=== PATIENT | female | born 1940 | race Two or more races ===

== ENCOUNTER 2018-11-18 21:26 | Inpatient (IN) | payer OTHER ==
[2018-11-18] MEDS ORDERED: MAGNESIUM SULF 50% (8.12 MEQ/2 ML-1 GM VIAL) IVPB ONE (22:28)
[2018-11-18] MEDS ORDERED: ALBUTEROL SO4 2.5/IPRATROPIUM 0.5 INH SOL 3 ML VIAL.NEB. NEB ONE ×2 (22:28→23:13)
[2018-11-18] MEDS ORDERED: methylPREDNISolone NA SUCC 125 MG/2 ML VIAL IVPUSH ONE (22:28)
[2018-11-18] MEDS ORDERED: ACETAMINOPHEN 1000 MG/100 ML VIAL (NON FORMULARY) IVPB ONE (22:38)
--- NOTE | 2018-11-18 22:42 | PDOC ---
History of Present Illness - General Chief Complaint: Injury Stated Complaint: CHEST PAIN Time Seen by Provider: 11/18/18 22:17 History Source: Patient, Significant Other (Celia ) Exam Limitations: No Limitations - History of Present Illness Initial Comments: 11/18/18 22:34 78y F with PMH of COPD (not on home O2), HTN, HLD, Osteoporosis, DM (not on medication anymore) presenting to ED with complaints of head, chest and abdominal pain after tripping over her bed last night at 0200. Pt states she tripped because she was feeling lightheaded and hit her head, chest and abdomen on her bed. She did not lose consciousness after the event or throughout the day but is worried about the pain. The headache is R sided, the chest pain is right sided and substernal and the abdominal pain is diffuse. She also endorses increasing SOB and using her inhaler more frequently. Endorses cough productive of yellow sputum. Denies n/v/d, numbness/tingling, weakness, back pain, leg pain , hematuria, urinary frequency/urgency/dysuria, diarrhea, constipation. Last BM was yesterday and was normal. PMD: Ulysses PMH: see hpi Meds: see med rec Allergies: nkda Social: 1/2ppd Past History - Past Medical History Allergies/Adverse Reactions: Allergies Allergy/AdvReac Type Severity Reaction Status Date / Time metformin AdvReac Verified 11/10/17 06:59 Home Medications: Ambulatory Orders Gabapentin 300 mg PO TID 11/06/17 Lisinopril [Prinivil -] 40 mg PO DAILY 11/06/17 Nifedipine ER [Procardia XL -] 30 mg PO DAILY 11/06/17 Propranolol HCl [Propranolol HCl ER] 80 mg PO DAILY 11/06/17 Albuterol Sulfate Inhaler - [Ventolin HFA Inhaler -] 1 - 2 inh PO Q4H #2 inhaler 11/12/17 Arformoterol Tartrate [Brovana -] 1 amp NEB RBID #1 amp 11/12/17 Methadone [Dolophine -] 20 mg PO DAILY@0600 tablet MDD 20 11/12/17 Polyethylene Glycol 3350 [Miralax (For Bowel Prep) -] 17 gm PO DAILY #1 bottle 11/12/17 Prednisone 10 mg PO DAILY #40 tablet 11/12/17 Sennosides/Docusate Sodium [Pericolace -] 2 each PO HS #60 tablet 11/12/17 Albuterol Sulfate Inhaler - [Ventolin HFA Inhaler -] 1 - 2 inh PO Q4H PRN #2 inhaler 11/13/17 Arformoterol Tartrate [Brovana] 15 mcg IH BID #1 ml 11/13/17 Polyethylene Glycol 3350 [Miralax (For Daily Use) -] 17 gm PO DAILY #1 bottle Prednisone See Taper PO DAILY #40 tablet 11/13/17 Sennosides/Docusate Sodium [Pericolace -] 2 each PO HS #60 tablet 11/13/17 Anemia: No Asthma: No Cancer: No Cardiac Disorders: No CVA: No COPD: Yes CHF: No DVT: No Dementia: No Diabetes: Yes GI Disorders: Yes Disorders: No HTN: Yes Hypercholesterolemia: Yes Liver Disease: No Seizures: No Thyroid Disease: No - Surgical History Abdominal Surgery: No Appendectomy: No Cardiac Surgery: No Cholecystectomy: No Lung Surgery: No Neurologic Surgery: No Orthopedic Surgery: No - Immunization History Immunization Up to Date: Yes - Psycho Social/Smoking Cessation Hx Smoking History: Never smoked Have you smoked in the past 12 months: No Number of Cigarettes Smoked Daily: 10 Information on smoking cessation initiated: No 'Breaking Loose' booklet given: 11/06/17 Hx Alcohol Use: No Drug/Substance Use Hx: No Substance Use Type: None Hx Substance Use Treatment: Yes (ON METHADONE,[facility]) Review of Systems - Review of Systems Constitutional: No: Chills, Fever, Weakness HEENTM: No: Symptoms Reported Respiratory: Yes: Shortness of Breath, Productive cough Cardiac (ROS): Yes: See HPI, Chest Pain, Lightheadedness ABD/GI: Yes: See HPI : No: Burning, Hematuria Musculoskeletal: No: Symptoms Reported Integumentary: No: Symptoms Reported Neurological: No: Symptoms reported *Physical Exam - Vital Signs Last Vital Signs Temp Pulse Resp BP Pulse Ox 100.8 F H 92 H 18 171/66 H 99 11/18/18 21:27 11/18/18 21:27 11/18/18 21:27 11/18/18 21:27 11/18/18 21:27 - Physical Exam General Appearance: Yes: Nourished, Appropriately Dressed. No: Apparent Distress HEENT: positive: EOMI, CHIP, Pale Conjunctivae Neck: positive: Trachea midline, Supple Respiratory/Chest: positive: Chest Tender, Wheezing. negative: Respiratory Distress, Labored Respiration, Rhonchi, Stridor, Plerual Rub Cardiovascular: positive: Regular Rhythm, Regular Rate, S1, S2. negative: Edema , JVD, Murmur Vascular Pulses: Dorsalis-Pedis (R): 2+, Doralis-Pedis (L): 2+ Gastrointestinal/Abdominal: positive: Normal Bowel Sounds, Tender, Soft. negative: Guarding, Rebound Musculoskeletal: negative: CVA Tenderness Extremity: positive: Pelvis Stable. negative: Swelling, Calf Tenderness Integumentary: positive: Normal Color, Dry, Warm. negative: Pale Neurologic: positive: recyclable materials sorter II-XII NML intact, Fully Oriented, Alert, Normal Mood/ Affect, Normal Response, Motor Strength 06/11 ED Treatment Course - LABORATORY CBC & Chemistry Diagram: 11/18/18 23:10 11/18/18 23:10 - RADIOLOGY Radiology Studies Ordered: Category Date Time Status ABDOMEN & PELVIS CT WITH CONTR [CT] Stat CT Scan 11/18/18 22:30 Ordered CHEST PA & LAT [RAD] Stat Radiology 11/18/18 22:18 Ordered Medical Decision Making - Medical Decision Making 11/19/18 02:09 78y F with PMH of COPD, HTN, HLD presenting to ED with complaints of chest, abdominal pain and headache after falling due to lightheadedness. Denies LOC. Also complaining of SOB. vitals wnl PE: diffuse wheezing, chest wall, abdominal tenderness. normal neurological exam. NO bruising noted. ddx includes but not lmited to copd exacerbation, pna, ptx, abdominal bleed, head bleed labs including trop, coags, ts, CT head chest AP, cxr, ekg -iv fluids, ofirmev. labs show low wbc, h/h and platelets. elevated MCV. Pt states she saw her pmd 2w ago for a physical. 3d ago she was told her blood levels are low and had repeat testing. States she is feeling slightly better breathing howell. fever could be due to leukemia/lymphoma. UA negative for infection. cmp wnl. CXR: no infiltrates or consolidations. Pending CT results guaiac negative. Pt agreed to oraquick test. Hgb drop 4u since last year. 11/19/18 02:31 CT chest:There is no aortic dissection or aneurysm. Mediastinal hematoma. There is no significant mediastinal or hilar adenopathy. The heart size is normal. The trachea and bronchi are patent. There is no pleural or pericardial effusion. The lungs are clear. No pneumothorax. No fractures. CT abdomen and pelvis:Normal liver, gallbladder, pancreas, spleen, adrenal glands and kidneys. The stomach and abdominal small and large bowel are normal. There is no aortic aneurysm. There is no significant retroperitoneal lymphadenopathy. No retroperitoneal hematoma. he pelvic small and large bowel are normal. The appendix is normal. The uterus and adnexalstructures are notable only for a small calcified fibroid.. Urinary bladder is unremarkable. There is no pelvic free fluid. No discrete pelvic lymphadenopathy is identified. No fractures. CT head: he ventricular system is midline and nondilated. The sulcal pattern is normal for the patient's age. Mild small vessel ischemic changes are noted. There is no bleed, mass, extra-axial fluid collection or mass effect. No skull fracture or skull lesion is identified. The visualized paranasal sinuses and mastoid air cells are clear Will start azithromycin 500mg for copd exacerbation patient will benefit from admission for copd exacerbation, pancytopenia and lightheadedness likely 2/2 anemia. pending ua, will treat if infection is present. Discharge - Discharge Information Problems reviewed: Yes Clinical Impression/Diagnosis: COPD with acute exacerbation, Pancytopenia Condition: Stable - Admission Yes - Follow up/Referral Referrals: Ana Arora [Primary Care Provider] - - Patient Discharge Instructions - Post Discharge Activity
[2018-11-18] MEDS ORDERED: methylPREDNISolone NA SUCC 125 MG/2 ML VIAL ONE (23:13)
[2018-11-18] MEDS ORDERED: ACETAMINOPHEN INJECTION 100 ML IVPB ONE (23:13)
[2018-11-18 23:24] LABS: BASO % 0.6 % (0-2.0); HEMATOCRIT 24.1 % (32.4-45.2); LYMPH % 59.4 % (8-40); MCH 41.4 pg (25.7-33.7); MCHC 33.2 g/dl (32.0-36.0); MEAN CELL VOLUME 124.9 fl (80-96); MONO % 5.7 % (3.8-10.2); NEUT % 33.3 % (42.8-82.8); RBC 1.93 M/mm3 (3.60-5.2); RDW 18.1 % (11.6-15.6); WHITE BLOOD COUNT 2.4 K/mm3 (4.0-10.0)
[2018-11-18 23:35] LABS: INR 1.18 (0.83-1.09); PROTHROMBIN TIME (PATIENT) 13.9 SEC (9.7-13.0)
[2018-11-18 23:44] LABS: BILIRUBIN,TOTAL 0.6 mg/dL (0.2-1); CALCIUM 8.7 mg/dL (8.5-10.1); TOT PROT 7.8 g/dl (6.4-8.2)
[2018-11-18] MEDS ORDERED: SODIUM CHLORIDE 1,000 ML IV STA (23:45)
[2018-11-18 23:50] LABS: ANISOCYTOSIS 1+; MACROCYTOSIS 2+; PLATELET ESTIMATE DECREASED
[2018-11-19 02:12] LABS: MEAN PLT VOLUME 7.6 fl (7.5-11.1)
[2018-11-19 02:15] LABS: PLATELET COUNT 57 K/MM3 (134-434)
[2018-11-19] MEDS ORDERED: AZITHROMYCIN IVPB 500 MG in DEXTROSE 5%-WATER - 250 ML IVPB ONE (02:30)
[2018-11-19] MEDS ORDERED: AZITHROMYCIN IVPB 500 MG/250 ML BAG IVPB ONE (02:33)
--- NOTE | 2018-11-19 02:47 | PDOC ---
Documentation entered by Cassi Zepeda SCRIBE, acting as scribe for Verito Fine MD. Verito Fine MD: This documentation has been prepared by the luzibe, Cassi Zepeda SCRIBE, under my direction and personally reviewed by me in its entirety. I confirm that the documentation accurately reflects all work, treatment, procedures, and medical decision making performed by me. Attending Attestation - Resident Resident Name: Sa Mirnaira - ED Attending Attestation I have performed the following: I have examined & evaluated the patient, The case was reviewed & discussed with the resident, I agree w/resident's findings & plan, Exceptions are as noted - HPI HPI: 11/19/18 00:53 The patient is a 78-year-old female with a past medical history significant for COPD (not on home O2), HTN, HLD, osteoporosis, and DM (no longer on medications ) who presents to the emergency department s/p a fall last night around 2:00 am , now complaining of abdominal, head and chest pain. The patient reports she was walking without her walker (like she usually does at home) when she felt lightheaded. She reached for support, but nothing was nearby, leading to the fall. The patient reports injuring her head, chest, and abdomen, now complaining of a right-sided headache, right side chest pain, and diffuse abdominal pain that has been worsening. The patient reports an additional complaints of increased shortness of breath and productive cough with yellow sputum production. She also reports 2 days of subjective fevers. Denies nausea, vomiting, or chills. Denies LOC. The patient reports having bloodwork done with her PCP a couple of weeks ago, which was noted to be abnormal - pt does not know specifically what the abnormality was. The patient had bloodwork rechecked on Tuesday, results pending. Per the family member at the bedside, the patient was noted to have difficulty finding words and difficulty following directions since this morning. Denies dysuria, visual sxs, dizziness, focal weakness/numbness, abd pain, LE edema. Allergies: metformin PCP: DR. Arora - Physicial Exam PE: 11/19/18 02:11 GENERAL: Awake, alert, and fully oriented, in no acute distress. Chronically ill appearing HEAD: No signs of trauma EYES: PERRLA, EOMI, sclera anicteric, conjunctiva clear ENT: Nares patent, oropharynx clear without exudates. Moist mucosa NECK: Normal ROM, supple, no lymphadenopathy, JVD, or masses LUNGS: Breath sounds equal, clear to auscultation bilaterally. No wheezes, and no crackles HEART: Regular rate and rhythm, normal S1 and S2, no murmurs, rubs or gallops ABDOMEN: Soft, nontender, normoactive bowel sounds. No guarding, no rebound. No masses EXTREMITIES: Normal range of motion, no edema. No cords, erythema, or tenderness NEUROLOGICAL: Normal speech, cranial nerves intact, negative pronator drift, 5/ 5 strength in all 4 extremities, normal sensation to light touch in all 4 extremities, normal cerebellar exam, normal gait, normal reflexes and tone SKIN: Warm, Dry, normal turgor, no rashes or lesions noted. - Medical Decision Making 11/19/18 02:45 78-year-old female presents the emergency department with headache, chest, and abdominal pain since a fall last night. CT head, chest, abdomen and pelvis for trauma work-up is negative for any acute findings. Fall was preceded by lightheadedness. In addition patient reports 2 days of fever and some shortness of breath, she is febrile here in the emergency department. Initially with diffuse wheezing consistent with COPD exacerbation. Wheezing and shortness of breath improved with nebulizers, steroids, and magnesium. We will add azithromycin given the fever. Labs remarkable for pancytopenia including leukopenia with moderate neutropenia, thrombocytopenia, and anemia of unknown etiology. Patient orally consents for HIV testing in light of pancytopenia, which is pending. Anticipate admission for pancytopenia (which is new compared to previous blood work), COPD exacerbation, fever, and possible syncope last night. Heart Score/ECG Review #1 11/19/18 02:45 Twelve-lead EKG was performed and reviewed by me. Normal sinus rhythm, rate 84. Normal axis and intervals. No ST elevations or T wave inversions.
--- NOTE | 2018-11-19 03:23 | PN ---
<Piotr Abarca - Last Filed: 11/19/18 05:58> Teaching Attending Note Name of Resident: Vida Torres ATTENDING PHYSICIAN STATEMENT I saw and evaluated the patient. I reviewed the resident's note and discussed the case with the resident. I agree with the resident's findings and plan as documented. SUBJECTIVE: Patient is a 78 year old woman with a PMH of COPD (not on home O2), Tobacco use , HTN, HLD, Osteoporosis and Diet-controlled DM presenting to ER with complaints of head, chest and abdominal pain after tripping over her bed last night at 0200. Patient states she tripped because she was feeling lightheaded and hit her head, chest and abdomen on her bed. She did not loose consciousness after the event or throughout the day but is worried about the pain. The headache is right-sided, the chest pain is right-sided and substernal and the abdominal pain is diffuse. She also has nausea, increasing SOB and using her inhaler more frequently. She has cough productive of yellow sputum. Denies vomiting, diarrhea, numbness/tingling, weakness, back pain, leg pain, hematuria , urinary frequency, urgency, dysuria, diarrhea or constipation. No recent travel or obvious sick contacts. Denies alcohol abuse or illicit drug use. Last BM was yesterday and was normal. Has FH of throat cancer and acute AL. OBJECTIVE: Alert Vital Signs Period Temp Pulse Resp BP Sys/Peter Pulse Ox Last 24 Hr 100.8 F 92 18 171/66 99 HEENT: No Jaundice, eye redness or discharge, PERRLA, EOMI. Normocephalic, atraumatic. External ears are normal and hearing is grossly intact. No nasal discharge. Neck: Supple, nontender. No palpable adenopathy or thyromegaly. No JVD Chest: Good effort. Diffuse expiratory wheezing. Clear to percussion. Heart: Regular. No S3, rub or murmur Abdomen: Not distended, soft, nontender and no HSM. No rebound or guarding. Normal bowel sounds. Ext: Peripheral pulses intact. No leg edema. Skin: Warm and dry. No petechiae, rash or ecchymosis. Neuro: Alert. Oriented x3. CN 2-12 grossly intact. Sensation grossly intact in all four extremities and DTR are symmetric. Psych: Appropriate mood and affect. Good insight. Current Medications Generic Name Dose Route Start Last Admin Trade Name Parrish PRN Reason Stop Dose Admin Azithromycin 500 mg/ Dextrose 250 mls @ 250 mls/hr 11/19/18 02:30 11/19/18 02 :34 IVPB 11/19/18 03:29 250 mls/hr ONCE ONE Administration Home Medications Medication Instructions Recorded Gabapentin 300 mg PO TID 11/06/17 Lisinopril [Prinivil -] 40 mg PO DAILY 11/06/17 Nifedipine ER [Procardia XL -] 30 mg PO DAILY 11/06/17 Propranolol HCl [Propranolol HCl 80 mg PO DAILY 11/06/17 ER] Albuterol Sulfate Inhaler - 1 - 2 inh PO Q4H #2 inhaler 11/12/17 [Ventolin HFA Inhaler -] Arformoterol Tartrate [Brovana -] 1 amp NEB RBID #1 amp 11/12/17 Methadone [Dolophine -] 20 mg PO DAILY@0600 tablet MDD 20 11/12/17 Polyethylene Glycol 3350 [Miralax 17 gm PO DAILY #1 bottle 11/12/17 (For Bowel Prep) -] Prednisone 10 mg PO DAILY #40 tablet 11/12/17 Sennosides/Docusate Sodium 2 each PO HS #60 tablet 11/12/17 [Pericolace -] Albuterol Sulfate Inhaler - 1 - 2 inh PO Q4H PRN #2 inhaler 11/13/17 [Ventolin HFA Inhaler -] Arformoterol Tartrate [Brovana] 15 mcg IH BID #1 ml 11/13/17 Polyethylene Glycol 3350 [Miralax 17 gm PO DAILY #1 bottle 11/13/17 (For Daily Use) -] Prednisone See Taper PO DAILY #40 tablet 11/13/17 Sennosides/Docusate Sodium 2 each PO HS #60 tablet 11/13/17 [Pericolace -] Abnormal Lab Results 11/18/18 11/18/18 11/18/18 23:10 23:10 23:10 WBC 2.4 L RBC 1.93 L Hgb 8.0 L Hct 24.1 L D MCV 124.9 H MCH 41.4 H D RDW 18.1 H Plt Count 57 L D Absolute Neuts (auto) 0.8 L Neutrophils % 33.3 L D Lymphocytes % 59.4 H D PT with INR 13.90 H INR 1.18 H Anion Gap 5 L BUN 20.0 H Random Glucose 136 H AST 8 L ALT 10 L ASSESSMENT AND PLAN: 1. Fall/COPD exacerbation/Pancytopenia - Patient says she was recently told about anemia and "other" abnormal laboratory tests, suggesting that pancytopenia may no be acute. Fall may be due to anemia or acute febrile illness. No acute abnormality on CXR, Head CT, Chest CT, or Abdomen/Pelvis CT. EKG shows NSR with no significant ST-T wave changes and initial troponin is negative. Sepsis workup done. UA pending. Monitor CBC daily. Will treat with IV vancomycin and zosyn for neutropenic fever of unknown source and implement reverse isolation. Get flu swab, serial stool guaiacs, reticulocyte count, iron studies, vitamin B12 and folate levels. Consult hematology and ID. Does not have an official diagnosis of COPD. Will treat with solumedrol, duoneb, symbicort, azithromycin, O2 and consult Pulmonary. Will continue comprehensive care for all of patients comorbid conditions. 2. Diet-controlled DM We will implement sliding scale insulin regimen. Provide comprehensive diabetes care with patient teaching and counseling about the importance of adherence to prescribed diabetes regimen, euglycemia, eye care and foot care. 3. Tobacco Use Counseled on risks associated with tobacco use. We will provide patient all the necessary assistance to facilitate smoking cessation and prescribe Nicotine patch. 4. Uncontrolled Hypertension - Restart suitable outpatient antihypertensive drugs when clinically appropriate. Revise regimen to ensure [id number] excellent BP control and scholarship counselor patient on the injurious effects of uncontrolled hypertension. Nonpharmacologic measures to control hypertension like weight loss, salt restriction and exercise discussed. Importance of adherence to treatment regimen and attainment of normotension emphasized. 5. DVT prophylaxis - Early ambulation. SCDs or heparin not safe with severe thrombocytopenia. 6. Advance directives - Full code <Walter Soares - Last Filed: 11/19/18 12:22> Teaching Attending Note Please refer to above for this 24 hourperiod exam for billing Acute on chronic respiratory failure 2/2 copd on o2, nebs, medrol DM Tobacco abuse HTN HLD Pancytopenia
--- NOTE | 2018-11-19 04:46 | HP ---
CHIEF COMPLAINT: weakness, fall PCP: Bhavin HISTORY OF PRESENT ILLNESS: Ms. Brown is a 78y/o female with pulmonary disease, HTN, HLD, osteoporosis, and DM who presents with weakness and fall. Patient reports 3 days of increased weakness and fatigue, to the point of being bedbound. Early yesterday morning the patient was walking in her bedroom and suddenly became lightheaded. She reached for her dresser to catch herself but fell and hit her head and chest on the bedpost and right knee on the ground where she landed. Her roommate (sister- in-law) heard her scream, and she came to help her up. The patient uses a walker only outside of the house. She reports not going to the ED because the pain was not very bad. She continued to feel weaker over the course of the day and developed a fever of 102. Her efcchk-ez-bod called EMS. The patient is reporting associated shortness of breath (and requiring inhaler more often), non -productive cough, sinus congestion, and nausea. No recent sick contacts. She also has chest pain and knee pain from the fall. The patient also saw her PCP earlier this month for her annual physical. She reports being told she was anemic (endorses previous hx years ago) and other blood levels being low. She is waiting on results of follow up labs. Flu shot received on 11/15/18. She does not have a journalists and other writers and reports having asthma and not diagnosed with COPD. ER course was notable for: (1) CT head, chest, abdomen, pelvis negative for acute pathology (2) pancytopenia WBC 2.4, Hb 8, Plt 57; ANC 0.8; macrocytosis 124 (3) Mg, solu-medrol, albuterol, azithromycin PAST MEDICAL HISTORY: pulmonary disease, HTN, HLD, osteoporosis, and DM PAST SURGICAL HISTORY: hernia repair 03/[address] [facility] Social History: Smokin.5-1.5ppd for 54 years Alcohol: denies Drugs: former user Pt lives at home with sister in law. Allergies metformin Adverse Reaction (Verified 11/10/17 06:59) HOME MEDICATIONS: Home Medications Medication Instructions Recorded Gabapentin 300 mg PO TID 11/06/17 Lisinopril [Prinivil -] 40 mg PO DAILY 11/06/17 Nifedipine ER [Procardia XL -] 30 mg PO DAILY 11/06/17 Propranolol HCl [Propranolol HCl 80 mg PO DAILY 11/06/17 ER] Albuterol Sulfate Inhaler - 1 - 2 inh PO Q4H #2 inhaler 11/12/17 [Ventolin HFA Inhaler -] Arformoterol Tartrate [Brovana -] 1 amp NEB RBID #1 amp 11/12/17 Methadone [Dolophine -] 20 mg PO DAILY@0600 tablet MDD 20 11/12/17 Polyethylene Glycol 3350 [Miralax 17 gm PO DAILY #1 bottle 11/12/17 (For Bowel Prep) -] Prednisone 10 mg PO DAILY #40 tablet 11/12/17 Sennosides/Docusate Sodium 2 each PO HS #60 tablet 11/12/17 [Pericolace -] Albuterol Sulfate Inhaler - 1 - 2 inh PO Q4H PRN #2 inhaler 11/13/17 [Ventolin HFA Inhaler -] Arformoterol Tartrate [Brovana] 15 mcg IH BID #1 ml 11/13/17 Polyethylene Glycol 3350 [Miralax 17 gm PO DAILY #1 bottle 11/13/17 (For Daily Use) -] Prednisone See Taper PO DAILY #40 tablet 11/13/17 Sennosides/Docusate Sodium 2 each PO HS #60 tablet 11/13/17 [Pericolace -] REVIEW OF SYSTEMS See HPI PHYSICAL EXAMINATION Vital Signs - 24 hr 11/18/18 11/19/18 11/19/18 21:27 01:43 03:45 Temperature 100.8 F H 98.6 F Pulse Rate 92 H Pulse Rate [ 90 Apical] Respiratory 18 19 Rate Blood Pressure 171/66 H Blood Pressure 160/72 [Left Arm] O2 Sat by Pulse 99 99 97 Oximetry (%) 11/19/18 04:20 Temperature 98.6 F Pulse Rate Pulse Rate [ 79 Apical] Respiratory 19 Rate Blood Pressure Blood Pressure 158/100 [Left Arm] O2 Sat by Pulse 96 Oximetry (%) GENERAL: Awake, alert, and fully oriented, in no acute distress. HEAD: Normal with no signs of trauma. EYES: Pupils equal, round and reactive to light EARS, NOSE, THROAT: Ears normal, nares patent, moist mucous membranes. NECK: Normal range of motion LUNGS: Right side rhonchi better heard at base, left side expiratory wheezing HEART: Regular rate and rhythm, no murmur ABDOMEN: Soft, nontender, not distended, normoactive bowel sounds MUSCULOSKELETAL: Normal range of motion at all joints. Right LE 4/5 strength. Left LE 5/5 strength. Chest non-tender to palpation. NEUROLOGICAL: Cranial nerves II-XII grossly intact. Normal speech. PSYCHIATRIC: Cooperative. Good eye contact. Appropriate mood and affect. SKIN: Warm, dry, normal turgor, no rashes or lesions noted, normal capillary refill. Laboratory Results - last 24 hr 11/18/18 11/18/18 11/18/18 23:10 23:10 23:10 WBC 2.4 L RBC 1.93 L Hgb 8.0 L Hct 24.1 L D MCV 124.9 H MCH 41.4 H D MCHC 33.2 RDW 18.1 H Plt Count 57 L D MPV 7.6 D Absolute Neuts (auto) 0.8 L Neutrophils % 33.3 L D Lymphocytes % 59.4 H D Monocytes % 5.7 Eosinophils % 1.0 D Basophils % 0.6 Nucleated RBC % 0 Platelet Estimate Decreased Anisocytosis 1+ Macrocytosis 2+ Schistocytes 1+ PT with INR INR PTT (Actin FS) 28.7 Sodium Potassium Chloride Carbon Dioxide Anion Gap BUN Creatinine Est GFR (CKD-EPI)AfAm Est GFR (CKD-EPI)NonAf Random Glucose Lactic Acid Calcium Total Bilirubin AST ALT Alkaline Phosphatase Troponin I < 0.02 Total Protein Albumin Stool Occult Blood HIV 1&2 Antibody Screen HIV P24 Antigen 11/18/18 11/18/18 11/18/18 23:10 23:10 23:10 WBC RBC Hgb Hct MCV MCH MCHC RDW Plt Count MPV Absolute Neuts (auto) Neutrophils % Lymphocytes % Monocytes % Eosinophils % Basophils % Nucleated RBC % Platelet Estimate Anisocytosis Macrocytosis Schistocytes PT with INR 13.90 H INR 1.18 H PTT (Actin FS) Sodium 138 Potassium 4.0 Chloride 104 Carbon Dioxide 29 Anion Gap 5 L BUN 20.0 H Creatinine 1.0 Est GFR (CKD-EPI)AfAm 62.93 Est GFR (CKD-EPI)NonAf 54.30 Random Glucose 136 H Lactic Acid 1.1 Calcium 8.7 Total Bilirubin 0.6 AST 8 L ALT 10 L Alkaline Phosphatase 115 Troponin I Total Protein 7.8 Albumin 4.0 Stool Occult Blood HIV 1&2 Antibody Screen HIV P24 Antigen 11/19/18 11/19/18 01:03 01:45 WBC RBC Hgb Hct MCV MCH MCHC RDW Plt Count MPV Absolute Neuts (auto) Neutrophils % Lymphocytes % Monocytes % Eosinophils % Basophils % Nucleated RBC % Platelet Estimate Anisocytosis Macrocytosis Schistocytes PT with INR INR PTT (Actin FS) Sodium Potassium Chloride Carbon Dioxide Anion Gap BUN Creatinine Est GFR (CKD-EPI)AfAm Est GFR (CKD-EPI)NonAf Random Glucose Lactic Acid Calcium Total Bilirubin AST ALT Alkaline Phosphatase Troponin I Total Protein Albumin Stool Occult Blood Negative HIV 1&2 Antibody Screen Negative HIV P24 Antigen Negative ASSESSMENT/PLAN: Ms. Brown is a 78y/o female with pulmonary disease, HTN, HLD, osteoporosis, and DM who presents with weakness and fall. Recent labs showed new onset pancytopenia. Patient is currently febrile. #shortness of breath Pt not formally diagnosed with COPD. Reports asthma since childhood. CT chest and CXR do not show infiltrates or evidence of pneumonia -solumedrol -duo-nebs standing -albuterol PRN -pulm consult -flu swab #pancytopenia #macrocytosis #neutropenic fevers Newly diagnosed young. Macrocytosis previously but increased. 100.8 temp at admission. Pt was having labwork done with PCP prior to presentation. Counts decreased since last admission in November 2017. -vanc -zosyn -ID consult -iron studies -B12, folate -alcohol -retic count #fall Imaging negative -fall precautions -OOB with assist #HTN Pt reports compliance with medication -restart home medications when reconciled #DM Pt reports previously on medication. -A1C -add SSI and BGMs if needed FEN PO fluids monitor sodium diet DVT Ppx Lovenox Dispo med/surg Visit type - Emergency Visit Emergency Visit: Yes ED Registration Date: 11/19/18 Care time: The patient presented to the Emergency Department on the above date and was hospitalized for further evaluation of their emergent condition. - New Patient This patient is new to me today: Yes Date on this admission: 11/19/18 - Critical Care Critical Care patient: No ATTENDING PHYSICIAN STATEMENT I saw and evaluated the patient. I reviewed the resident's note and discussed the case with the resident. I agree with the resident's findings and plan as documented. SUBJECTIVE: OBJECTIVE: ASSESSMENT AND PLAN:
[2018-11-19] MEDS ORDERED: ALBUTEROL SO4 8 GM HFA INHALER IH PRN (05:02)
[2018-11-19] MEDS ORDERED: VANCOMYCIN 1 GM in D5W (PRE-DOCKED) 1,000 MG/250 ML IVPB ONE (05:03)
[2018-11-19 05:15] VITALS: BMI 27.3
[2018-11-19] MEDS ORDERED: VANCOMYCIN 1 GRAM (PRE-DOCKED) 1,000 MG/250 ML BAG IVPB ONE (05:15)
[2018-11-19] MEDS: ALBUTEROL SO4 2.5/IPRATROPIUM 0.5 INH SOL 3 ML VIAL.NEB. NEB SCH ×5 (07:06→20:32)
--- NOTE | 2018-11-19 08:24 | EKG ---
Test Reason : Blood Pressure : / mmHG Vent. Rate : 084 BPM Atrial Rate : 084 BPM P-R Int : 178 ms QRS Dur : 082 ms QT Int : 360 ms P-R-T Axes : 054 033 061 degrees QTc Int : 425 ms NORMAL SINUS RHYTHM WITH SINUS ARRHYTHMIA NORMAL ECG WHEN COMPARED WITH ECG OF 06-NOV-2017 02:54, DE INTERVAL HAS DECREASED NONSPECIFIC T WAVE ABNORMALITY NO LONGER EVIDENT IN ANTEROLATERAL LEADS Confirmed by Anjali Madera ([id number]) on 11/19/2018 8:24:27 AM Referred By: Confirmed By:Anjali Madera
[2018-11-19 08:49] LABS: BASO % 0.4 % (0-2.0); HEMATOCRIT 23.2 % (32.4-45.2); HEMOGLOBIN 7.8 GM/dL (10.7-15.3); LYMPH % 58.5 % (8-40); MCHC 33.9 g/dl (32.0-36.0); MEAN CELL VOLUME 125.1 fl (80-96); MEAN PLT VOLUME 7.9 fl (7.5-11.1); MONO % 6.5 % (3.8-10.2); NEUT % 34.6 % (42.8-82.8); PLATELET COUNT 54 K/MM3 (134-434); RBC 1.85 M/mm3 (3.60-5.2); RDW 18.8 % (11.6-15.6)
[2018-11-19 08:53] LABS: MCH 42.4 pg (25.7-33.7)
[2018-11-19 08:57] LABS: WHITE BLOOD COUNT 1.9 K/mm3 (4.0-10.0)
[2018-11-19 09:11] LABS: BLOOD UREA NITROGEN 14.8 mg/dL (7-18); CALCIUM 8.6 mg/dL (8.5-10.1); CREATININE 0.8 mg/dL (0.55-1.3); POTASSIUM 4.2 mmol/L (3.5-5.1)
[2018-11-19 09:30] LABS: EPI CELLS 1.3 /HPF (0-5/HPF); HYALINE CASTS 0 /lpf (0-8); URINE APPEARANCE CLEAR; URINE BACTERIA 48.3 /hpf (NEGATIVE); URINE BILIRUBIN NEGATIVE (NEGATIVE); URINE COLOR YELLOW; URINE GLUCOSE (UA) NEGATIVE (NEGATIVE); URINE KETONE NEGATIVE (NEGATIVE); URINE LEUK ESTERASE NEGATIVE (NEGATIVE); URINE NITRITE NEGATIVE (NEGATIVE); URINE PROTEIN 1+ (NEGATIVE); URINE RBC 1 /hpf (0-4); URINE UROBILINOGEN 0.2 mg/dL (0.2-1.0); URINE WBC 0 /hpf (0-5)
[2018-11-19 09:39] LABS: IRON SERUM 81 ug/dL (50-175); TOTAL IRON BINDING CAPACITY 250 ug/dL (250-450)
[2018-11-19] MEDS ORDERED: ENOXAPARIN NA (PORCINE) 40 MG/0.4 ML DISP.SYRIN SQ SCH (10:00)
[2018-11-19] MEDS ORDERED: PIPERACILLIN/TAZOB 4.5 GM 4.5 GM in DEXTROSE 5%-WATER 100 ML IVPB SCH (10:00)
[2018-11-19] MEDS ORDERED: DEXTROSE 5%-WATER 100 ML IVPB ONE (10:03)
[2018-11-19] MEDS ORDERED: PIPERACILLIN/TAZOBACTAM 4.5 GM VIAL IVPB ONE (10:03)
[2018-11-19] MEDS: methylPREDNISolone NA SUCC 40 MG/1 ML VIAL IVPUSH SCH ×2 (10:11→18:42)
[2018-11-19] MEDS: PIPERACILLIN/TAZOB 4.5 GM 4.5 GM in DEXTROSE 5%-WATER 100 ML IVPB SCH ×2 (10:12→11:02)
--- NOTE | 2018-11-19 12:13 | CON.PULM ---
Consult Consult Specialty:: PULM/CCM Referred by:: KRISTINE Reason for Consultation:: SOB - History of Present Illness Chief Complaint: SOB History of Present Illness: 78 F, known to me from a hospitalization last year for acute hypoxic and hypercapneic respiratory failure. Known history of asthma, more likely COPD, 1/ 2 PPD active smoker, HTN, HLD, osteoporosis, and DM. Admitted via the ER due to 3 days of increased weakness and fatigue. She does report SOB and FRANK. Some dry intermittent cough. No night sweats or hemoptysis. No travel history or sick contacts. CT Chest: no acute process. - History Source History Provided By: Patient Limitations to Obtaining History: No Limitations - Past Medical History Cardio/Vascular: Yes: HTN Pulmonary: Yes: Asthma, Bronchitis, COPD, Pneumonia, Previously Intubated, Sleep Apnea. 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 - was on metformin previously with bad reaction, no longer on it, sugars apparently normal) - Past Surgical History Past Surgical History: Yes: Cataract Removal (right, and laser surgery on eyes) , Colonoscopy (within the year at [facility], had polyps removed) - Alcohol/Substance Use Hx Alcohol Use: No History of Substance Use: reports: Prescription (methadone daily) - Smoking History Smoking history: Current every day smoker Have you smoked in the past 12 months: No Aproximately how many cigarettes per day: 10 - Social History Usual Living Arrangement: Other (with sister) ADL: Independent Home Medications - Allergies Allergies/Adverse Reactions: Allergies Allergy/AdvReac Type Severity Reaction Status Date / Time metformin AdvReac Verified 11/10/17 06:59 - Home Medications Home Medications: Ambulatory Orders Gabapentin 300 mg PO TID 11/06/17 Lisinopril [Prinivil -] 40 mg PO DAILY 11/06/17 Nifedipine ER [Procardia XL -] 30 mg PO DAILY 11/06/17 Propranolol HCl [Propranolol HCl ER] 80 mg PO DAILY 11/06/17 Albuterol Sulfate Inhaler - [Ventolin HFA Inhaler -] 1 - 2 inh PO Q4H #2 inhaler 11/12/17 Arformoterol Tartrate [Brovana -] 1 amp NEB RBID #1 amp 11/12/17 Methadone [Dolophine -] 20 mg PO DAILY@0600 tablet MDD 20 11/12/17 Polyethylene Glycol 3350 [Miralax (For Bowel Prep) -] 17 gm PO DAILY #1 bottle 11/12/17 Prednisone 10 mg PO DAILY #40 tablet 11/12/17 Sennosides/Docusate Sodium [Pericolace -] 2 each PO HS #60 tablet 11/12/17 Albuterol Sulfate Inhaler - [Ventolin HFA Inhaler -] 1 - 2 inh PO Q4H PRN #2 inhaler 11/13/17 Arformoterol Tartrate [Brovana] 15 mcg IH BID #1 ml 11/13/17 Polyethylene Glycol 3350 [Miralax (For Daily Use) -] 17 gm PO DAILY #1 bottle Prednisone See Taper PO DAILY #40 tablet 11/13/17 Sennosides/Docusate Sodium [Pericolace -] 2 each PO HS #60 tablet 11/13/17 Review of Systems - Review of Systems Constitutional: reports: Lethargy, Malaise, Weakness. denies: Chills, Fever, Night Sweats Eyes: reports: No Symptoms HENT: reports: No Symptoms Neck: reports: No Symptoms Cardiovascular: reports: No Symptoms, Shortness of Breath. denies: Chest Pain, Edema, Palpitations Respiratory: reports: Cough, SOB, SOB on Exertion. denies: Hemoptysis, Orthopnea, PND, Snoring, Wheezing Gastrointestinal: reports: No Symptoms Genitourinary: reports: No Symptoms Breasts: reports: No Symptoms Reported Musculoskeletal: reports: No Symptoms Integumentary: reports: No Symptoms Neurological: reports: No Symptoms Endocrine: reports: No Symptoms Hematology/Lymphatic: reports: No Symptoms Psychiatric: reports: No Symptoms Physical Exam Vital Sings: Vital Signs Temperature 98.2 F 11/19/18 05:09 Pulse Rate 77 11/19/18 05:09 Respiratory Rate 19 11/19/18 06:00 Blood Pressure 161/74 11/19/18 05:09 O2 Sat by Pulse Oximetry (%) 94 L 11/19/18 06:00 Constitutional: Yes: Well Nourished, No Distress, Calm Eyes: Yes: Conjunctiva Clear, EOM Intact HENT: Yes: Atraumatic, Normocephalic Neck: Yes: Supple, Trachea Midline Cardiovascular: Yes: Regular Rate and Rhythm Respiratory: Yes: Cough, Diminished, Rhonchi, SOB on Exertion. No: Accessory Muscle Use, Rales, SOB, Stridor, Tachypnea, Wheezes ...Inspection: Yes: WNL ...Clubbing: No Gastrointestinal: Yes: Normal Bowel Sounds, Soft Renal/: Yes: WNL Musculoskeletal: Yes: WNL Extremities: Yes: WNL Edema: No Peripheral Pulses WNL: Yes Integumentary: Yes: WNL Neurological: Yes: WNL, Alert, Oriented ...Motor Strength: WNL Psychiatric: Yes: WNL, Alert, Oriented Labs: CBC, BMP 11/19/18 08:10 11/19/18 08:10 Imaging - Results Chest X-ray: Report Reviewed, Image Reviewed Cat Scan: Image Reviewed Problem List - Problems (1) COPD with acute exacerbation Code(s): J44.1 - CHRONIC OBSTRUCTIVE PULMONARY DISEASE W (ACUTE) EXACERBATION (2) Pancytopenia Code(s): D61.818 - OTHER PANCYTOPENIA (3) Hypertension Code(s): I10 - ESSENTIAL (PRIMARY) HYPERTENSION Qualifiers: Hypertension type: essential hypertension Qualified Code(s): I10 - Essential (primary) hypertension (4) Tobacco dependence due to cigarettes Code(s): F17.210 - NICOTINE DEPENDENCE, CIGARETTES, UNCOMPLICATED Assessment/Plan Medrol BD TX standing and PRN O2 as needed Smoking cessation was discussed VTE prophylaxis Noted ABX: low threshold to stop, do not suspect respiratory tract infection Cedeño-cytopenia workup per primary team Will need outpatient PFTs Will follow Thank you. Dr Arreola
--- NOTE | 2018-11-19 13:25 | PN ---
Progress Note (short form) - Note Progress Note: ID CONSULT DICTATED PANCYTOPENIA FEBRILE NEUTROPENIA ANC 600 AWAIT C/S EMPIRIC ZOSYN HEMATOLOGY CONSULT
[2018-11-19 13:56] LABS: ANISOCYTOSIS 2+; MACROCYTOSIS 2+; OVALOCYTE 1+; PLATELET ESTIMATE DECREASED; TEAR DROP CELLS 1+
[2018-11-19] MEDS ORDERED: DEXTROSE 5%-WATER - 50 ML IVPB ONE (17:29)
[2018-11-19] MEDS ORDERED: PIPERACILLIN/TAZOBACTAM 3.375 GM VIAL IVPB ONE (17:29)
[2018-11-19] MEDS: PIPERACILLIN/TAZOB 3.375 GM 3.375 GM in DEXTROSE 5%-WATER - 50 ML IVPB SCH (17:32)
[2018-11-19] MEDS ORDERED: METHADONE HCL 10 MG TABLET PO ONE (20:11)
--- NOTE | 2018-11-19 21:17 | CONSULT ---
Consult Consult Specialty:: Hematology Referred by:: Dr. Abacra Reason for Consultation:: Pancytopenia - History of Present Illness Chief Complaint: Fall History of Present Illness: 78F with COPD, HTN, hx of treated Hep C presented after a fall preceded by lightheadedness. Found to have pancytopenia with Hgb 7.8 WBC 1.9 (ANC 600) Plt 54, MCV 124. Reports about 5 lb weight loss in the past month. Denies fever, night sweats, bleeding. No dietary restrictions. No hx of stomach issues. Pt follows with PMD at [facility]. CBC was last normal in 02/2018 except for MCV of 110. Macrocytosis has been worsening since 2011. Labs on 11/01/18 and 11/15/18 with Hgb ~8, Plts 70s, ANC ~1000. At the time SPEP and serum FLC ratio normal. Currently feels well overall. Denies SOB, chest pain, dizziness. - Past Medical History Cardio/Vascular: Yes: HTN Pulmonary: Yes: Asthma, Bronchitis, COPD, Pneumonia, Previously Intubated, Sleep Apnea. 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 - was on metformin previously with bad reaction, no longer on it, sugars apparently normal) - Past Surgical History Past Surgical History: Yes: Cataract Removal (right, and laser surgery on eyes) , Colonoscopy (within the year at [facility], had polyps removed) - Alcohol/Substance Use Hx Alcohol Use: No History of Substance Use: reports: Prescription (methadone daily) - Smoking History Smoking history: Current every day smoker Have you smoked in the past 12 months: No Aproximately how many cigarettes per day: 10 - Social History Usual Living Arrangement: Other (with sister) ADL: Independent Home Medications - Allergies Allergies/Adverse Reactions: Allergies Allergy/AdvReac Type Severity Reaction Status Date / Time metformin AdvReac Verified 11/10/17 06:59 - Home Medications Home Medications: Ambulatory Orders Gabapentin 300 mg PO TID 11/06/17 Lisinopril [Prinivil -] 40 mg PO DAILY 11/06/17 Nifedipine ER [Procardia XL -] 30 mg PO DAILY 11/06/17 Propranolol HCl [Propranolol HCl ER] 80 mg PO DAILY 11/06/17 Albuterol Sulfate Inhaler - [Ventolin HFA Inhaler -] 1 - 2 inh PO Q4H #2 inhaler 11/12/17 Arformoterol Tartrate [Brovana -] 1 amp NEB RBID #1 amp 11/12/17 Polyethylene Glycol 3350 [Miralax (For Bowel Prep) -] 17 gm PO DAILY #1 bottle 11/12/17 Prednisone 10 mg PO DAILY #40 tablet 11/12/17 Sennosides/Docusate Sodium [Pericolace -] 2 each PO HS #60 tablet 11/12/17 Albuterol Sulfate Inhaler - [Ventolin HFA Inhaler -] 1 - 2 inh PO Q4H PRN #2 inhaler 11/13/17 Arformoterol Tartrate [Brovana] 15 mcg IH BID #1 ml 11/13/17 Polyethylene Glycol 3350 [Miralax (For Daily Use) -] 17 gm PO DAILY #1 bottle Prednisone See Taper PO DAILY #40 tablet 11/13/17 Sennosides/Docusate Sodium [Pericolace -] 2 each PO HS #60 tablet 11/13/17 Methadone [Dolophine -] 40 mg PO DAILY@0600 MDD 20 11/19/18 Review of Systems - Review of Systems Constitutional: reports: Unintentional Wgt. Loss Eyes: reports: No Symptoms Cardiovascular: reports: No Symptoms Respiratory: reports: SOB on Exertion Gastrointestinal: reports: No Symptoms Neurological: reports: Tremors (since childhood) Hematology/Lymphatic: denies: Easily Bruised, Excessive Bleeding Physical Exam Vital Signs: Vital Signs Temperature 98.4 F 11/19/18 18:20 Pulse Rate 67 11/19/18 18:20 Respiratory Rate 20 11/19/18 18:20 Blood Pressure 157/69 11/19/18 18:20 O2 Sat by Pulse Oximetry (%) 94 L 11/19/18 09:00 Constitutional: Yes: No Distress, Calm Eyes: Yes: Conjunctiva Clear Neck: Yes: Supple. No: Lymphadenopathy Cardiovascular: Yes: Regular Rate and Rhythm Respiratory: Yes: Regular, Wheezes (scattered) Gastrointestinal: Yes: WNL. No: Distention, Splenomegaly, Tenderness Edema: No Labs: CBC, BMP 10/13/19 08:10 11/19/18 08:10 Assessment/Plan 78F with COPD, HTN, hx HCV admitted with pancytopenia. Last normal CBC (except for high MCV) in 02/2018. Peripheral smear with anisopoikilocytosis (many ovalocytes), no immature cells, no plt clumps, few large plts, no significant hypersegmentation. B12 328. Serum folate wnl. LDH 241. DDx includes MDS, leukemia, B12 deficiency (less likely), cirrhosis. Progression is concerning. Please obtain abdominal sono Ordered MMA, copper level. Please start a trial of vit B12 1000 mcg daily (can be PO) Likely needs bone marrow bx which was discussed with patient and she is agreeable.
[2018-11-20] MEDS ORDERED: DEXTROSE 5%-WATER - 50 ML IVPB ONE ×3 (00:45→19:09)
[2018-11-20] MEDS ORDERED: PIPERACILLIN/TAZOBACTAM 3.375 GM VIAL IVPB ONE ×3 (00:45→19:08)
[2018-11-20] MEDS: methylPREDNISolone NA SUCC 40 MG/1 ML VIAL IVPUSH SCH ×3 (02:44→19:11)
[2018-11-20] MEDS: PIPERACILLIN/TAZOB 3.375 GM 3.375 GM in DEXTROSE 5%-WATER - 50 ML IVPB SCH ×3 (02:44→19:11)
[2018-11-20 03:05] LABS: EPI CELLS 1.6 /HPF (0-5/HPF); HYALINE CASTS 0 /lpf (0-8); URINE APPEARANCE CLEAR; URINE BACTERIA 18.2 /hpf (NEGATIVE); URINE BILIRUBIN NEGATIVE (NEGATIVE); URINE COLOR YELLOW; URINE GLUCOSE (UA) NEGATIVE (NEGATIVE); URINE KETONE NEGATIVE (NEGATIVE); URINE LEUK ESTERASE NEGATIVE (NEGATIVE); URINE NITRITE NEGATIVE (NEGATIVE); URINE PROTEIN 3+ (NEGATIVE); URINE RBC 1 /hpf (0-4); URINE WBC 0 /hpf (0-5)
[2018-11-20] MEDS: ALBUTEROL SO4 2.5/IPRATROPIUM 0.5 INH SOL 3 ML VIAL.NEB. NEB SCH ×4 (07:25→20:50)
[2018-11-20 08:32] LABS: HEMATOCRIT 21.9 % (32.4-45.2); HEMOGLOBIN 7.6 GM/dL (10.7-15.3); LYMPH % 37.1 % (8-40); MCHC 34.8 g/dl (32.0-36.0); MEAN CELL VOLUME 121.9 fl (80-96); MEAN PLT VOLUME 8.7 fl (7.5-11.1); MONO % 4.9 % (3.8-10.2); PLATELET COUNT 50 K/MM3 (134-434); RDW 18.6 % (11.6-15.6)
[2018-11-20 08:44] LABS: MCH 42.5 pg (25.7-33.7)
--- NOTE | 2018-11-20 09:04 | PN ---
<Tan Bourne - Last Filed: 11/20/18 09:04> Physical Exam: SUBJECTIVE: Patient seen and examined OBJECTIVE: Vital Signs Period Temp Pulse Resp BP Sys/Peter Pulse Ox Last 24 Hr 98.4 F-98.8 F 63-80 20-20 147-157/57-69 95 GENERAL: The patient is awake, alert, and fully oriented, in no acute distress. HEAD: Normal with no signs of trauma. EYES: PERRL, extraocular movements intact, sclera anicteric, conjunctiva clear. No ptosis. ENT: Ears normal, nares patent, oropharynx clear without exudates, moist mucous membranes. NECK: Trachea midline, full range of motion, supple. LUNGS: Breath sounds equal, clear to auscultation bilaterally, no wheezes, no crackles, no accessory muscle use. HEART: Regular rate and rhythm, S1, S2 without murmur, rub or gallop. ABDOMEN: Soft, nontender, nondistended, normoactive bowel sounds, no guarding, no rebound, no hepatosplenomegaly, no masses. EXTREMITIES: 2+ pulses, warm, well-perfused, no edema. NEUROLOGICAL: Cranial nerves II through XII grossly intact. Normal speech, gait not observed. PSYCH: Normal mood, normal affect. SKIN: Warm, dry, normal turgor, no rashes or lesions noted Laboratory Results - last 24 hr 11/18/18 11/19/18 11/19/18 08:53 06:00 08:10 WBC RBC Hgb Hct MCV MCH MCHC RDW Plt Count MPV Absolute Neuts (auto) Neutrophils % Neutrophils % (Manual) 31.0 L Band Neutrophils % 3.0 Lymphocytes % Lymphocytes % (Manual) 61.0 H Monocytes % Monocytes % (Manual) 0 L Eosinophils % Eosinophils % (Manual) 0.0 Basophils % Basophils % (Manual) 1.0 Myelocytes % (Man) 1 Promyelocytes % (Man) 0 Blast Cells % (Manual) 0 Nucleated RBC % Metamyelocytes 0 Hypochromia 0 Platelet Estimate Decreased Platelet Comment Present Polychromasia 0 Poikilocytosis 1+ Basophilic Stippling 1+ Anisocytosis 2+ Microcytosis 0 Macrocytosis 2+ Tear Drop Cells 1+ Ovalocytes 1+ Stomatocytes 1+ Acanthocytes (Spur) 1+ ESR PTT (Actin FS) Sodium Potassium Chloride Carbon Dioxide Anion Gap BUN Creatinine Est GFR (CKD-EPI)AfAm Est GFR (CKD-EPI)NonAf POC Glucometer Random Glucose Hemoglobin A1c % Calcium Iron TIBC Iron Saturation Unsaturated IBC LD Total C-Reactive Protein Vitamin B12 Serum Folate Urine Color Yellow Urine Appearance Clear Urine pH 7.0 Ur Specific [place] 1.036 H Urine Protein 1+ H Urine Glucose (UA) Negative Urine Ketones Negative Urine Blood Negative Urine Nitrite Negative Urine Bilirubin Negative Urine Urobilinogen 0.2 Ur Leukocyte Esterase Negative Urine WBC (Auto) 0 Urine RBC (Auto) 1 Urine Casts (Auto) 0 U Epithel Cells (Auto) 1.3 Urine Bacteria (Auto) 48.3 Alcohol, Quantitative Influenza A (Rapid) Negative Influenza B (Rapid) Negative 11/19/18 11/19/18 11/19/18 08:10 08:10 08:10 WBC RBC Hgb Hct MCV MCH MCHC RDW Plt Count MPV Absolute Neuts (auto) Neutrophils % Neutrophils % (Manual) Band Neutrophils % Lymphocytes % Lymphocytes % (Manual) Monocytes % Monocytes % (Manual) Eosinophils % Eosinophils % (Manual) Basophils % Basophils % (Manual) Myelocytes % (Man) Promyelocytes % (Man) Blast Cells % (Manual) Nucleated RBC % Metamyelocytes Hypochromia Platelet Estimate Platelet Comment Polychromasia Poikilocytosis Basophilic Stippling Anisocytosis Microcytosis Macrocytosis Tear Drop Cells Ovalocytes Stomatocytes Acanthocytes (Spur) ESR PTT (Actin FS) Sodium 139 Potassium 4.2 Chloride 104 Carbon Dioxide 28 Anion Gap 7 L BUN 14.8 Creatinine 0.8 Est GFR (CKD-EPI)AfAm 82.42 Est GFR (CKD-EPI)NonAf 71.11 POC Glucometer Random Glucose 155 H Hemoglobin A1c % Calcium 8.6 Iron 81 TIBC 250 Iron Saturation 32 Unsaturated IBC 169 L LD Total C-Reactive Protein Vitamin B12 328 Serum Folate 10 Urine Color Urine Appearance Urine pH Ur Specific [place] Urine Protein Urine Glucose (UA) Urine Ketones Urine Blood Urine Nitrite Urine Bilirubin Urine Urobilinogen Ur Leukocyte Esterase Urine WBC (Auto) Urine RBC (Auto) Urine Casts (Auto) U Epithel Cells (Auto) Urine Bacteria (Auto) Alcohol, Quantitative < 3.0 Influenza A (Rapid) Influenza B (Rapid) 11/19/18 11/19/18 11/19/18 08:10 11:46 13:15 WBC RBC Hgb Hct MCV MCH MCHC RDW Plt Count MPV Absolute Neuts (auto) Neutrophils % Neutrophils % (Manual) Band Neutrophils % Lymphocytes % Lymphocytes % (Manual) Monocytes % Monocytes % (Manual) Eosinophils % Eosinophils % (Manual) Basophils % Basophils % (Manual) Myelocytes % (Man) Promyelocytes % (Man) Blast Cells % (Manual) Nucleated RBC % Metamyelocytes Hypochromia Platelet Estimate Platelet Comment Polychromasia Poikilocytosis Basophilic Stippling Anisocytosis Microcytosis Macrocytosis Tear Drop Cells Ovalocytes Stomatocytes Acanthocytes (Spur) ESR PTT (Actin FS) Sodium Potassium Chloride Carbon Dioxide Anion Gap BUN Creatinine Est GFR (CKD-EPI)AfAm Est GFR (CKD-EPI)NonAf POC Glucometer 90 Random Glucose Hemoglobin A1c % 5.0 Calcium Iron TIBC Iron Saturation Unsaturated IBC LD Total 262 H C-Reactive Protein 1.4 H Vitamin B12 331 Serum Folate 20 H Urine Color Urine Appearance Urine pH Ur Specific [place] Urine Protein Urine Glucose (UA) Urine Ketones Urine Blood Urine Nitrite Urine Bilirubin Urine Urobilinogen Ur Leukocyte Esterase Urine WBC (Auto) Urine RBC (Auto) Urine Casts (Auto) U Epithel Cells (Auto) Urine Bacteria (Auto) Alcohol, Quantitative Influenza A (Rapid) Influenza B (Rapid) 11/19/18 11/19/18 11/19/18 13:15 18:13 18:13 WBC RBC Hgb Hct MCV MCH MCHC RDW Plt Count MPV Absolute Neuts (auto) Neutrophils % Neutrophils % (Manual) Band Neutrophils % Lymphocytes % Lymphocytes % (Manual) Monocytes % Monocytes % (Manual) Eosinophils % Eosinophils % (Manual) Basophils % Basophils % (Manual) Myelocytes % (Man) Promyelocytes % (Man) Blast Cells % (Manual) Nucleated RBC % Metamyelocytes Hypochromia Platelet Estimate Platelet Comment Polychromasia Poikilocytosis Basophilic Stippling Anisocytosis Microcytosis Macrocytosis Tear Drop Cells Ovalocytes Stomatocytes Acanthocytes (Spur) ESR 81 H PTT (Actin FS) 26.6 Sodium Potassium Chloride Carbon Dioxide Anion Gap BUN Creatinine Est GFR (CKD-EPI)AfAm Est GFR (CKD-EPI)NonAf POC Glucometer Random Glucose Hemoglobin A1c % Calcium Iron TIBC Iron Saturation Unsaturated IBC LD Total 241 C-Reactive Protein Vitamin B12 Serum Folate Urine Color Urine Appearance Urine pH Ur Specific [place] Urine Protein Urine Glucose (UA) Urine Ketones Urine Blood Urine Nitrite Urine Bilirubin Urine Urobilinogen Ur Leukocyte Esterase Urine WBC (Auto) Urine RBC (Auto) Urine Casts (Auto) U Epithel Cells (Auto) Urine Bacteria (Auto) Alcohol, Quantitative Influenza A (Rapid) Influenza B (Rapid) 11/20/18 11/20/18 01:35 07:00 WBC 1.0 L* RBC 1.80 L Hgb 7.6 L Hct 21.9 L MCV 121.9 H MCH 42.5 H MCHC 34.8 RDW 18.6 H Plt Count 50 L MPV 8.7 D Absolute Neuts (auto) 0.6 L Neutrophils % 57.0 D Neutrophils % (Manual) Band Neutrophils % Lymphocytes % 37.1 D Lymphocytes % (Manual) Monocytes % 4.9 Monocytes % (Manual) Eosinophils % 0.0 Eosinophils % (Manual) Basophils % 1.0 Basophils % (Manual) Myelocytes % (Man) Promyelocytes % (Man) Blast Cells % (Manual) Nucleated RBC % 1 H Metamyelocytes Hypochromia Platelet Estimate Platelet Comment Polychromasia Poikilocytosis Basophilic Stippling Anisocytosis Microcytosis Macrocytosis Tear Drop Cells Ovalocytes Stomatocytes Acanthocytes (Spur) ESR PTT (Actin FS) Sodium Potassium Chloride Carbon Dioxide Anion Gap BUN Creatinine Est GFR (CKD-EPI)AfAm Est GFR (CKD-EPI)NonAf POC Glucometer Random Glucose Hemoglobin A1c % Calcium Iron TIBC Iron Saturation Unsaturated IBC LD Total C-Reactive Protein Vitamin B12 Serum Folate Urine Color Yellow Urine Appearance Clear Urine pH 7.0 Ur Specific [place] 1.022 Urine Protein 3+ H Urine Glucose (UA) Negative Urine Ketones Negative Urine Blood Negative Urine Nitrite Negative Urine Bilirubin Negative Urine Urobilinogen 1.0 Ur Leukocyte Esterase Negative Urine WBC (Auto) 0 Urine RBC (Auto) 1 Urine Casts (Auto) 0 U Epithel Cells (Auto) 1.6 Urine Bacteria (Auto) 18.2 Alcohol, Quantitative Influenza A (Rapid) Influenza B (Rapid) Active Medications Generic Name Dose Route Start Last Admin Trade Name Freq PRN Reason Stop Dose Admin Albuterol Sulfate 2 puff 11/19/18 05:02 Ventolin Hfa Inhaler - IH Q4H PRN SHORT OF BREATH/WHEEZING Albuterol/Ipratropium 1 amp 11/19/18 05:15 11/20/18 07:25 Duoneb - NEB 1 amp RQID CARLOS Administration Piperacillin Sod/Tazobactam 50 mls @ 100 mls/hr 11/19/18 18:00 11/20/18 02:44 Sod 3.375 gm/ Dextrose IVPB 100 mls/hr Q8H-IV CARLOS Administration Protocol Methylprednisolone Sodium Succinate 40 mg 11/19/18 10:00 11/20/18 02:44 Solu-Medrol - IVPUSH 40 mg Q8H-IV CARLOS Administration ASSESSMENT/PLAN: ATTENDING PHYSICIAN STATEMENT I saw and evaluated the patient. I reviewed the resident's note and discussed the case with the resident. I agree with the resident's findings and plan as documented. SUBJECTIVE: OBJECTIVE: ASSESSMENT AND PLAN: <Walter Soares - Last Filed: 11/20/18 23:09> Physical Exam: SUBJECTIVE: Patient seen and examined OBJECTIVE: Vital Signs Period Temp Pulse Resp BP Sys/Peter Pulse Ox Last 24 Hr 98.0 F-99 F 63-76 20-20 147-159/56-69 95 GENERAL: The patient is awake, alert, and fully oriented, in no acute distress. HEAD: Normal with no signs of trauma. EYES: PERRL, extraocular movements intact, sclera anicteric, conjunctiva clear. No ptosis. ENT: Ears normal, nares patent, oropharynx clear without exudates, moist mucous membranes. NECK: Trachea midline, full range of motion, supple. LUNGS: Breath sounds equal, clear to auscultation bilaterally, no wheezes, no crackles, no accessory muscle use. HEART: Regular rate and rhythm, S1, S2 without murmur, rub or gallop. ABDOMEN: Soft, nontender, nondistended, normoactive bowel sounds, no guarding, no rebound, no hepatosplenomegaly, no masses. EXTREMITIES: 2+ pulses, warm, well-perfused, no edema. NEUROLOGICAL: Cranial nerves II through XII grossly intact. Normal speech, gait not observed. PSYCH: Normal mood, normal affect. SKIN: Warm, dry, normal turgor, no rashes or lesions noted Laboratory Results - last 24 hr 11/20/18 11/20/18 11/20/18 01:35 07:00 07:00 WBC 1.0 L* RBC 1.80 L Hgb 7.6 L Hct 21.9 L MCV 121.9 H MCH 42.5 H MCHC 34.8 RDW 18.6 H Plt Count 50 L MPV 8.7 D Absolute Neuts (auto) 0.6 L Neutrophils % 57.0 D Neutrophils % (Manual) 56.1 Band Neutrophils % 0.0 Lymphocytes % 37.1 D Lymphocytes % (Manual) 41.9 H D Monocytes % 4.9 Monocytes % (Manual) 0 L Eosinophils % 0.0 Eosinophils % (Manual) 0.0 Basophils % 1.0 Basophils % (Manual) 1.0 Myelocytes % (Man) 0 D Promyelocytes % (Man) 0 Blast Cells % (Manual) 0 Nucleated RBC % 1 H Metamyelocytes 0 Hypochromia 0 Platelet Estimate Decreased Platelet Comment Present Polychromasia 1+ Poikilocytosis 0 Basophilic Stippling 1+ Anisocytosis 1+ Microcytosis 0 Macrocytosis 3+ PT with INR INR PTT (Actin FS) Fibrinogen Sodium 138 Potassium 4.3 Chloride 105 Carbon Dioxide 27 Anion Gap 7 L BUN 16.6 Creatinine 0.8 Est GFR (CKD-EPI)AfAm 82.42 Est GFR (CKD-EPI)NonAf 71.11 Random Glucose 162 H Uric Acid 3.0 Calcium 8.8 Magnesium 2.4 LD Total 250 H Urine Color Yellow Urine Appearance Clear Urine pH 7.0 Ur Specific [place] 1.022 Urine Protein 3+ H Urine Glucose (UA) Negative Urine Ketones Negative Urine Blood Negative Urine Nitrite Negative Urine Bilirubin Negative Urine Urobilinogen 1.0 Ur Leukocyte Esterase Negative Urine WBC (Auto) 0 Urine RBC (Auto) 1 Urine Casts (Auto) 0 U Epithel Cells (Auto) 1.6 Urine Bacteria (Auto) 18.2 11/20/18 11/20/18 07:00 07:00 WBC RBC Hgb Hct MCV MCH MCHC RDW Plt Count MPV Absolute Neuts (auto) Neutrophils % Neutrophils % (Manual) Band Neutrophils % Lymphocytes % Lymphocytes % (Manual) Monocytes % Monocytes % (Manual) Eosinophils % Eosinophils % (Manual) Basophils % Basophils % (Manual) Myelocytes % (Man) Promyelocytes % (Man) Blast Cells % (Manual) Nucleated RBC % Metamyelocytes Hypochromia Platelet Estimate Platelet Comment Polychromasia Poikilocytosis Basophilic Stippling Anisocytosis Microcytosis Macrocytosis PT with INR 12.80 INR 1.08 PTT (Actin FS) 24.3 L Fibrinogen 335.0 Sodium Potassium Chloride Carbon Dioxide Anion Gap BUN Creatinine Est GFR (CKD-EPI)AfAm Est GFR (CKD-EPI)NonAf Random Glucose Uric Acid Calcium Magnesium LD Total Urine Color Urine Appearance Urine pH Ur Specific [place] Urine Protein Urine Glucose (UA) Urine Ketones Urine Blood Urine Nitrite Urine Bilirubin Urine Urobilinogen Ur Leukocyte Esterase Urine WBC (Auto) Urine RBC (Auto) Urine Casts (Auto) U Epithel Cells (Auto) Urine Bacteria (Auto) Active Medications Generic Name Dose Route Start Last Admin Trade Name Freq PRN Reason Stop Dose Admin Albuterol Sulfate 2 puff 11/19/18 05:02 Ventolin Hfa Inhaler - IH Q4H PRN SHORT OF BREATH/WHEEZING Albuterol/Ipratropium 1 amp 11/19/18 05:15 11/20/18 20:50 Duoneb - NEB 1 amp RQID CARLOS Administration Piperacillin Sod/Tazobactam 50 mls @ 100 mls/hr 11/19/18 18:00 11/20/18 19:11 Sod 3.375 gm/ Dextrose IVPB 100 mls/hr Q8H-IV CARLOS Administration Protocol Methylprednisolone Sodium Succinate 40 mg 11/19/18 10:00 11/20/18 19:11 Solu-Medrol - IVPUSH 40 mg Q8H-IV CARLOS Administration ASSESSMENT/PLAN: ATTENDING PHYSICIAN STATEMENT I saw and evaluated the patient. I reviewed the resident's note and discussed the case with the resident. I agree with the resident's findings and plan as documented. SUBJECTIVE: OBJECTIVE: ASSESSMENT AND PLAN:
[2018-11-20 09:09] LABS: BLOOD UREA NITROGEN 16.6 mg/dL (7-18); CALCIUM 8.8 mg/dL (8.5-10.1); CREATININE 0.8 mg/dL (0.55-1.3); MAGNESIUM 2.4 mg/dL (1.8-2.4); POTASSIUM 4.3 mmol/L (3.5-5.1)
[2018-11-20 09:12] LABS: INR 1.08 (0.83-1.09); PROTHROMBIN TIME (PATIENT) 12.8 SEC (9.7-13.0)
[2018-11-20 09:15] LABS: ACTIVATED PTT 24.3 SECONDS (25.2-36.5)
--- NOTE | 2018-11-20 11:23 | PN ---
Progress Note (short form) - Note Progress Note: Breathing feels a little better today. Still with congested cough. No acute events overnight. Intake & Output 11/17/18 11/18/18 11/19/18 11/20/18 23:59 23:59 23:59 23:59 Intake Total 1100 50 Balance 1100 50 Weight 165 lb 159 lb 2 oz Last Vital Signs Temp Pulse Resp BP Pulse Ox 98.6 F 63 20 152/65 95 11/20/18 06:00 11/20/18 06:00 11/20/18 06:00 11/20/18 06:00 11/19/18 21:00 Active Medications Albuterol Sulfate (Ventolin Hfa Inhaler -) 2 puff IH Q4H PRN PRN Reason: SHORT OF BREATH/WHEEZING Albuterol/Ipratropium (Duoneb -) 1 amp NEB RQID CARLOS Last Admin: 11/20/18 07:25 Dose: 1 amp Piperacillin Sod/Tazobactam (Sod 3.375 gm/ Dextrose) 50 mls @ 100 mls/hr IVPB Q8H-IV CARLOS; Protocol Last Admin: 11/20/18 02:44 Dose: 100 mls/hr Methylprednisolone Sodium Succinate (Solu-Medrol -) 40 mg IVPUSH Q8H-IV CARLOS Last Admin: 11/20/18 02:44 Dose: 40 mg Constitutional: Yes: Well Nourished, No Distress, Calm Eyes: Yes: Conjunctiva Clear, EOM Intact HENT: Yes: Atraumatic, Normocephalic Neck: Yes: Supple, Trachea Midline Cardiovascular: Yes: Regular Rate and Rhythm Respiratory: Yes: Cough, Diminished, Rhonchi, SOB on Exertion. No: Accessory Muscle Use, Rales, SOB, Stridor, Tachypnea, Wheezes ...Inspection: Yes: WNL ...Clubbing: No Gastrointestinal: Yes: Normal Bowel Sounds, Soft Renal/: Yes: WNL Musculoskeletal: Yes: WNL Extremities: Yes: WNL Edema: No Peripheral Pulses WNL: Yes Integumentary: Yes: WNL Neurological: Yes: WNL, Alert, Oriented ...Motor Strength: WNL Psychiatric: Yes: WNL, Alert, Oriented Labs: Laboratory Results - last 24 hr 11/19/18 11/19/18 11/19/18 08:10 11:46 13:15 WBC RBC Hgb Hct MCV MCH MCHC RDW Plt Count MPV Absolute Neuts (auto) Neutrophils % Neutrophils % (Manual) 31.0 L Band Neutrophils % 3.0 Lymphocytes % Lymphocytes % (Manual) 61.0 H Monocytes % Monocytes % (Manual) 0 L Eosinophils % Eosinophils % (Manual) 0.0 Basophils % Basophils % (Manual) 1.0 Myelocytes % (Man) 1 Promyelocytes % (Man) 0 Blast Cells % (Manual) 0 Nucleated RBC % Metamyelocytes 0 Hypochromia 0 Platelet Estimate Decreased Platelet Comment Present Polychromasia 0 Poikilocytosis 1+ Basophilic Stippling 1+ Anisocytosis 2+ Microcytosis 0 Macrocytosis 2+ Tear Drop Cells 1+ Ovalocytes 1+ Stomatocytes 1+ Acanthocytes (Spur) 1+ ESR PT with INR INR PTT (Actin FS) Fibrinogen Sodium Potassium Chloride Carbon Dioxide Anion Gap BUN Creatinine Est GFR (CKD-EPI)AfAm Est GFR (CKD-EPI)NonAf POC Glucometer 90 Random Glucose Uric Acid Calcium Magnesium LD Total 262 H C-Reactive Protein 1.4 H Vitamin B12 331 Serum Folate 20 H Urine Color Urine Appearance Urine pH Ur Specific [place] Urine Protein Urine Glucose (UA) Urine Ketones Urine Blood Urine Nitrite Urine Bilirubin Urine Urobilinogen Ur Leukocyte Esterase Urine WBC (Auto) Urine RBC (Auto) Urine Casts (Auto) U Epithel Cells (Auto) Urine Bacteria (Auto) 11/19/18 11/19/18 11/19/18 13:15 18:13 18:13 WBC RBC Hgb Hct MCV MCH MCHC RDW Plt Count MPV Absolute Neuts (auto) Neutrophils % Neutrophils % (Manual) Band Neutrophils % Lymphocytes % Lymphocytes % (Manual) Monocytes % Monocytes % (Manual) Eosinophils % Eosinophils % (Manual) Basophils % Basophils % (Manual) Myelocytes % (Man) Promyelocytes % (Man) Blast Cells % (Manual) Nucleated RBC % Metamyelocytes Hypochromia Platelet Estimate Platelet Comment Polychromasia Poikilocytosis Basophilic Stippling Anisocytosis Microcytosis Macrocytosis Tear Drop Cells Ovalocytes Stomatocytes Acanthocytes (Spur) ESR 81 H PT with INR INR PTT (Actin FS) 26.6 Fibrinogen Sodium Potassium Chloride Carbon Dioxide Anion Gap BUN Creatinine Est GFR (CKD-EPI)AfAm Est GFR (CKD-EPI)NonAf POC Glucometer Random Glucose Uric Acid Calcium Magnesium LD Total 241 C-Reactive Protein Vitamin B12 Serum Folate Urine Color Urine Appearance Urine pH Ur Specific [place] Urine Protein Urine Glucose (UA) Urine Ketones Urine Blood Urine Nitrite Urine Bilirubin Urine Urobilinogen Ur Leukocyte Esterase Urine WBC (Auto) Urine RBC (Auto) Urine Casts (Auto) U Epithel Cells (Auto) Urine Bacteria (Auto) 11/20/18 11/20/18 11/20/18 01:35 07:00 07:00 WBC 1.0 L* RBC 1.80 L Hgb 7.6 L Hct 21.9 L MCV 121.9 H MCH 42.5 H MCHC 34.8 RDW 18.6 H Plt Count 50 L MPV 8.7 D Absolute Neuts (auto) 0.6 L Neutrophils % 57.0 D Neutrophils % (Manual) Band Neutrophils % Lymphocytes % 37.1 D Lymphocytes % (Manual) Monocytes % 4.9 Monocytes % (Manual) Eosinophils % 0.0 Eosinophils % (Manual) Basophils % 1.0 Basophils % (Manual) Myelocytes % (Man) Promyelocytes % (Man) Blast Cells % (Manual) Nucleated RBC % 1 H Metamyelocytes Hypochromia Platelet Estimate Platelet Comment Polychromasia Poikilocytosis Basophilic Stippling Anisocytosis Microcytosis Macrocytosis Tear Drop Cells Ovalocytes Stomatocytes Acanthocytes (Spur) ESR PT with INR INR PTT (Actin FS) Fibrinogen Sodium 138 Potassium 4.3 Chloride 105 Carbon Dioxide 27 Anion Gap 7 L BUN 16.6 Creatinine 0.8 Est GFR (CKD-EPI)AfAm 82.42 Est GFR (CKD-EPI)NonAf 71.11 POC Glucometer Random Glucose 162 H Uric Acid 3.0 Calcium 8.8 Magnesium 2.4 LD Total 250 H C-Reactive Protein Vitamin B12 Serum Folate Urine Color Yellow Urine Appearance Clear Urine pH 7.0 Ur Specific [place] 1.022 Urine Protein 3+ H Urine Glucose (UA) Negative Urine Ketones Negative Urine Blood Negative Urine Nitrite Negative Urine Bilirubin Negative Urine Urobilinogen 1.0 Ur Leukocyte Esterase Negative Urine WBC (Auto) 0 Urine RBC (Auto) 1 Urine Casts (Auto) 0 U Epithel Cells (Auto) 1.6 Urine Bacteria (Auto) 18.2 11/20/18 11/20/18 07:00 07:00 WBC RBC Hgb Hct MCV MCH MCHC RDW Plt Count MPV Absolute Neuts (auto) Neutrophils % Neutrophils % (Manual) Band Neutrophils % Lymphocytes % Lymphocytes % (Manual) Monocytes % Monocytes % (Manual) Eosinophils % Eosinophils % (Manual) Basophils % Basophils % (Manual) Myelocytes % (Man) Promyelocytes % (Man) Blast Cells % (Manual) Nucleated RBC % Metamyelocytes Hypochromia Platelet Estimate Platelet Comment Polychromasia Poikilocytosis Basophilic Stippling Anisocytosis Microcytosis Macrocytosis Tear Drop Cells Ovalocytes Stomatocytes Acanthocytes (Spur) ESR PT with INR 12.80 INR 1.08 PTT (Actin FS) 24.3 L Fibrinogen 335.0 Sodium Potassium Chloride Carbon Dioxide Anion Gap BUN Creatinine Est GFR (CKD-EPI)AfAm Est GFR (CKD-EPI)NonAf POC Glucometer Random Glucose Uric Acid Calcium Magnesium LD Total C-Reactive Protein Vitamin B12 Serum Folate Urine Color Urine Appearance Urine pH Ur Specific [place] Urine Protein Urine Glucose (UA) Urine Ketones Urine Blood Urine Nitrite Urine Bilirubin Urine Urobilinogen Ur Leukocyte Esterase Urine WBC (Auto) Urine RBC (Auto) Urine Casts (Auto) U Epithel Cells (Auto) Urine Bacteria (Auto) Problem List - Problems (1) COPD with acute exacerbation Code(s): J44.1 - CHRONIC OBSTRUCTIVE PULMONARY DISEASE W (ACUTE) EXACERBATION (2) Pancytopenia Code(s): D61.818 - OTHER PANCYTOPENIA (3) Hypertension Code(s): I10 - ESSENTIAL (PRIMARY) HYPERTENSION Qualifiers: Hypertension type: essential hypertension Qualified Code(s): I10 - Essential (primary) hypertension (4) Tobacco dependence due to cigarettes Code(s): F17.210 - NICOTINE DEPENDENCE, CIGARETTES, UNCOMPLICATED Assessment/Plan Medrol BD TX standing and PRN O2 as needed Smoking cessation was discussed VTE prophylaxis ABX per ID Cedeño-cytopenia workup per primary team Will need outpatient PFTs Thank you. Dr Arreola Problem List - Problems (1) COPD with acute exacerbation Code(s): J44.1 - CHRONIC OBSTRUCTIVE PULMONARY DISEASE W (ACUTE) EXACERBATION (2) Pancytopenia Code(s): D61.818 - OTHER PANCYTOPENIA (3) Hypertension Code(s): I10 - ESSENTIAL (PRIMARY) HYPERTENSION Qualifiers: Hypertension type: essential hypertension Qualified Code(s): I10 - Essential (primary) hypertension (4) Tobacco dependence due to cigarettes Code(s): F17.210 - NICOTINE DEPENDENCE, CIGARETTES, UNCOMPLICATED
[2018-11-20 12:48] LABS: ANISOCYTOSIS 1+; MACROCYTOSIS 3+; PLATELET ESTIMATE DECREASED
--- NOTE | 2018-11-20 15:09 | PN ---
Progress Note, Physician History of Present Illness: AWAKE, ALERT NO COMPLAINTS REMAINS AFEBRILE/ NEUTROPENIC/ PANCYTOPENIC BC (-) CT ? CBD STONE - Current Medication List Current Medications: Active Medications Albuterol Sulfate (Ventolin Hfa Inhaler -) 2 puff IH Q4H PRN PRN Reason: SHORT OF BREATH/WHEEZING Albuterol/Ipratropium (Duoneb -) 1 amp NEB RQID CARLOS Last Admin: 11/20/18 11:50 Dose: 1 amp Piperacillin Sod/Tazobactam (Sod 3.375 gm/ Dextrose) 50 mls @ 100 mls/hr IVPB Q8H-IV CARLOS; Protocol Last Admin: 11/20/18 02:44 Dose: 100 mls/hr Methylprednisolone Sodium Succinate (Solu-Medrol -) 40 mg IVPUSH Q8H-IV CARLOS Last Admin: 11/20/18 02:44 Dose: 40 mg - Objective Vital Signs: Vital Signs Temperature 98.6 F 11/20/18 06:00 Pulse Rate 63 11/20/18 06:00 Respiratory Rate 20 11/20/18 06:00 Blood Pressure 152/65 11/20/18 06:00 O2 Sat by Pulse Oximetry (%) 95 11/19/18 21:00 Constitutional: Yes: No Distress, Obese Cardiovascular: Yes: Regular Rate and Rhythm, S1, S2 Respiratory: Yes: CTA Bilaterally Gastrointestinal: Yes: Normal Bowel Sounds, Soft. No: Tenderness Edema: No Labs: CBC, BMP 11/20/18 07:00 11/20/18 07:00 INR, PTT INR 1.08 (0.83-1.09) 11/20/18 07:00 Fibrinogen 335.0 mg/dL (238-498) 11/20/18 07:00 Assessment/Plan NEUTROPENIA/ PANCYTOPENIA HX FEVER- RESOLVED ? CBD STONE AWAIT C/S CONTINUE EMPIRIC ZOSYN NEUTROPENIC PRECAUTIONS HEME/ GI F/U
[2018-11-20] MEDS ORDERED: METHADONE HCL 40 MG DISPERSABLE TABLET PO ONE (16:58)
--- NOTE | 2018-11-20 20:44 | PN ---
Progress Note (short form) - Note Progress Note: patient seen and examined denies any specific c/o afvss Cor: RSR, No murmurs, No gallops Lungs: Clear to P&A Abd: Soft, Normal bowel sounds, No organomegaly Ext:No significant edema labs/meds reviewed a/p 78F with COPD, HTN, hx HCV admitted with pancytopenia. Last normal CBC (except for high MCV) in 02/2018. Peripheral smear with anisopoikilocytosis (many ovalocytes), no immature cells, no plt clumps, few large plts, no significant hypersegmentation. B12 328. Serum folate wnl. LDH 241. DDx includes MDS, leukemia, B12 deficiency (less likely), \ peripheral flow/cytogenetics/fish sent for bone marrow bx on 11/23
[2018-11-21] MEDS ORDERED: PIPERACILLIN/TAZOBACTAM 3.375 GM VIAL IVPB ONE ×2 (01:32→10:48)
[2018-11-21] MEDS ORDERED: DEXTROSE 5%-WATER - 50 ML IVPB ONE ×2 (01:33→10:48)
[2018-11-21] MEDS: PIPERACILLIN/TAZOB 3.375 GM 3.375 GM in DEXTROSE 5%-WATER - 50 ML IVPB SCH ×2 (03:05→11:04)
[2018-11-21] MEDS: methylPREDNISolone NA SUCC 40 MG/1 ML VIAL IVPUSH SCH ×3 (03:06→17:06)
[2018-11-21] MEDS ORDERED: LISINOPRIL 20 MG TABLET (FP) PO ONE (05:35)
[2018-11-21] MEDS: ALBUTEROL SO4 2.5/IPRATROPIUM 0.5 INH SOL 3 ML VIAL.NEB. NEB SCH ×4 (08:32→20:28)
--- NOTE | 2018-11-21 11:01 | PN ---
Physical Exam: SUBJECTIVE: Patient seen and examined; discussed with onc resident. Pateint remains afebrile and hemodynamically stable on the floor with oncology following. Workup remains pending MRCP without focal acute abnormality. States that normal varient significantly low cystic duct insertion on the CBD with normal caliber duct with no filling defects. Mild diffuse pacnreatic ductal atropthy with mild diffuse pancreatic ductal dilation possibly due to an element of chronic pancreatitis vs. agre-related atrophy. No focal abnormalities seen within the pancreas. Significant thoracolumbar spine scoliosis with 2/2 DJD incidentally noted but no acute complaints relating to indicated imaging finding. 10 sys ROS done and negative aside from HPI OBJECTIVE: Vital Signs Period Temp Pulse Resp BP Sys/Peter Pulse Ox Last 24 Hr 97.9 F-99.3 F 63-76 20-20 153-180/63-78 100-100 GENERAL: The patient is awake, alert, and fully oriented, in no acute distress. HEAD: Normal with no signs of trauma. EYES: PERRL, extraocular movements intact, sclera anicteric, conjunctiva clear. No ptosis. ENT: Ears normal, nares patent, oropharynx clear without exudates, moist mucous membranes. NECK: Trachea midline, full range of motion, supple. LUNGS: Breath sounds equal, clear to auscultation bilaterally, no wheezes, no crackles, no accessory muscle use. HEART: Regular rate and rhythm, S1, S2 without murmur, rub or gallop. ABDOMEN: Soft, nontender, nondistended, normoactive bowel sounds, no guarding, no rebound, no hepatosplenomegaly, no masses. EXTREMITIES: 2+ pulses, warm, well-perfused, no edema. NEUROLOGICAL: Cranial nerves II through XII grossly intact. Normal speech, gait not observed. PSYCH: Normal mood, normal affect. SKIN: Warm, dry, normal turgor, no rashes or lesions noted Laboratory Results - last 24 hr 11/20/18 07:00 Neutrophils % (Manual) 56.1 Band Neutrophils % 0.0 Lymphocytes % (Manual) 41.9 H D Monocytes % (Manual) 0 L Eosinophils % (Manual) 0.0 Basophils % (Manual) 1.0 Myelocytes % (Man) 0 D Promyelocytes % (Man) 0 Blast Cells % (Manual) 0 Metamyelocytes 0 Hypochromia 0 Platelet Estimate Decreased Platelet Comment Present Polychromasia 1+ Poikilocytosis 0 Basophilic Stippling 1+ Anisocytosis 1+ Microcytosis 0 Macrocytosis 3+ Active Medications Generic Name Dose Route Start Last Admin Trade Name Parrish PRN Reason Stop Dose Admin Albuterol Sulfate 2 puff 11/19/18 05:02 Ventolin Hfa Inhaler - IH Q4H PRN SHORT OF BREATH/WHEEZING Albuterol/Ipratropium 1 amp 11/19/18 05:15 11/21/18 08:32 Duoneb - NEB 1 amp RQID CARLOS Administration Piperacillin Sod/Tazobactam 50 mls @ 100 mls/hr 11/19/18 18:00 11/21/18 03:05 Sod 3.375 gm/ Dextrose IVPB 100 mls/hr Q8H-IV CARLOS Administration Protocol Methylprednisolone Sodium Succinate 40 mg 11/19/18 10:00 11/21/18 03:06 Solu-Medrol - IVPUSH 40 mg Q8H-IV CARLOS Administration ASSESSMENT/PLAN: Patient presents with suspected hematologic malignancy and is pending workup. 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 Pending flow cytometry, cytogenitics, FISH, and BMB on 11/23/2018.) -COPD hx (needs PFTs, consult pulm) -Hx Hepatitis C -Chronic pancreatitis vs. age related changes-no true dilation CBD. Pending GI consult. -Neutropenic Fever (resolved, on IV Zosyn per ID) Full Code Visit type - Emergency Visit Emergency Visit: Yes ED Registration Date: 11/19/18 Care time: The patient presented to the Emergency Department on the above date and was hospitalized for further evaluation of their emergent condition. - New Patient This patient is new to me today: No - Critical Care Critical Care patient: No
[2018-11-21 12:06] LABS: BASO % 0.6 % (0-2.0); HEMATOCRIT 25.5 % (32.4-45.2); HEMOGLOBIN 8.6 GM/dL (10.7-15.3); LYMPH % 41.8 % (8-40); MCHC 33.6 g/dl (32.0-36.0); MEAN CELL VOLUME 125.3 fl (80-96); MONO % 4.3 % (3.8-10.2); NEUT % 53.3 % (42.8-82.8); RBC 2.03 M/mm3 (3.60-5.2); RDW 18.2 % (11.6-15.6)
[2018-11-21 12:21] LABS: MCH 42.1 pg (25.7-33.7)
[2018-11-21 12:22] LABS: WHITE BLOOD COUNT 1.7 K/mm3 (4.0-10.0)
--- NOTE | 2018-11-21 12:26 | PN ---
Progress Note (short form) - Note Progress Note: Breathing feels a little better today. Still with some congested cough. No acute events overnight. Intake & Output 11/18/18 11/19/18 11/20/18 11/21/18 23:59 23:59 23:59 23:59 Intake Total 1100 400 50 Balance 1100 400 50 Weight 165 lb 159 lb 2 oz Last Vital Signs Temp Pulse Resp BP Pulse Ox 97.1 F L 62 18 164/53 L 100 11/21/18 10:00 11/21/18 10:00 11/21/18 10:00 11/21/18 10:00 11/21/18 08:54 Active Medications Albuterol Sulfate (Ventolin Hfa Inhaler -) 2 puff IH Q4H PRN PRN Reason: SHORT OF BREATH/WHEEZING Albuterol/Ipratropium (Duoneb -) 1 amp NEB RQID CARLOS Last Admin: 11/21/18 08:32 Dose: 1 amp Piperacillin Sod/Tazobactam (Sod 3.375 gm/ Dextrose) 50 mls @ 100 mls/hr IVPB Q8H-IV CARLOS; Protocol Last Admin: 11/21/18 11:04 Dose: 100 mls/hr Methylprednisolone Sodium Succinate (Solu-Medrol -) 40 mg IVPUSH Q8H-IV CARLOS Last Admin: 11/21/18 11:05 Dose: 40 mg Constitutional: Yes: Well Nourished, No Distress, Calm Eyes: Yes: Conjunctiva Clear, EOM Intact HENT: Yes: Atraumatic, Normocephalic Neck: Yes: Supple, Trachea Midline Cardiovascular: Yes: Regular Rate and Rhythm Respiratory: Yes: Cough, Diminished, Rhonchi, SOB on Exertion. No: Accessory Muscle Use, Rales, SOB, Stridor, Tachypnea, Wheezes ...Inspection: Yes: WNL ...Clubbing: No Gastrointestinal: Yes: Normal Bowel Sounds, Soft Renal/: Yes: WNL Musculoskeletal: Yes: WNL Extremities: Yes: WNL Edema: No Peripheral Pulses WNL: Yes Integumentary: Yes: WNL Neurological: Yes: WNL, Alert, Oriented ...Motor Strength: WNL Psychiatric: Yes: WNL, Alert, Oriented Labs: Laboratory Results - last 24 hr 11/20/18 11/21/18 07:00 11:35 WBC 1.7 L* RBC 2.03 L Hgb 8.6 L Hct 25.5 L D MCV 125.3 H MCH 42.1 H MCHC 33.6 RDW 18.2 H Absolute Neuts (auto) 0.9 L Neutrophils % 53.3 Neutrophils % (Manual) 56.1 Band Neutrophils % 0.0 Lymphocytes % 41.8 H Lymphocytes % (Manual) 41.9 H D Monocytes % 4.3 Monocytes % (Manual) 0 L Eosinophils % 0.0 Eosinophils % (Manual) 0.0 Basophils % 0.6 Basophils % (Manual) 1.0 Myelocytes % (Man) 0 D Promyelocytes % (Man) 0 Blast Cells % (Manual) 0 Nucleated RBC % 1 H Metamyelocytes 0 Differential Comment Hypochromia 0 Platelet Estimate Decreased Platelet Comment Present Polychromasia 1+ Poikilocytosis 0 Basophilic Stippling 1+ Anisocytosis 1+ Microcytosis 0 Macrocytosis 3+ Problem List - Problems (1) COPD with acute exacerbation Code(s): J44.1 - CHRONIC OBSTRUCTIVE PULMONARY DISEASE W (ACUTE) EXACERBATION (2) Pancytopenia Code(s): D61.818 - OTHER PANCYTOPENIA (3) Hypertension Code(s): I10 - ESSENTIAL (PRIMARY) HYPERTENSION Qualifiers: Hypertension type: essential hypertension Qualified Code(s): I10 - Essential (primary) hypertension (4) Tobacco dependence due to cigarettes Code(s): F17.210 - NICOTINE DEPENDENCE, CIGARETTES, UNCOMPLICATED Assessment/Plan Can likely change to Prednisone tomorrow if breathing is stable/improved BD TX standing and PRN O2 as needed Smoking cessation was discussed VTE prophylaxis ABX per ID Cedeño-cytopenia workup per primary team Will need outpatient PFTs Dr Arreola Problem List - Problems (1) COPD with acute exacerbation Code(s): J44.1 - CHRONIC OBSTRUCTIVE PULMONARY DISEASE W (ACUTE) EXACERBATION (2) Pancytopenia Code(s): D61.818 - OTHER PANCYTOPENIA (3) Hypertension Code(s): I10 - ESSENTIAL (PRIMARY) HYPERTENSION Qualifiers: Hypertension type: essential hypertension Qualified Code(s): I10 - Essential (primary) hypertension (4) Tobacco dependence due to cigarettes Code(s): F17.210 - NICOTINE DEPENDENCE, CIGARETTES, UNCOMPLICATED
[2018-11-21 12:36] LABS: BLOOD UREA NITROGEN 27.7 mg/dL (7-18); CALCIUM 8.6 mg/dL (8.5-10.1); CREATININE 1.2 mg/dL (0.55-1.3); POTASSIUM 4.3 mmol/L (3.5-5.1)
--- NOTE | 2018-11-21 13:22 | PN ---
Progress Note, Physician History of Present Illness: AWAKE, ALERT NO COMPLAINTS REMAINS AFEBRILE/ NEUTROPENIC/ PANCYTOPENIC WBC INCREASED 1.7 ANC 900 BC (-) MRCP NO CBP STONE - Current Medication List Current Medications: Active Medications Albuterol Sulfate (Ventolin Hfa Inhaler -) 2 puff IH Q4H PRN PRN Reason: SHORT OF BREATH/WHEEZING Albuterol/Ipratropium (Duoneb -) 1 amp NEB RQID CARLOS Last Admin: 11/21/18 12:28 Dose: 1 amp Piperacillin Sod/Tazobactam (Sod 3.375 gm/ Dextrose) 50 mls @ 100 mls/hr IVPB Q8H-IV CARLOS; Protocol Last Admin: 11/21/18 11:04 Dose: 100 mls/hr Methadone HCl (Dolophine -) 40 mg PO DAILY ONE Stop: 11/21/18 12:47 Methylprednisolone Sodium Succinate (Solu-Medrol -) 40 mg IVPUSH Q8H-IV CARLOS Last Admin: 11/21/18 11:05 Dose: 40 mg - Objective Vital Signs: Vital Signs Temperature 97.1 F L 11/21/18 10:00 Pulse Rate 62 11/21/18 10:00 Respiratory Rate 18 11/21/18 10:00 Blood Pressure 164/53 L 11/21/18 10:00 O2 Sat by Pulse Oximetry (%) 100 11/21/18 08:54 Constitutional: Yes: No Distress Eyes: Yes: Conjunctiva Clear Cardiovascular: Yes: Regular Rate and Rhythm, S1, S2 Respiratory: Yes: CTA Bilaterally Gastrointestinal: Yes: Normal Bowel Sounds, Soft, Abdomen, Obese. No: Tenderness Edema: No Labs: CBC, BMP 11/21/18 11:35 11/21/18 11:35 INR, PTT INR 1.08 (0.83-1.09) 11/20/18 07:00 Fibrinogen 335.0 mg/dL (238-498) 11/20/18 07:00 Assessment/Plan NEUTROPENIA/ PANCYTOPENIA HX FEVER- RESOLVED C/S NEGATIVE SUBSTITUTE PO LEVAQUIN NEUTROPENIC PROPHYLAXIS NEUTROPENIC PRECAUTIONS
[2018-11-21] MEDS: METHADONE HCL 40 MG DISPERSABLE TABLET PO SCH (13:43)
[2018-11-21 14:27] LABS: ANISOCYTOSIS 1+; MACROCYTOSIS 1+; PLATELET ESTIMATE DECREASED
--- NOTE | 2018-11-21 14:34 | PN ---
Progress Note (short form) - Note Progress Note: Patient was seen prior by Dr Cole in 10/2017. Please re-consult patient to Dr Cole.
[2018-11-21 15:06] LABS: PLATELET COUNT 52 K/MM3 (134-434)
[2018-11-21 15:07] LABS: MEAN PLT VOLUME 9.1 fl (7.5-11.1)
--- NOTE | 2018-11-21 17:28 | PN ---
Progress Note (short form) - Note Progress Note: Hematology and oncology follow up Subject: Patient seen and examined at bedside. No events overnight, no new complaints. Objective: Vital Signs Temperature 98.8 F 11/22/18 06:00 Pulse Rate 65 11/22/18 06:00 Respiratory Rate 20 11/22/18 06:00 Blood Pressure 178/56 H 11/22/18 06:00 O2 Sat by Pulse Oximetry (%) 98 11/21/18 21:00 Physical exam: Gen: well appearing, awake and alert in NAD Lungs: Clear to auscultation b/l down to the bases Heart: regular rate and rhythm. s1, s2 heard. Abdomen: soft, nontender, nondistended. Bowel sounds heard. Home Medications Medication Instructions Recorded Gabapentin 300 mg PO TID 11/06/17 Lisinopril [Prinivil -] 40 mg PO DAILY 11/06/17 Nifedipine ER [Procardia XL -] 30 mg PO DAILY 11/06/17 Propranolol HCl [Propranolol HCl 80 mg PO DAILY 11/06/17 ER] Albuterol Sulfate Inhaler - 1 - 2 inh PO Q4H PRN #2 inhaler 11/13/17 [Ventolin HFA Inhaler -] Arformoterol Tartrate [Brovana] 15 mcg IH BID #1 ml 11/13/17 Polyethylene Glycol 3350 [Miralax 17 gm PO DAILY #1 bottle 11/13/17 (For Daily Use) -] Sennosides/Docusate Sodium 2 each PO HS #60 tablet 11/13/17 [Pericolace -] Methadone [Dolophine -] 40 mg PO DAILY@0600 MDD 20 11/19/18 Active Medications Albuterol Sulfate (Ventolin Hfa Inhaler -) 2 puff IH Q4H PRN PRN Reason: SHORT OF BREATH/WHEEZING Albuterol/Ipratropium (Duoneb -) 1 amp NEB RQID [facility] Last Admin: 11/21/18 20:28 Dose: 1 amp Levofloxacin (Levaquin -) 500 mg PO DAILY@0600 [facility] Last Admin: 11/22/18 06:15 Dose: 500 mg Methadone HCl (Dolophine -) 40 mg PO 0600 [facility] Last Admin: 11/22/18 06:15 Dose: 40 mg Nifedipine (Procardia Xl -) 30 mg PO DAILY [facility] Prednisone (Deltasone -) 40 mg PO DAILY CARLOS Stop: 11/26/18 10:01 Senna/Docusate Sodium (Pericolace -) 2 tablet PO HS CARLOS Last Admin: 11/21/18 22:18 Dose: 2 tablet Allergies Allergy/AdvReac Type Severity Reaction Status Date / Time metformin AdvReac Verified 11/10/17 06:59 Assessment and plan: 78 y/o lady with COPD, HTN, hx HCV admitted for COPD exacerbation and found to have pancytopenia. #pancytopenia likely 2/2 MDS vs leukemia vs B12 deficiency -monitor labs -flow cytometry w/ FISH send; awaiting results. -for BM biopsy on 11/23 -suggest keeping the patient admitted until Bx as she should ideally be monitored until then
--- NOTE | 2018-11-21 17:40 | PN ---
Teaching Attending Note Name of Resident: Maroi Ramon ATTENDING PHYSICIAN STATEMENT I saw and evaluated the patient. I reviewed the resident's note and discussed the case with the resident. I agree with the resident's findings and plan as documented. SUBJECTIVE: Doing well no new complaints OBJECTIVE: Last Vital Signs Temp Pulse Resp BP Pulse Ox 98.8 F 68 18 151/69 100 11/21/18 14:12 11/21/18 14:12 11/21/18 14:12 11/21/18 14:12 11/21/18 08:54 General: NAD HEENT: MMM CVS: S1, S2 Lungs: Ronchi. Abdomen: Soft, NT, ND Extremities: No overt edema Neuro: Moves all extremities Psych: Conversant, appropriate 11/21/18 11:35 11/21/18 11:35 Current Medications Albuterol Sulfate (Ventolin Hfa Inhaler -) 2 puff IH Q4H PRN PRN Reason: SHORT OF BREATH/WHEEZING Albuterol/Ipratropium (Duoneb -) 1 amp NEB RQID [facility] Last Admin: 11/21/18 17:06 Dose: 1 amp Levofloxacin (Levaquin -) 500 mg PO DAILY@0600 [facility] Last Admin: 11/21/18 14:26 Dose: 500 mg Methadone HCl (Dolophine -) 40 mg PO 0600 [facility] Last Admin: 11/21/18 13:43 Dose: 40 mg Methylprednisolone Sodium Succinate (Solu-Medrol -) 40 mg IVPUSH Q8H-IV [facility] Last Admin: 11/21/18 17:06 Dose: 40 mg ASSESSMENT AND PLAN 78 y/o lady with COPD, HTN, hx HCV admitted with pancytopenia. Last normal CBC ( except for high MCV) in 02/2018. Peripheral smear with anisopoikilocytosis (many ovalocytes), no immature cells, no plt clumps, few large plts, no significant hypersegmentation. B12 328. Serum folate wnl. LDH 241. DDx includes MDS, leukemia, B12 deficiency (less likely). peripheral flow/cytogenetics/fish sent--> Awaiting results for bone marrow bx on 11/23
[2018-11-21] MEDS ORDERED: GABAPENTIN 300 MG CAPSULE (FP) PO ONE (21:40)
[2018-11-21] MEDS: SENNOSIDES/DOCUSATE COMBO (SENNA PLUS) TABLET (UD) PO SCH (22:18)
[2018-11-22] MEDS: methylPREDNISolone NA SUCC 40 MG/1 ML VIAL IVPUSH SCH (02:49)
[2018-11-22] MEDS: METHADONE HCL 40 MG DISPERSABLE TABLET PO SCH (06:15)
[2018-11-22] MEDS: ALBUTEROL SO4 2.5/IPRATROPIUM 0.5 INH SOL 3 ML VIAL.NEB. NEB SCH ×4 (08:00→20:35)
[2018-11-22 08:09] LABS: HEMATOCRIT 23.7 % (32.4-45.2); HEMOGLOBIN 8.1 GM/dL (10.7-15.3); MCHC 34.3 g/dl (32.0-36.0); MEAN CELL VOLUME 123.1 fl (80-96); MEAN PLT VOLUME 8.9 fl (7.5-11.1); PLATELET COUNT 46 K/MM3 (134-434); RBC 1.92 M/mm3 (3.60-5.2); RDW 18.3 % (11.6-15.6)
[2018-11-22 08:28] LABS: INR 1.2 (0.83-1.09); PROTHROMBIN TIME (PATIENT) 14.2 SEC (9.7-13.0)
[2018-11-22 08:29] LABS: ALBUMIN 3.8 g/dl (3.4-5.0); BILIRUBIN,TOTAL 0.7 mg/dL (0.2-1); BLOOD UREA NITROGEN 30.4 mg/dL (7-18); CALCIUM 8.7 mg/dL (8.5-10.1); MAGNESIUM 2.5 mg/dL (1.8-2.4); POTASSIUM 4.1 mmol/L (3.5-5.1); TOT PROT 7.5 g/dl (6.4-8.2)
[2018-11-22 08:35] LABS: MCH 42.3 pg (25.7-33.7)
[2018-11-22 08:37] LABS: WHITE BLOOD COUNT 1.4 K/mm3 (4.0-10.0)
[2018-11-22] MEDS: NIFEdipine E.R. 30 MG TABLET (FP) PO SCH (10:11)
[2018-11-22] MEDS: predniSONE 20 MG TABLET (UD) PO SCH (10:11)
[2018-11-22] MEDS: DOCUSATE SODIUM 100 MG CAPSULE (FP) PO SCH (11:37)
[2018-11-22 13:12] LABS: METHYLMALONIC ACID- 226 nmol/L (0-378)
--- NOTE | 2018-11-22 13:40 | PN ---
Progress Note, Physician History of Present Illness: PULMONARY ALERT,COMFORTABLE,-SOB,LESS COUGH - Current Medication List Current Medications: Active Medications Albuterol Sulfate (Ventolin Hfa Inhaler -) 2 puff IH Q4H PRN PRN Reason: SHORT OF BREATH/WHEEZING Albuterol/Ipratropium (Duoneb -) 1 amp NEB RQID [facility] Last Admin: 11/21/18 20:28 Dose: 1 amp Docusate Sodium (Colace -) 100 mg PO DAILY [facility] Last Admin: 11/22/18 11:37 Dose: 100 mg Levofloxacin (Levaquin -) 500 mg PO DAILY@0600 [facility] Last Admin: 11/22/18 06:15 Dose: 500 mg Methadone HCl (Dolophine -) 40 mg PO 0600 [facility] Last Admin: 11/22/18 06:15 Dose: 40 mg Nifedipine (Procardia Xl -) 30 mg PO DAILY [facility] Last Admin: 11/22/18 10:11 Dose: 30 mg Prednisone (Deltasone -) 40 mg PO DAILY [facility] Stop: 11/26/18 10:01 Last Admin: 11/22/18 10:11 Dose: 40 mg Senna/Docusate Sodium (Pericolace -) 2 tablet PO HS [facility] Last Admin: 11/21/18 22:18 Dose: 2 tablet - Objective Vital Signs: Vital Signs Temperature 98.9 F 11/22/18 10:00 Pulse Rate 77 11/22/18 10:00 Respiratory Rate 20 11/22/18 10:00 Blood Pressure 143/61 11/22/18 10:00 O2 Sat by Pulse Oximetry (%) 99 11/22/18 09:00 Constitutional: Yes: Well Nourished, Calm Eyes: Yes: WNL HENT: Yes: WNL Neck: Yes: WNL Cardiovascular: Yes: Regular Rate and Rhythm, S1, S2 Respiratory: Yes: Diminished Gastrointestinal: Yes: Normal Bowel Sounds, Soft Extremities: Yes: WNL Edema: No Labs: CBC, BMP 11/22/18 06:50 11/22/18 06:50 INR, PTT INR 1.20 (0.83-1.09) H 11/22/18 06:50 Fibrinogen 335.0 mg/dL (238-498) 11/20/18 07:00 Assessment/Plan Problem List - Problems (1) COPD with acute exacerbation Code(s): J44.1 - CHRONIC OBSTRUCTIVE PULMONARY DISEASE W (ACUTE) EXACERBATION (2) Pancytopenia Code(s): D61.818 - OTHER PANCYTOPENIA (3) Hypertension Code(s): I10 - ESSENTIAL (PRIMARY) HYPERTENSION Qualifiers: Hypertension type: essential hypertension Qualified Code(s): I10 - Essential (primary) hypertension (4) Tobacco dependence due to cigarettes Code(s): F17.210 - NICOTINE DEPENDENCE, CIGARETTES, UNCOMPLICATED Assessment/Plan Prednisone BD TX standing and PRN O2 as needed VTE prophylaxis ABX Cedeño-cytopenia workup per primary team outpatient PFTs DR SERRANO Problem List - Problems (1) COPD with acute exacerbation Code(s): J44.1 - CHRONIC OBSTRUCTIVE PULMONARY DISEASE W (ACUTE) EXACERBATION (2) Pancytopenia Code(s): D61.818 - OTHER PANCYTOPENIA (3) Hypertension Code(s): I10 - ESSENTIAL (PRIMARY) HYPERTENSION Qualifiers: Hypertension type: essential hypertension Qualified Code(s): I10 - Essential (primary) hypertension (4) Tobacco dependence due to cigarettes Code(s): F17.210 - NICOTINE DEPENDENCE, CIGARETTES, UNCOMPLICATED
[2018-11-22] MEDS ORDERED: LIDOCAINE HCL 1%, 10 MG/ML (20ML VIAL) ONE (15:29)
--- NOTE | 2018-11-22 20:24 | PN ---
Progress Note (short form) - Note Progress Note: patient seen and examined denies any specific c/o afvss Cor: RSR, No murmurs, No gallops Lungs: Clear to P&A Abd: Soft, Normal bowel sounds, No organomegaly Ext:No significant edema labs/meds reviewed a/p 78F with COPD, HTN, hx HCV admitted with pancytopenia. Last normal CBC (except for high MCV) in 02/2018. Peripheral smear with anisopoikilocytosis (many ovalocytes), no immature cells, no plt clumps, few large plts, no significant hypersegmentation. B12 328. Serum folate wnl. LDH 241. DDx includes MDS, leukemia, B12 deficiency (less likely), \ peripheral flow/cytogenetics/fish pending bone marrow biopsy attempted , unable to reach the bone -- will request IR guided biopsy discussed with patient
--- NOTE | 2018-11-22 20:25 | PROC ---
Bone Marrow Aspiration/Biopsy - Consent Risks and Benefits Explained: Yes Consent on Chart: Yes - Procedure Location: Right Iliac Crest Anesthesia: 1% Lidocaine Specimen: Attempted without success Patient tolerated procedure: Well with minimal pain (Rt. iliac crest -- 1% lidocaine. Did not proceed with aspiration/bx as unable to reach the bone)
[2018-11-22] MEDS: GABAPENTIN 300 MG CAPSULE (FP) PO SCH (22:07)
[2018-11-22] MEDS: SENNOSIDES/DOCUSATE COMBO (SENNA PLUS) TABLET (UD) PO SCH (22:07)
[2018-11-23] MEDS: GABAPENTIN 300 MG CAPSULE (FP) PO SCH ×3 (05:46→21:35)
--- NOTE | 2018-11-23 07:37 | PN ---
Physical Exam: PLEASE NOTE THAT THIS NOTE APPLIES TO 11/22 ENCOUNTER. SHE WAS SEEN AND EXAMINED THEN WITH RESIDENT TEAM BUT RESIDENT DID NOT LEAVE PROGRESS NOTE FOR UNKNOWN REASON S: Seen and examined. MRCP negative for any acute pathology with the hepatobiliary system and the dilation/suspected stone isn't appreciated. No need for GI consult. Biopsy to be attempted today No new complaints, remains in good spirits. Tolerating PO prednisone taper. So s/s infection; on LQ px per ID. 10 sys ROS done and negative aside from HPI VS, labs, imaging reviewed NAD, AAO, resting in bed NT ND +BS CN2-12 wnl, no fnd Neck supple with no JVD, trachea midline NC AT EOMI PERRLA RRR s1/2 Lungs CTAB, w/ sym exp Normal muscle tone, 5/5 strength in all ext. Normal mood, appropriate behavior All labs reviewed; folate WNL, LDH 250-range, B12 wnl, persistent leukopenia No new imaging Pending cytogenetics Discussed with indicated consulting services. A/P: Patient remains on the medicine service; pending BMBX and further oncology workup. Once bx done will discuss if this can be pursued as an outpatient. 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 Pending flow cytometry, cytogenitics, FISH, and BMB. Continue LQ per ID) -COPD hx (needs PFTs, on prednisone taper per pulmonary) -Hx Hepatitis C -Chronic pancreatitis vs. age related changes-no true dilation CBD. Pending GI consult. -Neutropenic Fever (resolved) Full Code Continue to monitor as inpatient 30 mins spent. Visit type - Emergency Visit Emergency Visit: Yes ED Registration Date: 11/19/18 Care time: The patient presented to the Emergency Department on the above date and was hospitalized for further evaluation of their emergent condition. - New Patient This patient is new to me today: No - Critical Care Critical Care patient: No
--- NOTE | 2018-11-23 07:42 | PN ---
Physical Exam: SUBJECTIVE: Patient seen and examined, no new complaints. Remains hemodynamicaly stable and afebrile. Failed BM biopsy yesterday. 10 sys ROS done and negative aside from HPI OBJECTIVE: Vital Signs Period Temp Pulse Resp BP Sys/Peter Pulse Ox Last 24 Hr 97.5 F-99.0 F 66-79 19-20 130-156/45-68 99-99 GENERAL: The patient is awake, alert, and fully oriented, in no acute distress. HEAD: Normal with no signs of trauma. EYES: PERRL, extraocular movements intact, sclera anicteric, conjunctiva clear. No ptosis. ENT: Ears normal, nares patent, oropharynx clear without exudates NECK: Trachea midline, full range of motion, supple. LUNGS: Breath sounds equal, clear to auscultation bilaterally, no wheezes, HEART: Regular rate and rhythm, S1, S2 without murmur, rub or gallop. ABDOMEN: Soft, nontender, nondistended, normoactive bowel sounds, EXTREMITIES: 2+ pulses, warm, well-perfused, no edema. NEUROLOGICAL: Cranial nerves II through XII grossly intact. Normal speech, gait not observed. PSYCH: Normal mood, normal affect. SKIN: Warm, dry, normal turgor, no rashes or lesions noted Laboratory Results - last 24 hr 11/19/18 11/20/18 11/22/18 13:15 07:00 06:50 WBC 1.4 L* RBC 1.92 L Hgb 8.1 L Hct 23.7 L MCV 123.1 H MCH 42.3 H MCHC 34.3 RDW 18.3 H Plt Count 46 L MPV 8.9 PT with INR INR Sodium Potassium Chloride Carbon Dioxide Anion Gap BUN Creatinine Est GFR (CKD-EPI)AfAm Est GFR (CKD-EPI)NonAf Random Glucose Calcium Magnesium Total Bilirubin AST ALT Alkaline Phosphatase Total Protein Albumin Methylmalonic Acid 226 Hep C Ab Diagnostic >11.0 H HCV RNA PCR w/Genot Rflx Hcv not detected Liver Fibrosis Interp 11/22/18 11/22/18 06:50 06:50 WBC RBC Hgb Hct MCV MCH MCHC RDW Plt Count MPV PT with INR 14.20 H INR 1.20 H Sodium 137 Potassium 4.1 Chloride 104 Carbon Dioxide 26 Anion Gap 7 L BUN 30.4 H Creatinine 1.0 Est GFR (CKD-EPI)AfAm 62.93 Est GFR (CKD-EPI)NonAf 54.30 Random Glucose 159 H Calcium 8.7 Magnesium 2.5 H Total Bilirubin 0.7 AST 14 L ALT 16 Alkaline Phosphatase 85 Total Protein 7.5 Albumin 3.8 Methylmalonic Acid Hep C Ab Diagnostic HCV RNA PCR w/Genot Rflx Liver Fibrosis Interp Active Medications Generic Name Dose Route Start Last Admin Trade Name Freq PRN Reason Stop Dose Admin Albuterol Sulfate 2 puff 11/19/18 05:02 Ventolin Hfa Inhaler - IH Q4H PRN SHORT OF BREATH/WHEEZING Albuterol/Ipratropium 1 amp 11/19/18 05:15 11/22/18 20:35 Duoneb - NEB 1 amp RQID CARLOS Administration Docusate Sodium 100 mg 11/22/18 10:15 11/22/18 11:37 Colace - PO 100 mg DAILY CARLOS Administration Gabapentin 300 mg 11/22/18 22:00 11/23/18 05:46 Neurontin - PO 300 mg TID CARLOS Administration Levofloxacin 500 mg 11/21/18 13:30 11/23/18 05:46 Levaquin - PO 500 mg DAILY@0600 CARLOS Administration Methadone HCl 40 mg 11/21/18 13:45 11/22/18 06:15 Dolophine - PO 40 mg 0600 CARLOS Administration Nifedipine 30 mg 11/22/18 10:00 11/22/18 10:11 Procardia Xl - PO 30 mg DAILY CARLOS Administration Prednisone 40 mg 11/22/18 10:00 11/22/18 10:11 Deltasone - PO 11/26/18 10:01 40 mg DAILY CARLOS Administration Senna/Docusate Sodium 2 tablet 11/21/18 22:00 11/22/18 22:07 Pericolace - PO 2 tablet HS CARLOS Administration All labs and imaging findings independently reviewed Discussed with indicated consulting services. ASSESSMENT/PLAN: Remains inpatient for pancytopenia workup; bedside bx failed so oncology recommended IR-guided. If cannot be arranged in feasable time will discuss OP followup. 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 Pending flow cytometry, cytogenitics, FISH, and BMB. Continue LQ per ID) -COPD hx (needs PFTs, on prednisone taper per pulmonary) -Hx Hepatitis C -Chronic pancreatitis vs. age related changes-no true dilation CBD. Pending GI consult. -Neutropenic Fever (resolved) Full Code 35 min spent in the discussion and management of this patinet Visit type - Emergency Visit Emergency Visit: Yes ED Registration Date: 11/19/18 Care time: The patient presented to the Emergency Department on the above date and was hospitalized for further evaluation of their emergent condition. - New Patient This patient is new to me today: No - Critical Care Critical Care patient: No
[2018-11-23] MEDS: ALBUTEROL SO4 2.5/IPRATROPIUM 0.5 INH SOL 3 ML VIAL.NEB. NEB SCH ×4 (08:00→20:39)
[2018-11-23] MEDS ORDERED: PT OWN MED DRAWER 7, Y5N ONE (09:13)
--- NOTE | 2018-11-23 09:13 | PN ---
Progress Note (short form) - Note Progress Note: Breathing feels a little better today. Still with some congested cough. No acute events overnight. Intake & Output 11/20/18 11/21/18 11/22/18 11/23/18 23:59 23:59 23:59 23:59 Intake Total 400 1380 1170 0 Balance 400 1380 1170 0 Last Vital Signs Temp Pulse Resp BP Pulse Ox 97.5 F L 79 20 136/68 99 11/23/18 06:02 11/23/18 06:02 11/23/18 06:02 11/23/18 06:02 11/22/18 21:00 Active Medications Albuterol Sulfate (Ventolin Hfa Inhaler -) 2 puff IH Q4H PRN PRN Reason: SHORT OF BREATH/WHEEZING Albuterol/Ipratropium (Duoneb -) 1 amp NEB RQID [facility] Last Admin: 11/22/18 20:35 Dose: 1 amp Docusate Sodium (Colace -) 100 mg PO DAILY [facility] Last Admin: 11/22/18 11:37 Dose: 100 mg Gabapentin (Neurontin -) 300 mg PO TID [facility] Last Admin: 11/23/18 05:46 Dose: 300 mg Levofloxacin (Levaquin -) 500 mg PO DAILY@0600 [facility] Last Admin: 11/23/18 05:46 Dose: 500 mg Methadone HCl (Dolophine -) 40 mg PO 0600 [facility] Last Admin: 11/22/18 06:15 Dose: 40 mg Nifedipine (Procardia Xl -) 30 mg PO DAILY [facility] Last Admin: 11/22/18 10:11 Dose: 30 mg Prednisone (Deltasone -) 40 mg PO DAILY [facility] Stop: 11/26/18 10:01 Last Admin: 11/22/18 10:11 Dose: 40 mg Senna/Docusate Sodium (Pericolace -) 2 tablet PO HS [facility] Last Admin: 11/22/18 22:07 Dose: 2 tablet Constitutional: Yes: Well Nourished, No Distress, Calm Eyes: Yes: Conjunctiva Clear, EOM Intact HENT: Yes: Atraumatic, Normocephalic Neck: Yes: Supple, Trachea Midline Cardiovascular: Yes: Regular Rate and Rhythm Respiratory: Yes: Cough, Diminished, Rhonchi, SOB on Exertion. No: Accessory Muscle Use, Rales, SOB, Stridor, Tachypnea, Wheezes ...Inspection: Yes: WNL ...Clubbing: No Gastrointestinal: Yes: Normal Bowel Sounds, Soft Renal/: Yes: WNL Musculoskeletal: Yes: WNL Extremities: Yes: WNL Edema: No Peripheral Pulses WNL: Yes Integumentary: Yes: WNL Neurological: Yes: WNL, Alert, Oriented ...Motor Strength: WNL Psychiatric: Yes: WNL, Alert, Oriented Labs: Laboratory Results - last 24 hr 11/19/18 11/20/18 13:15 07:00 Methylmalonic Acid 226 Hep C Ab Diagnostic >11.0 H HCV RNA PCR w/Genot Rflx Hcv not detected Liver Fibrosis Interp Problem List - Problems (1) COPD with acute exacerbation Code(s): J44.1 - CHRONIC OBSTRUCTIVE PULMONARY DISEASE W (ACUTE) EXACERBATION (2) Pancytopenia Code(s): D61.818 - OTHER PANCYTOPENIA (3) Hypertension Code(s): I10 - ESSENTIAL (PRIMARY) HYPERTENSION Qualifiers: Hypertension type: essential hypertension Qualified Code(s): I10 - Essential (primary) hypertension (4) Tobacco dependence due to cigarettes Code(s): F17.210 - NICOTINE DEPENDENCE, CIGARETTES, UNCOMPLICATED Assessment/Plan Prednisone BD TX standing and PRN O2 as needed Smoking cessation was discussed VTE prophylaxis ABX per ID Will need outpatient PFTs Dr Arreola Problem List - Problems (1) COPD with acute exacerbation Code(s): J44.1 - CHRONIC OBSTRUCTIVE PULMONARY DISEASE W (ACUTE) EXACERBATION (2) Pancytopenia Code(s): D61.818 - OTHER PANCYTOPENIA (3) Hypertension Code(s): I10 - ESSENTIAL (PRIMARY) HYPERTENSION Qualifiers: Hypertension type: essential hypertension Qualified Code(s): I10 - Essential (primary) hypertension (4) Tobacco dependence due to cigarettes Code(s): F17.210 - NICOTINE DEPENDENCE, CIGARETTES, UNCOMPLICATED
[2018-11-23] MEDS: NIFEdipine E.R. 30 MG TABLET (FP) PO SCH (10:09)
[2018-11-23] MEDS: DOCUSATE SODIUM 100 MG CAPSULE (FP) PO SCH (10:09)
[2018-11-23] MEDS: METHADONE HCL 40 MG DISPERSABLE TABLET PO SCH (10:09)
[2018-11-23] MEDS: predniSONE 20 MG TABLET (UD) PO SCH (10:09)
[2018-11-23 10:27] LABS: BASO % 0.8 % (0-2.0); HEMATOCRIT 24.8 % (32.4-45.2); HEMOGLOBIN 8.4 GM/dL (10.7-15.3); LYMPH % 69.2 % (8-40); MCHC 33.9 g/dl (32.0-36.0); MEAN CELL VOLUME 124.2 fl (80-96); MONO % 5.7 % (3.8-10.2); NEUT % 24.3 % (42.8-82.8); PLATELET COUNT 55 K/MM3 (134-434); RBC 1.99 M/mm3 (3.60-5.2); RDW 18.4 % (11.6-15.6)
[2018-11-23 10:31] LABS: MCH 42.2 pg (25.7-33.7)
[2018-11-23 10:47] LABS: INR 1.23 (0.83-1.09); PROTHROMBIN TIME (PATIENT) 14.5 SEC (9.7-13.0)
[2018-11-23 10:49] LABS: BLOOD UREA NITROGEN 35.1 mg/dL (7-18); CALCIUM 8.7 mg/dL (8.5-10.1); POTASSIUM 3.4 mmol/L (3.5-5.1)
[2018-11-23 10:50] LABS: ACTIVATED PTT 24.2 SECONDS (25.2-36.5)
[2018-11-23 13:42] LABS: ANISOCYTOSIS 2+; MACROCYTOSIS 1+; OVALOCYTE 1+; PLATELET ESTIMATE DECREASED; TEAR DROP CELLS 1+
--- NOTE | 2018-11-23 14:58 | PN ---
Progress Note (short form) - Note Progress Note: Hematology and oncology follow up Subject: Patient seen and examined at bedside. No events overnight, no new complaints. Objective: Vital Signs Temperature 98.7 F 11/23/18 10:00 Pulse Rate 88 11/23/18 10:00 Respiratory Rate 20 11/23/18 10:00 Blood Pressure 128/88 11/23/18 10:00 O2 Sat by Pulse Oximetry (%) 95 11/23/18 09:00 Gen: well appearing, awake and alert in NAD Lungs: Clear to auscultation b/l down to the bases Heart: regular rate and rhythm. s1, s2 heard. Abdomen: soft, nontender, nondistended. Bowel sounds heard. Home Medications Medication Instructions Recorded Gabapentin 300 mg PO TID 11/06/17 Lisinopril [Prinivil -] 40 mg PO DAILY 11/06/17 Nifedipine ER [Procardia XL -] 30 mg PO DAILY 11/06/17 Propranolol HCl [Propranolol HCl 80 mg PO DAILY 11/06/17 ER] Albuterol Sulfate Inhaler - 1 - 2 inh PO Q4H PRN #2 inhaler 11/13/17 [Ventolin HFA Inhaler -] Arformoterol Tartrate [Brovana] 15 mcg IH BID #1 ml 11/13/17 Polyethylene Glycol 3350 [Miralax 17 gm PO DAILY #1 bottle 11/13/17 (For Daily Use) -] Sennosides/Docusate Sodium 2 each PO HS #60 tablet 11/13/17 [Pericolace -] Methadone [Dolophine -] 40 mg PO DAILY@0600 [facility] 20 11/19/18 Active Medications Albuterol Sulfate (Ventolin Hfa Inhaler -) 2 puff IH Q4H PRN PRN Reason: SHORT OF BREATH/WHEEZING Albuterol/Ipratropium (Duoneb -) 1 amp NEB RQID [facility] Last Admin: 11/21/18 20:28 Dose: 1 amp Levofloxacin (Levaquin -) 500 mg PO DAILY@0600 [facility] Last Admin: 11/22/18 06:15 Dose: 500 mg Methadone HCl (Dolophine -) 40 mg PO 0600 [facility] Last Admin: 11/22/18 06:15 Dose: 40 mg Nifedipine (Procardia Xl -) 30 mg PO DAILY [facility] Prednisone (Deltasone -) 40 mg PO DAILY [facility] Stop: 11/26/18 10:01 Senna/Docusate Sodium (Pericolace -) 2 tablet PO HS [facility] Last Admin: 11/21/18 22:18 Dose: 2 tablet Allergies Allergy/AdvReac Type Severity Reaction Status Date / Time metformin AdvReac Verified 11/10/17 06:59 Assessment and plan: 78 y/o lady with COPD, HTN, hx HCV admitted for COPD exacerbation and found to have pancytopenia. #pancytopenia likely 2/2 MDS vs leukemia vs B12 deficiency -monitor labs -flow cytometry w/ FISH sent; awaiting results. -BM bx attempted at bedside yesterday; unsuccessful. Will plan for IR guided BM biopsy today
[2018-11-23] MEDS: SENNOSIDES/DOCUSATE COMBO (SENNA PLUS) TABLET (UD) PO SCH (21:35)
[2018-11-24] MEDS: GABAPENTIN 300 MG CAPSULE (FP) PO SCH ×3 (05:26→21:32)
[2018-11-24] MEDS: METHADONE HCL 40 MG DISPERSABLE TABLET PO SCH (05:27)
[2018-11-24] MEDS: ALBUTEROL SO4 2.5/IPRATROPIUM 0.5 INH SOL 3 ML VIAL.NEB. NEB SCH ×4 (07:45→20:40)
[2018-11-24] MEDS: NIFEdipine E.R. 30 MG TABLET (FP) PO SCH (09:40)
[2018-11-24] MEDS: predniSONE 20 MG TABLET (UD) PO SCH (09:40)
[2018-11-24] MEDS: DOCUSATE SODIUM 100 MG CAPSULE (FP) PO SCH (09:40)
--- NOTE | 2018-11-24 16:01 | PN ---
Progress Note, Physician History of Present Illness: pulmonary alert,comfortable,-sob,min cough - Current Medication List Current Medications: Active Medications Albuterol Sulfate (Ventolin Hfa Inhaler -) 2 puff IH Q4H PRN PRN Reason: SHORT OF BREATH/WHEEZING Albuterol/Ipratropium (Duoneb -) 1 amp NEB RQID [facility] Last Admin: 11/24/18 11:49 Dose: 1 amp Docusate Sodium (Colace -) 100 mg PO DAILY [facility] Last Admin: 11/24/18 09:40 Dose: 100 mg Gabapentin (Neurontin -) 300 mg PO TID [facility] Last Admin: 11/24/18 13:32 Dose: 300 mg Methadone HCl (Dolophine -) 40 mg PO 0600 [facility] Last Admin: 11/24/18 05:27 Dose: 40 mg Nifedipine (Procardia Xl -) 30 mg PO DAILY [facility] Last Admin: 11/24/18 09:40 Dose: 30 mg Prednisone (Deltasone -) 40 mg PO DAILY [facility] Stop: 11/26/18 10:01 Last Admin: 11/24/18 09:40 Dose: 40 mg Senna/Docusate Sodium (Pericolace -) 2 tablet PO HS [facility] Last Admin: 11/23/18 21:35 Dose: 2 tablet - Objective Vital Signs: Vital Signs Temperature 98.8 F 11/24/18 14:37 Pulse Rate 92 H 11/24/18 14:37 Respiratory Rate 20 11/24/18 14:37 Blood Pressure 110/58 L 11/24/18 14:37 O2 Sat by Pulse Oximetry (%) 100 11/24/18 09:00 Constitutional: Yes: Well Nourished, Calm Eyes: Yes: WNL HENT: Yes: WNL Neck: Yes: WNL Cardiovascular: Yes: Regular Rate and Rhythm, S1, S2 Respiratory: Yes: Rhonchi (few rhonchi) Gastrointestinal: Yes: Normal Bowel Sounds, Soft Extremities: Yes: WNL Edema: No Labs: CBC, BMP Assessment/Plan Problem List - Problems (1) COPD with acute exacerbation Code(s): J44.1 - CHRONIC OBSTRUCTIVE PULMONARY DISEASE W (ACUTE) EXACERBATION (2) Pancytopenia Code(s): D61.818 - OTHER PANCYTOPENIA (3) Hypertension Code(s): I10 - ESSENTIAL (PRIMARY) HYPERTENSION Qualifiers: Hypertension type: essential hypertension Qualified Code(s): I10 - Essential (primary) hypertension (4) Tobacco dependence due to cigarettes Code(s): F17.210 - NICOTINE DEPENDENCE, CIGARETTES, UNCOMPLICATED Assessment/Plan Prednisone BD TX standing and PRN O2 as needed VTE prophylaxis ABX Check results of bone bx outpatient PFTs DR SERRANO Problem List - Problems (1) COPD with acute exacerbation Code(s): J44.1 - CHRONIC OBSTRUCTIVE PULMONARY DISEASE W (ACUTE) EXACERBATION (2) Pancytopenia Code(s): D61.818 - OTHER PANCYTOPENIA (3) Hypertension Code(s): I10 - ESSENTIAL (PRIMARY) HYPERTENSION Qualifiers: Hypertension type: essential hypertension Qualified Code(s): I10 - Essential (primary) hypertension (4) Tobacco dependence due to cigarettes Code(s): F17.210 - NICOTINE DEPENDENCE, CIGARETTES, UNCOMPLICATED
[2018-11-24] MEDS: FAMOTIDINE 10 MG TABLET PO SCH ×2 (17:05→21:33)
--- NOTE | 2018-11-24 21:29 | PN ---
Progress Note (short form) - Note Progress Note: patient seen and examined denies any specific c/o afvss Cor: RSR, No murmurs, No gallops Lungs: Clear to P&A Abd: Soft, Normal bowel sounds, No organomegaly Ext:No significant edema labs/meds reviewed a/p 78F with COPD, HTN, hx HCV admitted with pancytopenia. Last normal CBC (except for high MCV) in 02/2018. Peripheral smear with anisopoikilocytosis (many ovalocytes), no immature cells, no plt clumps, few large plts, no significant hypersegmentation. B12 328. Serum folate wnl. LDH 241. DDx includesT-LGL leukemia, peripheral flow/cytogenetics/fish pending bone marrow biopsy pending will need close follow up with hematology as outpatient
[2018-11-24] MEDS: SENNOSIDES/DOCUSATE COMBO (SENNA PLUS) TABLET (UD) PO SCH (21:33)
[2018-11-24] MEDS ORDERED: FAMOTIDINE 10 MG TABLET PO SCH (22:00)
[2018-11-25] MEDS: GABAPENTIN 300 MG CAPSULE (FP) PO SCH ×3 (06:09→21:59)
[2018-11-25] MEDS: METHADONE HCL 40 MG DISPERSABLE TABLET PO SCH (06:09)
[2018-11-25] MEDS: ALBUTEROL SO4 2.5/IPRATROPIUM 0.5 INH SOL 3 ML VIAL.NEB. NEB SCH ×4 (07:20→19:55)
[2018-11-25 07:45] LABS: BASO % 0.6 % (0-2.0); EOS % 0.2 % (0-4.5); HEMATOCRIT 21.7 % (32.4-45.2); HEMOGLOBIN 7.5 GM/dL (10.7-15.3); LYMPH % 74.3 % (8-40); MCHC 34.9 g/dl (32.0-36.0); MEAN CELL VOLUME 122.4 fl (80-96); MEAN PLT VOLUME 8.4 fl (7.5-11.1); MONO % 5.4 % (3.8-10.2); NEUT % 19.5 % (42.8-82.8); PLATELET COUNT 60 K/MM3 (134-434); RBC 1.77 M/mm3 (3.60-5.2); RDW 18.2 % (11.6-15.6); WHITE BLOOD COUNT 2.9 K/mm3 (4.0-10.0)
[2018-11-25 08:07] LABS: ALBUMIN 3.4 g/dl (3.4-5.0); BILIRUBIN,TOTAL 0.8 mg/dL (0.2-1); BLOOD UREA NITROGEN 30.6 mg/dL (7-18); CALCIUM 8.6 mg/dL (8.5-10.1); POTASSIUM 4.1 mmol/L (3.5-5.1); TOT PROT 6.4 g/dl (6.4-8.2)
[2018-11-25 08:45] LABS: MCH 42.6 pg (25.7-33.7)
[2018-11-25] MEDS: predniSONE 20 MG TABLET (UD) PO SCH (09:03)
[2018-11-25] MEDS: FAMOTIDINE 10 MG TABLET PO SCH ×2 (09:03→21:58)
[2018-11-25] MEDS: NIFEdipine E.R. 30 MG TABLET (FP) PO SCH (09:03)
[2018-11-25] MEDS: DOCUSATE SODIUM 100 MG CAPSULE (FP) PO SCH (09:03)
--- NOTE | 2018-11-25 12:42 | PN ---
Progress Note, Physician Chief Complaint: doing well, no sob, slight cough , no fever, no chills, - Current Medication List Current Medications: Active Medications Albuterol Sulfate (Ventolin Hfa Inhaler -) 2 puff IH Q4H PRN PRN Reason: SHORT OF BREATH/WHEEZING Albuterol/Ipratropium (Duoneb -) 1 amp NEB RQID [facility] Last Admin: 11/25/18 11:10 Dose: 1 amp Docusate Sodium (Colace -) 100 mg PO DAILY [facility] Last Admin: 11/25/18 09:03 Dose: 100 mg Famotidine (Acid Budget Controller) 10 mg PO BID [facility] Last Admin: 11/25/18 09:03 Dose: 10 mg Gabapentin (Neurontin -) 300 mg PO TID [facility] Last Admin: 11/25/18 06:09 Dose: 300 mg Methadone HCl (Dolophine -) 40 mg PO 0600 [facility] Last Admin: 11/25/18 06:09 Dose: 40 mg Nifedipine (Procardia Xl -) 30 mg PO DAILY [facility] Last Admin: 11/25/18 09:03 Dose: 30 mg Prednisone (Deltasone -) 40 mg PO DAILY [facility] Stop: 11/26/18 10:01 Last Admin: 11/25/18 09:03 Dose: 40 mg Senna/Docusate Sodium (Pericolace -) 2 tablet PO HS [facility] Last Admin: 11/24/18 21:33 Dose: 2 tablet - Objective Vital Signs: Vital Signs Temperature 98.4 F 11/25/18 08:58 Pulse Rate 88 11/25/18 08:58 Respiratory Rate 20 11/25/18 08:58 Blood Pressure 135/53 L 11/25/18 08:58 O2 Sat by Pulse Oximetry (%) 98 11/25/18 09:00 Constitutional: Yes: Well Nourished, No Distress Eyes: Yes: WNL HENT: Yes: Normocephalic Neck: Yes: WNL, Supple, Trachea Midline Cardiovascular: Yes: Regular Rate and Rhythm Respiratory: Yes: Regular, CTA Bilaterally Edema: No ...Motor Strength: WNL Labs: CBC, BMP 11/25/18 06:44 11/25/18 06:44 INR, PTT INR 1.23 (0.83-1.09) H 11/23/18 09:55 Fibrinogen 335.0 mg/dL (238-498) 11/20/18 07:00 Impression/Plan Impression/Plan: ASSESSMENT/PLAN: Remains inpatient for pancytopenia workup; bedside bx failed , had IR guded 2 days ago, -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 Pending flow cytometry, cytogenitics, FISH, , -COPD hx (needs PFTs, on prednisone taper per pulmonary) -Hx Hepatitis C MRCP , reviewed , no pancreatitis , no cbd dilatation , -Neutropenic Fever (resolved) Full Code Visit type - Emergency Visit Emergency Visit: No - New Patient This patient is new to me today: Yes Date on this admission: 11/25/18 - Critical Care Critical Care patient: No - Discharge Referral Referred to [facility] Med P.C.: No
--- NOTE | 2018-11-25 13:28 | PN ---
Progress Note, Physician History of Present Illness: pulmonary alert,no distress,-sob - Current Medication List Current Medications: Active Medications Albuterol Sulfate (Ventolin Hfa Inhaler -) 2 puff IH Q4H PRN PRN Reason: SHORT OF BREATH/WHEEZING Albuterol/Ipratropium (Duoneb -) 1 amp NEB RQID [facility] Last Admin: 11/25/18 11:10 Dose: 1 amp Docusate Sodium (Colace -) 100 mg PO DAILY [facility] Last Admin: 11/25/18 09:03 Dose: 100 mg Famotidine (Acid Audio Visual Equipment Rental Clerk) 10 mg PO BID [facility] Last Admin: 11/25/18 09:03 Dose: 10 mg Gabapentin (Neurontin -) 300 mg PO TID [facility] Last Admin: 11/25/18 06:09 Dose: 300 mg Methadone HCl (Dolophine -) 40 mg PO 0600 [facility] Last Admin: 11/25/18 06:09 Dose: 40 mg Nifedipine (Procardia Xl -) 30 mg PO DAILY [facility] Last Admin: 11/25/18 09:03 Dose: 30 mg Prednisone (Deltasone -) 40 mg PO DAILY [facility] Stop: 11/26/18 10:01 Last Admin: 11/25/18 09:03 Dose: 40 mg Senna/Docusate Sodium (Pericolace -) 2 tablet PO HS [facility] Last Admin: 11/24/18 21:33 Dose: 2 tablet - Objective Vital Signs: Vital Signs Temperature 98.4 F 11/25/18 08:58 Pulse Rate 88 11/25/18 08:58 Respiratory Rate 20 11/25/18 08:58 Blood Pressure 135/53 L 11/25/18 08:58 O2 Sat by Pulse Oximetry (%) 98 11/25/18 09:00 Constitutional: Yes: Well Nourished, Calm Eyes: Yes: WNL HENT: Yes: WNL Neck: Yes: WNL Cardiovascular: Yes: Regular Rate and Rhythm, S1, S2 Respiratory: Yes: CTA Bilaterally Gastrointestinal: Yes: Normal Bowel Sounds, Soft Extremities: Yes: WNL Edema: No Labs: CBC, BMP 11/25/18 06:44 11/25/18 06:44 INR, PTT INR 1.23 (0.83-1.09) H 11/23/18 09:55 Fibrinogen 335.0 mg/dL (238-498) 11/20/18 07:00 Assessment/Plan Problem List - Problems (1) COPD with acute exacerbation Code(s): J44.1 - CHRONIC OBSTRUCTIVE PULMONARY DISEASE W (ACUTE) EXACERBATION (2) Pancytopenia Code(s): D61.818 - OTHER PANCYTOPENIA (3) Hypertension Code(s): I10 - ESSENTIAL (PRIMARY) HYPERTENSION Qualifiers: Hypertension type: essential hypertension Qualified Code(s): I10 - Essential (primary) hypertension (4) Tobacco dependence due to cigarettes Code(s): F17.210 - NICOTINE DEPENDENCE, CIGARETTES, UNCOMPLICATED Assessment/Plan Prednisone BD TX standing and PRN O2 as needed VTE prophylaxis ABX Check results of bone bx outpatient PFTs monitor cbc DR SERRANO Problem List - Problems (1) COPD with acute exacerbation Code(s): J44.1 - CHRONIC OBSTRUCTIVE PULMONARY DISEASE W (ACUTE) EXACERBATION (2) Pancytopenia Code(s): D61.818 - OTHER PANCYTOPENIA (3) Hypertension Code(s): I10 - ESSENTIAL (PRIMARY) HYPERTENSION Qualifiers: Hypertension type: essential hypertension Qualified Code(s): I10 - Essential (primary) hypertension (4) Tobacco dependence due to cigarettes Code(s): F17.210 - NICOTINE DEPENDENCE, CIGARETTES, UNCOMPLICATED
[2018-11-25 13:33] LABS: ANISOCYTOSIS 2+; MACROCYTOSIS 2+; OVALOCYTE 0; PLATELET ESTIMATE DECREASED
[2018-11-25] MEDS: SENNOSIDES/DOCUSATE COMBO (SENNA PLUS) TABLET (UD) PO SCH (21:59)
[2018-11-26] MEDS: GABAPENTIN 300 MG CAPSULE (FP) PO SCH ×3 (05:54→21:58)
[2018-11-26] MEDS: METHADONE HCL 40 MG DISPERSABLE TABLET PO SCH (05:54)
[2018-11-26] MEDS: ALBUTEROL SO4 2.5/IPRATROPIUM 0.5 INH SOL 3 ML VIAL.NEB. NEB SCH ×4 (07:20→19:55)
[2018-11-26] MEDS ORDERED: PT OWN MED DRAWER 7, Y5N ONE ×2 (09:44→09:53)
--- NOTE | 2018-11-26 09:55 | PN ---
Progress Note, Physician Chief Complaint: doing well, no sob, slight cough , no fever, no chills, - Current Medication List Current Medications: Active Medications Albuterol Sulfate (Ventolin Hfa Inhaler -) 2 puff IH Q4H PRN PRN Reason: SHORT OF BREATH/WHEEZING Albuterol/Ipratropium (Duoneb -) 1 amp NEB RQID [facility] Last Admin: 11/26/18 07:20 Dose: 1 amp Docusate Sodium (Colace -) 100 mg PO DAILY [facility] Last Admin: 11/25/18 09:03 Dose: 100 mg Famotidine (Acid Easement Man) 10 mg PO BID [facility] Last Admin: 11/25/18 21:58 Dose: 10 mg Gabapentin (Neurontin -) 300 mg PO TID [facility] Last Admin: 11/26/18 05:54 Dose: 300 mg Methadone HCl (Dolophine -) 40 mg PO 0600 [facility] Last Admin: 11/26/18 05:54 Dose: 40 mg Nifedipine (Procardia Xl -) 30 mg PO DAILY [facility] Last Admin: 11/25/18 09:03 Dose: 30 mg Prednisone (Deltasone -) 40 mg PO DAILY [facility] Stop: 11/26/18 10:01 Last Admin: 11/25/18 09:03 Dose: 40 mg Senna/Docusate Sodium (Pericolace -) 2 tablet PO HS [facility] Last Admin: 11/25/18 21:59 Dose: 2 tablet - Objective Vital Signs: Vital Signs Temperature 97.3 F L 11/26/18 06:00 Pulse Rate 82 11/26/18 06:00 Respiratory Rate 20 11/26/18 06:00 Blood Pressure 140/66 11/26/18 06:00 O2 Sat by Pulse Oximetry (%) 98 11/25/18 21:00 Eyes: Yes: WNL, Conjunctiva Clear HENT: Yes: WNL, Atraumatic, Normocephalic Neck: Yes: WNL, Supple, Trachea Midline Cardiovascular: Yes: WNL, Regular Rate and Rhythm Respiratory: Yes: WNL, Regular, CTA Bilaterally Gastrointestinal: Yes: WNL, Normal Bowel Sounds Musculoskeletal: Yes: WNL Extremities: Yes: WNL Edema: No Peripheral Pulses WNL: Yes Integumentary: Yes: WNL Neurological: Yes: WNL, Alert, Oriented ...Motor Strength: WNL Psychiatric: Yes: WNL Labs: CBC, BMP 11/25/18 06:44 11/25/18 06:44 INR, PTT INR 1.23 (0.83-1.09) H 11/23/18 09:55 Fibrinogen 335.0 mg/dL (238-498) 11/20/18 07:00 Impression/Plan Impression/Plan: ASSESSMENT/PLAN: Remains inpatient for pancytopenia workup; BIOPSY report pending , -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 Pending flow cytometry, cytogenitics, FISH, , -COPD hx on inhalers, doing well, pulmonolgy on the case, -Hx Hepatitis C awaiting for results, -Neutropenic Fever (resolved) Full Code Visit type - Emergency Visit Emergency Visit: No - New Patient This patient is new to me today: No - Critical Care Critical Care patient: No - Discharge Referral Referred to [facility] Med P.C.: No
[2018-11-26] MEDS: DOCUSATE SODIUM 100 MG CAPSULE (FP) PO SCH (10:39)
[2018-11-26] MEDS: predniSONE 20 MG TABLET (UD) PO SCH (10:39)
[2018-11-26] MEDS: FAMOTIDINE 10 MG TABLET PO SCH ×2 (10:39→21:58)
[2018-11-26] MEDS: NIFEdipine E.R. 30 MG TABLET (FP) PO SCH (10:39)
--- NOTE | 2018-11-26 14:37 | PN ---
Progress Note, Physician History of Present Illness: pulmonary alert,-resp distress. - Current Medication List Current Medications: Active Medications Albuterol Sulfate (Ventolin Hfa Inhaler -) 2 puff IH Q4H PRN PRN Reason: SHORT OF BREATH/WHEEZING Albuterol/Ipratropium (Duoneb -) 1 amp NEB RQID [facility] Last Admin: 11/26/18 11:30 Dose: 1 amp Docusate Sodium (Colace -) 100 mg PO DAILY [facility] Last Admin: 11/26/18 10:39 Dose: 100 mg Famotidine (Acid Piece Goods Clerk) 10 mg PO BID [facility] Last Admin: 11/26/18 10:39 Dose: 10 mg Gabapentin (Neurontin -) 300 mg PO TID [facility] Last Admin: 11/26/18 05:54 Dose: 300 mg Methadone HCl (Dolophine -) 40 mg PO 0600 [facility] Last Admin: 11/26/18 05:54 Dose: 40 mg Nifedipine (Procardia Xl -) 30 mg PO DAILY [facility] Last Admin: 11/26/18 10:39 Dose: 30 mg Senna/Docusate Sodium (Pericolace -) 2 tablet PO HS [facility] Last Admin: 11/25/18 21:59 Dose: 2 tablet - Objective Vital Signs: Vital Signs Temperature 97.3 F L 11/26/18 06:00 Pulse Rate 82 11/26/18 06:00 Respiratory Rate 20 11/26/18 06:00 Blood Pressure 140/66 11/26/18 06:00 O2 Sat by Pulse Oximetry (%) 98 11/25/18 21:00 Constitutional: Yes: Well Nourished, Calm Eyes: Yes: WNL HENT: Yes: WNL Neck: Yes: WNL Cardiovascular: Yes: Regular Rate and Rhythm, S1, S2 Respiratory: Yes: Rales (few crackles on r) Gastrointestinal: Yes: Normal Bowel Sounds, Soft Extremities: Yes: WNL Edema: No Labs: CBC, BMP Assessment/Plan Problem List - Problems (1) COPD with acute exacerbation Code(s): J44.1 - CHRONIC OBSTRUCTIVE PULMONARY DISEASE W (ACUTE) EXACERBATION (2) Pancytopenia Code(s): D61.818 - OTHER PANCYTOPENIA (3) Hypertension Code(s): I10 - ESSENTIAL (PRIMARY) HYPERTENSION Qualifiers: Hypertension type: essential hypertension Qualified Code(s): I10 - Essential (primary) hypertension (4) Tobacco dependence due to cigarettes Code(s): F17.210 - NICOTINE DEPENDENCE, CIGARETTES, UNCOMPLICATED Assessment/Plan Prednisone BD TX standing and PRN O2 as needed VTE prophylaxis Check results of bone bx outpatient PFTs monitor cbc DR SERRANO Problem List - Problems (1) COPD with acute exacerbation Code(s): J44.1 - CHRONIC OBSTRUCTIVE PULMONARY DISEASE W (ACUTE) EXACERBATION (2) Pancytopenia Code(s): D61.818 - OTHER PANCYTOPENIA (3) Hypertension Code(s): I10 - ESSENTIAL (PRIMARY) HYPERTENSION Qualifiers: Hypertension type: essential hypertension Qualified Code(s): I10 - Essential (primary) hypertension (4) Tobacco dependence due to cigarettes Code(s): F17.210 - NICOTINE DEPENDENCE, CIGARETTES, UNCOMPLICATED
[2018-11-26 17:45] LABS: BASO % 0.7 % (0-2.0); HEMATOCRIT 24.6 % (32.4-45.2); LYMPH % 23.7 % (8-40); MCHC 32.7 g/dl (32.0-36.0); MEAN CELL VOLUME 126.9 fl (80-96); MEAN PLT VOLUME 10.9 fl (7.5-11.1); MONO % 3.3 % (3.8-10.2); NEUT % 72.3 % (42.8-82.8); PLATELET COUNT 83 K/MM3 (134-434); RBC 1.94 M/mm3 (3.60-5.2); RDW 17.9 % (11.6-15.6)
[2018-11-26 17:50] LABS: MCH 41.5 pg (25.7-33.7)
[2018-11-26 17:51] LABS: WHITE BLOOD COUNT 1.9 K/mm3 (4.0-10.0)
[2018-11-26 19:33] LABS: ANISOCYTOSIS 2+; PLATELET ESTIMATE NORMAL
[2018-11-26] MEDS: SENNOSIDES/DOCUSATE COMBO (SENNA PLUS) TABLET (UD) PO SCH (21:58)
[2018-11-27] MEDS: METHADONE HCL 40 MG DISPERSABLE TABLET PO SCH (06:47)
[2018-11-27] MEDS: GABAPENTIN 300 MG CAPSULE (FP) PO SCH (06:47)
[2018-11-27] MEDS: ALBUTEROL SO4 2.5/IPRATROPIUM 0.5 INH SOL 3 ML VIAL.NEB. NEB SCH (07:35)
--- NOTE | 2018-11-27 07:39 | DS ---
Physical Exam: SUBJECTIVE: Patient seen and examined OBJECTIVE: Vital Signs Period Temp Pulse Resp BP Sys/Peter Pulse Ox Last 24 Hr 97.8 F-98.8 F 84-91 18-91 106-135/55-64 99-99 PHYSICAL EXAM GENERAL: The patient is awake, alert, and fully oriented, in no acute distress. HEAD: Normal with no signs of trauma. EYES: PERRL, extraocular movements intact, sclera anicteric, conjunctiva clear. ENT: Ears normal, nares patent, oropharynx clear without exudates, moist mucous membranes. NECK: Trachea midline, full range of motion, supple. LUNGS: Breath sounds equal, clear to auscultation bilaterally, no wheezes, no crackles, no accessory muscle use. HEART: Regular rate and rhythm, S1, S2 without murmur, rub or gallop. ABDOMEN: Soft, nontender, nondistended, normoactive bowel sounds, no guarding, no rebound, no hepatosplenomegaly, no masses. EXTREMITIES: 2+ pulses, warm, well-perfused, no edema. NEUROLOGICAL: Cranial nerves II through XII grossly intact. Normal speech, gait not observed. PSYCH: Normal mood, normal affect. SKIN: Warm, dry, normal turgor, no rashes or lesions noted. LABS Laboratory Results - last 24 hr 11/26/18 11/26/18 11:05 16:29 WBC 1.9 L* RBC 1.94 L Hgb 8.0 L Hct 24.6 L MCV 126.9 H MCH 41.5 H MCHC 32.7 RDW 17.9 H Plt Count 83 L D MPV 10.9 D Absolute Neuts (auto) 1.4 L Neutrophils % 72.3 D Neutrophils % (Manual) 80.8 Band Neutrophils % 1.0 Lymphocytes % 23.7 D Lymphocytes % (Manual) 16.2 D Monocytes % 3.3 L Monocytes % (Manual) 1 L Eosinophils % 0.0 D Eosinophils % (Manual) 0.0 Basophils % 0.7 Basophils % (Manual) 0.0 Myelocytes % (Man) 0 Promyelocytes % (Man) 0 Blast Cells % (Manual) 0 Nucleated RBC % 0 Metamyelocytes 1 D Platelet Estimate Normal Anisocytosis 2+ Stool Occult Blood Negative Laboratory Tests 11/19/18 13:15 Hep C Ab Diagnostic >11.0 H HCV RNA PCR w/Genot Rflx Hcv not detected HOSPITAL COURSE: Date of Admission:11/19/18 Date of Discharge: 11/27/18 <Tan Bourne - Last Filed: 11/27/18 07:40> Physical Exam: Seen and examined; please see resident note for further historical information. I personally verified all corley historical information and exam findings. Personally interpreted all imaging and diagnostics and reviewed appropriate consults. I reviewed all labs and vital signs as per resident note and EMR as documented. I agree with the above assessment and plan unless supplemented by myself in the following. Seen and examined 10 sys ROS done and is negative aside from HPI VS, labs, imaging reviewed NAD, AAO, resting in bed NC AT EOMI PERRLA Neck supple, trach ML, no LN HR wnl, s1/2 Lungs CTAB, w/ sym exp NT ND +BS Skin without rashes or breakdown CN2-12 wnl, no fnd Normal mood, appropriate behavior Echo reviewed; lvef wnl A/P: 45 minutes spent in the care of this patient. Minutes to complete discharge: 33 <Walter Soares - Last Filed: 11/27/18 07:41> Discharge Summary Problems reviewed: Yes Reason For Visit: CHRONIC OBSTRUCTIVE PULMONARY DISEASE WITH ACUTE Current Active Problems COPD with acute exacerbation (Acute) Pancytopenia (Acute) - Home Medications Comprehensive Discharge Medication List: Ambulatory Orders Gabapentin 300 mg PO TID 11/06/17 Lisinopril [Prinivil -] 40 mg PO DAILY 11/06/17 Nifedipine ER [Procardia XL -] 30 mg PO DAILY 11/06/17 Propranolol HCl [Propranolol HCl ER] 80 mg PO HS 11/06/17 Albuterol Sulfate Inhaler - [Ventolin HFA Inhaler -] 1 - 2 inh PO Q4H PRN #2 inhaler 11/13/17 Arformoterol Tartrate [Brovana] 15 mcg IH BID #1 ml 11/13/17 Polyethylene Glycol 3350 [Miralax (For Daily Use) -] 17 gm PO DAILY #1 bottle Sennosides/Docusate Sodium [Pericolace -] 2 each PO HS #60 tablet 11/13/17 Methadone [Dolophine -] 40 mg PO DAILY@0600 MDD 20 11/19/18 <Tan Bourne - Last Filed: 11/27/18 07:40> Current Active Problems COPD with acute exacerbation (Acute) Pancytopenia (Acute) - Home Medications Comprehensive Discharge Medication List: Ambulatory Orders Gabapentin 300 mg PO TID 11/06/17 Lisinopril [Prinivil -] 40 mg PO DAILY 11/06/17 Nifedipine ER [Procardia XL -] 30 mg PO DAILY 11/06/17 Propranolol HCl [Propranolol HCl ER] 80 mg PO HS 11/06/17 Albuterol Sulfate Inhaler - [Ventolin HFA Inhaler -] 1 - 2 inh PO Q4H PRN #2 inhaler 11/13/17 Arformoterol Tartrate [Brovana] 15 mcg IH BID #1 ml 11/13/17 Polyethylene Glycol 3350 [Miralax (For Daily Use) -] 17 gm PO DAILY #1 bottle Sennosides/Docusate Sodium [Pericolace -] 2 each PO HS #60 tablet 11/13/17 Methadone [Dolophine -] 40 mg PO DAILY@0600 MDD 20 11/19/18 <Walter Soares - Last Filed: 11/27/18 07:41> Condition: Stable - Instructions Referrals: Elia De León MD [Staff Physician] - 2 Weeks Buddy Feliciano MD [Staff Physician] - 2 Weeks Virginie Gonzalez MD [Staff Physician] - 1 Week Ana Arora [Primary Care Provider] - 1 Week - Discharge Referral Referred to [facility] No <Tan Bourne - Last Filed: 11/27/18 07:40> ATTENDING PHYSICIAN STATEMENT I saw and evaluated the patient. I reviewed the resident's note and discussed the case with the resident. I agree with the resident's findings and plan as documented. SUBJECTIVE: OBJECTIVE: ASSESSMENT AND PLAN: <Tan Bourne - Last Filed: 11/27/18 07:40> ATTENDING PHYSICIAN STATEMENT I saw and evaluated the patient. I reviewed the resident's note and discussed the case with the resident. I agree with the resident's findings and plan as documented. SUBJECTIVE: OBJECTIVE: ASSESSMENT AND PLAN: <Walter Soares - Last Filed: 11/27/18 07:41>
[2018-11-27 07:47] LABS: BASO % 0.8 % (0-2.0); EOS % 0.2 % (0-4.5); HEMATOCRIT 20.7 % (32.4-45.2); HEMOGLOBIN 7.2 GM/dL (10.7-15.3); LYMPH % 68.2 % (8-40); MCHC 34.6 g/dl (32.0-36.0); MEAN PLT VOLUME 8.6 fl (7.5-11.1); MONO % 4.7 % (3.8-10.2); NEUT % 26.1 % (42.8-82.8); PLATELET COUNT 68 K/MM3 (134-434); RDW 18.2 % (11.6-15.6); WHITE BLOOD COUNT 2.8 K/mm3 (4.0-10.0)
[2018-11-27 08:23] LABS: MCH 42.2 pg (25.7-33.7)
[2018-11-27 08:27] LABS: ALBUMIN 3.2 g/dl (3.4-5.0); BILIRUBIN,TOTAL 0.4 mg/dL (0.2-1); BLOOD UREA NITROGEN 23.9 mg/dL (7-18); CALCIUM 8.2 mg/dL (8.5-10.1); CREATININE 0.9 mg/dL (0.55-1.3); POTASSIUM 3.9 mmol/L (3.5-5.1); TOT PROT 6.2 g/dl (6.4-8.2)
[2018-11-27] MEDS: FAMOTIDINE 10 MG TABLET PO SCH (10:49)
[2018-11-27] MEDS: DOCUSATE SODIUM 100 MG CAPSULE (FP) PO SCH (10:49)
[2018-11-27] MEDS: NIFEdipine E.R. 30 MG TABLET (FP) PO SCH (10:49)
[2018-11-27 10:51] VITALS: BP 149/72; PULSE 100; TEMP 98.5
--- NOTE | 2018-11-27 10:54 | PN ---
Progress Note (short form) - Note Progress Note: PULMONARY States breathing is improving. Minimal cough. Vital Signs Period Temp Pulse Resp BP Sys/Peter Pulse Ox Last 24 Hr 98.3 F-98.8 F 91-100 20- 106-149/55-72 99 Gen: NAD at rest Heart: RRR Lung: decreased breath sounds at the bases Abd: soft, nontender Ext: no edema CBC, BMP 11/27/18 06:00 11/27/18 06:00 Active Medications Albuterol Sulfate (Ventolin Hfa Inhaler -) 2 puff IH Q4H PRN PRN Reason: SHORT OF BREATH/WHEEZING Docusate Sodium (Colace -) 100 mg PO DAILY [facility] Last Admin: 11/27/18 10:49 Dose: 100 mg Famotidine (Acid Head Teller) 10 mg PO BID [facility] Last Admin: 11/27/18 10:49 Dose: 10 mg Gabapentin (Neurontin -) 300 mg PO TID [facility] Last Admin: 11/27/18 06:47 Dose: 300 mg Methadone HCl (Dolophine -) 40 mg PO 0600 [facility] Last Admin: 11/27/18 06:47 Dose: 40 mg Nifedipine (Procardia Xl -) 30 mg PO DAILY [facility] Last Admin: 11/27/18 10:49 Dose: 30 mg Senna/Docusate Sodium (Pericolace -) 2 tablet PO HS [facility] Last Admin: 11/26/18 21:58 Dose: 2 tablet A/P Acute COPD Exacerbation Pancytopenia Hep C Methadone Maintenance - completed prednisone - inhaled bronchodilators - O2 as needed - monitor CBC - DVT prophylaxis - d/c planning in progress
[2018-11-27 11:17] LABS: ANISOCYTOSIS 2+; MACROCYTOSIS 2+; PLATELET ESTIMATE DECREASED
--- NOTE | 2018-11-27 16:05 | PATH ---
Surgical Pathology Report Patient Name: ANITHA VILLALAB Med. Rec. #: [id number] /Age/Gender: 1940 (Age: 78) / F Account: [id number] Location: [facility] MED/SURG Taken: 11/20/2018 Received: 11/20/2018 Reported: 11/27/2018 Physicians: Virginie Gonzalez M.D. Specimen(s) Received PERIPHERAL BLOOD Clinical History Anemia Final Diagnosis COMPREHENSIVE FLOW CYTOMETRY performed and interpreted at [facility], [place], [place] ([id number]) INTERPRETATION: NO DEFINITIVE ATYPICAL FLOW CYTOMETRIC FINDINGS SEEN (SEE COMMENT). Comment: The clinical significance of the rare blasts is uncertain. There are otherwise no obvious immunophenotypic abnormalities by flow cytometry. Please correlate clinically and morphologically. Viability: 98% Phenotype: Lymphocytes include polyclonal B cells, NK cells and immunophenotypically normal CD4+ and CD8+ T cells in normal proportions. No evidence of a clonal lymphoid expansion. Granulocytes are immunophenotypically mature. Rare CD34+ blasts are detected, representing 0.2% of WBCS. Cytomorphology: Smear preparation shows peripheral blood with mature granulocytes, lymphocytes and monocytes seen. ACUTE MYELOID LEUKEMIA FISH PANEL performed and interpreted at [facility] in [place], [place] ([id number]) shows the following: Interpretation: No evidence of deletion 5q or monosomy 5 is present. No evidence of deletion 7q or monosomy 7 is present. No evidence of trisomy 8 (+8) is present. No evidence of a rearrangement of 11q23. No BCR/ABL1 t(9;22) translocation is detected. No PML/DEANA t(15;17) translocation is detected. No ETO/AML1 t(8;21) translocation is detected. No CBFB (16q22) rearrangement is detected. CYTOGENETIC KARTYOTYPE ANALYSIS received from [facility], [place], [place] ([id number]) shows the following: TEST RESULTS: Tissue Culture Failure. DIAGNOSTIC INTERPRETATION: This unstimulated peripheral blood specimen did not produce any analyzable metaphase cells and, therefore, chromosome analysis is not possible. A bone marrow aspirate, when clinically appropriate, is recommended. See [facility] reports for additional details. Electronically Signed Aisha Farris M.D.
--- NOTE | 2018-11-27 16:53 | PN ---
Progress Note (short form) - Note Progress Note: Hematology and oncology follow up Subject: Patient seen and examined at bedside. No events overnight, no new complaints. For discharge today Objective: Vital Signs Temperature 98.5 F 11/27/18 10:00 Pulse Rate 100 H 11/27/18 10:00 Respiratory Rate 20 11/27/18 10:00 Blood Pressure 149/72 11/27/18 10:00 O2 Sat by Pulse Oximetry (%) 99 11/27/18 09:00 Gen: well appearing, awake and alert in NAD Lungs: Clear to auscultation b/l down to the bases Heart: regular rate and rhythm. s1, s2 heard. Abdomen: soft, nontender, nondistended. Bowel sounds heard. Home Medications Medication Instructions Recorded Gabapentin 300 mg PO TID 11/06/17 Lisinopril [Prinivil -] 40 mg PO DAILY 11/06/17 Nifedipine ER [Procardia XL -] 30 mg PO DAILY 11/06/17 Propranolol HCl [Propranolol HCl 80 mg PO DAILY 11/06/17 ER] Albuterol Sulfate Inhaler - 1 - 2 inh PO Q4H PRN #2 inhaler 11/13/17 [Ventolin HFA Inhaler -] Arformoterol Tartrate [Brovana] 15 mcg IH BID #1 ml 11/13/17 Polyethylene Glycol 3350 [Miralax 17 gm PO DAILY #1 bottle 11/13/17 (For Daily Use) -] Sennosides/Docusate Sodium 2 each PO HS #60 tablet 11/13/17 [Pericolace -] Methadone [Dolophine -] 40 mg PO DAILY@0600 MDD 20 11/19/18 Active Medications Albuterol Sulfate (Ventolin Hfa Inhaler -) 2 puff IH Q4H PRN PRN Reason: SHORT OF BREATH/WHEEZING Albuterol/Ipratropium (Duoneb -) 1 amp NEB RQID [facility] Last Admin: 11/21/18 20:28 Dose: 1 amp Levofloxacin (Levaquin -) 500 mg PO DAILY@0600 [facility] Last Admin: 11/22/18 06:15 Dose: 500 mg Methadone HCl (Dolophine -) 40 mg PO 0600 [facility] Last Admin: 11/22/18 06:15 Dose: 40 mg Nifedipine (Procardia Xl -) 30 mg PO DAILY [facility] Prednisone (Deltasone -) 40 mg PO DAILY [facility] Stop: 11/26/18 10:01 Senna/Docusate Sodium (Pericolace -) 2 tablet PO HS [facility] Last Admin: 11/21/18 22:18 Dose: 2 tablet Allergies Allergy/AdvReac Type Severity Reaction Status Date / Time metformin AdvReac Verified 11/10/17 06:59 CBC, BMP 11/27/18 06:00 11/27/18 06:00 Assessment and plan: 78 y/o lady with COPD, HTN, hx HCV admitted for COPD exacerbation and found to have pancytopenia. #pancytopenia likely 2/2 MDS vs leukemia vs B12 deficiency -monitor labs -flow cytometry w/ FISH sent; awaiting results. -S/p IR guided bone marrow biopsy -biopsy results pending -For discharge today; Patient will require close follow up for biopsy results. -spoke with the patient regarding follow up; she states that her PCP is in the process of arranging hematology follow up. Stressed the importance of follow up with the patient and instructed her to contact [facility] hematology if she is unable to follow up. -will follow up biopsy results
--- NOTE | 2018-12-11 17:04 | PATH ---
Surgical Pathology Report Patient Name: ANITHA VILLALBA Med. Rec. #: [id number] /Age/Gender: 1940 (Age: 78) / F Account: [id number] Location: [facility] MED/SURG Taken: 11/23/2018 Received: 11/23/2018 Reported: 12/11/2018 Physicians: Virginie Gonzalez M.D. 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 See comment. - Negative FISH study. /20 mitotic cells shows a complex karyotype with multiple cytogenetic abnormalities - Intelligen myeloid study shows variants in the SF3B1 (21%), TP53 (13%), and EZH2 (12%) genes. Summary Comment IHC study shows ~5% blasts and ~5-10% p53(+) cells. Flow cytometry shows evidence of abnormal myeloid maturation and 4% myeloblasts. Correlation with relevant clinical and laboratory findings is recommended. BONE MARROW ASPIRATE, RIGHT ILIAC CREST, BIOPSY AND ASPIRATE: Findings are consistent with an involvement by a myelodysplastic syndrome with excess blasts 1 (MDS-EB-1: ~5% myeloblasts). SEE COMMENT. Comment: IHC study shows ~5% blasts and ~5-10% p53(+) cells. Flow cytometry shows evidence of abnormal myeloid maturation and 4% myeloblasts. Correlation with relevant clinical and laboratory findings is recommended This case was sent for consultation and work-up to Dr. Traci Rodriguez from [facility] [place], [place], the diagnosis reflects her opinion (Specimen #[id number]). See [facility] report for additional details (Specimen #[id number]). Chromosome Analysis performed and interpreted at [facility], [place], [place] (Specimen #:[id number]) shows the following: RESULTS: 45,XX,-5,add(17)(p11.2),add(19)(q13.3),del(20)(q11.2)[1]/44,sl,-18[11]/44,sdl1,a dd(13)(p11.2)[2]/46,XX[6] Abnormal karyotype, female INTERPRETATION: One of the twenty mitotic cells examined was characterized by loss of one copy of chromosome 5, additional material on the short arm of chromosome 17, additional material on the long arm of chromosome 19 and a deletion of the long arm of chromosome 20. A sideline of eleven cells had the same abnormalities as the stemline and also had loss of one copy of chromosome 18. A second sideline of two cells had the same abnormalities as the first sideline and also had additional material on the short arm of chromosome 13. No abnormalities were evident in the remaining 6 cells. Loss of chromosome 5 is observed in both de tamie and secondary or therapy-related MDS and AML. In secondary disease, it is often found in association with other chromosomal changes. The presence of clonal evolution and/or multiple chromosomal abnormalities is generally associated with a poor prognosis. Results of the cytogenetic studies should be interpreted in conjunction with clinical and other laboratory findings. RECOMMENDATION: If the couple has a history of repeated losses of unknown etiology, or there are other indications of a familial chromosome rearrangement, blood chromosome analysis of the parents should be considered (5 cc of blood in green top sodium heparin tubes). Blood chromosome analysis usually provides greater resolution than POC chromosome analysis. COMMENT: The standard cytogenetic methodology utilized in this analysis does not routinely detect subtle rearrangements or low-level mosaicism and cannot detect microdeletions. Also, it cannot detect molecular cytogenetic abnormalities (such as microdeletions and microduplications) that may be detectable by microarray analysis. See [facility] report for additional details (Specimen #: [id number]). FLOW CYTOMETRY ANALYSIS performed and interpreted at [facility], [place], [place] (Specimen #: [id number]) shows the following: INTERPRETATION: - Immunophenotypic evidence of myelodyspoiesis and 4% myeloblasts. - No immunophenotypic evidence of a lymphoproliferative disorder. - See Comment and Phenotype COMMENT: The findings are most consistent with a myeloid neoplasm. The percent blasts determined by flow cytometry may not be accurate due to an unknown degree of hemodilutional effects and incomplete red cell lysis. Confirmation of blast percentage should be performed on a freshly prepared bone marrow aspirate or immunohistochemical staining of a core biopsy or clot section. PHENOTYPE: Based on CD45 vs side scatter gating the percentage of granulocytes, lymphocytes, monocytes, immature hematopoietic cells, and CD45 negative cells are provided in the dot plot shown below. Approximately 4% of the total cells are immature hematopoietic cells which express CD13, CD33, CD34, CD117, and HLA-DR. The granulocytes show abnormal maturational patterns with CD13/CD16 and CD11b/CD13. Approximately 2% of the cells express CD45 (bright), CD14, and CD64, consistent with monocytes. Of the total cells approximately 15% are T-cells, 2% B-cells, and 4% NK cells. The B-cells are polyclonal without atypical antigen expression. There is no significant hematogone population. The T-cells express all young-T-cell antigens tested with CD4 ~ CD8 (0.9:1). Approximately 4% of the cells express CD3 and CD57, consistent with T-large granular lymphocytes. Based on few bright CD38+ cells, plasma cells are rare. See [facility] report (Specimen #: [id number]) for additional details. Fluorescence In-Situ Hybridization performed and interpreted at [facility] [place] (Specimen #: [id number]) shows the following: INTERPRETATION: MDS panel 1. Negative for monosomy 5 and a deletion of CSF1R/RPS14 on the long arm of chromosome 5 at q33. 2. Negative for monosomy 7 and a deletion of MDFIC on the long arm of chromosome 7 at q31. 3. Negative for trisomy 8. 4. Negative for a deletion of PTPRT on the long arm of chromosome 20 at q12. See [facility] (Specimen #: [id number]) for additional details. Electronically Signed Bucky Forman M.D. Gross Description A. Received in formalin labeled "bone marrow biopsy," is a 0.5 x 0.4 x 0.2 cm aggregate of green bone fragments. Also received within the same container is a 2.5 x 2.4 x 0.2 cm aggregate of red-brown blood clot. The formalin is filtered and the specimen is entirely submitted in 2 cassettes as follows: 1-blood clot; 2-bone fragments, following decalcification. B. Received are 8 smear slides. Giemsa (7) and iron stain (1) performed. C. Received are 2 green top tubes and 1 purple top tube of blood which is sent to [facility]. 11/24/2018 saudi11/24/2018
== END 2018-11-27 12:01 | disposition home health service (06) | DRG 809 ==
LOC: JER 21:26 → JERBED 11-19 02:35 → J5S 11-19 04:38 → J7W 11-22 18:20
PROVIDERS: ADMIT Internal Medicine; ATTEND Internal Medicine
PROC: 07DR3ZX Extraction of Iliac Bone Marrow, Percutaneous Approach, Diagnostic (ICD-10-PCS; principal; 2018-11-22)
DX: D61.818 Other pancytopenia (principal); J44.1 Chronic obstructive pulmonary disease with (acute) exacerbation; K86.1 Other chronic pancreatitis; F11.20 Opioid dependence, uncomplicated; D46.9 Myelodysplastic syndrome, unspecified; J98.4 Other disorders of lung; I10 Essential (primary) hypertension; E11.9 Type 2 diabetes mellitus without complications; D75.89 Other specified diseases of blood and blood-forming organs; M81.0 Age-related osteoporosis without current pathological fracture; M54.5 Low back pain; K80.50 Calculus of bile duct without cholangitis or cholecystitis without obstruction; R50.81 Fever presenting with conditions classified elsewhere; B19.20 Unspecified viral hepatitis C without hepatic coma
CPT/HCPCS: 20225; 36415; 70450-TC; 71046-TC-FY; 71260-TC; 74177-TC; 74181-TC; 76098-TC-FY; 76705-TC; 77012-TC; 80048; 80053; 80307; 81003; 82272; 82525; 82607; 82746; 82962; 83036; 83540; 83550; 83605; 83615; 83735; 83921; 84484; 84550; 85025; 85027; 85044; 85384; 85610; 85651; 85730; 86140; 86803; 86850; 86900; 86901; 87040; 87086; 87389; 87804; 87899; 88300-TC; 88305-TC; 88311-TC; 88313-TC; 93005; 93010; 94640; 99285-25; J0131; J7030

== ENCOUNTER 2018-12-05 12:51 | Day surgery (SDC) | payer OTHER ==
[2018-12-05 15:44] LABS: HEMATOCRIT 18.9 % (32.4-45.2); MCHC 32.5 g/dl (32.0-36.0); MEAN PLT VOLUME 8.4 fl (7.5-11.1); PLATELET COUNT 43 K/MM3 (134-434); RDW 17.6 % (11.6-15.6); WHITE BLOOD COUNT 2.1 K/mm3 (4.0-10.0)
[2018-12-05 15:47] LABS: HEMOGLOBIN 6.1 GM/dL (10.7-15.3)
--- NOTE | 2018-12-05 21:09 | HP ---
[facility] PMH - Past Medical History Allergies/Adverse Reactions: Allergies Allergy/AdvReac Type Severity Reaction Status Date / Time metformin AdvReac Verified 11/10/17 06:59 Cardiovascular: Yes: HTN Pulmonary: Yes: Asthma, Bronchitis, COPD, Pneumonia, Previously Intubated, Sleep Apnea. No: Cancer, O2 Dependent, Pulmonary Embolus, Pulmonary Fibrosis Gastrointestinal: Yes: Constipation Hepatobiliary: Yes: Hepatitis C (treated with Harvoni 2-3 years ago) Musculoskeletal: Yes: Chronic low back pain, Other (osteoporosis) Endocrine: Yes: Diabetes Mellitus (?? - was on metformin previously with bad reaction, no longer on it, sugars apparently normal) - Current Medications Current Medications: Home Medications Medication Instructions Recorded Gabapentin 300 mg PO TID 11/06/17 Nifedipine ER [Procardia XL -] 30 mg PO DAILY 11/06/17 Propranolol HCl [Propranolol HCl 80 mg PO HS 11/06/17 ER] Albuterol Sulfate Inhaler - 1 - 2 inh PO Q4H PRN #2 inhaler 11/13/17 [Ventolin HFA Inhaler -] Arformoterol Tartrate [Brovana] 15 mcg IH BID #1 ml 11/13/17 Polyethylene Glycol 3350 [Miralax 17 gm PO DAILY #1 bottle 11/13/17 119 gm Btl -] Sennosides/Docusate Sodium 2 each PO HS #60 tablet 11/13/17 [Pericolace -] Methadone [Dolophine -] 40 mg PO DAILY@0600 MDD 20 11/19/18 [facility] Physical Exam - Physical Examination Vital Signs: Vital Signs Period Temp Pulse Resp BP Sys/Peter Pulse Ox Last 24 Hr 98.5 F-98.8 F 74-78 20-20 138-138/66-84
[2018-12-05 22:01] VITALS: BP 134/60; PULSE 76; TEMP 98.3
== END 2018-12-05 23:00 | disposition home or self-care (01) ==
LOC: JONCBLOOD 12:51 → J5S 12:53 → JONCBLOOD 23:00
PROVIDERS: ATTEND Internal Medicine Hematology & Oncology
PROC: 30233N1 Transfusion of Nonautologous Red Blood Cells into Peripheral Vein, Percutaneous Approach (ICD-10-PCS; principal; 2018-12-05)
DX: D46.9 Myelodysplastic syndrome, unspecified (principal)
CPT/HCPCS: 36415; 36430; 85027; 86850; 86900; 86901; 86922; P9038; P9058

== ENCOUNTER 2019-01-15 09:33 | Inpatient (IN) | payer OTHER ==
--- NOTE | 2019-01-15 10:01 | PDOC ---
History of Present Illness - General Chief Complaint: CVA/TIA Stated Complaint: PAIN Time Seen by Provider: 01/15/19 09:50 - History of Present Illness Initial Comments: Ms. Brown is a 78 y/o female with PMH significant for SDH, HTN, DM, MDS, presenting with worsening generalized weakness worse in the bilateral lower extremities. She was seeno and admitted a month ago at [facility] for fall and subdural hemorrhage and was discharged two weeks ago. Today, she reports two weeks of worsening bilateral lower extremity weakness. Reports generalized body aches and a headache over the past day. Reports constipation. Patient generally ambulates at baseline with a walker but today is not able to walk at all due to weakness. Denies recent fall. Denies numbness or tingling. Denies chest pain/shortness of breath. Denies dizziness. Denies fever/chills. Denies cough. Denies nausea/ vomiting/diarrhea. Denies urinary symptoms. Past History - Past Medical History Allergies/Adverse Reactions: Allergies Allergy/AdvReac Type Severity Reaction Status Date / Time metformin AdvReac Mild Verified 01/15/19 18:24 Home Medications: Ambulatory Orders Gabapentin 300 mg PO TID 11/06/17 Nifedipine ER [Procardia XL -] 30 mg PO DAILY 11/06/17 Propranolol HCl [Propranolol HCl ER] 80 mg PO HS 11/06/17 Polyethylene Glycol 3350 [Miralax 119 gm Btl -] 17 gm PO DAILY #1 bottle Acetaminophen 650 mg PO PRN 01/15/19 Bupropion HCl [Bupropion HCl Sr] 150 mg PO BID 01/15/19 Lisinopril [Prinivil -] 40 mg PO DAILY 01/15/19 Methadone HCl 5 mg PO PRN 01/15/19 Methadone [Dolophine -] 40 mg PO DAILY 01/15/19 Naloxone HCl 0.4 mg IJ PRN 01/15/19 Nicotine Patch [Nicoderm Patch -] 1 patch TD DAILY 01/15/19 Anemia: No Asthma: No Cancer: No Cardiac Disorders: No CVA: No COPD: Yes CHF: No DVT: No Dementia: No Diabetes: Yes GI Disorders: Yes Disorders: No HTN: Yes Hypercholesterolemia: Yes Liver Disease: No Seizures: No Thyroid Disease: No - Surgical History Abdominal Surgery: No Appendectomy: No Cardiac Surgery: No Cholecystectomy: No Lung Surgery: No Neurologic Surgery: No Orthopedic Surgery: No - Immunization History Immunization Up to Date: Yes - Psycho Social/Smoking Cessation Hx Smoking History: Former smoker Have you smoked in the past 12 months: Yes Number of Cigarettes Smoked Daily: 10 If you are a former smoker, when did you quit?: 10/26 Information on smoking cessation initiated: Yes 'Breaking Loose' booklet given: 11/19/18 Hx Alcohol Use: No Drug/Substance Use Hx: No Substance Use Type: None Hx Substance Use Treatment: Yes ([facility]) Review of Systems - Review of Systems Comments:: GENERAL/CONSTITUTIONAL: No fever or chills. Reports generalized weakness. HEAD, EYES, EARS, NOSE AND THROAT: No change in vision. No change in hearing. No sore throat._ CARDIOVASCULAR: No chest pain or shortness of breath_ RESPIRATORY: Denies cough, hemoptysis_ GASTROINTESTINAL: No nausea, vomiting, diarrhea. Reports constipation. GENITOURINARY: No dysuria, frequency, or change in urination._ MUSCULOSKELETAL: Reports generalized body aches. No neck or back pain._ SKIN: No rash_ NEUROLOGIC: No headache, vertigo, loss of consciousness. ENDOCRINE: No increased thirst. No abnormal weight change_ HEMATOLOGIC/LYMPHATIC: No anemia, easy bleeding, or history of blood clots._ ALLERGIC/IMMUNOLOGIC: No hives or skin allergy._ *Physical Exam - Vital Signs Last Vital Signs Temp Pulse Resp BP Pulse Ox 98.3 F 80 20 157/62 95 01/15/19 09:51 01/15/19 09:51 01/15/19 09:51 01/15/19 09:51 01/15/19 09:51 - Physical Exam GENERAL: Awake, alert, and oriented to person/place/time, in no acute distress_ HEAD: No signs of trauma, normocephalic, atraumatic _ EYES: PERRLA, EOMI, sclera anicteric, conjunctiva clear_ ENT: Hearing grossly normal, nares patent, oropharynx clear without exudates. No uvular deviation. Moist mucosa_ NECK: Normal ROM, supple, no lymphadenopathy, JVD, or masses_ LUNGS: No distress, speaks in full sentences, clear to auscultation bilaterally _ HEART: Regular rate and rhythm, normal S1 and S2, no murmurs appreciated, peripheral pulses normal and equal bilaterally._ ABDOMEN: Soft, nontender, normoactive bowel sounds. No guarding, no rebound. No masses_ EXTREMITIES: Normal inspection, Normal range of motion, no edema. No clubbing or cyanosis_ NEUROLOGICAL: CN II-XII tested and intact. Sensation intact to sharp/dull differentiation in all extremities. Motor: Normal tone and bulk. No abnormal movements appreciated. No pronator drift. Strength tested and 5/5 in bilateral wrist flexion/extension, elbow flexion/extension, shoulder abduction, straight leg raise, knee flexion/ extension, ankle dorsiflexion/plantarflexion. Coordination: Finger to nose and heel to perkins testing intact bilaterally. SKIN: Warm, Dry, normal turgor, no rashes or lesions noted_ ED Treatment Course - LABORATORY CBC & Chemistry Diagram: 01/17/19 08:55 01/17/19 08:55 Medical Decision Making - Medical Decision Making 01/15/19 10:03 78F hx of MDS, SDH, HTN, DM, presenting with worsening generalized weakness worse in the lower extremities. -cbc, cmp -ct head -ekg, cxr, trop -ua, ucx 01/15/19 10:32 EKG shows NSR, 75 bpm, no ST elevation/depression, no axis deviation, QTc 413. 01/15/19 11:25 Pt reassessed. Reports feeling a little "woozy". Neuro exam remains unchanged. A &Ox3. Reports Tylenol has improved her headache. -500 cc NS fluids 01/15/19 12:15 Labs reviewed. CBC findings consistent with MDS. Will obtain type and screen. Laboratory Tests 01/15/19 01/15/19 01/15/19 10:15 10:15 10:15 WBC Cancelled Corrected WBC (auto) Cancelled RBC Cancelled Hgb Cancelled Hct Cancelled MCV Cancelled MCH Cancelled MCHC Cancelled RDW Cancelled Plt Count Cancelled MPV Cancelled Absolute Neuts (auto) Cancelled Neutrophils % Cancelled Lymphocytes % Cancelled Monocytes % Cancelled Eosinophils % Cancelled Basophils % Cancelled Nucleated RBC % Cancelled Platelet Estimate Cancelled Platelet Comment Cancelled Sodium 140 Potassium 5.3 H Chloride 106 Carbon Dioxide 28 Anion Gap 6 L BUN 18.4 H Creatinine 0.8 Est GFR (CKD-EPI)AfAm 82.42 Est GFR (CKD-EPI)NonAf 71.11 Random Glucose 143 H Calcium 8.7 Total Bilirubin 0.7 AST 24 ALT 13 Alkaline Phosphatase 115 Creatine Kinase 71 Troponin I < 0.02 Total Protein 7.5 Albumin 3.4 Urine Color Yellow Urine Appearance Clear Urine pH 6.5 Ur Specific [place] 1.015 Urine Protein 2+ H Urine Glucose (UA) Negative Urine Ketones Negative Urine Blood Negative Urine Nitrite Negative Urine Bilirubin Negative Urine Urobilinogen 1.0 Ur Leukocyte Esterase Negative Urine WBC (Auto) 0 Urine RBC (Auto) 1 Urine Casts (Auto) 1 U Epithel Cells (Auto) 3.3 Urine Bacteria (Auto) 9.8 01/15/19 01/15/19 11:21 11:21 WBC 1.6 L* Corrected WBC (auto) RBC 1.76 L Hgb 6.4 L* Hct 19.0 L MCV 107.8 H D MCH 36.2 H D MCHC 33.6 RDW 23.9 H Plt Count 29 L* D MPV 9.0 Absolute Neuts (auto) 0.2 L Neutrophils % 14.1 L D Lymphocytes % 78.9 H Monocytes % 5.9 Eosinophils % 0.7 Basophils % 0.4 Nucleated RBC % 1 H Platelet Estimate Platelet Comment Sodium Cancelled Potassium Cancelled Chloride Cancelled Carbon Dioxide Cancelled Anion Gap Cancelled BUN Cancelled Creatinine Cancelled Est GFR (CKD-EPI)AfAm Cancelled Est GFR (CKD-EPI)NonAf Cancelled Random Glucose Cancelled Calcium Cancelled Total Bilirubin Cancelled AST Cancelled ALT Cancelled Alkaline Phosphatase Cancelled Creatine Kinase Troponin I Total Protein Cancelled Albumin Cancelled Urine Color Urine Appearance Urine pH Ur Specific [place] Urine Protein Urine Glucose (UA) Urine Ketones Urine Blood Urine Nitrite Urine Bilirubin Urine Urobilinogen Ur Leukocyte Esterase Urine WBC (Auto) Urine RBC (Auto) Urine Casts (Auto) U Epithel Cells (Auto) Urine Bacteria (Auto) 01/15/19 14:00 CT head shows no acute intracranial pathology or hemorrhage. CXR shows no acute intra-thoracic pathology. 01/15/19 15:[address] Moreira, the patient's oncologist at [facility]. 01/15/19 16:17 D/w Dr. Brito, from [facility] oncology, who is consultant education for Dr. Moreira. Recommends blood transfusion for anemia. States that there is no need for platelet transfusion at this time. States that while the ANC is low, no need for prophylactic abx at this time. 01/15/19 17:04 D/w Dr. Butterfield from the hospitalist team who accepts the patient for admission. Discharge - Discharge Information Problems reviewed: Yes Clinical Impression/Diagnosis: Anemia Condition: Stable Disposition: HOME - Admission Yes - Follow up/Referral - Patient Discharge Instructions - Post Discharge Activity
[2019-01-15 10:52] LABS: EPI CELLS 3.3 /HPF (0-5/HPF); HYALINE CASTS 1 /lpf (0-8); PH,URINE 6.5 (5.0-8.0); URINE APPEARANCE CLEAR; URINE BACTERIA 9.8 /hpf (NEGATIVE); URINE BILIRUBIN NEGATIVE (NEGATIVE); URINE COLOR YELLOW; URINE GLUCOSE (UA) NEGATIVE (NEGATIVE); URINE KETONE NEGATIVE (NEGATIVE); URINE LEUK ESTERASE NEGATIVE (NEGATIVE); URINE NITRITE NEGATIVE (NEGATIVE); URINE PROTEIN 2+ (NEGATIVE); URINE RBC 1 /hpf (0-4); URINE WBC 0 /hpf (0-5)
[2019-01-15] MEDS ORDERED: ACETAMINOPHEN 1000 MG/100 ML VIAL (NON FORMULARY) IVPB ONE (10:54)
--- NOTE | 2019-01-15 10:58 | PDOC ---
Documentation entered by Americo Davey SCRIBE, acting as scribe for Cristo Dickey MD. Cristo Dickey MD: This documentation has been prepared by the Petar angulo Xhesika, SCRIBE, under my direction and personally reviewed by me in its entirety. I confirm that the documentation accurately reflects all work, treatment, procedures, and medical decision making performed by me. Attending Attestation - Resident Resident Name: Chito Gonzalez - ED Attending Attestation I have performed the following: I have examined & evaluated the patient, The case was reviewed & discussed with the resident, I agree w/resident's findings & plan, Exceptions are as noted - HPI HPI: 01/15/19 10:21 The patient is a 78-year-old female with a past medical history significant for COPD, HTN, HLD, DM, osteoporosis, MDS, and recent SDH s/p trauma (was seen at [facility] for subdural bleed and medical management ) who presents to the emergency department for 3 weeks of generalized weakness worse today in the lower extremities. Pt reports bilateral body aches/ pain and headache for the past day. As per daughter the patient has been constipated for the past week. Pt usually ambulates with assistance but was unable to ambulate today due to her weakness. The patient denies numbness/tingling/weakness, chest pain, shortness of breath, and dizziness. Denies fever, chills, cough, nausea, vomiting, diarrhea. Denies urinary incontinence, fecal incontinence, dysuria, frequency, or hematuria. Allergies: metformin PCP: DR. Arora - Physicial Exam PE: 01/15/19 10:23 GENERAL: The patient is awake, alert, and fully oriented, Nontoxic - in no acute distress. HEAD: Normocephalic, atraumatic. EYES: extraocular movements intact, sclera anicteric, conjunctiva clear. ENT: Normal voice, Moist mucous membranes. NECK: Normal range of motion, supple without lymphadenopathy, JVD, or masses. LUNGS: Breath sounds equal, clear to auscultation bilaterally. No wheezes, no crackles, no rales. HEART: Regular rate and rhythm, normal S1 and S2 without murmur, rub or gallop. ABDOMEN: Soft, nontender, normoactive bowel sounds. No guarding, no rebound. No masses. EXTREMITIES: Normal range of motion, no edema. No clubbing or cyanosis. No cords, erythema, or tenderness. PSYCH: Normal mood, normal affect. SKIN: Warm, Dry, normal turgor, no rashes or lesions noted. NEURO: Mental status: The patient is oriented x3. Cranial nerves: Cranial nerves II through XII are intact Motor: The upper extremities are 5 over 5 in all muscle groups. The lower extremities are 5 over 5 in all muscle groups. Negative pronator drift Sensation: Sensation is intact to light touch throughout. romberg negative Cerebellar: [id number] is normal in both upper extremities. Heel-knee- perkins is normal in both lower extremities. rapid alternating movements are normal. - Medical Decision Making 01/15/19 10:12 78y F of MDS, htn, hl, dm, recent SDH sp trauma (medical mnagement) presents with worsening generalized weakness over the past few weeks, bu worse today. Pt also complainting of b/l body aches, headache over the past day. denies any cp, n/v, fever/chills, numbnes/tingling/weakness, urinary incontinence, fecal incontinence. Differential for the patient's symptoms includes worsening acute on subacute subdural, migraine headache, tension headache, worsening MDS and thrombus cytopenia Nonfocal exam Will obtain blood work, will obtain CT head Will obtain chest x-ray UA, EKG We will give Tylenol for pain will reassess 01/15/19 12:14 Patient's blood work reviewed noted to be thrombocytopenic with platelets of 27 In light of her recent subdural anticipate possible transfusion but will discuss with heme-onc and neurosurgery Awaiting CT, patient's headache did improve with Tylenol Heart Score/ECG Review - ECG Impressions Comment:: 01/15/19 10:58 Twelve-lead EKG was performed and reviewed by me. There is normal sinus rhythm with a normal rate. Rate of 75 The axis is normal. The intervals are normal. There is normal R wave progression There are no ST or T wave abnormalities. Impression: Normal twelve-lead EKG
[2019-01-15] MEDS ORDERED: ACETAMINOPHEN INJECTION 100 ML IVPB ONE (11:09)
[2019-01-15 11:13] LABS: ALBUMIN 3.4 g/dl (3.4-5.0); ALK PHOS 115 U/L (45-117); ANION GAP 6 MMOL/L (8-16); BILIRUBIN,TOTAL 0.7 mg/dL (0.2-1); BLOOD UREA NITROGEN 18.4 mg/dL (7-18); CALCIUM 8.7 mg/dL (8.5-10.1); CHLORIDE 106 mmol/L (98-107); CO2 28 mmol/L (21-32); CREATININE 0.8 mg/dL (0.55-1.3); GLUCOSE,RANDOM 143 mg/dL (74-106); POTASSIUM 5.3 mmol/L (3.5-5.1); SGOT/AST 24 U/L (15-37); SGPT/ALT 13 U/L (13-61); SODIUM 140 mmol/L (136-145); TOT PROT 7.5 g/dl (6.4-8.2)
[2019-01-15] MEDS ORDERED: SODIUM CHLORIDE 0.9% 500 ML INFUS.BAG IV ONE (11:24)
[2019-01-15 11:52] LABS: BASO % 0.4 % (0-2.0); EOS % 0.7 % (0-4.5); LYMPH % 78.9 % (8-40); MCH 36.2 pg (25.7-33.7); MCHC 33.6 g/dl (32.0-36.0); MEAN CELL VOLUME 107.8 fl (80-96); MONO % 5.9 % (3.8-10.2); NEUT % 14.1 % (42.8-82.8); RBC 1.76 M/mm3 (3.60-5.2); RDW 23.9 % (11.6-15.6)
[2019-01-15 11:59] LABS: HEMOGLOBIN 6.4 GM/dL (10.7-15.3); PLATELET COUNT 29 K/MM3 (134-434); WHITE BLOOD COUNT 1.6 K/mm3 (4.0-10.0)
--- NOTE | 2019-01-15 13:33 | EKG ---
Test Reason : Blood Pressure : / mmHG Vent. Rate : 075 BPM Atrial Rate : 075 BPM P-R Int : 170 ms QRS Dur : 080 ms QT Int : 370 ms P-R-T Axes : 053 024 059 degrees QTc Int : 413 ms POOR DATA QUALITY, INTERPRETATION MAY BE ADVERSELY AFFECTED NORMAL SINUS RHYTHM NORMAL ECG WHEN COMPARED WITH ECG OF 18-NOV-2018 22:42, NO SIGNIFICANT CHANGE WAS FOUND Confirmed by YOUNG FARRELL MD ([id number]) on 01/15/2019 1:33:28 PM Referred By: Confirmed By:YOUNG FARRELL MD
[2019-01-15 13:37] LABS: ANISOCYTOSIS 0; PLATELET ESTIMATE DECREASED; ROULEAU 2+
[2019-01-15 16:19] LABS: INR 1.07 (0.83-1.09); PROTHROMBIN TIME (PATIENT) 12.6 SEC (9.7-13.0)
[2019-01-15 16:22] LABS: ACTIVATED PTT 26.1 SECONDS (25.2-36.5)
--- NOTE | 2019-01-15 17:59 | HP ---
<Lindsay Butterfield - Last Filed: 01/15/19 19:17> Hospitalist Medicine Admission PCP: Dr. Truong 78 y/o F with PMH COPD, HTN, DM, MDS, recent hx SDH, who presents for LE weakness. States that it has been occurring over the last 1.5 weeks, ever since she was hospitalized at [facility] s/p fall. During that admission, she was found to have a SDH, which has since improved on today's head CT. Has had weakness ever since, and trouble ambulating. Usually uses a walker. During this time, denies FARR, fever, chills, SOB, chest pain or pressure or changes in urinary or bowel function. No recent bruising. Follows with Dr. Gutierrez and Daryl from [facility]; ER discussed case. Per Dr. Brito, OK with Hb transfusion to maintain counts, however no need to transfuse platelets as counts >10k and no signs of active bleeding. In ED, received IV tylenol and NS 500 cc bolus. Pt lives at home with family. Was dx with MDS recently, had just gone for a consultation appt. 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 PMH: as above PsxH: umbilical hernia repairs meds: as in chart. takes methadone 40mg qd for pain control, did not take today allergies: metformin FH: denies SH: lives at home w family. uses a walker. quit smoking recently. denies alcohol or drug use. HOME MEDICATIONS: Home Medications Medication Instructions Recorded Gabapentin 300 mg PO TID 11/06/17 Nifedipine ER [Procardia XL -] 30 mg PO DAILY 11/06/17 Propranolol HCl [Propranolol HCl 80 mg PO HS 11/06/17 ER] Polyethylene Glycol 3350 [Miralax 17 gm PO DAILY #1 bottle 11/13/17 119 gm Btl -] Acetaminophen 650 mg PO PRN 01/15/19 Bupropion HCl [Bupropion HCl Sr] 150 mg PO BID 01/15/19 Celecoxib [Celebrex -] 100 mg PO BID 01/15/19 Lisinopril [Prinivil -] 40 mg PO DAILY 01/15/19 Methadone HCl 5 mg PO PRN 01/15/19 Naloxone HCl 0.4 mg IJ PRN 01/15/19 Nicotine Patch [Nicoderm Patch -] 1 patch TD DAILY 01/15/19 PHYSICAL EXAMINATION Vital Signs - 24 hr 01/15/19 01/15/19 01/15/19 09:51 10:15 13:30 Temperature 98.3 F Pulse Rate 80 80 Pulse Rate [ Apical] Respiratory 20 Rate Blood Pressure 157/62 Blood Pressure [Left Arm] O2 Sat by Pulse 95 95 97 Oximetry (%) 01/15/19 01/15/19 15:25 16:00 Temperature 98.6 F Pulse Rate Pulse Rate [ 72 Apical] Respiratory 20 Rate Blood Pressure Blood Pressure 170/59 L [Left Arm] O2 Sat by Pulse 97 Oximetry (%) GENERAL: resting in bed, in NAD HEENT: NCAT, PERRLA neck: supple cardio: S1, S2 RRR. no r/m/g Pulm: CTA b/l. good inspiratory effort abdomen: soft, obese, nontender, nondistended LE: 2+ pulses, no edema. 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 no bleeding ASSESSMENT/PLAN: 78 y/o F with PMH COPD, HTN, DM, MDS, recent hx SDH, who presents for LE weakness. States that it has been occurring over the last 1.5 weeks, ever since she was hospitalized at [facility] s/p fall. #Anemia likely 2/2 MDS -requiring transfusion support -Hb<7 threshold -f/u a1c, TSH, b12, folate -to receive 1U PRBCs, and f/u post-transfusion CBC. if no improvement, will need to call onc -hold antiplatelets, NSAIDs -stool occult -Heme/onc: Dr. Rachel consulted. #Thrombocytopenia 2/2 MDS -will not transfuse at this time, as per pt onc cts> 10k and without active signs of bleeding -c/t monitor #HTN- uncontrolled -did not take meds today -c/w lisinopril, procardia, propranolol #LE weakness/tingling -f/u a1c, tsh, b12, folate -c/w gabapentin #Neutropenia, ANC 200 -neutropenic precautions -currently afebrile, will not tx with abx at this time, no signs of infection #MDS -recently dx 1.5 mo ago -c/t follow with heme-onc -on methadone 40mg qd for pain control, verified #recent hx SDH -CTH currently (-) for bleed -monitor for changes in mentation #DM -f/u a1c -ISS, BGM ACHS #F/E/N currently not req IVF continue to follow lytes DM diet/low na. neutropenic #PPX DVT: MAGUE's #Dispo admit to med-surg Visit type - Emergency Visit Emergency Visit: Yes ED Registration Date: 01/15/19 Care time: The patient presented to the Emergency Department on the above date and was hospitalized for further evaluation of their emergent condition. - New Patient This patient is new to me today: Yes Date on this admission: 01/15/19 - Critical Care Critical Care patient: No <Walter Soares - Last Filed: 01/16/19 08:37> CHIEF COMPLAINT: PCP: HISTORY OF PRESENT ILLNESS: ER course was notable for: (1) (2) (3) Recent Travel: PAST MEDICAL HISTORY: PAST SURGICAL HISTORY: Social History: Smoking: Alcohol: Drugs: Allergies metformin Adverse Reaction (Mild, Verified 01/15/19 18:24) HOME MEDICATIONS: Home Medications Medication Instructions Recorded Gabapentin 300 mg PO TID 11/06/17 Nifedipine ER [Procardia XL -] 30 mg PO DAILY 11/06/17 Propranolol HCl [Propranolol HCl 80 mg PO HS 11/06/17 ER] Polyethylene Glycol 3350 [Miralax 17 gm PO DAILY #1 bottle 11/13/17 119 gm Btl -] Acetaminophen 650 mg PO PRN 01/15/19 Bupropion HCl [Bupropion HCl Sr] 150 mg PO BID 01/15/19 Celecoxib [Celebrex -] 100 mg PO BID 01/15/19 Lisinopril [Prinivil -] 40 mg PO DAILY 01/15/19 Methadone HCl 5 mg PO PRN 01/15/19 Methadone [Dolophine -] 40 mg PO DAILY 01/15/19 Naloxone HCl 0.4 mg IJ PRN 01/15/19 Nicotine Patch [Nicoderm Patch -] 1 patch TD DAILY 01/15/19 REVIEW OF SYSTEMS CONSTITUTIONAL: Absent: fever, chills, diaphoresis, generalized weakness, malaise, loss of appetite, weight change HEENT: Absent: rhinorrhea, nasal congestion, throat pain, throat swelling, difficulty swallowing, mouth swelling, ear pain, eye pain, visual changes CARDIOVASCULAR: Absent: chest pain, syncope, palpitations, irregular heart rate, lightheadedness , peripheral edema RESPIRATORY: Absent: cough, shortness of breath, dyspnea with exertion, orthopnea, wheezing, stridor, hemoptysis GASTROINTESTINAL: Absent: abdominal pain, abdominal distension, nausea, vomiting, diarrhea, constipation, melena, hematochezia GENITOURINARY: Absent: dysuria, frequency, urgency, hesitancy, hematuria, flank pain, genital pain MUSCULOSKELETAL: Absent: myalgia, arthralgia, joint swelling, back pain, neck pain SKIN: Absent: rash, itching, pallor HEMATOLOGIC/IMMUNOLOGIC: Absent: easy bleeding, easy bruising, lymphadenopathy, frequent infections ENDOCRINE: Absent: unexplained weight gain, unexplained weight loss, heat intolerance, cold intolerance NEUROLOGIC: Absent: headache, focal weakness or paresthesias, dizziness, unsteady gait, seizure, mental status changes, bladder or bowel incontinence PSYCHIATRIC: Absent: anxiety, depression, suicidal or homicidal ideation, hallucinations. PHYSICAL EXAMINATION Vital Signs - 24 hr 01/15/19 01/15/19 01/15/19 09:51 10:15 13:30 Temperature 98.3 F Pulse Rate 80 80 Pulse Rate [ Apical] Respiratory 20 Rate Blood Pressure 157/62 Blood Pressure [Left Arm] O2 Sat by Pulse 95 95 97 Oximetry (%) 01/15/19 01/15/19 01/15/19 15:25 16:00 18:16 Temperature 98.6 F 98.5 F Pulse Rate Pulse Rate [ 72 76 Apical] Respiratory 20 20 Rate Blood Pressure Blood Pressure 170/59 L 168/50 L [Left Arm] O2 Sat by Pulse 97 97 Oximetry (%) 01/15/19 01/16/19 01/16/19 19:05 00:30 00:32 Temperature 98.3 F 97.7 F Pulse Rate 73 Pulse Rate [ 72 Apical] Respiratory 20 20 20 Rate Blood Pressure 161/70 Blood Pressure 160/55 L [Left Arm] O2 Sat by Pulse 97 99 Oximetry (%) 01/16/19 05:50 Temperature 98.4 F Pulse Rate 79 Pulse Rate [ Apical] Respiratory 20 Rate Blood Pressure 148/59 L Blood Pressure [Left Arm] O2 Sat by Pulse Oximetry (%) GENERAL: Awake, alert, and fully oriented, in no acute distress. HEAD: Normal with no signs of trauma. EYES: Pupils equal, round and reactive to light, extraocular movements intact, sclera anicteric, conjunctiva clear. No lid lag. EARS, NOSE, THROAT: Ears normal, nares patent, oropharynx clear without exudates. Moist mucous membranes. NECK: Normal range of motion, supple without lymphadenopathy, JVD, or masses. LUNGS: Breath sounds equal, clear to auscultation bilaterally. No wheezes, and no crackles. No accessory muscle use. HEART: Regular rate and rhythm, normal S1 and S2 without murmur, rub or gallop. ABDOMEN: Soft, nontender, not distended, normoactive bowel sounds, no guarding, no rebound, no masses. No hepatomegaly or splenomegaly. MUSCULOSKELETAL: Normal range of motion at all joints. No bony deformities or tenderness. No CVA tenderness. UPPER EXTREMITIES: 2+ pulses, warm, well-perfused. No cyanosis. No clubbing. No peripheral edema. LOWER EXTREMITIES: 2+ pulses, warm, well-perfused. No calf tenderness. No peripheral edema. NEUROLOGICAL: Cranial nerves II-XII intact. Normal speech. Normal gait. PSYCHIATRIC: Cooperative. Good eye contact. Appropriate mood and affect. SKIN: Warm, dry, normal turgor, no rashes or lesions noted, normal capillary refill. Laboratory Results - last 24 hr 01/15/19 01/15/19 01/15/19 10:15 10:15 10:15 WBC Cancelled Corrected WBC (auto) Cancelled RBC Cancelled Hgb Cancelled Hct Cancelled MCV Cancelled MCH Cancelled MCHC Cancelled RDW Cancelled Plt Count Cancelled MPV Cancelled Absolute Neuts (auto) Cancelled Neutrophils % Cancelled Neutrophils % (Manual) Band Neutrophils % Lymphocytes % Cancelled Lymphocytes % (Manual) Monocytes % Cancelled Monocytes % (Manual) Eosinophils % Cancelled Eosinophils % (Manual) Basophils % Cancelled Basophils % (Manual) Myelocytes % (Man) Promyelocytes % (Man) Blast Cells % (Manual) Nucleated RBC % Cancelled Metamyelocytes Hypochromia Platelet Estimate Cancelled Platelet Comment Cancelled Polychromasia Anisocytosis Microcytosis Rouleaux PT with INR INR PTT (Actin FS) Sodium 140 Potassium 5.3 H Chloride 106 Carbon Dioxide 28 Anion Gap 6 L BUN 18.4 H Creatinine 0.8 Est GFR (CKD-EPI)AfAm 82.42 Est GFR (CKD-EPI)NonAf 71.11 POC Glucometer Random Glucose 143 H Calcium 8.7 Iron 217 H TIBC 266 Iron Saturation 81 H Unsaturated IBC 49 L Total Bilirubin 0.7 AST 24 ALT 13 Alkaline Phosphatase 115 Creatine Kinase 71 Troponin I < 0.02 Total Protein 7.5 Albumin 3.4 Vitamin B12 291 Serum Folate 11 TSH 0.53 Urine Color Yellow Urine Appearance Clear Urine pH 6.5 Ur Specific Frontier 1.015 Urine Protein 2+ H Urine Glucose (UA) Negative Urine Ketones Negative Urine Blood Negative Urine Nitrite Negative Urine Bilirubin Negative Urine Urobilinogen 1.0 Ur Leukocyte Esterase Negative Urine WBC (Auto) 0 Urine RBC (Auto) 1 Urine Casts (Auto) 1 U Epithel Cells (Auto) 3.3 Urine Bacteria (Auto) 9.8 Blood Type Antibody Screen Crossmatch 01/15/19 01/15/19 01/15/19 11:21 11:21 13:47 WBC 1.6 L* Corrected WBC (auto) RBC 1.76 L Hgb 6.4 L* Hct 19.0 L MCV 107.8 H D MCH 36.2 H D MCHC 33.6 RDW 23.9 H Plt Count 29 L* D MPV 9.0 Absolute Neuts (auto) 0.2 L Neutrophils % 14.1 L D Neutrophils % (Manual) 21.0 L Band Neutrophils % 0.0 Lymphocytes % 78.9 H Lymphocytes % (Manual) 72.6 H D Monocytes % 5.9 Monocytes % (Manual) 1 L Eosinophils % 0.7 Eosinophils % (Manual) 2.1 D Basophils % 0.4 Basophils % (Manual) 0.0 Myelocytes % (Man) 0 D Promyelocytes % (Man) 0 Blast Cells % (Manual) 0 Nucleated RBC % 1 H Metamyelocytes 0 Hypochromia 0 Platelet Estimate Decreased Platelet Comment Present Polychromasia 1+ Anisocytosis 0 Microcytosis 0 Rouleaux 2+ PT with INR INR PTT (Actin FS) Sodium Cancelled Potassium Cancelled Chloride Cancelled Carbon Dioxide Cancelled Anion Gap Cancelled BUN Cancelled Creatinine Cancelled Est GFR (CKD-EPI)AfAm Cancelled Est GFR (CKD-EPI)NonAf Cancelled POC Glucometer Random Glucose Cancelled Calcium Cancelled Iron TIBC Iron Saturation Unsaturated IBC Total Bilirubin Cancelled AST Cancelled ALT Cancelled Alkaline Phosphatase Cancelled Creatine Kinase Troponin I Total Protein Cancelled Albumin Cancelled Vitamin B12 Serum Folate TSH Urine Color Urine Appearance Urine pH Ur Specific Frontier Urine Protein Urine Glucose (UA) Urine Ketones Urine Blood Urine Nitrite Urine Bilirubin Urine Urobilinogen Ur Leukocyte Esterase Urine WBC (Auto) Urine RBC (Auto) Urine Casts (Auto) U Epithel Cells (Auto) Urine Bacteria (Auto) Blood Type B POSITIVE Antibody Screen Negative Crossmatch 01/15/19 01/15/19 01/15/19 13:56 14:50 18:21 WBC Corrected WBC (auto) RBC Hgb Hct MCV MCH MCHC RDW Plt Count MPV Absolute Neuts (auto) Neutrophils % Neutrophils % (Manual) Band Neutrophils % Lymphocytes % Lymphocytes % (Manual) Monocytes % Monocytes % (Manual) Eosinophils % Eosinophils % (Manual) Basophils % Basophils % (Manual) Myelocytes % (Man) Promyelocytes % (Man) Blast Cells % (Manual) Nucleated RBC % Metamyelocytes Hypochromia Platelet Estimate Platelet Comment Polychromasia Anisocytosis Microcytosis Rouleaux PT with INR 12.60 INR 1.07 PTT (Actin FS) 26.1 Sodium Potassium Chloride Carbon Dioxide Anion Gap BUN Creatinine Est GFR (CKD-EPI)AfAm Est GFR (CKD-EPI)NonAf POC Glucometer 134 Random Glucose Calcium Iron TIBC Iron Saturation Unsaturated IBC Total Bilirubin AST ALT Alkaline Phosphatase Creatine Kinase Troponin I Total Protein Albumin Vitamin B12 Serum Folate TSH Urine Color Urine Appearance Urine pH Ur Specific Frontier Urine Protein Urine Glucose (UA) Urine Ketones Urine Blood Urine Nitrite Urine Bilirubin Urine Urobilinogen Ur Leukocyte Esterase Urine WBC (Auto) Urine RBC (Auto) Urine Casts (Auto) U Epithel Cells (Auto) Urine Bacteria (Auto) Blood Type B POSITIVE Antibody Screen Negative Crossmatch See Detail 01/15/19 01/16/19 23:06 05:14 WBC Corrected WBC (auto) RBC Hgb Hct MCV MCH MCHC RDW Plt Count MPV Absolute Neuts (auto) Neutrophils % Neutrophils % (Manual) Band Neutrophils % Lymphocytes % Lymphocytes % (Manual) Monocytes % Monocytes % (Manual) Eosinophils % Eosinophils % (Manual) Basophils % Basophils % (Manual) Myelocytes % (Man) Promyelocytes % (Man) Blast Cells % (Manual) Nucleated RBC % Metamyelocytes Hypochromia Platelet Estimate Platelet Comment Polychromasia Anisocytosis Microcytosis Rouleaux PT with INR INR PTT (Actin FS) Sodium Potassium Chloride Carbon Dioxide Anion Gap BUN Creatinine Est GFR (CKD-EPI)AfAm Est GFR (CKD-EPI)NonAf POC Glucometer 108 133 Random Glucose Calcium Iron TIBC Iron Saturation Unsaturated IBC Total Bilirubin AST ALT Alkaline Phosphatase Creatine Kinase Troponin I Total Protein Albumin Vitamin B12 Serum Folate TSH Urine Color Urine Appearance Urine pH Ur Specific Frontier Urine Protein Urine Glucose (UA) Urine Ketones Urine Blood Urine Nitrite Urine Bilirubin Urine Urobilinogen Ur Leukocyte Esterase Urine WBC (Auto) Urine RBC (Auto) Urine Casts (Auto) U Epithel Cells (Auto) Urine Bacteria (Auto) Blood Type Antibody Screen Crossmatch ASSESSMENT/PLAN: ATTENDING PHYSICIAN STATEMENT I saw and evaluated the patient. I reviewed the resident's note and discussed the case with the resident. I agree with the resident's findings and plan as documented. SUBJECTIVE: OBJECTIVE: ASSESSMENT AND PLAN:
[2019-01-15] MEDS: ACETAMINOPHEN 325 MG TABLET (FP) PO SCH (18:25)
[2019-01-15] MEDS ORDERED: LISINOPRIL 20 MG TABLET (FP) ONE (19:42)
[2019-01-15] MEDS ORDERED: NIFEdipine E.R. 30 MG TABLET (FP) ONE (19:42)
[2019-01-15] MEDS: NIFEdipine E.R. 30 MG TABLET (FP) PO SCH (19:46)
[2019-01-15] MEDS: LISINOPRIL 20 MG TABLET (FP) PO SCH (19:46)
--- NOTE | 2019-01-15 20:19 | CONSULT ---
Consult - text type - Consultation Consultation Note: Ms. Brown is a 78 y/o female with PMH significant for SDH, HTN, DM, MDS, presenting with worsening generalized weakness worse in the bilateral lower extremities. admitted to 01/04 -01/08 after fall--noted to hace? subdural hematoma. Transfused platelets. Discharged on 01/08 Increased weakness over past few days. Now Hgb 6.4/WBC 1.6/platelets 13853 No overt bleeding or symptoms of infection Head CT negative Allergies/Adverse Reactions: Allergies Allergy/AdvReac Type Severity Reaction Status Date / Time metformin AdvReac Verified 11/10/17 06:59 Home Medications: Ambulatory Orders Gabapentin 300 mg PO TID 11/06/17 Nifedipine ER [Procardia XL -] 30 mg PO DAILY 11/06/17 Propranolol HCl [Propranolol HCl ER] 80 mg PO HS 11/06/17 Polyethylene Glycol 3350 [Miralax 119 gm Btl -] 17 gm PO DAILY #1 bottle Acetaminophen 650 mg PO PRN 01/15/19 Bupropion HCl [Bupropion HCl Sr] 150 mg PO BID 01/15/19 Celecoxib [Celebrex -] 100 mg PO BID 01/15/19 Lisinopril [Prinivil -] 40 mg PO DAILY 01/15/19 Methadone HCl 5 mg PO PRN 01/15/19 Naloxone HCl 0.4 mg IJ PRN 01/15/19 Nicotine Patch [Nicoderm Patch -] 1 patch TD DAILY 01/15/19 PMH COPD: Yes Diabetes: Yes GI Disorders: Yes HTN: Yes Hypercholesterolemia: Yes - Vital Signs Last Vital Signs Temp Pulse Resp BP Pulse Ox 98.3 F 80 20 157/62 95 01/15/19 09:51 01/15/19 09:51 01/15/19 09:51 01/15/19 09:51 01/15/19 09:51 Cor: RSR, No murmurs, No gallops Lungs: Clear to P&A Abd: Soft, Normal bowel sounds, No organomegaly Ext:No significant edema Skin: No rashes, Integument intact A/P 78 y/o female with PMH significant for SDH, HTN, DM, MDS, presenting with worsening generalized weakness worse in the bilateral lower extremities. admitted to 01/04 -01/08 after fall--noted to have? subdural hematoma. Transfused platelets. Discharged on 01/08 Increased weakness over past few days. Now Hgb 6.4/WBC 1.6/platelets 76313 No overt bleeding or symptoms of infection Head CT negative Recently diagnosed Int-2 to high risk MDS. Was supposed to start hypomethylating agent 5- azacytidine with Dr. Moreira at [facility] Plan to transfuse PRBCs for Hgb 6.4 CT head -. Transfuse platelets if overtly bleeding Monitor for S/s of infection F/U with Dr. Moreira upon discharge
[2019-01-15] MEDS: POLYETHYLENE GLYCOL 3350 119 GM BTL PO SCH (21:33)
[2019-01-15] MEDS ORDERED: GABAPENTIN 100 MG CAPSULE (FP) ONE (23:01)
[2019-01-15] MEDS: GABAPENTIN 300 MG CAPSULE (FP) PO SCH (23:12)
[2019-01-15] MEDS: INSULIN SLIDING SCALE (NOVOLOG) 1 VIAL SQ SCH (23:14)
[2019-01-16] MEDS: ACETAMINOPHEN 325 MG TABLET (FP) PO SCH ×4 (00:15→18:12)
[2019-01-16 03:16] VITALS: BMI 29.3
[2019-01-16] MEDS: GABAPENTIN 300 MG CAPSULE (FP) PO SCH ×3 (05:33→21:43)
[2019-01-16] MEDS: INSULIN SLIDING SCALE (NOVOLOG) 1 VIAL SQ SCH ×4 (06:23→21:41)
[2019-01-16 07:41] LABS: IRON SERUM 217 ug/dL (50-175); TOTAL IRON BINDING CAPACITY 266 ug/dL (250-450)
[2019-01-16 08:48] LABS: HEMATOCRIT 20.3 % (32.4-45.2); HEMOGLOBIN 7.1 GM/dL (10.7-15.3); MCH 34.6 pg (25.7-33.7); MCHC 35.1 g/dl (32.0-36.0); MEAN CELL VOLUME 98.6 fl (80-96); RBC 2.06 M/mm3 (3.60-5.2); RDW 27.1 % (11.6-15.6)
[2019-01-16 08:53] LABS: PLATELET COUNT 26 K/MM3 (134-434); WHITE BLOOD COUNT 1.1 K/mm3 (4.0-10.0)
[2019-01-16] MEDS: METHADONE HCL 40 MG DISPERSABLE TABLET PO SCH (09:02)
[2019-01-16] MEDS: LISINOPRIL 20 MG TABLET (FP) PO SCH (09:05)
[2019-01-16] MEDS: NIFEdipine E.R. 30 MG TABLET (FP) PO SCH (09:05)
[2019-01-16] MEDS: POLYETHYLENE GLYCOL 3350 119 GM BTL PO SCH (09:06)
[2019-01-16] MEDS: NICOTINE 14 MG/24 HOURS TOPICAL PATCH TD SCH (09:06)
[2019-01-16 09:10] LABS: BLOOD UREA NITROGEN 13.1 mg/dL (7-18); CREATININE 0.7 mg/dL (0.55-1.3); MAGNESIUM 2.1 mg/dL (1.8-2.4); PHOSPHOROUS 3.6 mg/dL (2.5-4.9); POTASSIUM 4.1 mmol/L (3.5-5.1)
--- NOTE | 2019-01-16 11:11 | PN ---
Progress Note (short form) - Note Progress Note: Hospitalist Medicine Upset that she had not received her pain meds. S/p 1U PRBCs, without adequate rise. 2nd unit ordered Vitals 01/16/19 09:00 Temperature 98.0 F Pulse Rate 82 Respiratory 20 Rate Blood Pressure 155/68 Physical Exam GENERAL: sitting up in bed, in NAD HEENT: NCAT, PERRLA neck: supple cardio: S1, S2 RRR. no r/m/g Pulm: CTA b/l. good inspiratory effort abdomen: soft, obese, nontender, nondistended LE: 2+ pulses, no edema. 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 no bleeding Assessment/Plan 78 y/o F with PMH COPD, HTN, DM, MDS, recent hx SDH, who presents for LE weakness. States that it has been occurring over the last 1.5 weeks, ever since she was hospitalized at [facility] s/p fall. #Anemia likely 2/2 MDS -requiring transfusion support -s/p 1 u PRBCs (01/15), without adequate rise. 2nd unit ordered -f/u post transfusion cbc -Hb<7 threshold -b12, folate WNL -hold antiplatelet agents, NSAIDs -stool occult -Heme/onc: Dr. Rachel consulted. #Thrombocytopenia 2/2 MDS -will not transfuse at this time, as per pt onc cts> 10k and without active signs of bleeding. will transfuse if active bleeding -c/t monitor #HTN- uncontrolled -c/w lisinopril, procardia, propranolol #LE weakness/tingling -a1c, tsh, b12, folate WNL -c/w gabapentin #Neutropenia, ANC 200 -neutropenic precautions -currently afebrile, will not tx with abx at this time, no signs of infection #MDS -recently dx 1.5 mo ago; was supposed to start hypomethylating agent 5- azacytidine with Dr. Moreira at [facility] per onc -on methadone 40mg qd for pain control, verified -onc consulted: Dr. Rachel #recent hx SDH -CTH currently (-) for bleed -monitor for changes in mentation #DM -a1c WNL; will not need meds on d/c -ISS, BGM ACHS #F/E/N currently not req IVF continue to follow lytes DM diet/low na. neutropenic #PPX DVT: MAGUE's #Dispo monitoring on med-surg to receive 2nd Unit PRBCs on d/c to follow as outpatient Dr. Moreira at [facility]
--- NOTE | 2019-01-16 12:12 | PN ---
Physical Exam: SUBJECTIVE: Patient seen and examined at bedside. Feels ok at this time. Admits to one episode of vomiting immediately following breakfast. Denies nausea, abdominal pain. Admits to one episode of diarrhea following 1 week of constipation. smoked from age 24 until 3 months ago. 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 Laboratory Results - last 24 hr 01/15/19 01/15/19 01/15/19 10:15 11:21 11:21 WBC RBC Hgb Hct MCV MCH MCHC RDW Plt Count MPV Neutrophils % (Manual) 21.0 L Band Neutrophils % 0.0 Lymphocytes % (Manual) 72.6 H D Monocytes % (Manual) 1 L Eosinophils % (Manual) 2.1 D Basophils % (Manual) 0.0 Myelocytes % (Man) 0 D Promyelocytes % (Man) 0 Blast Cells % (Manual) 0 Metamyelocytes 0 Hypochromia 0 Platelet Estimate Decreased Platelet Comment Present Polychromasia 1+ Anisocytosis 0 Microcytosis 0 Rouleaux 2+ PT with INR INR PTT (Actin FS) Sodium 140 Potassium 5.3 H Chloride 106 Carbon Dioxide 28 Anion Gap 6 L BUN 18.4 H Creatinine 0.8 Est GFR (CKD-EPI)AfAm 82.42 Est GFR (CKD-EPI)NonAf 71.11 POC Glucometer Random Glucose 143 H Hemoglobin A1c % < 3.5 L Calcium 8.7 Phosphorus Magnesium Iron 217 H TIBC 266 Iron Saturation 81 H Unsaturated IBC 49 L Total Bilirubin 0.7 AST 24 ALT 13 Alkaline Phosphatase 115 Creatine Kinase 71 Troponin I < 0.02 Total Protein 7.5 Albumin 3.4 Vitamin B12 291 Serum Folate 11 TSH 0.53 Blood Type Antibody Screen Crossmatch 01/15/19 01/15/19 01/15/19 13:47 13:56 14:50 WBC RBC Hgb Hct MCV MCH MCHC RDW Plt Count MPV Neutrophils % (Manual) Band Neutrophils % Lymphocytes % (Manual) Monocytes % (Manual) Eosinophils % (Manual) Basophils % (Manual) Myelocytes % (Man) Promyelocytes % (Man) Blast Cells % (Manual) Metamyelocytes Hypochromia Platelet Estimate Platelet Comment Polychromasia Anisocytosis Microcytosis Rouleaux PT with INR 12.60 INR 1.07 PTT (Actin FS) 26.1 Sodium Potassium Chloride Carbon Dioxide Anion Gap BUN Creatinine Est GFR (CKD-EPI)AfAm Est GFR (CKD-EPI)NonAf POC Glucometer Random Glucose Hemoglobin A1c % Calcium Phosphorus Magnesium Iron TIBC Iron Saturation Unsaturated IBC Total Bilirubin AST ALT Alkaline Phosphatase Creatine Kinase Troponin I Total Protein Albumin Vitamin B12 Serum Folate TSH Blood Type B POSITIVE B POSITIVE Antibody Screen Negative Negative Crossmatch See Detail 01/15/19 01/15/19 01/16/19 18:21 23:06 05:14 WBC RBC Hgb Hct MCV MCH MCHC RDW Plt Count MPV Neutrophils % (Manual) Band Neutrophils % Lymphocytes % (Manual) Monocytes % (Manual) Eosinophils % (Manual) Basophils % (Manual) Myelocytes % (Man) Promyelocytes % (Man) Blast Cells % (Manual) Metamyelocytes Hypochromia Platelet Estimate Platelet Comment Polychromasia Anisocytosis Microcytosis Rouleaux PT with INR INR PTT (Actin FS) Sodium Potassium Chloride Carbon Dioxide Anion Gap BUN Creatinine Est GFR (CKD-EPI)AfAm Est GFR (CKD-EPI)NonAf POC Glucometer 134 108 133 Random Glucose Hemoglobin A1c % Calcium Phosphorus Magnesium Iron TIBC Iron Saturation Unsaturated IBC Total Bilirubin AST ALT Alkaline Phosphatase Creatine Kinase Troponin I Total Protein Albumin Vitamin B12 Serum Folate TSH Blood Type Antibody Screen Crossmatch 01/16/19 01/16/19 01/16/19 07:55 07:55 11:10 WBC 1.1 L* RBC 2.06 L Hgb 7.1 L Hct 20.3 L MCV 98.6 H D MCH 34.6 H MCHC 35.1 RDW 27.1 H Plt Count 26 L* MPV 9.0 Neutrophils % (Manual) Band Neutrophils % Lymphocytes % (Manual) Monocytes % (Manual) Eosinophils % (Manual) Basophils % (Manual) Myelocytes % (Man) Promyelocytes % (Man) Blast Cells % (Manual) Metamyelocytes Hypochromia Platelet Estimate Platelet Comment Polychromasia Anisocytosis Microcytosis Rouleaux PT with INR INR PTT (Actin FS) Sodium 139 Potassium 4.1 Chloride 104 Carbon Dioxide 28 Anion Gap 7 L BUN 13.1 Creatinine 0.7 Est GFR (CKD-EPI)AfAm 96.86 Est GFR (CKD-EPI)NonAf 83.57 POC Glucometer 181 Random Glucose 125 H Hemoglobin A1c % Calcium 9.0 Phosphorus 3.6 Magnesium 2.1 Iron TIBC Iron Saturation Unsaturated IBC Total Bilirubin AST ALT Alkaline Phosphatase Creatine Kinase Troponin I Total Protein Albumin Vitamin B12 Serum Folate TSH Blood Type Antibody Screen Crossmatch Active Medications Generic Name Dose Route Start Last Admin Trade Name Freq PRN Reason Stop Dose Admin Acetaminophen 650 mg 01/15/19 18:00 01/16/19 12:01 Tylenol - PO 650 mg Q6H CARLOS Administration Bupropion HCl 300 mg 01/16/19 10:00 01/16/19 09:05 Wellbutrin Xl - PO 300 mg DAILY CARLOS Administration Gabapentin 300 mg 01/15/19 22:00 01/16/19 05:33 Neurontin - PO 300 mg TID CARLOS Administration Insulin Aspart 1 vial 01/15/19 22:00 01/16/19 12:00 Novolog Vial Sliding Scale - SQ 2 units ACHS CARLOS Administration Protocol Lisinopril 40 mg 01/15/19 18:00 01/16/19 09:05 Prinivil PO 40 mg DAILY CARLOS Administration Methadone HCl 40 mg 01/16/19 10:00 01/16/19 09:02 Dolophine - PO 40 mg DAILY CARLOS Administration Nicotine 14 mg 01/16/19 10:00 01/16/19 09:06 Nicoderm Patch - TD Not Given DAILY CARLOS Nifedipine 30 mg 01/15/19 18:00 01/16/19 09:05 Procardia Xl - PO 30 mg DAILY CARLOS Administration Polyethylene Glycol 17 gm 01/15/19 18:00 01/16/19 09:06 Miralax (For Daily Use) - PO 17 gm DAILY CARLOS Administration Propranolol HCl 80 mg 01/15/19 22:00 01/15/19 23:12 Inderal La - PO 80 mg HS CARLOS Administration ASSESSMENT/PLAN: 78 y/o F with PMH COPD, HTN, DM, MDS, recent hx SDH, who presents for LE weakness x 1.5 weeks since being d/c'ed from [facility] for a fall. Heme/Onc was consulted because of recent Dx of MDS. MDS -pancytopenic -follows with Dr. Moreira at [facility] -pt was to start 5 - azacytidine -s/p 2 prbc -Hb 7.1 today -may need further transfusion -monitor CBC Visit type - Emergency Visit Emergency Visit: No - New Patient This patient is new to me today: Yes Date on this admission: 01/16/19 - Critical Care Critical Care patient: No ATTENDING PHYSICIAN STATEMENT I saw and evaluated the patient. I reviewed the resident's note and discussed the case with the resident. I agree with the resident's findings and plan as documented. SUBJECTIVE: OBJECTIVE: ASSESSMENT AND PLAN:
[2019-01-16 22:05] LABS: BASO % 0.4 % (0-2.0); EOS % 0.4 % (0-4.5); HEMATOCRIT 23.3 % (32.4-45.2); HEMOGLOBIN 8.2 GM/dL (10.7-15.3); LYMPH % 81.6 % (8-40); MCH 34.5 pg (25.7-33.7); MCHC 35.3 g/dl (32.0-36.0); MEAN CELL VOLUME 97.8 fl (80-96); MEAN PLT VOLUME 9.7 fl (7.5-11.1); MONO % 5.2 % (3.8-10.2); NEUT % 12.4 % (42.8-82.8); RBC 2.38 M/mm3 (3.60-5.2); RDW 23.6 % (11.6-15.6)
[2019-01-16 22:17] LABS: PLATELET COUNT 22 K/MM3 (134-434); WHITE BLOOD COUNT 1.5 K/mm3 (4.0-10.0)
[2019-01-16 23:06] LABS: ANISOCYTOSIS 3+
[2019-01-17] MEDS: ACETAMINOPHEN 325 MG TABLET (FP) PO SCH ×3 (00:17→12:58)
[2019-01-17] MEDS: GABAPENTIN 300 MG CAPSULE (FP) PO SCH ×2 (05:51→13:56)
[2019-01-17] MEDS: INSULIN SLIDING SCALE (NOVOLOG) 1 VIAL SQ SCH ×3 (06:00→16:51)
[2019-01-17 09:28] LABS: BASO % 0.8 % (0-2.0); EOS % 0.5 % (0-4.5); HEMATOCRIT 24.7 % (32.4-45.2); HEMOGLOBIN 8.7 GM/dL (10.7-15.3); LYMPH % 78.8 % (8-40); MCH 34.3 pg (25.7-33.7); MCHC 35.1 g/dl (32.0-36.0); MEAN CELL VOLUME 97.6 fl (80-96); MEAN PLT VOLUME 8.7 fl (7.5-11.1); MONO % 5.5 % (3.8-10.2); NEUT % 14.4 % (42.8-82.8); RBC 2.53 M/mm3 (3.60-5.2); RDW 23.2 % (11.6-15.6)
[2019-01-17 09:47] VITALS: PULSE 78; TEMP 97.9
[2019-01-17] MEDS ORDERED: PT OWN MED DRAWER 7, Y5N ONE (09:53)
[2019-01-17] MEDS: LISINOPRIL 20 MG TABLET (FP) PO SCH (09:56)
[2019-01-17] MEDS: NIFEdipine E.R. 30 MG TABLET (FP) PO SCH (09:56)
[2019-01-17] MEDS: METHADONE HCL 40 MG DISPERSABLE TABLET PO SCH (09:56)
[2019-01-17] MEDS: NICOTINE 14 MG/24 HOURS TOPICAL PATCH TD SCH (09:57)
[2019-01-17 09:59] LABS: PLATELET COUNT 22 K/MM3 (134-434)
[2019-01-17] MEDS: POLYETHYLENE GLYCOL 3350 119 GM BTL PO SCH (10:03)
[2019-01-17 10:21] LABS: BLOOD UREA NITROGEN 20.4 mg/dL (7-18); CALCIUM 8.4 mg/dL (8.5-10.1); CREATININE 0.9 mg/dL (0.55-1.3); MAGNESIUM 2.1 mg/dL (1.8-2.4); PHOSPHOROUS 4.1 mg/dL (2.5-4.9); POTASSIUM 3.8 mmol/L (3.5-5.1)
--- NOTE | 2019-01-17 11:09 | PN ---
Progress Note (short form) - Note Progress Note: Hospitalist Medicine In good spirits, received 2u PRBCs total. With good increase in Hb Vitals 01/17/19 09:00 Temperature 97.9 F Pulse Rate 78 Respiratory 20 Rate Blood Pressure 121/53 L Physical Exam GENERAL: OOB in chair, in NAD HEENT: NCAT, PERRLA neck: supple cardio: S1, S2 RRR. no r/m/g Pulm: CTA b/l. good inspiratory effort abdomen: soft, obese, nontender, nondistended LE: 2+ pulses, no edema. 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 no bleeding Assessment/Plan 78 y/o F with PMH COPD, HTN, DM, MDS, recent hx SDH, who presents for LE weakness. States that it has been occurring over the last 1.5 weeks, ever since she was hospitalized at [facility] s/p fall. #Anemia likely 2/2 MDS -requiring transfusion support -s/p 2U PRBCs, with good response -Hb<7 transfusion threshold -b12, folate WNL -hold antiplatelet agents, NSAIDs -Heme/onc: Dr. Rachel consulted. #Thrombocytopenia 2/2 MDS -will not transfuse at this time, as per pt onc cts> 10k and without active signs of bleeding. will transfuse if active bleeding -c/t monitor #HTN- uncontrolled -c/w lisinopril, procardia, propranolol #LE weakness/tingling -a1c, tsh, b12, folate WNL -c/w gabapentin #Neutropenia, ANC 100 -neutropenic precautions -currently afebrile, will not tx with abx at this time, no signs of infection #MDS -recently dx 1.5 mo ago; was supposed to start hypomethylating agent 5- azacytidine with Dr. Moreira at [facility] per onc -on methadone 40mg qd for pain control, verified -onc consulted: Dr. Rachel #recent hx SDH -CTH currently (-) for bleed -monitor for changes in mentation #DM -a1c WNL; will not need meds on d/c -ISS, BGM ACHS #F/E/N currently not req IVF continue to follow lytes DM diet/low na. neutropenic #PPX DVT: MAGUE's #Dispo monitoring on med-surg counts stable for likely d/c within 24hrs, will d/w onc on d/c to follow as outpatient Dr. Moreira at [facility]
[2019-01-17 11:39] LABS: ANISOCYTOSIS 3+; MACROCYTOSIS 0; OVALOCYTE 1+; PLATELET ESTIMATE DECREASED
[2019-01-17 14:03] VITALS: BP 142/70
--- NOTE | 2019-01-17 17:31 | DS ---
Physical Exam: SUBJECTIVE: Patient seen and examined at bedside. Able to ambulate independently. Discussed case w/ sister. She will pick her up. In good spirits OBJECTIVE: Vital Signs Period Temp Pulse Resp BP Sys/Peter Pulse Ox Last 24 Hr 97.9 F-98.5 F 77-84 20-20 121-142/46-70 94-98 Physical Exam GENERAL: OOB in chair, in NAD HEENT: NCAT, PERRLA neck: supple cardio: S1, S2 RRR. no r/m/g Pulm: CTA b/l. good inspiratory effort abdomen: soft, obese, nontender, nondistended LE: 2+ pulses, no edema. 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 LABS Laboratory Results 01/15/19 01/16/19 01/16/19 11:21 07:55 21:00 WBC 1.6 L* 1.1 L* 1.5 L* RBC 1.76 L 2.06 L Hgb 6.4 L* 7.1 L 8.2 L Hct 19.0 L 20.3 L 23.3 L MCV 107.8 H D 98.6 H D 97.8 H MCH 36.2 H D 34.6 H 34.5 H MCHC 35.1 35.3 RDW 23.9 H 27.1 H 23.6 H Plt Count 29 L* D 26 L* 22 L* Absolute Neuts (auto) 0.2 L Neutrophils % 14.1 L D Lymphocytes % (Manual) 72.6 H D Nucleated RBC % 1 H 01/17/19 08:55 WBC 1.0 L* RBC Hgb 8.7 L Hct 24.7 L MCV 97.6 H MCH 34.3 H MCHC 35.1 RDW 23.2 H Plt Count 22 L* Absolute Neuts (auto) Neutrophils % Lymphocytes % (Manual) Nucleated RBC % 01/15/19 01/15/19 01/16/19 10:15 11:21 07:55 Sodium 139 Potassium 4.1 Chloride 104 Carbon Dioxide 28 Anion Gap 7 L BUN 13.1 Creatinine 0.7 Random Glucose 143 H 125 H Hemoglobin A1c % < 3.5 L 01/15/19 14:50 PT with INR 12.60 INR 1.07 PTT (Actin FS) 26.1 01/15/19 10:15 Troponin I < 0.02 Albumin 3.4 Vitamin B12 291 Serum Folate 11 TSH 0.53 Received 2U PRBCs total during admission Microbiology 01/15/19 10:15 Urine - Urine Clean Catch Urine Culture - Final Normal Urogenital [facility] EKG: NSR, 70 bpm, no acute st-t wave changes CXR: without acute abnormality CTH: negative for acute changes. no bleeding HOSPITAL COURSE: Date of Admission:01/15/19 Date of Discharge: 01/17/19 78 y/o F with PMH COPD, HTN, DM, MDS, recent hx SDH, who presents for LE weakness. States that it has been occurring over the last 1.5 weeks, ever since she was hospitalized at [facility] s/p fall. #Anemia likely 2/2 MDS -requiring transfusion support -s/p 2U PRBCs, with good response -Hb<7 transfusion threshold -b12, folate WNL -hold antiplatelet agents, NSAIDs -Heme/onc: Dr. Rachel consulted. #Thrombocytopenia 2/2 MDS -will not transfuse at this time, as per pt onc cts> 10k and without active signs of bleeding. will transfuse if active bleeding -c/t monitor #HTN- uncontrolled -c/w lisinopril, procardia, propranolol #LE weakness/tingling -a1c, tsh, b12, folate WNL -c/w gabapentin #Neutropenia, ANC 100 -neutropenic precautions -currently afebrile, will not tx with abx at this time, no signs of infection #MDS -recently dx 1.5 mo ago; was supposed to start hypomethylating agent 5- azacytidine with Dr. Moreira at [facility] per onc -on methadone 40mg qd for pain control, verified -onc consulted: Dr. Rachel #recent hx SDH -CT currently (-) for bleed -monitor for changes in mentation #DM -a1c WNL; will not need meds on d/c -ISS, BGM ACHS #F/E/N currently not req IVF continue to follow lytes DM diet/low na. neutropenic #PPX DVT: MAGUE's #Dispo monitoring on med-surg counts stable for likely d/c within 24hrs, will d/w onc on d/c to follow as outpatient Dr. Moreira at [facility] [place] Minutes to complete discharge: 55 Discharge Summary Problems reviewed: Yes Reason For Visit: PANCYTOPENIA Current Active Problems Myelodysplasia (myelodysplastic syndrome) (Acute) Condition: Stable - Instructions Diet, Activity, Other Instructions: You were in the hospital because your blood counts were low, from your myelodysplastic syndrome. You received two units of blood, and responded well to this. You were seen by Dr. Rachel, our hospital campground caretaker/oncologist. On your discharge, your hemoglobin was 8.7 and your platelets were 22k. You improved and are being sent home. Medications 1. You have not been started on any new medications. Please continue to take your home meds. 2. Please note: we have discontinued the medication celebrex from your home medication list. This is an NSAID, which can cause bleeding. Since your blood counts were low recently during your visit, this has been held. Please discuss this with your primary care provider. Care Please be careful to avoid any bruising. If you notice any bruising on your body , dizziness, lightheadedness please call your doctor immediately. Physician follow-up Please make sure to follow up with your primary medical doctor, Dr. Arora - 3-5 days after your discharge You must also follow with Dr. Gutierrez, your oncologist at [facility] [place] - this week. This is very important. You will then be able to start your treatment for your myelodysplastic syndrome. Referrals: Dr. Matt [Other] - 1 Week Reilly Arora [Primary Care Provider] - 01/19/19 Disposition: HOME - Home Medications Comprehensive Discharge Medication List: Ambulatory Orders Gabapentin 300 mg PO TID 11/06/17 Nifedipine ER [Procardia XL -] 30 mg PO DAILY 11/06/17 Propranolol HCl [Propranolol HCl ER] 80 mg PO HS 11/06/17 Polyethylene Glycol 3350 [Miralax 119 gm Btl -] 17 gm PO DAILY #1 bottle Acetaminophen 650 mg PO PRN 01/15/19 Bupropion HCl [Bupropion HCl Sr] 150 mg PO BID 01/15/19 Lisinopril [Prinivil -] 40 mg PO DAILY 01/15/19 Methadone HCl 5 mg PO PRN 01/15/19 Methadone [Dolophine -] 40 mg PO DAILY 01/15/19 Naloxone HCl 0.4 mg IJ PRN 01/15/19 Nicotine Patch [Nicoderm Patch -] 1 patch TD DAILY 01/15/19 This patient is new to me today: No Emergency Visit: No Critical Care patient: No - Discharge Referral Referred to [facility] Med P.C.: No
== END 2019-01-17 18:00 | disposition home or self-care (01) | DRG 812 ==
LOC: JER 09:33 → JERBED 17:02 → J6S 23:48
PROVIDERS: ADMIT Internal Medicine; ATTEND Internal Medicine
PROC: 30233N1 Transfusion of Nonautologous Red Blood Cells into Peripheral Vein, Percutaneous Approach (ICD-10-PCS; principal; 2019-01-15)
DX: D46.9 Myelodysplastic syndrome, unspecified (principal); D61.818 Other pancytopenia; J44.9 Chronic obstructive pulmonary disease, unspecified; I10 Essential (primary) hypertension; E11.9 Type 2 diabetes mellitus without complications; D69.6 Thrombocytopenia, unspecified; R53.1 Weakness
CPT/HCPCS: 36415; 36430; 36511; 70450-TC; 71045-TC-FY; 80048; 80053; 81003; 82550; 82607; 82746; 82962; 83036; 83540; 83550; 83735; 84100; 84443; 84484; 85025; 85027; 85610; 85730; 86850; 86900; 86901; 86922; 87086; 93005; 93010; 99285-25; J0131; P9038; P9058

== ENCOUNTER 2019-02-05 12:10 | Inpatient (IN) | payer OTHER ==
--- NOTE | 2019-02-05 12:21 | PDOC ---
History of Present Illness - General Chief Complaint: Blood Transfusion Stated Complaint: LOW BLOOD COUNT Time Seen by Provider: 02/05/19 12:21 History Source: Patient, Sibling (sister/health care proxy) Exam Limitations: Dementia - History of Present Illness Initial Comments: 02/05/19 12:23 78yF w PMHx MDS, HTN, DM, subdural hemorrhage, COPD, dementia presenting w BLE weakness and ABD pain. Pt is poor historian, waxing/waning orientation ( baseline today, can follow simple commands), hx elicited from sister/health care proxy. Discharged from [facility] 2d ago for low RBC/platelet count requiring transfusions. Yesterday afternoon sister noted pt having BLE weakness being unable to walk (baseline pt walks), complaining of lower abdominal pain. Today pt didn't take meds d/t malaise. Pt didn't have bowel movement for 1 week. Discharged from [facility] 2d ago for low RBC/platelet count requiring transfusions. [facility] prescribed senna but no BM still. Was seen on 01/15 for BLE weakness d/t anemia, advised by [facility] specialist to not platelet transfuse if plt>10. PCP advised go to ED for head CT, make sure subdural hemorrhage not worsening. Denies fall/head trauma, fever/chills, vomiting, chest pain, SOB, urinary symptoms. Past History - Past Medical History Allergies/Adverse Reactions: Allergies Allergy/AdvReac Type Severity Reaction Status Date / Time metformin AdvReac Mild Verified 02/05/19 12:19 Home Medications: Ambulatory Orders Gabapentin 300 mg PO TID 11/06/17 Nifedipine ER [Procardia XL -] 30 mg PO DAILY 11/06/17 Propranolol HCl [Propranolol HCl ER] 80 mg PO HS 11/06/17 Polyethylene Glycol 3350 [Miralax 119 gm Btl -] 17 gm PO DAILY #1 bottle Acetaminophen 650 mg PO PRN 01/15/19 Bupropion HCl [Bupropion HCl Sr] 150 mg PO BID 01/15/19 Lisinopril [Prinivil -] 40 mg PO DAILY 01/15/19 Methadone HCl 5 mg PO PRN 01/15/19 Methadone [Dolophine -] 40 mg PO DAILY 01/15/19 Naloxone HCl 0.4 mg IJ PRN 01/15/19 Nicotine Patch [Nicoderm Patch -] 1 patch TD DAILY 01/15/19 Anemia: No Asthma: No Cancer: No Cardiac Disorders: No CVA: No COPD: Yes CHF: No DVT: No Dementia: No Diabetes: Yes GI Disorders: Yes Disorders: No HTN: Yes Hypercholesterolemia: Yes Liver Disease: No Seizures: No Thyroid Disease: No - Surgical History Abdominal Surgery: No Appendectomy: No Cardiac Surgery: No Cholecystectomy: No Lung Surgery: No Neurologic Surgery: No Orthopedic Surgery: No - Immunization History Immunization Up to Date: Yes - Psycho Social/Smoking Cessation Hx Smoking History: Never smoked Have you smoked in the past 12 months: Yes Number of Cigarettes Smoked Daily: 10 If you are a former smoker, when did you quit?: 10/26 'Breaking Loose' booklet given: 11/19/18 Hx Alcohol Use: No Drug/Substance Use Hx: No Substance Use Type: None Hx Substance Use Treatment: Yes (ON METHADONE,[facility]) Review of Systems - Review of Systems Able to Perform ROS?: No (dementia) *Physical Exam - Vital Signs Last Vital Signs Temp Pulse Resp BP Pulse Ox 98.1 F 70 16 141/58 L 100 02/05/19 12:19 02/05/19 12:19 02/05/19 12:19 02/05/19 12:19 02/05/19 12:19 - Physical Exam General Appearance: Yes: Nourished, Appropriately Dressed, Mild Distress HEENT: positive: EOMI, CHIP, Normal Voice. negative: Scleral Icterus (R), Scleral Icterus (L), Nasal Congestion, Rhinorrhea Respiratory/Chest: positive: Decreased Breath Sounds (maureen), Crackles (maureen bases) . negative: Chest Tender, Respiratory Distress, Accessory Muscle Use, Labored Respiration, Rhonchi, Stridor, Wheezing Cardiovascular: positive: Regular Rhythm, Regular Rate, S1, S2. negative: Edema , Murmur Gastrointestinal/Abdominal: positive: Normal Bowel Sounds, Tender (moderate LLQ) , Flat, Soft. negative: Organomegaly, Distended, Guarding, Rebound, Hernia, Mass Musculoskeletal: negative: CVA Tenderness (R), CVA Tenderness (L) Extremity: positive: Delayed Capillary Refill Integumentary: positive: Normal Color, Dry, Other (no abrasions extremities). 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 negative: Fully Oriented (AOx1), Motor Strength 5/5 (4/5 BUE. Did not follow instructions to assess BLE), Facial Droop ED Treatment Course - LABORATORY CBC & Chemistry Diagram: 02/05/19 13:59 02/05/19 13:59 Medical Decision Making - Medical Decision Making 02/05/19 13:08 CXR shows clear lung nation, no PNA/pulm edema/effusions, unchanged since EKG shows NSR, HR 64. QTc 400, no ST changes CT A/P shows no evidence of diverticulitis or acute ABD pathology, moderate fecal impaction, mod distended gallbladder with dilated CBD 1.2cm from 1cm 11/19, trace L pleural effusion Head CT no acute bleed/infarct, mild ischemic changes pH 7.33, CO2 53, O2<49 WBC 1.3, Hgb 7.6, Plt 15 --- 78yF w PMHx MDS, HTN, DM, subdural hemorrhage, COPD, dementia presenting w 1d BLE weakness and LLQ pain d/t constipation. Unknown cause of BLE weakness. Has COPD exacerbation w respiratory acidosis w hypercapnia and hypoxia. Low concern for ACS (neg trop, NSR EKG) vs SBO (ABD not distended) vs PNA (no consolidation on CXR) vs ACS (NSR EKG, neg trop) vs pancreatitis (non elevated lipase) vs CVA (no focal deficits, neg head CT) vs UTI (clean UA) CT A/P did not evidence of diverticulitis or acute ABD pathology. CT showed mod distended gallbladder with dilated CBD 1.2cm from 1cm 11/19/18. Anemic Hgb 7.6, thrombocytopenic Plt 15 not low enough for transfusion. Given 1 duoneb, tylenol, 1L NS, senna, colace, miralax. Placed on 2L NC for hypoxia episode to high 80s. Pt could only take 1-2 steps before feeling too weak, sitting. Admitted m/s Dr Abarca for BLE weakness, constipation, dilated CBD. Discharge - Discharge Information Problems reviewed: Yes Clinical Impression/Diagnosis: Leg weakness, bilateral, Dilated cbd, acquired, Acute respiratory failure with hypoxia and hypercapnia Constipation Qualifiers: Constipation type: unspecified constipation type Qualified Code(s): K59.00 - Constipation, unspecified Condition: Stable - Admission Yes - Follow up/Referral - Patient Discharge Instructions - Post Discharge Activity
[2019-02-05] MEDS ORDERED: SODIUM CHLORIDE 0.9% 500 ML INFUS.BAG IV ONE (12:52)
[2019-02-05] MEDS ORDERED: ACETAMINOPHEN 1000 MG/100 ML VIAL (NON FORMULARY) IVPB ONE (12:52)
[2019-02-05] MEDS ORDERED: ALBUTEROL SO4 2.5/IPRATROPIUM 0.5 INH SOL 3 ML VIAL.NEB. NEB ONE ×2 (13:06→14:05)
[2019-02-05] MEDS ORDERED: ACETAMINOPHEN INJECTION 100 ML IVPB ONE (14:05)
--- NOTE | 2019-02-05 14:24 | PDOC ---
Documentation entered by Americo Davey SCRIBE, acting as scribe for Anup Calderón MD. Anup Calderón MD: This documentation has been prepared by the Petar angulo Xhesika, SCRIBE, under my direction and personally reviewed by me in its entirety. I confirm that the documentation accurately reflects all work, treatment, procedures, and medical decision making performed by me. Attending Attestation - Resident Resident Name: Yomi Velez - ED Attending Attestation I have performed the following: I have examined & evaluated the patient, The case was reviewed & discussed with the resident, I agree w/resident's findings & plan - HPI HPI: 02/05/19 13:46 The patient is a 78 year old female with a significant PMH of MDS requiring regular infusions, HTN, DM, subdural hemorrhage with intermittent acute exacerbations, COPD, dementia, and chronic constipation who presents to the emergency department for episode of increased generalized weakness and difficuly ambulating since yesterday. Lives with sister, who spoke with PCP, and referred to ED to r/o worsening of SDH. Also with 1 week of constipation and abdominal pain greater in the epigastric region and LLQ. Pt notes she follows at [facility] for low RBC/platelet count requiring transfusions (last transfusion 2 days ago). Pt has been taking senna with no improvement of symptoms. Pt reports she endorses chronic constipation. Also with decreased appetite for 3 days. h/o hernia surgery. The patient denies chest pain, shortness of breath, headache and dizziness. Denies fever, chills, cough, nausea, vomiting, diarrhea. Denies dysuria, frequency, urgency and hematuria. Allergies: Metformin - Physicial Exam PE: 02/05/19 14:20 Vital signs as noted and within normal limits, afebrile Seated in stretcher, asleep but easily arousable, conversant and following commands No jaundice or pallor, slightly dry mucosa Heart is regular, lungs are clear Abdomen is distended but soft, diffusely tender greatest in the left abdomen, no rebound. Limited neurological exam, ranging all extremities but only 4/5 in bilateral lower extremities - Medical Decision Making 02/05/19 14:21 78-year-old female with history of chronic subdural hematoma presents with increased generalized weakness and depressed mental status since yesterday, brought in to rule out acute on chronic subdural bleeding. Also with 1 week of worsening constipation with decreased appetite and decreased oral intake, distended on exam, rule out infectious process versus obstruction. Check labs, urinalysis CT head, CT abdomen and pelvis IV fluids Reassess Heart Score/ECG Review #1 ECG reviewed & interpreted by me at: 14:52 General ECG Interpretation: Sinus Rhythm, Normal Rate (64), Normal Intervals ( qtc 400), No acute ischemic changes
[2019-02-05 14:32] LABS: VENOUS PC02 53.3 mmHg (38-52); VENOUS PH 7.33 (7.31-7.41)
[2019-02-05 14:33] LABS: VENOUS PO2 < 49 mmHg (28-48)
[2019-02-05 15:01] LABS: HEMOGLOBIN 7.6 GM/dL (10.7-15.3)
[2019-02-05 15:02] LABS: ALBUMIN 3.5 g/dl (3.4-5.0); BILIRUBIN,TOTAL 0.7 mg/dL (0.2-1); BLOOD UREA NITROGEN 26.1 mg/dL (7-18); CALCIUM 8.5 mg/dL (8.5-10.1); POTASSIUM 4.6 mmol/L (3.5-5.1); TOT PROT 7.3 g/dl (6.4-8.2)
[2019-02-05 15:04] LABS: CORRECTED WBC 0.22 K/mm3; HEMATOCRIT 22.2 % (32.4-45.2); MCH 32.5 pg (25.7-33.7); MCHC 34.1 g/dl (32.0-36.0); MEAN CELL VOLUME 95.5 fl (80-96); MEAN PLT VOLUME 8.7 fl (7.5-11.1); RBC 2.32 M/mm3 (3.60-5.2); RDW 17.9 % (11.6-15.6)
[2019-02-05 15:12] LABS: WHITE BLOOD COUNT 1.3 K/mm3 (4.0-10.0)
[2019-02-05 15:13] LABS: PLATELET COUNT 15 K/MM3 (134-434)
[2019-02-05 16:07] LABS: ADD RBC MORPHOLOGY NO
[2019-02-05 18:52] LABS: EPI CELLS 0.3 /HPF (0-5/HPF); HYALINE CASTS 0 /lpf (0-8); URINE APPEARANCE CLEAR; URINE BACTERIA 0.5 /hpf (NEGATIVE); URINE BILIRUBIN NEGATIVE (NEGATIVE); URINE COLOR YELLOW; URINE GLUCOSE (UA) NEGATIVE (NEGATIVE); URINE KETONE NEGATIVE (NEGATIVE); URINE LEUK ESTERASE NEGATIVE (NEGATIVE); URINE NITRITE NEGATIVE (NEGATIVE); URINE PROTEIN 1+ (NEGATIVE); URINE RBC 1 /hpf (0-4); URINE UROBILINOGEN 0.2 mg/dL (0.2-1.0); URINE WBC 0 /hpf (0-5)
--- NOTE | 2019-02-05 19:42 | PN ---
Teaching Attending Note Name of Resident: Kirstie Dallas ATTENDING PHYSICIAN STATEMENT I saw and evaluated the patient. I reviewed the resident's note and discussed the case with the resident. I agree with the resident's findings and plan as documented. SUBJECTIVE: Patient is a 78 year old woman with a PMH of MDS requiring regular infusions, HTN, NIDDM, Subdural hemorrhage with intermittent acute exacerbations, COPD, Dementia, and Chronic constipation who presents to the ER for episode of increased generalized weakness and difficuly ambulating since yesterday. Lives with sister, who spoke with PCP, and referred to ER to rule out worsening of SDH. Also with 1 week of constipation and abdominal pain greater in the epigastric region and LLQ. She follows at [facility] for low RBC/platelet count requiring transfusions (last transfusion 2 days ago). Has been taking Senna with no improvement of symptoms. Has chronic constipation and decreased appetite for 3 days. Denies chest pain, shortness of breath, headache, dizziness , fever, chills, cough, nausea, vomiting, diarrhea, dysuria, frequency, urgency or hematuria. Denies tobacco, alcohol or illicit drug use. OBJECTIVE: Alert Vital Signs Period Temp Pulse Resp BP Sys/Peter Pulse Ox Last 24 Hr 98.1 F-98.5 F 67-79 16-20 135-141/55-62 99-100 HEENT: No Jaundice, eye redness or discharge, PERRLA, EOMI. Normocephalic, atraumatic. External ears are normal and hearing is grossly intact. No nasal discharge. Neck: Supple, nontender. No palpable adenopathy or thyromegaly. No JVD Chest: Good effort. Clear to auscultation and percussion. Heart: Regular. No S3, rub or murmur Abdomen: Not distended, soft, nontender and no HSM. No rebound or guarding. Normal bowel sounds. Ext: Peripheral pulses intact. No leg edema. Skin: Warm and dry. No petechiae, rash or ecchymosis. Neuro: Alert. Oriented x3. CN 2-12 grossly intact. Sensation grossly intact in all four extremities. Reduced power in both lower extremities. Gait not tested for safety reasons. Psych: Appropriate mood and affect. Good insight. Current Medications Generic Name Dose Route Start Last Admin Trade Name Freq PRN Reason Stop Dose Admin Acetaminophen 650 mg 02/05/19 21:35 Tylenol - PO Q4H PRN PAIN LEVEL 6-10 Docusate Sodium 100 mg 02/06/19 10:00 Colace - PO DAILY [facility] Sodium Chloride 1,000 mls @ 83 mls/hr 02/05/19 21:45 Normal Saline - IV ASDIR [facility] Insulin Aspart 1 vial 02/05/19 22:00 Novolog Vial Sliding Scale - SQ ACHS [facility] Protocol Senna 1 tab 02/06/19 10:00 Senna - PO BID [facility] Home Medications Medication Instructions Recorded Nifedipine ER [Procardia XL -] 30 mg PO DAILY 11/06/17 Propranolol HCl [Propranolol HCl 80 mg PO BID 11/06/17 ER] Polyethylene Glycol 3350 [Miralax 17 gm PO DAILY #1 bottle 11/13/17 119 gm Btl -] Acetaminophen 650 mg PO PRN 01/15/19 Lisinopril [Prinivil -] 40 mg PO DAILY 01/15/19 Methadone HCl 5 mg PO Q6H PRN 01/15/19 Naloxone HCl 0.4 mg IJ PRN 01/15/19 Nicotine Patch [Nicoderm Patch -] 1 patch TD DAILY 01/15/19 Celecoxib [Celebrex] 100 mg PO BID 02/05/19 Gabapentin 300 mg PO TID 02/05/19 Methylcellulose 500 gm MC DAILY 02/05/19 Abnormal Lab Results 02/05/19 02/05/19 02/05/19 13:59 13:59 14:20 WBC 1.3 L* RBC 2.32 L Hgb 7.6 L Hct 22.2 L RDW 17.9 H Plt Count 15 L* D Absolute Neuts (auto) 0.6 L POC VBG pCO2 53.3 H POC VBG pO2 < 49 H VBG O2 Sat (Arturo) 81.7 H Chloride 109 H Anion Gap 6 L BUN 26.1 H Random Glucose 108 H AST 12 L ALT 11 L Lipase 57 L Urine Protein 02/05/19 15:57 WBC RBC Hgb Hct RDW Plt Count Absolute Neuts (auto) POC VBG pCO2 POC VBG pO2 VBG O2 Sat (Arturo) Chloride Anion Gap BUN Random Glucose AST ALT Lipase Urine Protein 1+ H ASSESSMENT AND PLAN: 1. Lower extremity weakness/Pancytopenia due to MDS - Weakness may signal global debility associated with MDS and it's treatment. No acute abnormality on head CT or CXR. CT abdomen/pelvis showed increase in gall bladder distension. EKG shows NSR with no acute ST-T wave changes. No indication for platelet or PRBC transfusion at this time. Will consult hematology. Patient is afebrile and there is no indication for antibiotics at this time. Will treat constipation with fleet enema and miralax. Will get MRI of lumbosacral spine. Consult neurology and PT. Do neurochecks and implement fall precautions. Will continue comprehensive care for all of patients comorbid conditions. 2. DM For now, we will hold the home diabetes drugs and implement sliding scale insulin regimen. Provide comprehensive diabetes care with patient teaching and counseling about the importance of adherence to prescribed diabetes regimen, euglycemia, eye care and foot care. 3. Hypertension - Restart suitable outpatient antihypertensive drugs when clinically appropriate. Revise regimen to ensure [id number] excellent BP control and dianetic counselor patient on the injurious effects of uncontrolled hypertension. Nonpharmacologic measures to control hypertension like weight loss , salt restriction and exercise discussed. Importance of adherence to treatment regimen and attainment of normotension emphasized. 4. DVT prophylaxis -Early ambulation. Platelet count too low for either SCD or Heparin 5. Advance directives - Full code
[2019-02-05] MEDS ORDERED: POLYETHYLENE GLYCOL 3350 119 GM BTL PO ONE (20:15)
[2019-02-05] MEDS ORDERED: DOCUSATE SODIUM 100 MG CAPSULE (FP) PO ONE ×2 (20:15→21:14)
[2019-02-05] MEDS ORDERED: SENNOSIDES 8.6MG TABLET (FP) PO ONE (21:14)
[2019-02-05] MEDS ORDERED: ACETAMINOPHEN 325 MG TABLET (FP) PO PRN (21:35)
[2019-02-05] MEDS ORDERED: MINERAL OIL ENEMA 133 ML ENEMA PR ONE (21:42)
--- NOTE | 2019-02-05 21:49 | HP ---
CHIEF COMPLAINT: worsening BLE weakness PCP: Reilly Doyle HISTORY OF PRESENT ILLNESS: 78yF w PMH MDS, HTN, DM, subdural hemorrhage s/p fall, COPD, dementia presenting with worsening BLE weakness and ABD pain. Pt sister at bedside provided most of the history (Health care proxy). According to the sister, pt [facility] for low RBC/platelet count requiring transfusions, and since then she has been feeling extremely weak to the point where the sister has to assist her with ambulation despite her walker. Pt admits to spending most of her time in bed as she feel tired all the time lately. She denies any focal deficit, numbness, tingling, change in vision, chest pain, SOB, urine or bowel incontinence. The sister called the PCP and he advised that she goes to ED for head CT "to make sure subdural hemorrhage not worsening." Pt was dischages weeks ago from [place] s/p fall; got denied for rehab as pt was a [facility] resident and not [place]. Was recently admitted on 01/15 for similar complaints. In addition, Pt didn't have bowel movement for 1 week and has been having no specific abdominal pain. Health System prescribed senna while she was admitted but no BM. Pt admits to decreased appetite. She denies any fever, chills, nausea, vomiting or diarrheal episodes. ER course was notable for: (1) VSS, CBC pancytopenic (chronic), CMP remarkable for AST/ALT, lipase 57, UA neg, trop neg (2) EKG NSR no specific ST/T wave changes (3) CXR shows clear lung nation, no PNA/pulm edema/effusions, unchanged since CT A/P shows no evidence of diverticulitis or acute ABD pathology, moderate fecal impaction, mod distended gallbladder with dilated CBD 1.2cm from 1cm 11/19, trace L pleural effusion Head CT no acute bleed/infarct, mild ischemic changes Recent Travel: none PAST MEDICAL HISTORY: as above PAST SURGICAL HISTORY: hernia repair Social History: Smoking: former smoker 2PPD for 54 years quit one month ago Alcohol: former drinker Drugs: 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 Allergies metformin Adverse Reaction (Mild, Verified 02/05/19 12:19) HOME MEDICATIONS: Home Medications Medication Instructions Recorded Nifedipine ER [Procardia XL -] 30 mg PO DAILY 11/06/17 Propranolol HCl [Propranolol HCl 80 mg PO BID 11/06/17 ER] Polyethylene Glycol 3350 [Miralax 17 gm PO DAILY #1 bottle 11/13/17 119 gm Btl -] Acetaminophen 650 mg PO PRN 01/15/19 Lisinopril [Prinivil -] 40 mg PO DAILY 01/15/19 Methadone HCl 5 mg PO Q6H PRN 01/15/19 Naloxone HCl 0.4 mg IJ PRN 01/15/19 Nicotine Patch [Nicoderm Patch -] 1 patch TD DAILY 01/15/19 Celecoxib [Celebrex] 100 mg PO BID 02/05/19 Gabapentin 300 mg PO TID 02/05/19 Methylcellulose 500 gm MC DAILY 02/05/19 REVIEW OF SYSTEMS CONSTITUTIONAL: generalized weakness, malaise, loss of appetite Absent: fever, chills, diaphoresis, weight change HEENT: Absent: rhinorrhea, nasal congestion, throat pain, throat swelling, difficulty swallowing, mouth swelling, ear pain, eye pain, visual changes CARDIOVASCULAR: Absent: chest pain, syncope, palpitations, irregular heart rate, lightheadedness , peripheral edema RESPIRATORY: Absent: cough, shortness of breath, dyspnea with exertion, orthopnea, wheezing, stridor, hemoptysis GASTROINTESTINAL:abdominal pain, constipation Absent: , abdominal distension, nausea, vomiting, diarrhea, melena, hematochezia GENITOURINARY: Absent: dysuria, frequency, urgency, hesitancy, hematuria, flank pain, genital pain MUSCULOSKELETAL: Absent: myalgia, arthralgia, joint swelling, back pain, neck pain SKIN: Absent: rash, itching, pallor HEMATOLOGIC/IMMUNOLOGIC: Absent: easy bleeding, easy bruising, lymphadenopathy, frequent infections ENDOCRINE: Absent: unexplained weight gain, unexplained weight loss, heat intolerance, cold intolerance NEUROLOGIC: Absent: headache, focal weakness or paresthesias, dizziness, unsteady gait, seizure, mental status changes, bladder or bowel incontinence PSYCHIATRIC: Absent: anxiety, depression, suicidal or homicidal ideation, hallucinations. PHYSICAL EXAMINATION Vital Signs - 24 hr 02/05/19 02/05/19 02/05/19 12:19 15:56 21:27 Temperature 98.1 F 98.5 F Pulse Rate 70 Pulse Rate [ 79 67 Apical] Respiratory 16 20 18 Rate Blood Pressure 141/58 L Blood Pressure 139/55 L 135/62 [Right Arm] O2 Sat by Pulse 100 99 100 Oximetry (%) GENERAL: Awake, alert, and fully oriented, in no acute distress. HEAD: Normal with no signs of trauma. EYES: Pupils equal, round and reactive to light, extraocular movements intact, sclera anicteric, conjunctival pallor. No lid lag. EARS, NOSE, THROAT: oropharynx clear without exudates. Moist mucous membranes. NECK: Normal range of motion, supple without lymphadenopathy, JVD, or masses. LUNGS: Breath sounds equal, clear to auscultation bilaterally. No wheezes, and no crackles. No accessory muscle use. HEART: Regular rate and rhythm, normal S1 and S2 with systolic murmur, rub or gallop. ABDOMEN: Soft, tender at injection sites for MDS treatment, not distended, normoactive bowel sounds, no guarding, no rebound, no masses. No hepatomegaly or splenomegaly. MUSCULOSKELETAL: Normal range of motion at all joints. No bony deformities or tenderness. No CVA tenderness. UPPER EXTREMITIES: 2+ pulses, warm, well-perfused. No cyanosis. No clubbing. No peripheral edema. LOWER EXTREMITIES: 2+ pulses, warm, well-perfused. No calf tenderness. No peripheral edema. NEUROLOGICAL: Cranial nerves II-XII intact. Normal speech. full strength 5/5 in all muscle groups and sensation intact. PSYCHIATRIC: Cooperative. Good eye contact. Appropriate mood and affect. SKIN: Warm, dry, normal turgor, no rashes or lesions noted, normal capillary refill. Laboratory Results - last 24 hr 02/05/19 02/05/19 02/05/19 13:59 13:59 13:59 WBC 1.3 L* Corrected WBC (auto) 0.22 RBC 2.32 L Hgb 7.6 L Hct 22.2 L MCV 95.5 MCH 32.5 MCHC 34.1 RDW 17.9 H Plt Count 15 L* D MPV 8.7 Absolute Neuts (auto) 0.6 L Total Counted Cancelled Neutrophils % No Result Required. Neutrophils % (Manual) Cancelled Band Neutrophils % Cancelled Lymphocytes % No Result Required. Lymphocytes % (Manual) Cancelled Monocytes % (Manual) Cancelled Eosinophils % (Manual) Cancelled Basophils % (Manual) Cancelled Myelocytes % (Man) Cancelled Promyelocytes % (Man) Cancelled Blast Cells % (Manual) Cancelled Nucleated RBC % Ironworker Machine Operator Metamyelocytes Cancelled Differential Comment Cancelled Hypersegmented Neuts Cancelled Plasma Cells Cancelled Smudge Cells Cancelled Other Cell Type Cancelled Hypochromia Cancelled Toxic Granulation Cancelled Dohle Bodies Cancelled Platelet Comment Cancelled Polychromasia Cancelled Poikilocytosis Cancelled Basophilic Stippling Cancelled Anisocytosis Cancelled Microcytosis Cancelled Macrocytosis Cancelled Spherocytes Cancelled Siderocytes Cancelled Sickle Cells Cancelled Target Cells Cancelled Tear Drop Cells Cancelled Ovalocytes Cancelled Stomatocytes Cancelled Helmet Cells Cancelled [place]alekr-Brooks Bodies Cancelled [place] Rings Cancelled Heath Cells Cancelled Acanthocytes (Spur) Cancelled Rouleaux Cancelled Fragmented RBCs Cancelled Schistocytes Cancelled Morphology Comment Cancelled VBG pH POC VBG pCO2 POC VBG pO2 VBG HCO3 VBG O2 Sat (Arturo) VBG Base Excess Sodium 141 Potassium 4.6 Chloride 109 H Carbon Dioxide 27 Anion Gap 6 L BUN 26.1 H Creatinine 1.0 Est GFR (CKD-EPI)AfAm 62.93 Est GFR (CKD-EPI)NonAf 54.30 Random Glucose 108 H Lactic Acid Calcium 8.5 Total Bilirubin 0.7 AST 12 L ALT 11 L Alkaline Phosphatase 112 Creatine Kinase 36 Troponin I < 0.02 Total Protein 7.3 Albumin 3.5 Lipase 57 L Urine Color Urine Appearance Urine pH Ur Specific [place] Urine Protein Urine Glucose (UA) Urine Ketones Urine Blood Urine Nitrite Urine Bilirubin Urine Urobilinogen Ur Leukocyte Esterase Urine WBC (Auto) Urine RBC (Auto) Urine Casts (Auto) U Epithel Cells (Auto) Urine Bacteria (Auto) 02/05/19 02/05/19 02/05/19 13:59 14:20 15:57 WBC Corrected WBC (auto) RBC Hgb Hct MCV MCH MCHC RDW Plt Count MPV Absolute Neuts (auto) Total Counted Neutrophils % Neutrophils % (Manual) Band Neutrophils % Lymphocytes % Lymphocytes % (Manual) Monocytes % (Manual) Eosinophils % (Manual) Basophils % (Manual) Myelocytes % (Man) Promyelocytes % (Man) Blast Cells % (Manual) Nucleated RBC % Metamyelocytes Differential Comment Hypersegmented Neuts Plasma Cells Smudge Cells Other Cell Type Hypochromia Toxic Granulation Dohle Bodies Platelet Comment Polychromasia Poikilocytosis Basophilic Stippling Anisocytosis Microcytosis Macrocytosis Spherocytes Siderocytes Sickle Cells Target Cells Tear Drop Cells Ovalocytes Stomatocytes Helmet Cells Walker-Brooks Bodies [place] Rings [place] Cells Acanthocytes (Spur) Rouleaux Fragmented RBCs Schistocytes Morphology Comment VBG pH 7.33 POC VBG pCO2 53.3 H POC VBG pO2 < 49 H VBG HCO3 27.5 VBG O2 Sat (Arturo) 81.7 H VBG Base Excess 1.9 Sodium Potassium Chloride Carbon Dioxide Anion Gap BUN Creatinine Est GFR (CKD-EPI)AfAm Est GFR (CKD-EPI)NonAf Random Glucose Lactic Acid 0.6 Calcium Total Bilirubin AST ALT Alkaline Phosphatase Creatine Kinase Troponin I Total Protein Albumin Lipase Urine Color Yellow Urine Appearance Clear Urine pH 5.0 D Ur Specific [place] 1.016 Urine Protein 1+ H Urine Glucose (UA) Negative Urine Ketones Negative Urine Blood Negative Urine Nitrite Negative Urine Bilirubin Negative Urine Urobilinogen 0.2 Ur Leukocyte Esterase Negative Urine WBC (Auto) 0 Urine RBC (Auto) 1 Urine Casts (Auto) 0 U Epithel Cells (Auto) 0.3 Urine Bacteria (Auto) 0.5 ASSESSMENT/PLAN: 78yF w PMH MDS, HTN, DM, subdural hemorrhage s/p fall, COPD, dementia presenting with worsening BLE weakness and ABD pain. admitted for inability to ambulate 2/2 BLE weakness Inability to ambulate most likely due to BLE weakness from chronic anemia from MDS but cant r/o spinal pathology Motor strength 5/5 in all muscle groups, sensation intact MRI of the lumbar spine PT ordered fall precautions consider Social work for rehab placement consider neuro consult Constipation 2/2 impacted stool In ED, pt received miralax and colace order placed for fleet enema cont with colace daily and senna BID encourage oral fluid intake NS @ 83 cc/hr Pancytopenia 2/2 MDS chronic and around baseline no need for transfusion right now monitor CBC Heme/Onc Dr Rachel consult DM BG 108 ISS BGM HTN resume home meds once med rec FEN NS@83 monitor lytes diabetic diet DVT No hep products/ no lovenox/ no SCDs encourage early ambulation as pt is thrombocytopenic in the 15s and the risk outweigh benefit of AC. NO SCDS due to risk of capillary rupture from stimulation of SCD in thrombocytopenic pt Visit type - Emergency Visit Emergency Visit: Yes ED Registration Date: 02/05/19 Care time: The patient presented to the Emergency Department on the above date and was hospitalized for further evaluation of their emergent condition. - New Patient This patient is new to me today: No - Critical Care Critical Care patient: No ATTENDING PHYSICIAN STATEMENT I saw and evaluated the patient. I reviewed the resident's note and discussed the case with the resident. I agree with the resident's findings and plan as documented. SUBJECTIVE: OBJECTIVE: ASSESSMENT AND PLAN:
[2019-02-05] MEDS ORDERED: SENNOSIDES 8.6MG TABLET (FP) PO SCH (22:00)
[2019-02-05] MEDS: SODIUM CHLORIDE 1,000 ML IV SCH (23:10)
[2019-02-05] MEDS: INSULIN SLIDING SCALE (NOVOLOG) 1 VIAL SQ SCH (23:13)
[2019-02-06] MEDS: INSULIN SLIDING SCALE (NOVOLOG) 1 VIAL SQ SCH ×3 (06:02→18:15)
[2019-02-06 08:16] LABS: BASO % 0.4 % (0-2.0); EOS % 0.4 % (0-4.5); HEMATOCRIT 22.3 % (32.4-45.2); HEMOGLOBIN 7.7 GM/dL (10.7-15.3); LYMPH % 89.4 % (8-40); MCH 33.2 pg (25.7-33.7); MCHC 34.4 g/dl (32.0-36.0); MEAN CELL VOLUME 96.7 fl (80-96); MEAN PLT VOLUME 8.9 fl (7.5-11.1); NEUT % 7.8 % (42.8-82.8); RBC 2.31 M/mm3 (3.60-5.2); RDW 18.4 % (11.6-15.6)
[2019-02-06 08:43] LABS: PLATELET COUNT 11 K/MM3 (134-434); WHITE BLOOD COUNT 1.2 K/mm3 (4.0-10.0)
[2019-02-06 08:50] LABS: ALBUMIN 3.6 g/dl (3.4-5.0); BILIRUBIN,TOTAL 0.9 mg/dL (0.2-1); BLOOD UREA NITROGEN 19.4 mg/dL (7-18); CALCIUM 8.4 mg/dL (8.5-10.1); CREATININE 0.9 mg/dL (0.55-1.3); MAGNESIUM 2.2 mg/dL (1.8-2.4); POTASSIUM 4.3 mmol/L (3.5-5.1); TOT PROT 7.7 g/dl (6.4-8.2)
[2019-02-06] MEDS: DOCUSATE SODIUM 100 MG CAPSULE (FP) PO SCH (10:04)
[2019-02-06] MEDS: POLYETHYLENE GLYCOL 3350 119 GM BTL PO SCH ×2 (10:05→23:12)
[2019-02-06] MEDS: SENNOSIDES 8.6MG TABLET (FP) PO SCH ×2 (10:05→23:12)
--- NOTE | 2019-02-06 10:22 | EKG ---
Test Reason : Blood Pressure : / mmHG Vent. Rate : 064 BPM Atrial Rate : 064 BPM P-R Int : 178 ms QRS Dur : 084 ms QT Int : 388 ms P-R-T Axes : 048 005 034 degrees QTc Int : 400 ms NORMAL SINUS RHYTHM WHEN COMPARED WITH ECG OF 15-JAN-2019 09:48, NO SIGNIFICANT CHANGE WAS FOUND Confirmed by MD Benavides Edward ([id number]) on 02/06/2019 10:22:12 AM Referred By: Confirmed By:Arturo Benavides MD
--- NOTE | 2019-02-06 10:44 | CONSULT ---
Consultation: REQUESTING PROVIDER:primary team , Darvin Aguilar CONSULT REQUEST: We have been asked to medically evaluate this patient for ( pancytopenia , recent diagnosis MDS ). HISTORY OF PRESENT ILLNESS: 78yF w PMH MDS, HTN, DM, subdural hemorrhage s/p fall, COPD, dementia presenting with worsening BLE weakness and ABD pain. Pt sister over the phone provided most of the history (Health care proxy). According to the sister, pt has been discharged from [facility] 2d ago for low RBC/platelet count requiring transfusions, and since then she has been feeling extremely weak to the point where the sister has to assist her with ambulation despite her walker. Pt admits to spending most of her time in bed as she feel tired all the time lately. She denies any focal deficit, numbness, tingling, change in vision, chest pain, SOB, urine or bowel incontinence. The sister called the PCP and he advised that she goes to ED for head CT "to make sure subdural hemorrhage not worsening." Pt was dischages weeks ago from [place] s/p fall; got denied for rehab as pt was a [place] resident and not [place]. Was recently admitted on 01/15 for similar complaints. In addition, Pt didn't have bowel movement for 1 week and has been having no specific abdominal pain. [facility] prescribed senna while she was admitted but no BM. Pt admits to decreased appetite. She denies any fever, chills, nausea, vomiting or diarrheal episodes. pt presented for generalised weakness , LE weakness , and constipation , loss of appetite we were consulted for pancytopenia REVIEW OF SYSTEMS: CONSTITUTIONAL: Absent: fever, chills, diaphoresis, generalized weakness, malaise, loss of appetite, weight change HEENT: Absent: rhinorrhea, nasal congestion, throat pain, throat swelling, difficulty swallowing, mouth swelling, ear pain, eye pain, visual changes CARDIOVASCULAR: Absent: chest pain, syncope, palpitations, irregular heart rate, lightheadedness , peripheral edema RESPIRATORY: Absent: cough, shortness of breath, dyspnea with exertion, orthopnea, wheezing, stridor, hemoptysis GASTROINTESTINAL: Absent: abdominal pain, abdominal distension, nausea, vomiting, diarrhea, constipation, melena, hematochezia GENITOURINARY: Absent: dysuria, frequency, urgency, hesitancy, hematuria, flank pain, genital pain MUSCULOSKELETAL: Absent: myalgia, arthralgia, joint swelling, back pain, neck pain SKIN: Absent: rash, itching, pallor HEMATOLOGIC/IMMUNOLOGIC: Absent: easy bleeding, easy bruising, lymphadenopathy, frequent infections ENDOCRINE: Absent: unexplained weight gain, unexplained weight loss, heat intolerance, cold intolerance NEUROLOGIC: Absent: headache, focal weakness or paresthesias, dizziness, unsteady gait, seizure, mental status changes, bladder or bowel incontinence PSYCHIATRIC: Absent: anxiety, depression, suicidal or homicidal ideation, hallucinations. PHYSICAL EXAMINATION Vital Signs - 24 hr 02/05/19 02/05/19 02/05/19: 15:56 21:27 Temperature 98.1 F 98.5 F Pulse Rate 70 Pulse Rate [ 79 67 Apical] Respiratory 16 20 18 Rate Blood Pressure 141/58 L Blood Pressure 139/55 L 135/62 [Right Arm] O2 Sat by Pulse 100 99 100 Oximetry (%) 02/06/19 02/06/19 02/06/19 00:12 00:30 00:36 Temperature 98.0 F 98.0 F Pulse Rate 73 73 Pulse Rate [ Apical] Respiratory 18 18 Rate Blood Pressure 117/54 L 117/54 L Blood Pressure [Right Arm] O2 Sat by Pulse 92 L Oximetry (%) 02/06/19 06:40 Temperature 97.5 F L Pulse Rate 73 Pulse Rate [ Apical] Respiratory 20 Rate Blood Pressure 130/53 L Blood Pressure [Right Arm] O2 Sat by Pulse Oximetry (%) GENERAL: Awake, alert, in no acute distress. HEAD: Normal with no signs of trauma. EYES: Pupils equal, round and reactive to light, extraocular movements intact, sclera anicteric, EARS, NOSE, THROAT: dry mucous membranes. NECK: Normal range of motion, supple without lymphadenopathy, Nodes: no nodules palpated Breast with no masses palpated LUNGS: fine crackles right base> left base HEART: sinus tachy , normal S1 and S2 without murmur, rub or gallop. LOWER EXTREMITIES: 2+ pulses, warm, well-perfused. No calf tenderness. No peripheral edema. move s all ext 5/5 proximal and distal NEUROLOGICAL: no focal deficit . Normal speech. PSYCHIATRIC: Cooperative. SKIN: Warm, dry, Laboratory Results - last 24 hr 02/05/19 02/05/19 02/05/19 13:59 13:59 13:59 WBC 1.3 L* Corrected WBC (auto) 0.22 RBC 2.32 L Hgb 7.6 L Hct 22.2 L MCV 95.5 MCH 32.5 MCHC 34.1 RDW 17.9 H Plt Count 15 L* D MPV 8.7 Absolute Neuts (auto) 0.6 L Total Counted Cancelled Neutrophils % No Result Required. Neutrophils % (Manual) Cancelled Band Neutrophils % Cancelled Lymphocytes % No Result Required. Lymphocytes % (Manual) Cancelled Monocytes % Monocytes % (Manual) Cancelled Eosinophils % Eosinophils % (Manual) Cancelled Basophils % Basophils % (Manual) Cancelled Myelocytes % (Man) Cancelled Promyelocytes % (Man) Cancelled Blast Cells % (Manual) Cancelled Nucleated RBC % Four Slide Operator Metamyelocytes Cancelled Differential Comment Cancelled Hypersegmented Neuts Cancelled Plasma Cells Cancelled Smudge Cells Cancelled Other Cell Type Cancelled Hypochromia Cancelled Toxic Granulation Cancelled Dohle Bodies Cancelled Platelet Comment Cancelled Polychromasia Cancelled Poikilocytosis Cancelled Basophilic Stippling Cancelled Anisocytosis Cancelled Microcytosis Cancelled Macrocytosis Cancelled Spherocytes Cancelled Siderocytes Cancelled Sickle Cells Cancelled Target Cells Cancelled Tear Drop Cells Cancelled Ovalocytes Cancelled Stomatocytes Cancelled Helmet Cells Cancelled [place] Bodies Cancelled [place] Cancelled [place] Cells Cancelled Acanthocytes (Spur) Cancelled Rouleaux Cancelled Fragmented RBCs Cancelled Schistocytes Cancelled Morphology Comment Cancelled VBG pH POC VBG pCO2 POC VBG pO2 VBG HCO3 VBG O2 Sat (Arturo) VBG Base Excess Sodium 141 Potassium 4.6 Chloride 109 H Carbon Dioxide 27 Anion Gap 6 L BUN 26.1 H Creatinine 1.0 Est GFR (CKD-EPI)AfAm 62.93 Est GFR (CKD-EPI)NonAf 54.30 POC Glucometer Random Glucose 108 H Lactic Acid Calcium 8.5 Phosphorus Magnesium Total Bilirubin 0.7 AST 12 L ALT 11 L Alkaline Phosphatase 112 Creatine Kinase 36 Troponin I < 0.02 Total Protein 7.3 Albumin 3.5 Lipase 57 L TSH Urine Color Urine Appearance Urine pH Ur Specific [place] Urine Protein Urine Glucose (UA) Urine Ketones Urine Blood Urine Nitrite Urine Bilirubin Urine Urobilinogen Ur Leukocyte Esterase Urine WBC (Auto) Urine RBC (Auto) Urine Casts (Auto) U Epithel Cells (Auto) Urine Bacteria (Auto) 02/05/19 02/05/19 02/05/19 13:59 14:20 15:57 WBC Corrected WBC (auto) RBC Hgb Hct MCV MCH MCHC RDW Plt Count MPV Absolute Neuts (auto) Total Counted Neutrophils % Neutrophils % (Manual) Band Neutrophils % Lymphocytes % Lymphocytes % (Manual) Monocytes % Monocytes % (Manual) Eosinophils % Eosinophils % (Manual) Basophils % Basophils % (Manual) Myelocytes % (Man) Promyelocytes % (Man) Blast Cells % (Manual) Nucleated RBC % Metamyelocytes Differential Comment Hypersegmented Neuts Plasma Cells Smudge Cells Other Cell Type Hypochromia Toxic Granulation Dohle Bodies Platelet Comment Polychromasia Poikilocytosis Basophilic Stippling Anisocytosis Microcytosis Macrocytosis Spherocytes Siderocytes Sickle Cells Target Cells Tear Drop Cells Ovalocytes Stomatocytes Helmet Cells [place] Bodies [place] Rings [place] Cells Acanthocytes (Spur) Rouleaux Fragmented RBCs Schistocytes Morphology Comment VBG pH 7.33 POC VBG pCO2 53.3 H POC VBG pO2 < 49 H VBG HCO3 27.5 VBG O2 Sat (Arturo) 81.7 H VBG Base Excess 1.9 Sodium Potassium Chloride Carbon Dioxide Anion Gap BUN Creatinine Est GFR (CKD-EPI)AfAm Est GFR (CKD-EPI)NonAf POC Glucometer Random Glucose Lactic Acid 0.6 Calcium Phosphorus Magnesium Total Bilirubin AST ALT Alkaline Phosphatase Creatine Kinase Troponin I Total Protein Albumin Lipase TSH Urine Color Yellow Urine Appearance Clear Urine pH 5.0 D Ur Specific [place] 1.016 Urine Protein 1+ H Urine Glucose (UA) Negative Urine Ketones Negative Urine Blood Negative Urine Nitrite Negative Urine Bilirubin Negative Urine Urobilinogen 0.2 Ur Leukocyte Esterase Negative Urine WBC (Auto) 0 Urine RBC (Auto) 1 Urine Casts (Auto) 0 U Epithel Cells (Auto) 0.3 Urine Bacteria (Auto) 0.5 02/05/19 02/06/19 02/06/19 22:48 06:02 06:40 WBC 1.2 L* Corrected WBC (auto) RBC 2.31 L Hgb 7.7 L Hct 22.3 L MCV 96.7 H MCH 33.2 MCHC 34.4 RDW 18.4 H Plt Count 11 L* D MPV 8.9 Absolute Neuts (auto) 0.1 L Total Counted Neutrophils % 7.8 L D Neutrophils % (Manual) Band Neutrophils % Lymphocytes % 89.4 H Lymphocytes % (Manual) Monocytes % 2.0 L Monocytes % (Manual) Eosinophils % 0.4 Eosinophils % (Manual) Basophils % 0.4 Basophils % (Manual) Myelocytes % (Man) Promyelocytes % (Man) Blast Cells % (Manual) Nucleated RBC % 0 Metamyelocytes Differential Comment Hypersegmented Neuts Plasma Cells Smudge Cells Other Cell Type Hypochromia Toxic Granulation Dohle Bodies Platelet Comment Polychromasia Poikilocytosis Basophilic Stippling Anisocytosis Microcytosis Macrocytosis Spherocytes Siderocytes Sickle Cells Target Cells Tear Drop Cells Ovalocytes Stomatocytes Helmet Cells [place] Bodies [place] Rings [place] Cells Acanthocytes (Spur) Rouleaux Fragmented RBCs Schistocytes Morphology Comment VBG pH POC VBG pCO2 POC VBG pO2 VBG HCO3 VBG O2 Sat (Arturo) VBG Base Excess Sodium Potassium Chloride Carbon Dioxide Anion Gap BUN Creatinine Est GFR (CKD-EPI)AfAm Est GFR (CKD-EPI)NonAf POC Glucometer 93 120 Random Glucose Lactic Acid Calcium Phosphorus Magnesium Total Bilirubin AST ALT Alkaline Phosphatase Creatine Kinase Troponin I Total Protein Albumin Lipase TSH Urine Color Urine Appearance Urine pH Ur Specific [place] Urine Protein Urine Glucose (UA) Urine Ketones Urine Blood Urine Nitrite Urine Bilirubin Urine Urobilinogen Ur Leukocyte Esterase Urine WBC (Auto) Urine RBC (Auto) Urine Casts (Auto) U Epithel Cells (Auto) Urine Bacteria (Auto) 02/06/19 06:40 WBC Corrected WBC (auto) RBC Hgb Hct MCV MCH MCHC RDW Plt Count MPV Absolute Neuts (auto) Total Counted Neutrophils % Neutrophils % (Manual) Band Neutrophils % Lymphocytes % Lymphocytes % (Manual) Monocytes % Monocytes % (Manual) Eosinophils % Eosinophils % (Manual) Basophils % Basophils % (Manual) Myelocytes % (Man) Promyelocytes % (Man) Blast Cells % (Manual) Nucleated RBC % Metamyelocytes Differential Comment Hypersegmented Neuts Plasma Cells Smudge Cells Other Cell Type Hypochromia Toxic Granulation Dohle Bodies Platelet Comment Polychromasia Poikilocytosis Basophilic Stippling Anisocytosis Microcytosis Macrocytosis Spherocytes Siderocytes Sickle Cells Target Cells Tear Drop Cells Ovalocytes Stomatocytes Helmet Cells [place] Bodies [place] Cells Acanthocytes (Spur) Rouleaux Fragmented RBCs Schistocytes Morphology Comment VBG pH POC VBG pCO2 POC VBG pO2 VBG HCO3 VBG O2 Sat (Arturo) VBG Base Excess Sodium 142 Potassium 4.3 Chloride 110 H Carbon Dioxide 28 Anion Gap 5 L BUN 19.4 H Creatinine 0.9 Est GFR (CKD-EPI)AfAm 71.48 Est GFR (CKD-EPI)NonAf 61.67 POC Glucometer Random Glucose 118 H Lactic Acid Calcium 8.4 L Phosphorus 3.0 Magnesium 2.2 Total Bilirubin 0.9 AST 14 L ALT 14 Alkaline Phosphatase 113 Creatine Kinase Troponin I Total Protein 7.7 Albumin 3.6 Lipase TSH 0.47 Urine Color Urine Appearance Urine pH Ur Specific [place] Urine Protein Urine Glucose (UA) Urine Ketones Urine Blood Urine Nitrite Urine Bilirubin Urine Urobilinogen Ur Leukocyte Esterase Urine WBC (Auto) Urine RBC (Auto) Urine Casts (Auto) U Epithel Cells (Auto) Urine Bacteria (Auto) Active Medications Generic Name Dose Route Start Last Admin Trade Name Freq PRN Reason Stop Dose Admin Acetaminophen 650 mg 02/05/19 21:35 02/06/19 01:30 Tylenol - PO 650 mg Q4H PRN Administration PAIN LEVEL 6-10 Docusate Sodium 100 mg 02/06/19 10:00 02/06/19 10:04 Colace - PO Not Given DAILY [facility] Sodium Chloride 1,000 mls @ 83 mls/hr 02/05/19 21:45 02/05/19 23:10 Normal Saline - IV 83 mls/hr ASDIR CARLOS Administration Insulin Aspart 1 vial 02/05/19 22:00 02/06/19 06:02 Novolog Vial Sliding Scale - SQ Not Given ACHS [facility] Protocol Polyethylene Glycol 17 gm 02/06/19 10:00 02/06/19 10:05 Miralax (For Daily Use) - PO Not Given BID CARLOS Senna 1 tab 02/06/19 10:00 02/06/19 10:05 Senna - PO Not Given BID [facility] CBC, BMP 02/06/19 06:40 02/06/19 06:40 ASSESSMENT/PLAN: 78 y/o female with PMH significant for SDH, HTN, DM, MDS, presenting with worsening generalized weakness worse in the bilateral lower extremities. admitted to 01/04 -01/08 after fall--noted to have? subdural hematoma. Transfused platelets. Discharged on 01/08 Increased weakness over past few days. Now Hgb 7.7/WBC 1.2/platelets 11,000, neutropenic precautions No overt bleeding or symptoms of infection transfuse [address] stable no acute pathology Recently diagnosed Int-2 to high risk MDS. start hypomethylating agent 5- azacytidine with Dr. Moreira at [facility] mainbtain HGB > 7 one unit monodonor plt and then repeat CBC to evaluate response Monitor for S/s of infection monitor off abx \\ ID cosnult F/U with Dr. Moreira upon discharge # constipation bowel regimin per primary team resume her methadone Dispo: We will continue to follow the patient. Thank you for this consultative opportunity. Visit type - Emergency Visit Emergency Visit: Yes ED Registration Date: 02/05/19 Care time: The patient presented to the Emergency Department on the above date and was hospitalized for further evaluation of their emergent condition. - New Patient This patient is new to me today: Yes Date on this admission: 02/05/19 - Critical Care Critical Care patient: No ATTENDING PHYSICIAN STATEMENT I saw and evaluated the patient. I reviewed the resident's note and discussed the case with the resident. I agree with the resident's findings and plan as documented. SUBJECTIVE: OBJECTIVE: ASSESSMENT AND PLAN:
[2019-02-06] MEDS ORDERED: METHADONE HCL 40 MG DISPERSABLE TABLET PO ONE (13:00)
--- NOTE | 2019-02-06 14:56 | PN ---
Progress Note (short form) - Note Progress Note: 78 F h/o MDS (follows at [facility]), HTN, T2DM, subdural hemorrhage s/p fall, COPD, mild dementia presenting with worsening BLE weakness and constipation. Patient endorses lower extremity weakness on admission which has now resolved. Denies any complaints currently besides some fatigue which is chronic. Slept OK overnight, received fleet enema for constipation w/ relief of symptoms and now has diarrhea. Denies fever, chills, cough, SOB. Asking for methadone verified 40mg with [facility]. Plt count 11, Heme-Onc opting to transfuse 1u of platelets and follow CBC. PE VSS GA comfortable, AAox3, speaks in full sentences HEENT NC/AT, EOMI, no JVD, dry MM Chest CTAB, no wheezing or crackles CVS S1, S2+, RRR Abd Soft, NT, ND, some bruising on abdomen from injection sites Ext No LE edema, no calf tenderness, moves all ext., 5/5 strength both LE, 5/5 strength UE b/l Vital Signs - 24 hr 02/05/19 02/05/19 02/06/19 15:56 21:27 00:12 Temperature 98.5 F 98.0 F Pulse Rate 73 Pulse Rate [ 79 67 Apical] Respiratory 20 18 18 Rate Blood Pressure 117/54 L Blood Pressure 139/55 L 135/62 [Right Arm] O2 Sat by Pulse 99 100 Oximetry (%) 02/06/19 02/06/19 02/06/19 00:30 00:36 06:40 Temperature 98.0 F 97.5 F L Pulse Rate 73 73 Pulse Rate [ Apical] Respiratory 18 20 Rate Blood Pressure 117/54 L 130/53 L Blood Pressure [Right Arm] O2 Sat by Pulse 92 L Oximetry (%) Laboratory Results - last 24 hr 02/05/19 02/05/19 02/05/19 13:59 13:59 15:57 WBC 1.3 L* Corrected WBC (auto) 0.22 RBC 2.32 L Hgb 7.6 L Hct 22.2 L MCV 95.5 MCH 32.5 MCHC 34.1 RDW 17.9 H Plt Count 15 L* D MPV 8.7 Absolute Neuts (auto) 0.6 L Total Counted Cancelled Neutrophils % No Result Required. Neutrophils % (Manual) Cancelled Band Neutrophils % Cancelled Lymphocytes % No Result Required. Lymphocytes % (Manual) Cancelled Monocytes % Monocytes % (Manual) Cancelled Eosinophils % Eosinophils % (Manual) Cancelled Basophils % Basophils % (Manual) Cancelled Myelocytes % (Man) Cancelled Promyelocytes % (Man) Cancelled Blast Cells % (Manual) Cancelled Nucleated RBC % [place] Metamyelocytes Cancelled Differential Comment Cancelled Hypersegmented Neuts Cancelled Plasma Cells Cancelled Smudge Cells Cancelled Other Cell Type Cancelled Hypochromia Cancelled Toxic Granulation Cancelled Dohle Bodies Cancelled Platelet Comment Cancelled Polychromasia Cancelled Poikilocytosis Cancelled Basophilic Stippling Cancelled Anisocytosis Cancelled Microcytosis Cancelled Macrocytosis Cancelled Spherocytes Cancelled Siderocytes Cancelled Sickle Cells Cancelled Target Cells Cancelled Tear Drop Cells Cancelled Ovalocytes Cancelled Stomatocytes Cancelled Helmet Cells Cancelled [place] Bodies Cancelled [place] Rings Cancelled [place] Cells Cancelled Acanthocytes (Spur) Cancelled Rouleaux Cancelled Fragmented RBCs Cancelled Schistocytes Cancelled Morphology Comment Cancelled Sodium 141 Potassium 4.6 Chloride 109 H Carbon Dioxide 27 Anion Gap 6 L BUN 26.1 H Creatinine 1.0 Est GFR (CKD-EPI)AfAm 62.93 Est GFR (CKD-EPI)NonAf 54.30 POC Glucometer Random Glucose 108 H Calcium 8.5 Phosphorus Magnesium Total Bilirubin 0.7 AST 12 L ALT 11 L Alkaline Phosphatase 112 Total Protein 7.3 Albumin 3.5 TSH Urine Color Yellow Urine Appearance Clear Urine pH 5.0 D Ur Specific [place] 1.016 Urine Protein 1+ H Urine Glucose (UA) Negative Urine Ketones Negative Urine Blood Negative Urine Nitrite Negative Urine Bilirubin Negative Urine Urobilinogen 0.2 Ur Leukocyte Esterase Negative Urine WBC (Auto) 0 Urine RBC (Auto) 1 Urine Casts (Auto) 0 U Epithel Cells (Auto) 0.3 Urine Bacteria (Auto) 0.5 02/05/19 02/06/19 02/06/19 22:48 06:02 06:40 WBC 1.2 L* Corrected WBC (auto) RBC 2.31 L Hgb 7.7 L Hct 22.3 L MCV 96.7 H MCH 33.2 MCHC 34.4 RDW 18.4 H Plt Count 11 L* D MPV 8.9 Absolute Neuts (auto) 0.1 L Total Counted Neutrophils % 7.8 L D Neutrophils % (Manual) Band Neutrophils % Lymphocytes % 89.4 H Lymphocytes % (Manual) Monocytes % 2.0 L Monocytes % (Manual) Eosinophils % 0.4 Eosinophils % (Manual) Basophils % 0.4 Basophils % (Manual) Myelocytes % (Man) Promyelocytes % (Man) Blast Cells % (Manual) Nucleated RBC % 0 Metamyelocytes Differential Comment Hypersegmented Neuts Plasma Cells Smudge Cells Other Cell Type Hypochromia Toxic Granulation Dohle Bodies Platelet Comment Polychromasia Poikilocytosis Basophilic Stippling Anisocytosis Microcytosis Macrocytosis Spherocytes Siderocytes Sickle Cells Target Cells Tear Drop Cells Ovalocytes Stomatocytes Helmet Cells [place] Bodies [place] Rings [place] Cells Acanthocytes (Spur) Rouleaux Fragmented RBCs Schistocytes Morphology Comment Sodium Potassium Chloride Carbon Dioxide Anion Gap BUN Creatinine Est GFR (CKD-EPI)AfAm Est GFR (CKD-EPI)NonAf POC Glucometer 93 120 Random Glucose Calcium Phosphorus Magnesium Total Bilirubin AST ALT Alkaline Phosphatase Total Protein Albumin TSH Urine Color Urine Appearance Urine pH Ur Specific [place] Urine Protein Urine Glucose (UA) Urine Ketones Urine Blood Urine Nitrite Urine Bilirubin Urine Urobilinogen Ur Leukocyte Esterase Urine WBC (Auto) Urine RBC (Auto) Urine Casts (Auto) U Epithel Cells (Auto) Urine Bacteria (Auto) 02/06/19 02/06/19 06:40 12:02 WBC Corrected WBC (auto) RBC Hgb Hct MCV MCH MCHC RDW Plt Count MPV Absolute Neuts (auto) Total Counted Neutrophils % Neutrophils % (Manual) Band Neutrophils % Lymphocytes % Lymphocytes % (Manual) Monocytes % Monocytes % (Manual) Eosinophils % Eosinophils % (Manual) Basophils % Basophils % (Manual) Myelocytes % (Man) Promyelocytes % (Man) Blast Cells % (Manual) Nucleated RBC % Metamyelocytes Differential Comment Hypersegmented Neuts Plasma Cells Smudge Cells Other Cell Type Hypochromia Toxic Granulation Dohle Bodies Platelet Comment Polychromasia Poikilocytosis Basophilic Stippling Anisocytosis Microcytosis Macrocytosis Spherocytes Siderocytes Sickle Cells Target Cells Tear Drop Cells Ovalocytes Stomatocytes Helmet Cells Walker-[place] Bodies [place] Rings [place] Cells Acanthocytes (Spur) Rouleaux Fragmented RBCs Schistocytes Morphology Comment Sodium 142 Potassium 4.3 Chloride 110 H Carbon Dioxide 28 Anion Gap 5 L BUN 19.4 H Creatinine 0.9 Est GFR (CKD-EPI)AfAm 71.48 Est GFR (CKD-EPI)NonAf 61.67 POC Glucometer 113 Random Glucose 118 H Calcium 8.4 L Phosphorus 3.0 Magnesium 2.2 Total Bilirubin 0.9 AST 14 L ALT 14 Alkaline Phosphatase 113 Total Protein 7.7 Albumin 3.6 TSH 0.47 Urine Color Urine Appearance Urine pH Ur Specific [place] Urine Protein Urine Glucose (UA) Urine Ketones Urine Blood Urine Nitrite Urine Bilirubin Urine Urobilinogen Ur Leukocyte Esterase Urine WBC (Auto) Urine RBC (Auto) Urine Casts (Auto) U Epithel Cells (Auto) Urine Bacteria (Auto) Current Medications Generic Name Dose Route Start Last Admin Trade Name Freq PRN Reason Stop Dose Admin Acetaminophen 650 mg 02/05/19 21:35 02/06/19 01:30 Tylenol - PO 650 mg Q4H PRN Administration PAIN LEVEL 6-10 Docusate Sodium 100 mg 02/06/19 10:00 02/06/19 10:04 Colace - PO Not Given DAILY CARLOS Sodium Chloride 1,000 mls @ 83 mls/hr 02/05/19 21:45 02/05/19 23:10 Normal Saline - IV 83 mls/hr ASDIR CARLOS Administration Insulin Aspart 1 vial 02/05/19 22:00 02/06/19 12:03 Novolog Vial Sliding Scale - SQ Not Given ACHS [facility] Protocol Pantoprazole Sodium 40 mg 02/07/19 10:00 Protonix - PO DAILY CARLOS Polyethylene Glycol 17 gm 02/06/19 10:00 02/06/19 10:05 Miralax (For Daily Use) - PO Not Given BID CARLOS Senna 1 tab 02/06/19 10:00 02/06/19 10:05 Senna - PO Not Given BID CARLOS A/P: 78 F h/o MDS on hypomethylating agent s/p multiple transfusions in the past, PSA on Methadone, DM 2, subdural hemorrhage s/p fall in the past, COPD not on home O2, mild dementia, admitted for symptomatic anemia 2/2 MDS, now improved LE weakness. Lower extremity weakness possibly 2/2 anemia, now LE weakness markedly improved awaiting L spine MRI, no signs of impending spinal cord compromise (patient moving all 4 ext with good strength, moved her bowels) MDS Plt 11, will transfuse 1 unit of platelets as per Heme-Onc recommendation Follow post transfusion CBC, watch for transfusion reaction Patient follows with Heme-Onc at [facility] Heme-Onc consult: Dr. Rachel PSA on Methadone verified Methadone dose 40mg QTc OK, avoid QTc prolonging agents no signs of withdrawal T2DM managed with ISS Counseled on diet, exercise, weight loss Subdural hemorrhage s/p fall CT brain negative for acute findings no signs of neurological deficits on exam COPD not in acute exacerbation nebs PRN Smoking cessation DVT PPX: not needed as Plt <50k, SCD will also cause bruising GI PPx: PPI/H2 mukesh Visit type - Emergency Visit Emergency Visit: Yes ED Registration Date: 02/05/19 Care time: The patient presented to the Emergency Department on the above date and was hospitalized for further evaluation of their emergent condition. - New Patient This patient is new to me today: Yes Date on this admission: 02/06/19 - Critical Care Critical Care patient: No
[2019-02-06 17:30] LABS: ANISOCYTOSIS 3+
[2019-02-06 17:53] LABS: BASO % 0.3 % (0-2.0); EOS % 0.8 % (0-4.5); HEMATOCRIT 21.1 % (32.4-45.2); HEMOGLOBIN 7.1 GM/dL (10.7-15.3); LYMPH % 85.8 % (8-40); MCH 32.6 pg (25.7-33.7); MCHC 33.7 g/dl (32.0-36.0); MEAN CELL VOLUME 96.9 fl (80-96); MONO % 3.2 % (3.8-10.2); NEUT % 9.9 % (42.8-82.8); RBC 2.17 M/mm3 (3.60-5.2); RDW 18.2 % (11.6-15.6)
[2019-02-06 17:57] LABS: PLATELET COUNT 9 K/MM3 (134-434); WHITE BLOOD COUNT 0.8 K/mm3 (4.0-10.0)
[2019-02-06] MEDS ORDERED: ACETAMINOPHEN 325 MG TABLET (FP) PO PRN (20:20)
[2019-02-06] MEDS ORDERED: LORazepam 2 MG/ML SDV VIAL IVPUSH ONE (20:50)
--- NOTE | 2019-02-06 20:56 | CONSULT ---
Consult Consult Specialty:: critical care Referred by:: Dr Rachel Reason for Consultation:: AMS with pancytopenia and possible ICH - History of Present Illness History of Present Illness: Pt is a 78 y/o F with PMHx of COPD, prior intubation, SARAH, HTN, DM, severe MDS (follows at [facility]-Dr. Gutierrez and Daryl), recent hx SDH, MMP, who presented for LE weakness, with pancytopenia (on neutropenic precautions) ene marcio called this evening when she was noted to have chest pain, was confused and unable to obey commands. Per pt's sister by bedside, pt was noted to have initially suddenly started staring into into space and then was not obeying commands and became agitated. The pt's sister told the nurse about the agitation and a head CT was attempted but aborted due to severe agitation. After the pt came back up from CT first time,still agitated, ene marcio was called and this time pt got head CT after 0.5mg of ativan. Pt was being seen during rapid response by Dr Rachel, who referred Pt to ICU for possible ICH in setting of low platelets and prior SDH . Pt unable to provide hx, was confused in bed, moving all limbs spontaneously but unable to follow commands. Noted per Dr Rachel to be refractory to platelet transfusions following treatment with with azacytidine for severe MDS. Per chart, pt had recently been admitted at [facility] s/p fall where she was said to have a SDH, but CT head on presentation at [facility] on 02/05 did not show any SDH. On admission, pt's Hgb 7.7/WBC 1.2/platelets 11,000, and pt was recommended for PRBC transfusions without platelet transfusion with platelets >10K and no bleed per [facility]. Pt on admission had no chest pain, no bleeding from any orifice. Pt noted to have a temp of 99.1 today Stat labs showed worsening neutropenia 1.2>>0.8, Hgb-7.7>>7.1, Plt count 11>>9 CT head 02/05- No evidence of SDH, chronic infarcts Pending CT head 02/06 - History Source History Provided By: Medical Record Limitations to Obtaining History: Clinical Condition - Past Medical History Cardio/Vascular: Yes: HTN Pulmonary: Yes: Asthma, Bronchitis, COPD, Pneumonia, Previously Intubated, Sleep Apnea. 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 - was on metformin previously with bad reaction, no longer on it, sugars apparently normal) - Past Surgical History Past Surgical History: Yes: Cataract Removal (right, and laser surgery on eyes) , Colonoscopy (within the year at [facility], had polyps removed) - Alcohol/Substance Use Hx Alcohol Use: No History of Substance Use: reports: Prescription (methadone daily) - Smoking History Smoking history: Never smoked Have you smoked in the past 12 months: Yes Aproximately how many cigarettes per day: 10 If you are a former smoker, when did you quit?: 10/26 - Social History Usual Living Arrangement: Other (with sister) ADL: Independent Home Medications - Allergies Allergies/Adverse Reactions: Allergies Allergy/AdvReac Type Severity Reaction Status Date / Time metformin AdvReac Mild Verified 02/05/19 12:19 - Home Medications Home Medications: Ambulatory Orders Nifedipine ER [Procardia XL -] 30 mg PO DAILY 11/06/17 Propranolol HCl [Propranolol HCl ER] 80 mg PO BID 11/06/17 Polyethylene Glycol 3350 [Miralax 119 gm Btl -] 17 gm PO DAILY #1 bottle Acetaminophen 650 mg PO PRN 01/15/19 Lisinopril [Prinivil -] 40 mg PO DAILY 01/15/19 Methadone HCl 5 mg PO Q6H PRN 01/15/19 Naloxone HCl 0.4 mg IJ PRN 01/15/19 Nicotine Patch [Nicoderm Patch -] 1 patch TD DAILY 01/15/19 Celecoxib [Celebrex] 100 mg PO BID 02/05/19 Gabapentin 300 mg PO TID 02/05/19 Methylcellulose 500 gm MC DAILY 02/05/19 Family Medical History Family History: Unable to Obtain Review of Systems Unable to obtain ROS, reason: Clinical state Physical Exam Vital Signs: Vital Signs Temperature 98.5 F 02/06/19 17:30 Pulse Rate 80 02/06/19 17:30 Respiratory Rate 18 02/06/19 17:30 Blood Pressure 144/58 L 02/06/19 17:30 O2 Sat by Pulse Oximetry (%) 96 02/06/19 09:00 Laboratory Tests 02/06/19 02/06/19 06:40 17:00 WBC 1.2 L* 0.8 L* RBC 2.31 L 2.17 L Hgb 7.7 L 7.1 L Hct 22.3 L 21.1 L MCV 96.7 H 96.9 H Plt Count 11 L* D 9 L* Absolute Neuts (auto) 0.1 L 0.1 L Constitutional: Yes: Obese Eyes: Yes: EOM Intact, Other (pale conjuctiva). No: Sclera Icterus HENT: Yes: Other (dry nucus mebranceblister lower lip) Cardiovascular: Yes: Regular Rate and Rhythm, S1, S2 Respiratory: Yes: Diminished (Breath sounds), Rales (Few) Gastrointestinal: Yes: Normal Bowel Sounds, Abdomen, Obese, Other ( Infraumbilical healed vertical scar) Edema: No Peripheral Pulses WNL: Yes Integumentary: No: Bruising, Petechiae, Rash Neurological: Yes: Alert, Confusion. No: Aphasia, Dysarthria, Facial Droop, Tremors, Weakness ...Motor Strength: WNL Psychiatric: Yes: Alert, Agitated Labs: CBC, BMP 02/06/19 17:00 02/06/19 06:40 Assessment/Plan Ambulatory Orders Nifedipine ER [Procardia XL -] 30 mg PO DAILY 11/06/17 Propranolol HCl [Propranolol HCl ER] 80 mg PO BID 11/06/17 Polyethylene Glycol 3350 [Miralax 119 gm Btl -] 17 gm PO DAILY #1 bottle Acetaminophen 650 mg PO PRN 01/15/19 Lisinopril [Prinivil -] 40 mg PO DAILY 01/15/19 Methadone HCl 5 mg PO Q6H PRN 01/15/19 Naloxone HCl 0.4 mg IJ PRN 01/15/19 Nicotine Patch [Nicoderm Patch -] 1 patch TD DAILY 01/15/19 Celecoxib [Celebrex] 100 mg PO BID 02/05/19 Gabapentin 300 mg PO TID 02/05/19 Methylcellulose 500 gm MC DAILY 02/05/19 Current Medications Acetaminophen (Tylenol -) 650 mg PO Q6H PRN PRN Reason: PAIN LEVEL 6-10 Docusate Sodium (Colace -) 100 mg PO DAILY [facility] Last Admin: 02/06/19 10:04 Dose: Not Given Sodium Chloride (Normal Saline -) 1,000 mls @ 83 mls/hr IV ASDIR [facility] Last Admin: 02/05/19 23:10 Dose: 83 mls/hr Insulin Aspart (Novolog Vial Sliding Scale -) 1 vial SQ ACHS [facility]; Protocol Last Admin: 02/06/19 18:15 Dose: Not Given Pantoprazole Sodium (Protonix -) 40 mg PO DAILY [facility] Polyethylene Glycol (Miralax (For Daily Use) -) 17 gm PO BID [facility] Last Admin: 02/06/19 10:05 Dose: Not Given Senna (Senna -) 1 tab PO BID [facility] Last Admin: 02/06/19 10:05 Dose: Not Given Assessment/Plan: Pt is a 78 y/o F with PMHx of COPD, prior intubation, SARAH, HTN, DM, severe MDS (follows at [facility]-Dr. Gutierrez and Daryl), recent hx SDH, MMP, who presented for LE weakness, with pancytopenia (on neutropenic precautions) code marcio called this evening when she was noted to have chest pain, was confused and unable to obey commands. Pt was referred to ICU for possible ICH in setting of low platelets and prior SDH by Dr Rachel Neuro/ID Acute metabolic encephalopathy unclear etiology Hx of SDH Hx of PSA on methadone Possibly in setting of sepsis- pt with prolonged pancytopenia with worsening neutropenia R/O SDH CBC stat Sepsis work up cefepime, vanc CT head stat 2 units PRBC stat, per Dr Rachel, will hold off platelet transfusion at this time [facility] [place]- 18 (High risk for poor outcome) Pulm Hx COPD, prior intubation, SARAH Cont supplemental O2 to maintain sats>90% Cardio Chest pain in setting of possible symptomatic anemia, pt will receive 2u PRBCs at Hgb 7.1 R/O ACS Hx HTN Pt hemodynamically stable for now Follow CT head for BP control per imaging results trops pending EKG Endo Hx of DM (hx of metformin reaction), on ISS Hemonc severe MDS Persistent pancytopenia s/p azacytidine 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 - New Patient This patient is new to me today: Yes Date on this admission: 02/07/19 - Critical Care Critical Care patient: Yes Total Critical Care Time (in minutes): 40 Critical Care Statement: The care of this patient involved high complexity decision making to prevent further life threatening deterioration of the patient 's condition and/or to evaluate & treat vital organ system(s) failure or risk of failure. ATTENDING PHYSICIAN STATEMENT I saw and evaluated the patient. I reviewed the resident's note and discussed the case with the resident. I agree with the resident's findings and plan as documented. SUBJECTIVE: OBJECTIVE: ASSESSMENT AND PLAN:
--- NOTE | 2019-02-06 21:21 | RAPID ---
Physical Examination Vital Signs: Vital Signs Temperature 98.5 F 02/06/19 17:30 Pulse Rate 80 02/06/19 17:30 Respiratory Rate 18 02/06/19 17:30 Blood Pressure 144/58 L 02/06/19 17:30 O2 Sat by Pulse Oximetry (%) 96 02/06/19 09:00 Labs: CBC, BMP 02/06/19 17:00 02/06/19 06:40 Rapid Response - Rapid Response Assessment: Call from nurse regarding complaint from pt for chest pain. responded to bedside immediately, EKG and trops ordered. on examination of the pt, pt was altered and unable to verbally respond to commands. pt's sister was bedside stating that pt is very altered which began recently. pt was seen and known by Dr. Rachel who also states pt was altered. pt was unable to verbally communicate and was not following commands. pt moves all 4 extremities spontaneously. pt speaks but not coherently. ene buckley called overhead. Fingerstick was 99 vitals: BP 162/62, HR 86, RR 18, 100% on 2L NC Labs from today reviewed, pending stat CBC, trop, EKG pending stat CT head ICU consult placed as pt may need transfusions/ ACS protocol/ stroke protocol. Suspected CVA MD Exam Time (Code [place] Time): 22:17 CT Stroke ordered: Yes - NIH Stroke Scale/Score Level of consciousness: Alert Ask patient the month and their age: Both incorrect Best language (Describe picture, name items, read sentences): Mild to moderate aphasia Dysarthria (read several words): Near unintelligible or unable to speak
[2019-02-06] MEDS: SODIUM CHLORIDE 1,000 ML IV SCH (22:30)
[2019-02-06 22:35] LABS: MAGNESIUM 2.1 mg/dL (1.8-2.4); PHOSPHOROUS 2.8 mg/dL (2.5-4.9)
[2019-02-06 22:36] LABS: BASO % 0.3 % (0-2.0); EOS % 0.5 % (0-4.5); HEMATOCRIT 20.6 % (32.4-45.2); HEMOGLOBIN 7.1 GM/dL (10.7-15.3); LYMPH % 86.7 % (8-40); MCH 33.1 pg (25.7-33.7); MCHC 34.5 g/dl (32.0-36.0); MEAN CELL VOLUME 95.7 fl (80-96); MEAN PLT VOLUME 8.8 fl (7.5-11.1); MONO % 3.1 % (3.8-10.2); NEUT % 9.4 % (42.8-82.8); RBC 2.16 M/mm3 (3.60-5.2); RDW 18.3 % (11.6-15.6)
[2019-02-06 22:38] LABS: PLATELET COUNT 10 K/MM3 (134-434); WHITE BLOOD COUNT 0.9 K/mm3 (4.0-10.0)
[2019-02-06] MEDS ORDERED: VANCOMYCIN 1 GRAM (PRE-DOCKED) 1,000 MG/250 ML BAG IVPB ONE (22:45)
[2019-02-06] MEDS ORDERED: DEXTROSE 5%-WATER 100 ML IVPB ONE (23:15)
[2019-02-06] MEDS ORDERED: CEFEPIME HCL 1 GM VIAL (RESTRICTED TO ID) ONE (23:15)
[2019-02-06] MEDS: CEFEPIME 1 GM in DEXTROSE 5%-WATER 100 ML IVPB SCH (23:16)
[2019-02-07] MEDS: INSULIN SLIDING SCALE (NOVOLOG) 1 VIAL SQ SCH ×5 (01:12→22:35)
[2019-02-07] MEDS ORDERED: DEXTROSE 5%-WATER 100 ML IVPB ONE ×2 (01:42→09:47)
[2019-02-07] MEDS ORDERED: CEFEPIME HCL 1 GM VIAL (RESTRICTED TO ID) ONE ×2 (01:42→09:47)
[2019-02-07] MEDS: CEFEPIME 1 GM in DEXTROSE 5%-WATER 100 ML IVPB SCH ×2 (01:45→09:54)
[2019-02-07] MEDS: DOCUSATE SODIUM 100 MG CAPSULE (FP) PO SCH (09:54)
[2019-02-07] MEDS: PANTOPRAZOLE 40 MG TABLET PO SCH (09:54)
[2019-02-07] MEDS: SENNOSIDES 8.6MG TABLET (FP) PO SCH ×2 (09:54→21:37)
[2019-02-07] MEDS: POLYETHYLENE GLYCOL 3350 119 GM BTL PO SCH ×2 (10:00→22:04)
--- NOTE | 2019-02-07 10:24 | PN ---
Teaching Attending Note Name of Resident: Camron Patel ATTENDING PHYSICIAN STATEMENT I saw and evaluated the patient. I reviewed the resident's note and discussed the case with the resident. I agree with the resident's findings and plan as documented. SUBJECTIVE: Patient seen and examined in the ICU. Drowsy but arousbale. Oriented to person and knows she is in the hospital. Denies CP or SOB. Head CT: no acute process Intake & Output 02/04/19 02/05/19 02/06/19 02/07/19 23:59 23:59 23:59 23:59 Intake Total 1100 1431 1494 Balance 1100 1431 1494 Weight 145 lb 148 lb 14.4 oz 147 lb Last Vital Signs Temp Pulse Resp BP Pulse Ox 98.4 F 66 17 168/72 96 02/07/19 06:00 02/07/19 07:51 02/07/19 07:51 02/07/19 07:51 02/06/19 22:00 Active Medications Acetaminophen (Tylenol -) 650 mg PO Q6H PRN PRN Reason: PAIN LEVEL 6-10 Docusate Sodium (Colace -) 100 mg PO DAILY [facility] Last Admin: 02/07/19 09:54 Dose: 100 mg Sodium Chloride (Normal Saline -) 1,000 mls @ 83 mls/hr IV ASDIR [facility] Last Admin: 02/06/19 22:30 Dose: 83 mls/hr Cefepime HCl 1 gm/ Dextrose 100 mls @ 100 mls/hr IVPB Q8H-IV [facility]; Protocol Stop: 02/07/19 10:59 Last Admin: 02/07/19 09:54 Dose: 100 mls/hr Cefepime HCl 1 gm/ Dextrose 100 mls @ 100 mls/hr IVPB Q8H-IV [facility]; Protocol Stop: 02/08/19 17:59 Insulin Aspart (Novolog Vial Sliding Scale -) 1 vial SQ ACHS [facility]; Protocol Last Admin: 02/07/19 06:51 Dose: Not Given Methadone HCl (Dolophine -) 40 mg PO DAILY@0600 [facility] Pantoprazole Sodium (Protonix -) 40 mg PO DAILY [facility] Last Admin: 02/07/19 09:54 Dose: 40 mg Polyethylene Glycol (Miralax (For Daily Use) -) 17 gm PO BID [facility] Last Admin: 02/06/19 23:12 Dose: Not Given Senna (Senna -) 1 tab PO BID [facility] Last Admin: 02/07/19 09:54 Dose: 1 tab Constitutional: Yes: Drowsy but arousable, Obese Eyes: Yes: EOM Intact, Other (pale conjuctiva). No: Sclera Icterus HENT: Yes: Other (dry mucus mebrance) Cardiovascular: Yes: Regular Rate and Rhythm, S1, S2 Respiratory: Yes: Diminished at the bases Gastrointestinal: Yes: Normal Bowel Sounds, Abdomen, Obese, Other ( Infraumbilical healed vertical scar) Edema: No Peripheral Pulses WNL: Yes Integumentary: No: Bruising, Petechiae, Rash Neurological: Yes: Drowsy but arousable, mildly confused. No: Aphasia, Dysarthria, Facial Droop, Tremors, Weakness ...Motor Strength: WNL Psychiatric: Yes: mildly confused Labs: Laboratory Results - last 24 hr 02/06/19 02/06/19 02/06/19 06:40 10:37 12:02 WBC RBC Hgb Hct MCV MCH MCHC RDW Plt Count MPV Absolute Neuts (auto) Neutrophils % Neutrophils % (Manual) 6.2 L Band Neutrophils % 0.0 Lymphocytes % Lymphocytes % (Manual) 89.4 H* Monocytes % Monocytes % (Manual) 4 D Eosinophils % Eosinophils % (Manual) 0.0 D Basophils % Basophils % (Manual) 0.0 Myelocytes % (Man) 0 Promyelocytes % (Man) 0 Blast Cells % (Manual) 0 Nucleated RBC % Metamyelocytes 0 Anisocytosis 3+ Microcytosis 3+ POC Glucometer 113 Lactic Acid Phosphorus Magnesium Troponin I Anti-A Titer Cancelled Blood Type Cancelled Antibody Screen Cancelled Direct Antiglob Test Crossmatch 02/06/19 02/06/19 02/06/19 17:00 18:14 20:20 WBC 0.8 L* RBC 2.17 L Hgb 7.1 L Hct 21.1 L MCV 96.9 H MCH 32.6 MCHC 33.7 RDW 18.2 H Plt Count 9 L* MPV 10.0 D Absolute Neuts (auto) 0.1 L Neutrophils % 9.9 L D Neutrophils % (Manual) 9.1 L Band Neutrophils % 0.0 Lymphocytes % 85.8 H Lymphocytes % (Manual) 89.3 H* Monocytes % 3.2 L Monocytes % (Manual) 2 L Eosinophils % 0.8 D Eosinophils % (Manual) 0.0 Basophils % 0.3 Basophils % (Manual) 0.0 Myelocytes % (Man) 0 Promyelocytes % (Man) 0 Blast Cells % (Manual) 0 Nucleated RBC % 0 Metamyelocytes 0 Anisocytosis Microcytosis POC Glucometer 104 99 Lactic Acid Phosphorus Magnesium Troponin I Anti-A Titer Blood Type Antibody Screen Direct Antiglob Test Crossmatch 02/06/19 02/06/19 02/06/19 20:32 20:35 20:35 WBC 0.9 L* RBC 2.16 L Hgb 7.1 L Hct 20.6 L MCV 95.7 MCH 33.1 MCHC 34.5 RDW 18.3 H Plt Count 10 L* MPV 8.8 D Absolute Neuts (auto) 0.1 L Neutrophils % 9.4 L Neutrophils % (Manual) No Result Required. Band Neutrophils % Lymphocytes % 86.7 H Lymphocytes % (Manual) Monocytes % 3.1 L Monocytes % (Manual) Eosinophils % 0.5 Eosinophils % (Manual) Basophils % 0.3 Basophils % (Manual) Myelocytes % (Man) Promyelocytes % (Man) Blast Cells % (Manual) Nucleated RBC % 0 Metamyelocytes Anisocytosis Microcytosis POC Glucometer Lactic Acid Phosphorus 2.8 Magnesium 2.1 Troponin I < 0.02 Anti-A Titer Blood Type Antibody Screen Direct Antiglob Test Crossmatch 02/06/19 02/06/19 02/07/19 21:30 21:30 01:08 WBC RBC Hgb Hct MCV MCH MCHC RDW Plt Count MPV Absolute Neuts (auto) Neutrophils % Neutrophils % (Manual) Band Neutrophils % Lymphocytes % Lymphocytes % (Manual) Monocytes % Monocytes % (Manual) Eosinophils % Eosinophils % (Manual) Basophils % Basophils % (Manual) Myelocytes % (Man) Promyelocytes % (Man) Blast Cells % (Manual) Nucleated RBC % Metamyelocytes Anisocytosis Microcytosis POC Glucometer 121 Lactic Acid 1.1 Phosphorus Magnesium Troponin I Anti-A Titer Blood Type B POSITIVE Antibody Screen Negative Direct Antiglob Test Negative Crossmatch See Detail 02/07/19 06:37 WBC RBC Hgb Hct MCV MCH MCHC RDW Plt Count MPV Absolute Neuts (auto) Neutrophils % Neutrophils % (Manual) Band Neutrophils % Lymphocytes % Lymphocytes % (Manual) Monocytes % Monocytes % (Manual) Eosinophils % Eosinophils % (Manual) Basophils % Basophils % (Manual) Myelocytes % (Man) Promyelocytes % (Man) Blast Cells % (Manual) Nucleated RBC % Metamyelocytes Anisocytosis Microcytosis POC Glucometer 73 Lactic Acid Phosphorus Magnesium Troponin I Anti-A Titer Blood Type Antibody Screen Direct Antiglob Test Crossmatch Assessment/Plan: AMS: Etiology to be determined 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
[2019-02-07 10:28] LABS: BASO % 0.1 % (0-2.0); EOS % 0.4 % (0-4.5); HEMATOCRIT 26.6 % (32.4-45.2); HEMOGLOBIN 9.3 GM/dL (10.7-15.3); LYMPH % 88.8 % (8-40); MCH 32.3 pg (25.7-33.7); MCHC 35.1 g/dl (32.0-36.0); MEAN PLT VOLUME 8.6 fl (7.5-11.1); MONO % 3.2 % (3.8-10.2); NEUT % 7.5 % (42.8-82.8); RBC 2.89 M/mm3 (3.60-5.2); RDW 15.3 % (11.6-15.6); RETICULOCYTES 0.89 % (0.5-1.5)
[2019-02-07 10:39] LABS: ALBUMIN 3.4 g/dl (3.4-5.0); ALK PHOS 106 U/L (45-117); ANION GAP 5 MMOL/L (8-16); BILIRUBIN,TOTAL 1.8 mg/dL (0.2-1); BLOOD UREA NITROGEN 13.4 mg/dL (7-18); CALCIUM 8.5 mg/dL (8.5-10.1); CHLORIDE 107 mmol/L (98-107); CO2 28 mmol/L (21-32); CREATININE 0.7 mg/dL (0.55-1.3); GLUCOSE,RANDOM 96 mg/dL (74-106); PHOSPHOROUS 3.2 mg/dL (2.5-4.9); POTASSIUM 3.7 mmol/L (3.5-5.1); SGOT/AST 12 U/L (15-37); SGPT/ALT 11 U/L (13-61); SODIUM 140 mmol/L (136-145); TOT PROT 7.1 g/dl (6.4-8.2)
[2019-02-07 10:41] LABS: WHITE BLOOD COUNT 0.9 K/mm3 (4.0-10.0)
[2019-02-07 10:42] LABS: PLATELET COUNT 9 K/MM3 (134-434)
[2019-02-07 11:03] LABS: LDH 378 U/L (84-246)
[2019-02-07] MEDS: METHADONE HCL 40 MG DISPERSABLE TABLET PO SCH (11:15)
[2019-02-07 11:25] LABS: ANISOCYTOSIS 0; MACROCYTOSIS 0; PLATELET ESTIMATE DECREASED
--- NOTE | 2019-02-07 11:56 | PN ---
Physical Exam: SUBJECTIVE: Patient seen and examined in the morning. No acute events overnight. No events on cardiac monitoring. No complaints of chest pain, shortness of breath, abdominal pain, nausea, vomiting, diarrhea. OBJECTIVE: Vital Signs Period Temp Pulse Resp BP Sys/Peter Pulse Ox Last 24 Hr 98.4 F-99.4 F 66-86 15-20 128-184/57-100 96-100 GENERAL: The patient is awake, alert, and fully oriented, in no acute distress. HEAD: Normal with no signs of trauma. EYES: PERRLA ENT: Ears normal, nares patent, nasal cannula in place. NECK: Trachea midline, full range of motion, supple. LUNGS: Wheezing b/l HEART: Regular rate and rhythm, S1, S2 without murmur, rub or gallop. ABDOMEN: Soft, nontender, nondistended, normoactive bowel sounds, no guarding, no rebound, no hepatosplenomegaly, no masses. EXTREMITIES: 2+ pulses, warm, well-perfused, no edema. NEUROLOGICAL: Cranial nerves II through XII grossly intact. PSYCH: Normal mood, normal affect. SKIN: Warm, dry, normal turgor, no rashes or lesions noted Laboratory Results - last 24 hr 02/06/19 02/06/19 02/06/19 06:40 10:37 12:02 WBC RBC Hgb Hct MCV MCH MCHC RDW Plt Count MPV Absolute Neuts (auto) Neutrophils % Neutrophils % (Manual) 6.2 L Band Neutrophils % 0.0 Lymphocytes % Lymphocytes % (Manual) 89.4 H* Monocytes % Monocytes % (Manual) 4 D Eosinophils % Eosinophils % (Manual) 0.0 D Basophils % Basophils % (Manual) 0.0 Myelocytes % (Man) 0 Promyelocytes % (Man) 0 Blast Cells % (Manual) 0 Nucleated RBC % Metamyelocytes 0 Hypochromia Platelet Estimate Platelet Comment Polychromasia Poikilocytosis Anisocytosis 3+ Microcytosis 3+ Macrocytosis Retic Count Sodium Potassium Chloride Carbon Dioxide Anion Gap BUN Creatinine Est GFR (CKD-EPI)AfAm Est GFR (CKD-EPI)NonAf POC Glucometer 113 Random Glucose Lactic Acid Calcium Phosphorus Magnesium Total Bilirubin AST ALT Alkaline Phosphatase LD Total Troponin I Total Protein Albumin Anti-A Titer Cancelled Blood Type Cancelled Antibody Screen Cancelled Direct Antiglob Test Crossmatch 1202/06/19 02/06/19 17:00 18:14 20:20 WBC 0.8 L* RBC 2.17 L Hgb 7.1 L Hct 21.1 L MCV 96.9 H MCH 32.6 MCHC 33.7 RDW 18.2 H Plt Count 9 L* MPV 10.0 D Absolute Neuts (auto) 0.1 L Neutrophils % 9.9 L D Neutrophils % (Manual) 9.1 L Band Neutrophils % 0.0 Lymphocytes % 85.8 H Lymphocytes % (Manual) 89.3 H* Monocytes % 3.2 L Monocytes % (Manual) 2 L Eosinophils % 0.8 D Eosinophils % (Manual) 0.0 Basophils % 0.3 Basophils % (Manual) 0.0 Myelocytes % (Man) 0 Promyelocytes % (Man) 0 Blast Cells % (Manual) 0 Nucleated RBC % 0 Metamyelocytes 0 Hypochromia Platelet Estimate Platelet Comment Polychromasia Poikilocytosis Anisocytosis Microcytosis Macrocytosis Retic Count Sodium Potassium Chloride Carbon Dioxide Anion Gap BUN Creatinine Est GFR (CKD-EPI)AfAm Est GFR (CKD-EPI)NonAf POC Glucometer 104 99 Random Glucose Lactic Acid Calcium Phosphorus Magnesium Total Bilirubin AST ALT Alkaline Phosphatase LD Total Troponin I Total Protein Albumin Anti-A Titer Blood Type Antibody Screen Direct Antiglob Test Crossmatch 02/06/19 02/06/19 02/06/19 20:32 20:35 20:35 WBC 0.9 L* RBC 2.16 L Hgb 7.1 L Hct 20.6 L MCV 95.7 MCH 33.1 MCHC 34.5 RDW 18.3 H Plt Count 10 L* MPV 8.8 D Absolute Neuts (auto) 0.1 L Neutrophils % 9.4 L Neutrophils % (Manual) No Result Required. Band Neutrophils % Lymphocytes % 86.7 H Lymphocytes % (Manual) Monocytes % 3.1 L Monocytes % (Manual) Eosinophils % 0.5 Eosinophils % (Manual) Basophils % 0.3 Basophils % (Manual) Myelocytes % (Man) Promyelocytes % (Man) Blast Cells % (Manual) Nucleated RBC % 0 Metamyelocytes Hypochromia Platelet Estimate Platelet Comment Polychromasia Poikilocytosis Anisocytosis Microcytosis Macrocytosis Retic Count Sodium Potassium Chloride Carbon Dioxide Anion Gap BUN Creatinine Est GFR (CKD-EPI)AfAm Est GFR (CKD-EPI)NonAf POC Glucometer Random Glucose Lactic Acid Calcium Phosphorus 2.8 Magnesium 2.1 Total Bilirubin AST ALT Alkaline Phosphatase LD Total Troponin I < 0.02 Total Protein Albumin Anti-A Titer Blood Type Antibody Screen Direct Antiglob Test Crossmatch 02/06/19 02/06/19 02/07/19 21:30 21:30 01:08 WBC RBC Hgb Hct MCV MCH MCHC RDW Plt Count MPV Absolute Neuts (auto) Neutrophils % Neutrophils % (Manual) Band Neutrophils % Lymphocytes % Lymphocytes % (Manual) Monocytes % Monocytes % (Manual) Eosinophils % Eosinophils % (Manual) Basophils % Basophils % (Manual) Myelocytes % (Man) Promyelocytes % (Man) Blast Cells % (Manual) Nucleated RBC % Metamyelocytes Hypochromia Platelet Estimate Platelet Comment Polychromasia Poikilocytosis Anisocytosis Microcytosis Macrocytosis Retic Count Sodium Potassium Chloride Carbon Dioxide Anion Gap BUN Creatinine Est GFR (CKD-EPI)AfAm Est GFR (CKD-EPI)NonAf POC Glucometer 121 Random Glucose Lactic Acid 1.1 Calcium Phosphorus Magnesium Total Bilirubin AST ALT Alkaline Phosphatase LD Total Troponin I Total Protein Albumin Anti-A Titer Blood Type B POSITIVE Antibody Screen Negative Direct Antiglob Test Negative Crossmatch See Detail 02/07/19 02/07/19 02/07/19 06:00 06:37 09:38 WBC 0.9 L* RBC 2.89 L Hgb 9.3 L Hct 26.6 L D MCV 92.0 MCH 32.3 MCHC 35.1 RDW 15.3 D Plt Count 9 L* MPV 8.6 Absolute Neuts (auto) 0.1 L Neutrophils % 7.5 L D Neutrophils % (Manual) 9.4 L Band Neutrophils % 0.0 Lymphocytes % 88.8 H Lymphocytes % (Manual) 84.9 H* Monocytes % 3.2 L Monocytes % (Manual) 0 L D Eosinophils % 0.4 Eosinophils % (Manual) 0.0 Basophils % 0.1 Basophils % (Manual) 0.0 Myelocytes % (Man) 1 D Promyelocytes % (Man) 0 Blast Cells % (Manual) 0 Nucleated RBC % 0 Metamyelocytes 0 Hypochromia 0 Platelet Estimate Decreased Platelet Comment Present Polychromasia 0 Poikilocytosis 0 Anisocytosis 0 Microcytosis 0 Macrocytosis 0 Retic Count 0.89 D Sodium 140 Potassium 3.7 Chloride 107 Carbon Dioxide 28 Anion Gap 5 L BUN 13.4 Creatinine 0.7 Est GFR (CKD-EPI)AfAm 96.86 Est GFR (CKD-EPI)NonAf 83.57 POC Glucometer 73 Random Glucose 96 Lactic Acid Calcium 8.5 Phosphorus 3.2 Magnesium 2.0 Total Bilirubin 1.8 H AST 12 L ALT 11 L Alkaline Phosphatase 106 LD Total 378 H Troponin I < 0.02 Total Protein 7.1 Albumin 3.4 Anti-A Titer Blood Type Antibody Screen Direct Antiglob Test Crossmatch Active Medications Generic Name Dose Route Start Last Admin Trade Name Freq PRN Reason Stop Dose Admin Acetaminophen 650 mg 02/06/19 20:20 Tylenol - PO Q6H PRN PAIN LEVEL 6-10 Docusate Sodium 100 mg 02/06/19 10:00 02/07/19 09:54 Colace - PO 100 mg DAILY CARLOS Administration Sodium Chloride 1,000 mls @ 83 mls/hr 02/05/19 21:45 02/06/19 22:30 Normal Saline - IV 83 mls/hr ASDIR CARLOS Administration Cefepime HCl 1 gm/ Dextrose 100 mls @ 100 mls/hr 02/07/19 18:00 IVPB 02/08/19 17:59 Q8H-IV CARLOS Protocol Insulin Aspart 1 vial 02/05/19 22:00 02/07/19 06:51 Novolog Vial Sliding Scale - SQ Not Given ACHS CARLOS Protocol Methadone HCl 40 mg 02/07/19 10:15 02/07/19 11:15 Dolophine - PO 40 mg DAILY@0600 CARLOS Administration Pantoprazole Sodium 40 mg 02/07/19 10:00 02/07/19 09:54 Protonix - PO 40 mg DAILY CARLOS Administration Polyethylene Glycol 17 gm 02/06/19 10:00 02/07/19 10:00 Miralax (For Daily Use) - PO 17 gm BID CARLOS Administration Senna 1 tab 02/06/19 10:00 02/07/19 09:54 Senna - PO 1 tab BID CARLOS Administration ASSESSMENT/PLAN: 78F PMH COPD (intubated in past), SARAH, HTN, DM, severe MDS(follows at [facility] - Dr. Jarrett and Daryl), recent hx of Subdural hematoma, who presents for LE weakness with pancytopenia. Patient was referred to ICU for possible ICH in stting of low platelets and hx of subdural hematoma. Head CT to date have been negative. Neuro: -Patient had code buckley called, Head ct shows no acute changes -Patient was noted to be confused- ? metabolic encephalopathy. -Currently AAOx3 -Head CT shows no bleeds -Neurology consulted, appreciate recs ID -Patient is neutropenic -Possible sepsis -F/U UA -Blood culture pending -Cefepime and vancomycin given -Possible gallbladder infection, MRCP and Abdomen US ordered. F/U -ID consulted, appreciate recs Heme/Onc -Hx of severe MDS -Persistent pancytopenia s/p azacytidine -Refaractory thrombocytopenia- given 1 unit of platelets, platelet count still decreasing -2 units of PRBC given, Hgb 9.3 post transfusion -1 Unit of monodonor irradiate platelets given -In AM will contact blood bank for ABO match platelets. -If signs of bleeding will give patient IVIG and steroids. -Dr. Rachel following, appreciate recs Pulm -Hx of COPD, prior intubations, SARAH -Nasal Cannula 2LPM -SOB likely due to anemia Cardio -Chest pain in setting of symptomatic anemia resolved -EKG showed no acute changes -HD stable -Troponin negative GI -CBD 1.2 cm dilation, was 1 cm in November -Continue to monitor for GI symptoms -On bowel regimen -History of Hep C. Ammonia level 38. -Lactulose TID Endo -Hx of DM -ISS Dispo: ICU monitoring. DVT: SCDs Visit type - Emergency Visit Emergency Visit: Yes ED Registration Date: 02/05/19 Care time: The patient presented to the Emergency Department on the above date and was hospitalized for further evaluation of their emergent condition. - New Patient This patient is new to me today: Yes Date on this admission: 02/07/19 - Critical Care Critical Care patient: Yes Total Critical Care Time (in minutes): 45 Critical Care Statement: The care of this patient involved high complexity decision making to prevent further life threatening deterioration of the patient 's condition and/or to evaluate & treat vital organ system(s) failure or risk of failure. ATTENDING PHYSICIAN STATEMENT I saw and evaluated the patient. I reviewed the resident's note and discussed the case with the resident. I agree with the resident's findings and plan as documented. SUBJECTIVE: OBJECTIVE: ASSESSMENT AND PLAN:
--- NOTE | 2019-02-07 12:45 | PN ---
Teaching Attending Note Name of Resident: Jordan Velasco ATTENDING PHYSICIAN STATEMENT I saw and evaluated the patient. I reviewed the resident's note and discussed the case with the resident. I agree with the resident's findings and plan as documented. ASSESSMENT AND PLAN: 78 y/o patient with MDS high risk, s/p 1 st cycle 5- azacytidine , completed HTN, DM, h/o subdural hemorrhage, COPD, ? dementia presenting w BLE weakness and ABD pain. [place] [id number] Patient apparently complained of chest pain. also with altered mental status. Mumbling and calling her friend r/o intracranial pahology r/o sepsis transfuse PRBCS -2 units Neuro /ID consults discussed with patients siser and house staff team
--- NOTE | 2019-02-07 14:17 | PN ---
Progress Note (short form) - Note Progress Note: Patient is alert but agitated she is sitting in the bed trying to come out. She is not short of breath Vital Signs Period Temp Pulse Resp BP Sys/Peter Pulse Ox Last 24 Hr 98.4 F-99.4 F 66-86 15-20 128-184/57-100 96-100 Physical examination Looks slightly agitated HEENT negative jaundice but positive pallor Chest bilateral symmetrical Lungs bilateral coarse breath sound but no wheezing Heart S1-S2 with slight systolic murmur Abdomen soft nontender no organomegaly Neurologically she is alert awake agitated and moving all extremities CBC, BMP 02/07/19 09:38 02/07/19 06:00 Laboratory Results - last 24 hr 02/06/19 02/06/19 02/06/19 06:40 09:38 10:37 WBC RBC Hgb Hct MCV MCH MCHC RDW Plt Count MPV Absolute Neuts (auto) Neutrophils % Neutrophils % (Manual) 6.2 L Band Neutrophils % 0.0 Lymphocytes % Lymphocytes % (Manual) 89.4 H* Monocytes % Monocytes % (Manual) 4 D Eosinophils % Eosinophils % (Manual) 0.0 D Basophils % Basophils % (Manual) 0.0 Myelocytes % (Man) 0 Promyelocytes % (Man) 0 Blast Cells % (Manual) 0 Nucleated RBC % Metamyelocytes 0 Hypochromia Platelet Estimate Platelet Comment Polychromasia Poikilocytosis Anisocytosis 3+ Microcytosis 3+ Macrocytosis Retic Count Sodium Cancelled Potassium Cancelled Chloride Cancelled Carbon Dioxide Cancelled Anion Gap Cancelled BUN Cancelled Creatinine Cancelled Est GFR (CKD-EPI)AfAm Cancelled Est GFR (CKD-EPI)NonAf Cancelled POC Glucometer Random Glucose Cancelled Lactic Acid Calcium Cancelled Phosphorus Magnesium Total Bilirubin AST ALT Alkaline Phosphatase LD Total Troponin I Total Protein Albumin Anti-A Titer Cancelled Blood Type Cancelled Antibody Screen Cancelled Direct Antiglob Test Crossmatch 02/06/19 02/06/19 02/06/19 17:00 18:14 20:20 WBC 0.8 L* RBC 2.17 L Hgb 7.1 L Hct 21.1 L MCV 96.9 H MCH 32.6 MCHC 33.7 RDW 18.2 H Plt Count 9 L* MPV 10.0 D Absolute Neuts (auto) 0.1 L Neutrophils % 9.9 L D Neutrophils % (Manual) 9.1 L Band Neutrophils % 0.0 Lymphocytes % 85.8 H Lymphocytes % (Manual) 89.3 H* Monocytes % 3.2 L Monocytes % (Manual) 2 L Eosinophils % 0.8 D Eosinophils % (Manual) 0.0 Basophils % 0.3 Basophils % (Manual) 0.0 Myelocytes % (Man) 0 Promyelocytes % (Man) 0 Blast Cells % (Manual) 0 Nucleated RBC % 0 Metamyelocytes 0 Hypochromia Platelet Estimate Platelet Comment Polychromasia Poikilocytosis Anisocytosis Microcytosis Macrocytosis Retic Count Sodium Potassium Chloride Carbon Dioxide Anion Gap BUN Creatinine Est GFR (CKD-EPI)AfAm Est GFR (CKD-EPI)NonAf POC Glucometer 104 99 Random Glucose Lactic Acid Calcium Phosphorus Magnesium Total Bilirubin AST ALT Alkaline Phosphatase LD Total Troponin I Total Protein Albumin Anti-A Titer Blood Type Antibody Screen Direct Antiglob Test Crossmatch 02/06/19 02/06/19 02/06/19 20:32 20:35 20:35 WBC 0.9 L* RBC 2.16 L Hgb 7.1 L Hct 20.6 L MCV 95.7 MCH 33.1 MCHC 34.5 RDW 18.3 H Plt Count 10 L* MPV 8.8 D Absolute Neuts (auto) 0.1 L Neutrophils % 9.4 L Neutrophils % (Manual) No Result Required. Band Neutrophils % Lymphocytes % 86.7 H Lymphocytes % (Manual) Monocytes % 3.1 L Monocytes % (Manual) Eosinophils % 0.5 Eosinophils % (Manual) Basophils % 0.3 Basophils % (Manual) Myelocytes % (Man) Promyelocytes % (Man) Blast Cells % (Manual) Nucleated RBC % 0 Metamyelocytes Hypochromia Platelet Estimate Platelet Comment Polychromasia Poikilocytosis Anisocytosis Microcytosis Macrocytosis Retic Count Sodium Potassium Chloride Carbon Dioxide Anion Gap BUN Creatinine Est GFR (CKD-EPI)AfAm Est GFR (CKD-EPI)NonAf POC Glucometer Random Glucose Lactic Acid Calcium Phosphorus 2.8 Magnesium 2.1 Total Bilirubin AST ALT Alkaline Phosphatase LD Total Troponin I < 0.02 Total Protein Albumin Anti-A Titer Blood Type Antibody Screen Direct Antiglob Test Crossmatch 02/06/19 02/06/19 02/07/19 21:30 21:30 01:08 WBC RBC Hgb Hct MCV MCH MCHC RDW Plt Count MPV Absolute Neuts (auto) Neutrophils % Neutrophils % (Manual) Band Neutrophils % Lymphocytes % Lymphocytes % (Manual) Monocytes % Monocytes % (Manual) Eosinophils % Eosinophils % (Manual) Basophils % Basophils % (Manual) Myelocytes % (Man) Promyelocytes % (Man) Blast Cells % (Manual) Nucleated RBC % Metamyelocytes Hypochromia Platelet Estimate Platelet Comment Polychromasia Poikilocytosis Anisocytosis Microcytosis Macrocytosis Retic Count Sodium Potassium Chloride Carbon Dioxide Anion Gap BUN Creatinine Est GFR (CKD-EPI)AfAm Est GFR (CKD-EPI)NonAf POC Glucometer 121 Random Glucose Lactic Acid 1.1 Calcium Phosphorus Magnesium Total Bilirubin AST ALT Alkaline Phosphatase LD Total Troponin I Total Protein Albumin Anti-A Titer Blood Type B POSITIVE Antibody Screen Negative Direct Antiglob Test Negative Crossmatch See Detail 02/07/19 02/07/19 02/07/19 06:00 06:37 09:38 WBC 0.9 L* RBC 2.89 L Hgb 9.3 L Hct 26.6 L D MCV 92.0 MCH 32.3 MCHC 35.1 RDW 15.3 D Plt Count 9 L* MPV 8.6 Absolute Neuts (auto) 0.1 L Neutrophils % 7.5 L D Neutrophils % (Manual) 9.4 L Band Neutrophils % 0.0 Lymphocytes % 88.8 H Lymphocytes % (Manual) 84.9 H* Monocytes % 3.2 L Monocytes % (Manual) 0 L D Eosinophils % 0.4 Eosinophils % (Manual) 0.0 Basophils % 0.1 Basophils % (Manual) 0.0 Myelocytes % (Man) 1 D Promyelocytes % (Man) 0 Blast Cells % (Manual) 0 Nucleated RBC % 0 Metamyelocytes 0 Hypochromia 0 Platelet Estimate Decreased Platelet Comment Present Polychromasia 0 Poikilocytosis 0 Anisocytosis 0 Microcytosis 0 Macrocytosis 0 Retic Count 0.89 D Sodium 140 Potassium 3.7 Chloride 107 Carbon Dioxide 28 Anion Gap 5 L BUN 13.4 Creatinine 0.7 Est GFR (CKD-EPI)AfAm 96.86 Est GFR (CKD-EPI)NonAf 83.57 POC Glucometer 73 Random Glucose 96 Lactic Acid Calcium 8.5 Phosphorus 3.2 Magnesium 2.0 Total Bilirubin 1.8 H AST 12 L ALT 11 L Alkaline Phosphatase 106 LD Total 378 H Troponin I < 0.02 Total Protein 7.1 Albumin 3.4 Anti-A Titer Blood Type Antibody Screen Direct Antiglob Test Crossmatch 02/07/19 12:17 WBC RBC Hgb Hct MCV MCH MCHC RDW Plt Count MPV Absolute Neuts (auto) Neutrophils % Neutrophils % (Manual) Band Neutrophils % Lymphocytes % Lymphocytes % (Manual) Monocytes % Monocytes % (Manual) Eosinophils % Eosinophils % (Manual) Basophils % Basophils % (Manual) Myelocytes % (Man) Promyelocytes % (Man) Blast Cells % (Manual) Nucleated RBC % Metamyelocytes Hypochromia Platelet Estimate Platelet Comment Polychromasia Poikilocytosis Anisocytosis Microcytosis Macrocytosis Retic Count Sodium Potassium Chloride Carbon Dioxide Anion Gap BUN Creatinine Est GFR (CKD-EPI)AfAm Est GFR (CKD-EPI)NonAf POC Glucometer 91 Random Glucose Lactic Acid Calcium Phosphorus Magnesium Total Bilirubin AST ALT Alkaline Phosphatase LD Total Troponin I Total Protein Albumin Anti-A Titer Blood Type Antibody Screen Direct Antiglob Test Crossmatch ASSESSMENT/PLAN: 78F PMH COPD (intubated in past), SARAH, HTN, DM, severe MDS(follows at [facility] - Dr. Jarrett and Daryl), recent hx of Subdural hematoma, who presents for LE weakness with pancytopenia. Patient was referred to ICU for possible ICH in stting of low platelets and hx of subdural hematoma. Head CT to date have been negative. Altered mental status -Patient had code buckley called, Head ct shows no acute changes -Patient was noted to be confused- ? metabolic encephalopathy question possibility because she has hepatitis C, will order ammonia level -Currently AA but agitated -Head CT shows no bleeds Rule out sepsis -Patient is neutropenic -Possible sepsis -F/U UA -Blood culture pending -Cefepime and vancomycin given -Possible gallbladder infection, MRCP and Abdomen US ordered. F/U -ID consulted, appreciate recs Low platelet count anemia and low white cell count -Hx of severe MDS -Persistent pancytopenia s/p azacytidine -Refaractory thrombocytopenia- given 1 unit of platelets, platelet count still decreasing -2 units of PRBC given, Hgb 9.3 post transfusion -Dr. 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 DVT: SCDs
--- NOTE | 2019-02-07 16:25 | PN ---
Progress Note (short form) - Note Progress Note: NEUTROPENIA LOW GRADE FEVER R/O NEUTROPENIC SEPSIS AWAIT C/S CONTINUE EMPIRIC CEFEPIME/ VANCOMYCIN
[2019-02-07] MEDS ORDERED: LACTULOSE 20 GM/30 ML UDC (FOR ORAL USE ONLY) PO PRN (16:26)
[2019-02-07] MEDS ORDERED: VANCOMYCIN 1,000 MG in DEXTROSE 5%-WATER - 250 ML IVPB SCH (16:30)
[2019-02-07] MEDS: LISINOPRIL 20 MG TABLET (FP) PO SCH (17:00)
[2019-02-07] MEDS: VANCOMYCIN 1 GRAM (PRE-DOCKED) 1,000 MG/250 ML BAG IVPB SCH (17:25)
[2019-02-07] MEDS: LACTULOSE 20 GM/30 ML UDC (FOR ORAL USE ONLY) PO SCH ×2 (17:26→22:04)
[2019-02-07] MEDS ORDERED: PT OWN MED DRAWER 7, Y5N ONE ×2 (17:29→20:53)
[2019-02-07] MEDS: CEFEPIME 2 GM in DEXTROSE 5%-WATER 100 ML IVPB SCH (17:30)
--- NOTE | 2019-02-07 17:36 | EKG ---
Test Reason : Blood Pressure : / mmHG Vent. Rate : 086 BPM Atrial Rate : 086 BPM P-R Int : 174 ms QRS Dur : 082 ms QT Int : 380 ms P-R-T Axes : 058 035 064 degrees QTc Int : 454 ms NORMAL SINUS RHYTHM LOW VOLTAGE QRS BORDERLINE ECG WHEN COMPARED WITH ECG OF 05-FEB-2019 14:52, QT HAS LENGTHENED CLINICAL CORRELATION IS RECOMMENDED BASELINE ARTIFACT Confirmed by DAVID MONTANEZ, JACOB ([id number]) on 02/07/2019 5:35:53 PM Referred By: Confirmed By:JACOB HERNANDEZ MD
--- NOTE | 2019-02-07 17:59 | CONSULT ---
Consult - text type - Consultation Consultation Note: NEUROLOGY CONSULTATION is greatly appreciated: Events reviewed. Patient examined with her family at the bedside. Her half- sister provides medical history. -FH of OMS This 78 yo RH s woman lives with her sister and is dependent on her for assistance with many ADL's including bathing, meal prep, etc. PMH sig for HTN, Depression; Myelodysplastic syndrome x 4-6 mos; SDH; and antecedent memory problems that began > 9 mos ago and wax and wane. Maintained on: Gabapentin 300 mg PO TID; Nifedipine; Propranolol ER 80; Bupropion 150 mg BID; Lisinopril; Methadone HCl 5 mg PO PRN. Former IVDA and smoker. Sister describes chronic pain conditions including "Migraines" and chronic leg pains at night attributed to "Rheumatoid." Now admitted with increasing confusion and difficulty ambulating. Lab work reviews severe pancytopenia, anemia and thrombocytopenia. Now on Ceftin, vancomicin. Consulted for confusion and agitation. CT of head (reviewed): Microvascular changes. Sinusitis. No evidence for subdural collections. MARYANA: Neck supple, no bruits, cor reg, no skin breakdown, NEURO: Awake, alert, cooperative. Ox [place], "the first month" and the " first year." Recalls 1 of 3. +Glabella, snout Sparse fluent speech. CN II-XII: normal No drift or tremor. No cogwheeling. Elevates both legs against gravity without difficulty. Normal ankle dorsiflexion. Normal reflexes. Toes downgoing. No FTN dystaxia Feels touch all toes. IMP: Moderate, B/L cerebral dysfunction (OMS, chronic features). Most likely Alzheimer's Disease. Will worsen with toxic-metabolic insults such as infection. No signs of myelopathy or paraplegia Underlying h/o migraine headaches and chronic nocturnal pains suggestive of RLS. SUGGEST: Check B12, TSH, RPR Agree with low dose haldol or quetiapine (12.5-25 mg) PRN agitation. Continue Propranolol ER 80 mg for migraine prophylaxis. Continue current pain Rx (Could try low doses of a DA agonist when bone marrow is stabilizes) Similar idea for Donepezil 5 mg for cognition. Thank you valarie much, Wade Jhaveri MD
[2019-02-07] MEDS ORDERED: CEFEPIME HCL/D5W 2 GM/50 ML BAG IVPB SCH (18:00)
[2019-02-07] MEDS ORDERED: CEFEPIME 1 GM in DEXTROSE 5%-WATER 100 ML IVPB SCH (18:00)
[2019-02-07 18:51] LABS: EPI CELLS 0.6 /HPF (0-5/HPF); HYALINE CASTS 0 /lpf (0-8); PH,URINE 7.5 (5.0-8.0); URINE APPEARANCE CLEAR; URINE BACTERIA 0.5 /hpf (NEGATIVE); URINE BILIRUBIN NEGATIVE (NEGATIVE); URINE COLOR YELLOW; URINE GLUCOSE (UA) NEGATIVE (NEGATIVE); URINE KETONE NEGATIVE (NEGATIVE); URINE LEUK ESTERASE NEGATIVE (NEGATIVE); URINE NITRITE NEGATIVE (NEGATIVE); URINE PROTEIN 2+ (NEGATIVE); URINE RBC 3 /hpf (0-4); URINE UROBILINOGEN 0.2 mg/dL (0.2-1.0); URINE WBC 0 /hpf (0-5)
[2019-02-07] MEDS: SODIUM CHLORIDE 1,000 ML IV SCH (22:05)
[2019-02-07] MEDS ORDERED: MAG HYDROX/AL HYDROX/SIMETH 30 ML UNIT-DOSE CUP PO PRN (22:16)
[2019-02-07] MEDS ORDERED: VANCOMYCIN 1 GRAM (PRE-DOCKED) 1,000 MG/250 ML BAG IVPB ONE (23:00)
[2019-02-07] MEDS ORDERED: VANCOMYCIN 1 GM in D5W (PRE-DOCKED) 1,000 MG/250 ML IVPB SCH (23:00)
[2019-02-08] MEDS: CEFEPIME 2 GM in DEXTROSE 5%-WATER 100 ML IVPB SCH ×3 (01:05→10:00)
[2019-02-08] MEDS ORDERED: NIFEdipine E.R. 30 MG TABLET PO ONE (03:37)
[2019-02-08] MEDS ORDERED: METOPROLOL TARTRATE 5 MG/5 ML VIAL IVPUSH ONE (03:52)
[2019-02-08] MEDS ORDERED: ACETAMINOPHEN 1000 MG/100 ML VIAL (NON FORMULARY) IVPB ONE (04:03)
[2019-02-08] MEDS: VANCOMYCIN 1 GRAM (PRE-DOCKED) 1,000 MG/250 ML BAG IVPB SCH ×2 (04:44→17:58)
[2019-02-08] MEDS: METHADONE HCL 40 MG DISPERSABLE TABLET PO SCH (05:59)
[2019-02-08] MEDS: LACTULOSE 20 GM/30 ML UDC (FOR ORAL USE ONLY) PO SCH ×2 (06:00→15:05)
[2019-02-08] MEDS: INSULIN SLIDING SCALE (NOVOLOG) 1 VIAL SQ SCH ×3 (06:29→16:30)
[2019-02-08 07:02] LABS: BASO % 1.5 % (0-2.0); EOS % 1.7 % (0-4.5); HEMATOCRIT 27.4 % (32.4-45.2); HEMOGLOBIN 9.4 GM/dL (10.7-15.3); LYMPH % 54.5 % (8-40); MCH 31.9 pg (25.7-33.7); MCHC 34.1 g/dl (32.0-36.0); MEAN CELL VOLUME 93.3 fl (80-96); MEAN PLT VOLUME 8.8 fl (7.5-11.1); MONO % 6.2 % (3.8-10.2); NEUT % 36.1 % (42.8-82.8); RBC 2.94 M/mm3 (3.60-5.2); RDW 15.4 % (11.6-15.6)
[2019-02-08 07:05] LABS: ALBUMIN 3.4 g/dl (3.4-5.0); BILIRUBIN,TOTAL 1.3 mg/dL (0.2-1); CALCIUM 8.3 mg/dL (8.5-10.1); CREATININE 0.9 mg/dL (0.55-1.3); MAGNESIUM 1.6 mg/dL (1.8-2.4); PHOSPHOROUS 2.9 mg/dL (2.5-4.9); POTASSIUM 3.9 mmol/L (3.5-5.1); TOT PROT 7.2 g/dl (6.4-8.2)
[2019-02-08 07:10] LABS: PLATELET COUNT 8 K/MM3 (134-434); WHITE BLOOD COUNT 0.5 K/mm3 (4.0-10.0)
[2019-02-08] MEDS: HALOPERIDOL LACTATE 5 MG/ML IM PRN ×2 (08:30→15:30)
[2019-02-08] MEDS ORDERED: MAGNESIUM SULF 50% (8.12 MEQ/2 ML-1 GM VIAL) IVPB ONE (09:15)
[2019-02-08] MEDS: LISINOPRIL 20 MG TABLET (FP) PO SCH (09:46)
[2019-02-08] MEDS: POLYETHYLENE GLYCOL 3350 119 GM BTL PO SCH (09:46)
[2019-02-08] MEDS: DOCUSATE SODIUM 100 MG CAPSULE (FP) PO SCH (09:47)
[2019-02-08] MEDS: PANTOPRAZOLE 40 MG TABLET PO SCH (09:47)
[2019-02-08] MEDS: SENNOSIDES 8.6MG TABLET (FP) PO SCH (09:47)
[2019-02-08] MEDS ORDERED: valACYclovir HCL 500 MG TABLET (FP) PO SCH (10:00)
[2019-02-08] MEDS ORDERED: NIFEdipine E.R. 30 MG TABLET PO SCH (10:00)
[2019-02-08] MEDS ORDERED: LORazepam 2 MG/ML SDV VIAL IM ONE (10:39)
--- NOTE | 2019-02-08 10:50 | PN ---
Physical Exam: SUBJECTIVE: Patient seen and examined at bed side in ICU laying fown in bed 1: 1 with nurse , no IV access , she pulled out , did not get cefipime yet , had fever over night S/P 1 plt nd 2 PRBC will give another plt today Dr ewing to decide for neupogen OBJECTIVE: Vital Signs Period Temp Pulse Resp BP Sys/Peter Pulse Ox Last 24 Hr 98.5 F-102 F 73-81 14-18 141-200/54-90 100 GENERAL: Awake, alert,in vest in bed HEAD: Normal with no signs of trauma. EYES: Pupils equal, round and reactive to light, EARS, NOSE, THROAT: dry mucous membranes. NECK: Normal range of motion, supple without lymphadenopathy, Nodes: no nodules palpated Breast with no masses palpated LUNGS: fine crackles right base> left base HEART: sinus tachy , normal S1 and S2 without murmur, rub or gallop. LOWER EXTREMITIES: 2+ pulses, warm, well-perfused. No calf tenderness. No peripheral edema. move s all ext 5/5 proximal and distal NEUROLOGICAL: no focal deficit . Normal speech. psych: calm but refusing meds and services SKIN: Warm, dry, Laboratory Results - last 24 hr 02/06/19 02/07/19 02/07/19 09:38 06:00 09:38 WBC RBC Hgb Hct MCV MCH MCHC RDW Plt Count MPV Absolute Neuts (auto) Neutrophils % Neutrophils % (Manual) 9.4 L Band Neutrophils % 0.0 Lymphocytes % Lymphocytes % (Manual) 84.9 H* Monocytes % Monocytes % (Manual) 0 L D Eosinophils % Eosinophils % (Manual) 0.0 Basophils % Basophils % (Manual) 0.0 Myelocytes % (Man) 1 D Promyelocytes % (Man) 0 Blast Cells % (Manual) 0 Nucleated RBC % 0 Metamyelocytes 0 Hypochromia 0 Platelet Estimate Decreased Platelet Comment Present Polychromasia 0 Poikilocytosis 0 Anisocytosis 0 Microcytosis 0 Macrocytosis 0 Sodium Cancelled Potassium Cancelled Chloride Cancelled Carbon Dioxide Cancelled Anion Gap Cancelled BUN Cancelled Creatinine Cancelled Est GFR (CKD-EPI)AfAm Cancelled Est GFR (CKD-EPI)NonAf Cancelled POC Glucometer Random Glucose Cancelled Calcium Cancelled Phosphorus Magnesium Total Bilirubin AST ALT Alkaline Phosphatase Ammonia LD Total 378 H Total Protein Albumin Vitamin B12 TSH Urine Color Urine Appearance Urine pH Ur Specific [place] Urine Protein Urine Glucose (UA) Urine Ketones Urine Blood Urine Nitrite Urine Bilirubin Urine Urobilinogen Ur Leukocyte Esterase Urine WBC (Auto) Urine RBC (Auto) Urine Casts (Auto) U Epithel Cells (Auto) Urine Bacteria (Auto) 02/07/19 02/07/19 02/07/19 12:17 13:57 17:53 WBC RBC Hgb Hct MCV MCH MCHC RDW Plt Count MPV Absolute Neuts (auto) Neutrophils % Neutrophils % (Manual) Band Neutrophils % Lymphocytes % Lymphocytes % (Manual) Monocytes % Monocytes % (Manual) Eosinophils % Eosinophils % (Manual) Basophils % Basophils % (Manual) Myelocytes % (Man) Promyelocytes % (Man) Blast Cells % (Manual) Nucleated RBC % Metamyelocytes Hypochromia Platelet Estimate Platelet Comment Polychromasia Poikilocytosis Anisocytosis Microcytosis Macrocytosis Sodium Potassium Chloride Carbon Dioxide Anion Gap BUN Creatinine Est GFR (CKD-EPI)AfAm Est GFR (CKD-EPI)NonAf POC Glucometer 91 139 Random Glucose Calcium Phosphorus Magnesium Total Bilirubin AST ALT Alkaline Phosphatase Ammonia 38.20 H LD Total Total Protein Albumin Vitamin B12 TSH Urine Color Urine Appearance Urine pH Ur Specific [place] Urine Protein Urine Glucose (UA) Urine Ketones Urine Blood Urine Nitrite Urine Bilirubin Urine Urobilinogen Ur Leukocyte Esterase Urine WBC (Auto) Urine RBC (Auto) Urine Casts (Auto) U Epithel Cells (Auto) Urine Bacteria (Auto) 02/07/19 02/07/19 02/08/19 18:30 22:38 05:35 WBC RBC Hgb Hct MCV MCH MCHC RDW Plt Count MPV Absolute Neuts (auto) Neutrophils % Neutrophils % (Manual) Band Neutrophils % Lymphocytes % Lymphocytes % (Manual) Monocytes % Monocytes % (Manual) Eosinophils % Eosinophils % (Manual) Basophils % Basophils % (Manual) Myelocytes % (Man) Promyelocytes % (Man) Blast Cells % (Manual) Nucleated RBC % Metamyelocytes Hypochromia Platelet Estimate Platelet Comment Polychromasia Poikilocytosis Anisocytosis Microcytosis Macrocytosis Sodium Potassium Chloride Carbon Dioxide Anion Gap BUN Creatinine Est GFR (CKD-EPI)AfAm Est GFR (CKD-EPI)NonAf POC Glucometer 92 127 Random Glucose Calcium Phosphorus Magnesium Total Bilirubin AST ALT Alkaline Phosphatase Ammonia LD Total Total Protein Albumin Vitamin B12 TSH Urine Color Yellow Urine Appearance Clear Urine pH 7.5 D Ur Specific [place] 1.012 Urine Protein 2+ H Urine Glucose (UA) Negative Urine Ketones Negative Urine Blood Negative Urine Nitrite Negative Urine Bilirubin Negative Urine Urobilinogen 0.2 Ur Leukocyte Esterase Negative Urine WBC (Auto) 0 Urine RBC (Auto) 3 Urine Casts (Auto) 0 U Epithel Cells (Auto) 0.6 Urine Bacteria (Auto) 0.5 02/08/19 02/08/19 05:36 05:36 WBC 0.5 L* RBC 2.94 L Hgb 9.4 L Hct 27.4 L MCV 93.3 MCH 31.9 MCHC 34.1 RDW 15.4 Plt Count 8 L* MPV 8.8 Absolute Neuts (auto) 0.2 L Neutrophils % 36.1 L D Neutrophils % (Manual) Band Neutrophils % Lymphocytes % 54.5 H D Lymphocytes % (Manual) Monocytes % 6.2 D Monocytes % (Manual) Eosinophils % 1.7 D Eosinophils % (Manual) Basophils % 1.5 D Basophils % (Manual) Myelocytes % (Man) Promyelocytes % (Man) Blast Cells % (Manual) Nucleated RBC % 0 Metamyelocytes Hypochromia Platelet Estimate Platelet Comment Polychromasia Poikilocytosis Anisocytosis Microcytosis Macrocytosis Sodium 140 Potassium 3.9 Chloride 108 H Carbon Dioxide 25 Anion Gap 7 L BUN 14.0 Creatinine 0.9 Est GFR (CKD-EPI)AfAm 71.48 Est GFR (CKD-EPI)NonAf 61.67 POC Glucometer Random Glucose 133 H Calcium 8.3 L Phosphorus 2.9 Magnesium 1.6 L Total Bilirubin 1.3 H AST 14 L ALT 12 L Alkaline Phosphatase 106 Ammonia LD Total Total Protein 7.2 Albumin 3.4 Vitamin B12 317 TSH 1.02 Urine Color Urine Appearance Urine pH Ur Specific [place] Urine Protein Urine Glucose (UA) Urine Ketones Urine Blood Urine Nitrite Urine Bilirubin Urine Urobilinogen Ur Leukocyte Esterase Urine WBC (Auto) Urine RBC (Auto) Urine Casts (Auto) U Epithel Cells (Auto) Urine Bacteria (Auto) Active Medications Generic Name Dose Route Start Last Admin Trade Name Freq PRN Reason Stop Dose Admin Acetaminophen 650 mg 02/06/19 20:20 02/07/19 22:11 Tylenol - PO 650 mg Q6H PRN Administration PAIN LEVEL 6-10 Al Hydroxide/Mg Hydroxide 30 ml 02/07/19 22:16 02/07/19 22:27 Mylanta Oral Suspension - PO 30 ml Q6H PRN Administration DYSPEPSIA Diphenhydramine HCl 12.5 mg 02/07/19 12:53 02/07/19 21:41 Benadryl Injection - IVPUSH 12.5 mg Q8H PRN Administration INSOMNIA Docusate Sodium 100 mg 02/06/19 10:00 02/08/19 09:47 Colace - PO Not Given DAILY [facility] Haloperidol 0.5 mg 02/07/19 13:01 Haldol Injection (Fast Acting) - IM Q4H PRN AGITATION Sodium Chloride 1,000 mls @ 83 mls/hr 02/05/19 21:45 02/07/19 22:05 Normal Saline - IV 83 mls/hr ASDIR CARLOS Administration Vancomycin HCl 1,000 mg in 250 mls @ 166.667 mls/hr 02/07/19 17:00 02/08/19 04:44 Vancomycin (Pre-Docked) IVPB 166.667 mls/hr Q12H [facility] Administration Protocol Cefepime HCl 2 gm/ Dextrose 100 mls @ 200 mls/hr 02/07/19 18:00 02/08/19 09: 46 IVPB Not Given Q8H-IV [facility] Protocol Metronidazole 500 mg in 100 mls @ 100 mls/hr 02/08/19 07:30 02/08/19 09:45 Flagyl 500mg Premixed Ivpb - IVPB Not Given Q8H-IV [facility] Insulin Aspart 1 vial 02/05/19 22:00 02/08/19 06:29 Novolog Vial Sliding Scale - SQ Not Given ACHS [facility] Protocol Lactulose 20 gm 02/07/19 22:00 02/08/19 06:00 Cephulac (Oral Use) PO 20 gm TID [facility] Administration Lisinopril 40 mg 02/07/19 15:57 02/08/19 09:46 Prinivil PO Not Given DAILY [facility] Methadone HCl 40 mg 02/07/19 10:15 02/08/19 05:59 Dolophine - PO 40 mg DAILY@0600 [facility] Administration Nifedipine 30 mg 02/08/19 10:00 02/08/19 09:47 Procardia Xl - PO Not Given DAILY [facility] Pantoprazole Sodium 40 mg 02/07/19 10:00 02/08/19 09:47 Protonix - PO Not Given DAILY [facility] Polyethylene Glycol 17 gm 02/06/19 10:00 02/08/19 09:46 Miralax (For Daily Use) - PO Not Given BID [facility] Propranolol HCl 80 mg 02/07/19 22:00 02/08/19 09:46 Inderal - PO Not Given BID [facility] Senna 1 tab 02/06/19 10:00 02/08/19 09:47 Senna - PO Not Given BID [facility] Valacyclovir HCl 500 mg 02/08/19 10:00 02/08/19 09:47 Valtrex - PO Not Given DAILY [facility] CBC, BMP 02/08/19 05:36 02/08/19 05:36 ASSESSMENT/PLAN: 78 y/o female with PMH significant for SDH, HTN, DM, MDS, s/p 1 st cycle 5- azacytidine , completed 02/03 ,presenting with worsening generalized weakness worse in the bilateral lower extremities. admitted to 01/04 -01/08 after fall--noted to have? subdural hematoma. Transfused platelets. Discharged on 01/08 #generalized weakness # pancytopenia R.O sepsis # fever R/O sepsis * Now Hgb 9.4/WBC 0.5/platelets 8,000, * neutropenic precautions * No overt bleeding * young cx * tylenol for fever * S/P 2 PRBCS * Head CT stable no acute pathology * HLA Typing stat # MDS started hypomethylating agent 5- azacytidine with Dr. Moreira at [facility] last given 02/03/19 * mainbtain HGB > 7 s/p 2 PRBC * one unit monodonor plt and then repeat CBC to evaluate response * Monitor for S/s of infection * ID cosnult cont Vanco/cefepim # AMS likely acute metabolic encephalopathy vs Alzheimer , Neuro consulted F/U with Dr. Moreira upon discharge # constipation * bowel regimen per primary team * resume her methadone Visit type - Emergency Visit Emergency Visit: Yes ED Registration Date: 02/05/19 Care time: The patient presented to the Emergency Department on the above date and was hospitalized for further evaluation of their emergent condition. - New Patient This patient is new to me today: Yes Date on this admission: 02/06/19 - Critical Care Critical Care patient: No ATTENDING PHYSICIAN STATEMENT I saw and evaluated the patient. I reviewed the resident's note and discussed the case with the resident. I agree with the resident's findings and plan as documented. SUBJECTIVE: OBJECTIVE: ASSESSMENT AND PLAN:
[2019-02-08 11:15] LABS: ANISOCYTOSIS 0; MACROCYTOSIS 0; PLATELET ESTIMATE DECREASED
--- NOTE | 2019-02-08 12:24 | PN ---
Teaching Attending Note Name of Resident: Lindsay Butterfield ATTENDING PHYSICIAN STATEMENT I saw and evaluated the patient. I reviewed the resident's note and discussed the case with the resident. I agree with the resident's findings and plan as documented. SUBJECTIVE: Patient remained confused, pulling IV and monitor, afebrile hemodynamically stable. OBJECTIVE: Vital Signs Temperature 99.2 F 02/08/19 08:00 Pulse Rate 76 02/08/19 08:00 Respiratory Rate 17 02/08/19 08:00 Blood Pressure 156/66 02/08/19 08:00 O2 Sat by Pulse Oximetry (%) 100 02/07/19 22:00 General: Elderly woman, looks confused not in distress HEENT; mucous membranes moist, no anemia, no jaundice, PERRLA, no nystagmus Neck: No JVD, supple, no bruit, thyroid palpably normal, normal carotid pulsations. Chest: Nontender, clear to auscultation bilaterally CVS: S1-S2 regular no murmur/gallop/rub Abdomen: Mild distended, soft, bowel sounds present. Extremities: No edema., No cough tenderness, pulses present [employer]: Alert but confused, no gross motor sensory deficit CBC, BMP 02/08/19 05:36 02/08/19 05:36 Active Medications Acetaminophen (Tylenol -) 650 mg PO Q6H PRN PRN Reason: PAIN LEVEL 6-10 Last Admin: 02/07/19 22:11 Dose: 650 mg Al Hydroxide/Mg Hydroxide (Mylanta Oral Suspension -) 30 ml PO Q6H PRN PRN Reason: DYSPEPSIA Last Admin: 02/07/19 22:27 Dose: 30 ml Diphenhydramine HCl (Benadryl Injection -) 12.5 mg IVPUSH Q8H PRN PRN Reason: INSOMNIA Last Admin: 02/07/19 21:41 Dose: 12.5 mg Docusate Sodium (Colace -) 100 mg PO DAILY [facility] Last Admin: 02/08/19 09:47 Dose: Not Given Haloperidol (Haldol Injection (Fast Acting) -) 0.5 mg IM Q4H PRN PRN Reason: AGITATION Sodium Chloride (Normal Saline -) 1,000 mls @ 83 mls/hr IV ASDIR CARLOS Last Admin: 02/07/19 22:05 Dose: 83 mls/hr Vancomycin HCl (Vancomycin (Pre-Docked)) 1,000 mg in 250 mls @ 166.667 mls/hr IVPB Q12H [facility]; Protocol Last Admin: 02/08/19 04:44 Dose: 166.667 mls/hr Cefepime HCl 2 gm/ Dextrose 100 mls @ 200 mls/hr IVPB Q8H-IV [facility]; Protocol Last Admin: 02/08/19 09:46 Dose: Not Given Metronidazole (Flagyl 500mg Premixed Ivpb -) 500 mg in 100 mls @ 100 mls/hr IVPB Q8H-IV [facility] Last Admin: 02/08/19 09:45 Dose: Not Given Insulin Aspart (Novolog Vial Sliding Scale -) [address] [facility]; Protocol Last Admin: 02/08/19 06:29 Dose: Not Given Lactulose (Cephulac (Oral Use)) [address] [facility] Last Admin: 02/08/19 06:00 Dose: 20 gm Lisinopril (Prinivil) [address] [facility] Last Admin: 02/08/19 09:46 Dose: Not Given Methadone HCl (Dolophine -) 40 mg PO DAILY@0600 [facility] Last Admin: 02/08/19 05:59 Dose: 40 mg Nifedipine (Procardia Xl -) [address] [facility] Last Admin: 02/08/19 09:47 Dose: Not Given Pantoprazole Sodium (Protonix -) [address] [facility] Last Admin: 02/08/19 09:47 Dose: Not Given Polyethylene Glycol (Miralax (For Daily Use) -) [address] [facility] Last Admin: 02/08/19 09:46 Dose: Not Given Propranolol HCl (Inderal -) [address] [facility] Last Admin: 02/08/19 09:46 Dose: Not Given Senna (Senna -) [address] [facility] Last Admin: 02/08/19 09:47 Dose: Not Given Valacyclovir HCl (Valtrex -) [address] [facility] Last Admin: 02/08/19 09:47 Dose: Not Given ASSESSMENT AND PLAN: 78 years old female multiple medical co-morbidities, multiple hospitalization in past few months previously admitted at [facility] with subdural hematoma from January 04 2019 to January 08, 2019, with subdural hematoma patient was discharged home patient has history of hypertension, MDS, chronic neutropenia and thrombocytopenia, type 2 diabetes mellitus, presented to ED with altered mental status, no documented fever, CT head shows no acute intracranial pathology evaluated by ID, hematology/oncology , neurology and critical care team patient patient is neutropenic and having thrombocytopenia received platelet transfusion, getting empiric treatment for neutropenic coverage, remained confused, patient primary hematology service is at [facility] ICU team is trying to transfer the patient to [facility] for further care. Problem List - Problems (1) Toxic metabolic encephalopathy Assessment/Plan: Of unknown etiology patient is neutropenic and thrombocytopenic, CT head negative evaluated by ID and neurology on empiric coverage for neutropenic fever follow-up clinically. Problems reviewed: Yes Code(s): G92 - TOXIC ENCEPHALOPATHY (2) Pancytopenia Assessment/Plan: Severe thrombocytopenia and neutropenia with anemia, due to MDS H&H is stable after transfusion, platelet count 8000 and total white blood count 500, neutropenic precautions, continue empiric coverage cefepime, vancomycin and valacyclovir IV hydration. 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 Problems reviewed: Yes Code(s): J44.9 - CHRONIC OBSTRUCTIVE PULMONARY DISEASE, UNSPECIFIED Qualifiers: COPD type: chronic bronchitis
--- NOTE | 2019-02-08 13:56 | PN ---
Progress Note (short form) - Note Progress Note: started on vanco/cefepime on 02/06 this am fever to 102 worsening neutropenia apparently got agitated and pulled out her iv replaced now calmer daughter at bedside cipro/diflucan/valtrex as outpt Vital Signs Period Temp Pulse Resp BP Sys/Peter Pulse Ox Last 24 Hr 98.5 F-102 F 73-81 14-18 148-200/54-90 100 cor-rrr llungs decreased bs at bases abd soft,nt ext no edema CBC, BMP 02/08/19 05:36 02/08/19 05:36 Microbiology 02/06/19 20:35 Blood - Peripheral Venous Blood Culture - Preliminary NO GROWTH OBTAINED AFTER 24 HOURS, INCUBATION TO CONTINUE FOR 4 DAYS. 02/06/19 20:35 Blood - Peripheral Venous Blood Culture - Preliminary NO GROWTH OBTAINED AFTER 24 HOURS, INCUBATION TO CONTINUE FOR [address] - ?sinusitis, ?neck thickening a/p neutropenic fever reculture now continue vancomycin switch to meropenem sinus/neck ct scan, mrcp- r/o choledocholithiasis with increasing CBD size on ct scan continue diflucan/valtrex for transfer to [facility]
[2019-02-08] MEDS: MEROPENEM 1 GM in DEXTROSE 5%-WATER 100 ML IVPB SCH ×2 (14:00→17:00)
--- NOTE | 2019-02-08 14:01 | PN ---
Teaching Attending Note Name of Resident: Deana Naidu ATTENDING PHYSICIAN STATEMENT I saw and evaluated the patient. I reviewed the resident's note and discussed the case with the resident. I agree with the resident's findings and plan as documented. SUBJECTIVE: Patient seen and examined in the ICU. Awake and oriented to person and place but very agitated. Pulled out her IV access and wants to leave and go to [facility]. Denies CP or SOB. Continued pancytopenia noted on labs. Intake & Output 02/05/19 02/06/19 02/07/19 02/08/19 23:59 23:59 23:59 23:59 Intake Total 1100 1431 3650 1246 Output Total 500 Balance 1100 1431 3150 1246 Weight 145 lb 148 lb 14.4 oz 147 lb 144 lb Last Vital Signs Temp Pulse Resp BP Pulse Ox 99.2 F 76 17 156/66 100 02/08/19 08:00 02/08/19 08:00 02/08/19 08:00 02/08/19 08:00 02/07/19 22:00 Active Medications Acetaminophen (Tylenol -) 650 mg PO Q6H PRN PRN Reason: PAIN LEVEL 6-10 Last Admin: 02/07/19 22:11 Dose: 650 mg Al Hydroxide/Mg Hydroxide (Mylanta Oral Suspension -) 30 ml PO Q6H PRN PRN Reason: DYSPEPSIA Last Admin: 02/07/19 22:27 Dose: 30 ml Diphenhydramine HCl (Benadryl Injection -) 12.5 mg IVPUSH Q8H PRN PRN Reason: INSOMNIA Last Admin: 02/07/19 21:41 Dose: 12.5 mg Docusate Sodium (Colace -) 100 mg PO DAILY CARLOS Last Admin: 02/08/19 09:47 Dose: Not Given Haloperidol (Haldol Injection (Fast Acting) -) 0.5 mg IM Q4H PRN PRN Reason: AGITATION Sodium Chloride (Normal Saline -) 1,000 mls @ 83 mls/hr IV ASDIR CARLOS Last Admin: 02/07/19 22:05 Dose: 83 mls/hr Vancomycin HCl (Vancomycin (Pre-Docked)) 1,000 mg in 250 mls @ 166.667 mls/hr IVPB Q12H CARLOS; Protocol Last Admin: 02/08/19 04:44 Dose: 166.667 mls/hr Metronidazole (Flagyl 500mg Premixed Ivpb -) 500 mg in 100 mls @ 100 mls/hr IVPB Q8H-IV [facility] Last Admin: 02/08/19 12:30 Dose: 100 mls/hr Meropenem 1 gm/ Dextrose 100 mls @ 200 mls/hr IVPB Q8H-IV [facility] Insulin Aspart (Novolog Vial Sliding Scale -) 1 vial SQ ACHS [facility]; Protocol Last Admin: 02/08/19 12:55 Dose: Not Given Lactulose (Cephulac (Oral Use)) 20 gm PO TID [facility] Last Admin: 02/08/19 06:00 Dose: 20 gm Lisinopril (Prinivil) 40 mg PO DAILY [facility] Last Admin: 02/07/19 17:00 Dose: 40 mg Methadone HCl (Dolophine -) 40 mg PO DAILY@0600 [facility] Last Admin: 02/08/19 05:59 Dose: 40 mg Nifedipine (Procardia Xl -) 30 mg PO DAILY [facility] Last Admin: 02/08/19 09:47 Dose: Not Given Pantoprazole Sodium (Protonix -) 40 mg PO DAILY [facility] Last Admin: 02/08/19 09:47 Dose: Not Given Polyethylene Glycol (Miralax (For Daily Use) -) 17 gm PO BID [facility] Last Admin: 02/08/19 09:46 Dose: Not Given Propranolol HCl (Inderal -) 80 mg PO BID [facility] Last Admin: 02/07/19 21:37 Dose: 80 mg Senna (Senna -) 1 tab PO BID [facility] Last Admin: 02/08/19 09:47 Dose: Not Given Valacyclovir HCl (Valtrex -) 500 mg PO DAILY [facility] Constitutional: Yes: Awake and alert, agitated, NAD Eyes: Yes: EOM Intact, Other (pale conjuctiva). No: Sclera Icterus HENT: Yes: Other (dry mucus mebrance) Cardiovascular: Yes: Regular Rate and Rhythm, S1, S2 Respiratory: Yes: Diminished at the bases Gastrointestinal: Yes: Normal Bowel Sounds, Abdomen, Obese, Other ( Infraumbilical healed vertical scar) Edema: No Peripheral Pulses WNL: Yes Integumentary: No: Bruising, Petechiae, Rash Neurological: Yes: Awake and alert, agitated. No: Aphasia, Dysarthria, Facial Droop, Tremors, Weakness ...Motor Strength: WNL Psychiatric: Yes: Agitated, mildly confused Labs: Laboratory Results - last 24 hr 02/07/19 02/07/19 02/07/19 13:57 17:53 18:30 WBC RBC Hgb Hct MCV MCH MCHC RDW Plt Count MPV Absolute Neuts (auto) Neutrophils % Neutrophils % (Manual) Band Neutrophils % Lymphocytes % Lymphocytes % (Manual) Monocytes % Monocytes % (Manual) Eosinophils % Eosinophils % (Manual) Basophils % Basophils % (Manual) Myelocytes % (Man) Promyelocytes % (Man) Blast Cells % (Manual) Nucleated RBC % Metamyelocytes Hypochromia Platelet Estimate Platelet Comment Polychromasia Poikilocytosis Anisocytosis Microcytosis Macrocytosis Sodium Potassium Chloride Carbon Dioxide Anion Gap BUN Creatinine Est GFR (CKD-EPI)AfAm Est GFR (CKD-EPI)NonAf POC Glucometer 139 Random Glucose Calcium Phosphorus Magnesium Total Bilirubin AST ALT Alkaline Phosphatase Ammonia 38.20 H Total Protein Albumin Vitamin B12 TSH Urine Color Yellow Urine Appearance Clear Urine pH 7.5 D Ur Specific Fallon 1.012 Urine Protein 2+ H Urine Glucose (UA) Negative Urine Ketones Negative Urine Blood Negative Urine Nitrite Negative Urine Bilirubin Negative Urine Urobilinogen 0.2 Ur Leukocyte Esterase Negative Urine WBC (Auto) 0 Urine RBC (Auto) 3 Urine Casts (Auto) 0 U Epithel Cells (Auto) 0.6 Urine Bacteria (Auto) 0.5 RPR Titer 02/07/19 02/08/19 02/08/19 22:38 05:35 05:36 WBC RBC Hgb Hct MCV MCH MCHC RDW Plt Count MPV Absolute Neuts (auto) Neutrophils % Neutrophils % (Manual) Band Neutrophils % Lymphocytes % Lymphocytes % (Manual) Monocytes % Monocytes % (Manual) Eosinophils % Eosinophils % (Manual) Basophils % Basophils % (Manual) Myelocytes % (Man) Promyelocytes % (Man) Blast Cells % (Manual) Nucleated RBC % Metamyelocytes Hypochromia Platelet Estimate Platelet Comment Polychromasia Poikilocytosis Anisocytosis Microcytosis Macrocytosis Sodium 140 Potassium 3.9 Chloride 108 H Carbon Dioxide 25 Anion Gap 7 L BUN 14.0 Creatinine 0.9 Est GFR (CKD-EPI)AfAm 71.48 Est GFR (CKD-EPI)NonAf 61.67 POC Glucometer 92 127 Random Glucose 133 H Calcium 8.3 L Phosphorus 2.9 Magnesium 1.6 L Total Bilirubin 1.3 H AST 14 L ALT 12 L Alkaline Phosphatase 106 Ammonia Total Protein 7.2 Albumin 3.4 Vitamin B12 317 TSH 1.02 Urine Color Urine Appearance Urine pH Ur Specific Fall[place] Urine Protein Urine Glucose (UA) Urine Ketones Urine Blood Urine Nitrite Urine Bilirubin Urine Urobilinogen Ur Leukocyte Esterase Urine WBC (Auto) Urine RBC (Auto) Urine Casts (Auto) U Epithel Cells (Auto) Urine Bacteria (Auto) RPR Titer 02/08/19 02/08/19 02/08/19 05:36 05:36 12:54 WBC 0.5 L* RBC 2.94 L Hgb 9.4 L Hct 27.4 L MCV 93.3 MCH 31.9 MCHC 34.1 RDW 15.4 Plt Count 8 L* MPV 8.8 Absolute Neuts (auto) 0.2 L Neutrophils % 36.1 L D Neutrophils % (Manual) 24.3 L Band Neutrophils % 0.0 Lymphocytes % 54.5 H D Lymphocytes % (Manual) 65.4 H D Monocytes % 6.2 D Monocytes % (Manual) 4 D Eosinophils % 1.7 D Eosinophils % (Manual) 0.9 D Basophils % 1.5 D Basophils % (Manual) 0.9 D Myelocytes % (Man) 0 D Promyelocytes % (Man) 0 Blast Cells % (Manual) 0 Nucleated RBC % 0 Metamyelocytes 0 Hypochromia 0 Platelet Estimate Decreased Platelet Comment Present Polychromasia 0 Poikilocytosis 0 Anisocytosis 0 Microcytosis 0 Macrocytosis 0 Sodium Potassium Chloride Carbon Dioxide Anion Gap BUN Creatinine Est GFR (CKD-EPI)AfAm Est GFR (CKD-EPI)NonAf POC Glucometer 120 Random Glucose Calcium Phosphorus Magnesium Total Bilirubin AST ALT Alkaline Phosphatase Ammonia Total Protein Albumin Vitamin B12 TSH Urine Color Urine Appearance Urine pH Ur Specific [place] Urine Protein Urine Glucose (UA) Urine Ketones Urine Blood Urine Nitrite Urine Bilirubin Urine Urobilinogen Ur Leukocyte Esterase Urine WBC (Auto) Urine RBC (Auto) Urine Casts (Auto) U Epithel Cells (Auto) Urine Bacteria (Auto) RPR Titer Nonreactive Assessment/Plan: Resolving AMS: Suspected due to B/L cerebral dysfunction / Alzheimer's Disease. [employer] Bleed ruled out by Head CT R/O Sepsis: Low clinical suspicion Severe MDS Pancytopenia COPD with prior intubation History of SARAH HTN DM Recent SDH Neutropenic fever R/O Choledocholithiasis with increasing CBD size on CT imaging CT scan of sinus/neck MRCP Transfusional support per Heme O2 as needed ABX per ID Follow Neuro exam BD TX PRN Due to patient request and worsening pancytopenia, arrangements being made for transfer to [facility] Dr Arreola
--- NOTE | 2019-02-08 14:32 | DS ---
Physical Exam: SUBJECTIVE: Patient seen and examined at bedside. For transfer to [facility]. Has been accepted by Dr. Gutierrez (heme-onc service). OBJECTIVE: Vital Signs Period Temp Pulse Resp BP Sys/Peter Pulse Ox Last 24 Hr 98.5 F-102 F 73-81 14-18 148-200/54-90 100 PHYSICAL EXAM GENERAL: The patient is awake, alert, and fully oriented HEAD: Normal with no signs of trauma. EYES: PERRL, extraocular movements intact, sclera anicteric, conjunctiva clear. No ptosis. ENT: Ears normal, nares patent, oropharynx clear without exudates, MMM NECK: Trachea midline, full range of motion, supple. LUNGS: CTAB HEART: Regular rate and rhythm, S1, S2 without murmur, rub or gallop. ABDOMEN: Soft, BS+ EXTREMITIES: 2+ pulses, warm, well-perfused. NEUROLOGICAL: Cranial nerves II through XII grossly intact. Normal speech PSYCH: Normal mood, normal affect. SKIN: Warm, dry, normal turgor, no rashes or lesions noted LABS Laboratory Tests 02/05/19 02/06/19 02/06/19 13:59 06:40 17:00 WBC 1.3 L* 1.2 L* 0.8 L* Hgb 7.6 L 7.7 L 7.1 L Hct 22.2 L 22.3 L 21.1 L RDW 17.9 H 18.2 H Plt Count 15 L* D 11 L* D 9 L* Absolute Neuts (auto) 0.6 L 0.1 L 0.1 L Neutrophils % 7.8 L D 9.9 L D Lymphocytes % (Manual) 89.4 H* 89.3 H* Monocytes % 2.0 L 3.2 L Monocytes % (Manual) 4 D 2 L Platelet Estimate 02/06/19 02/07/19 02/08/19 20:32 09:38 05:36 WBC 0.9 L* 0.9 L* 0.5 L* Hgb 7.1 L 9.3 L 9.4 L Hct 20.6 L 26.6 L D 27.4 L RDW 18.3 H 15.3 D 15.4 Plt Count 10 L* 9 L* 8 L* Absolute Neuts (auto) 0.1 L 0.1 L 0.2 L Neutrophils % 9.4 L 7.5 L D 36.1 L D Lymphocytes % (Manual) 84.9 H* 65.4 H D Monocytes % 3.1 L 3.2 L 6.2 D Monocytes % (Manual) 0 L D 4 D Platelet Estimate Decreased Decreased 02/05/19 14:20 VBG pH 7.33 POC VBG pCO2 53.3 H POC VBG pO2 < 49 H VBG HCO3 27.5 VBG O2 Sat (Arturo) 81.7 H VBG Base Excess 1.9 02/05/19 02/05/19 02/06/19 13:59 13:59 06:40 Sodium 141 142 Potassium 4.6 4.3 Chloride 109 H 110 H Carbon Dioxide 27 28 Anion Gap 6 L 5 L BUN 26.1 H 19.4 H Creatinine 1.0 0.9 Est GFR (CKD-EPI)AfAm Est GFR (CKD-EPI)NonAf Random Glucose 108 H 118 H Calcium 8.5 8.4 L Phosphorus 3.0 Magnesium 2.2 Total Bilirubin 0.7 0.9 AST 12 L 14 L ALT 11 L Alkaline Phosphatase 112 Ammonia LD Total Troponin I < 0.02 Total Protein 7.3 Albumin 3.5 Lipase 57 L Vitamin B12 TSH 02/06/19 02/07/19 02/07/19 20:35 06:00 13:57 Sodium 140 Potassium 3.7 Chloride 107 Carbon Dioxide 28 Anion Gap 5 L BUN 13.4 Creatinine 0.7 Est GFR (CKD-EPI)AfAm Est GFR (CKD-EPI)NonAf Random Glucose Calcium Phosphorus Magnesium Total Bilirubin 1.8 H AST 12 L ALT 11 L Alkaline Phosphatase Ammonia 38.20 H LD Total 378 H Troponin I < 0.02 < 0.02 Total Protein Albumin Lipase Vitamin B12 TSH 02/08/19 05:36 Sodium 140 Potassium 3.9 Chloride 108 H Carbon Dioxide 25 Anion Gap 7 L BUN 14.0 Creatinine 0.9 Est GFR (CKD-EPI)AfAm 71.48 Est GFR (CKD-EPI)NonAf 61.67 Random Glucose 133 H Calcium Phosphorus Magnesium Total Bilirubin AST ALT Alkaline Phosphatase Ammonia LD Total Troponin I Total Protein 7.2 Albumin 3.4 Lipase Vitamin B12 317 TSH 1.02 02/05/19 02/08/19 15:57 05:36 Urine Protein 1+ H Urine Glucose (UA) Negative Urine Ketones Negative Urine Blood Negative Urine Nitrite Negative Urine Bilirubin Negative Urine Urobilinogen 0.2 Ur Leukocyte Esterase Negative Urine WBC (Auto) 0 Urine RBC (Auto) 1 RPR Titer Nonreactive Microbiology 02/06/19 20:35 Blood - Peripheral Venous Blood Culture - Preliminary NO GROWTH OBTAINED AFTER 24 HOURS, INCUBATION TO CONTINUE FOR 4 DAYS. 02/06/19 20:35 Blood - Peripheral Venous Blood Culture - Preliminary NO GROWTH OBTAINED AFTER 24 HOURS, INCUBATION TO CONTINUE FOR 4 DAYS. Imaging 02/06/19: CTH: no ct evidence of intracranial path. note again of mild to moderate mucosal thickening in the left sphenoid sinus consistent with sinusitis which may be acute. not present prior 01/15/19. equivocal prevertebral soft tissue thickening at the level of the partially imaged upper neck soft tissues. CT evaluation may be considered. 02/05/19: CTH: no ct evidence of pathology. mild periventricular chronic microvascular ischemic changes. intracranial stuctures demonstrate no definite interval change compared to prior CT. interval development of paranasal sinus disease. 02/05/19: CXR: weak inspiration, prominent mediastinum, with increased central markings. little change since previous 01/15/2019 02/05/19: CTAP: no ct evidence of acute diverticulitis or alternate pathology. interval development since 11/2018 of moderate gall bladder overdistension. as on prior exam, CBD is dilated to 1.2cm diameter. the degree of CBD dilation may be slightly incerased since previous exam. minimal to mild dilation of main pancreatic duct noted without obvious interval change. no gross pancreatic mass lesion is identified. follow up mri/mrcp may be considered with comparison to MRI exam of 11/20/18. 02/05/19: EKG: NSR, rate 64bpm, qtc 400ms. HOSPITAL COURSE: Date of Admission:02/05/19 Date of Discharge: 02/08/19 78F PMH COPD (intubated in past), SARAH, HTN, DM, severe MDS(follows at [facility] - Dr. Jarrett and Daryl), recent hx of Subdural hematoma, who presents for LE weakness with pancytopenia. Patient was referred to ICU for possible ICH in setting of low platelets and hx of subdural hematoma. Head CT to date has been negative. Neuro: -Head CT shows no bleed -also with moderate b/l cerebral dysfunction, likely 2/2 alzheimer's -c/w low dose haldol, quetiapine for agitation -donepezil 5mg for cognition -RLS ID -w/neutropenic fever -Cefepime and vancomycin given -will c/w vanc, meropenem -c/w diflucan, valtrex -Possible gallbladder infection, MRCP and Abdomen US ordered. -Will do CT scan of sinus/neck as with possible ?sinusitis -ID consulted, appreciate recs Heme/Onc -Hx of severe MDS -Persistent pancytopenia s/p azacytidine -Refaractory thrombocytopenia- given 1 unit of platelets, platelet count still decreasing -2 units of PRBC given, Hgb 9.3 post transfusion -1 Unit of monodonor irradiate platelets given -Heme/onc to determine if will give neupogen -Dr. Rachel following, appreciate recs -to follow with at [facility] Pulm -Hx of COPD, prior intubations, SARAH -Nasal Cannula 2LPM -SOB likely due to anemia Cardio -Chest pain in setting of symptomatic anemia resolved -EKG showed no acute changes -HD stable -Troponin negative GI -CBD 1.2 cm dilation, was 1 cm in November -F/u MRCP; r/o choledocholithiasis given increasing CBD size on CT scan -On bowel regimen -History of Hep C. Ammonia level 38. -Lactulose TID Endo -Hx of DM -ISS Dispo: Pt being transferred to [facility]. Dr. Moreira (heme/onc) at [facility] is aware and has accepted patient to [facility]. Minutes to complete discharge: 45 Discharge Summary Problems reviewed: Yes Reason For Visit: ACQUIRED DIL OF COMMON BILE DUCT Current Active Problems Acute respiratory failure with hypoxia and hypercapnia (Acute) COPD (chronic obstructive pulmonary disease) (Acute) Constipation (Acute) Dilated cbd, acquired (Acute) Leg weakness, bilateral (Acute) Pancytopenia (Acute) Toxic metabolic encephalopathy (Acute) Condition: Stable - Instructions Referrals: Reilly Arora [Primary Care Provider] - - Home Medications Comprehensive Discharge Medication List: Ambulatory Orders Nifedipine ER [Procardia XL -] 30 mg PO DAILY 11/06/17 Propranolol HCl [Propranolol HCl ER] 80 mg PO BID 11/06/17 Polyethylene Glycol 3350 [Miralax 119 gm Btl -] 17 gm PO DAILY #1 bottle Acetaminophen 650 mg PO PRN 01/15/19 Lisinopril [Prinivil -] 40 mg PO DAILY 01/15/19 Methadone HCl 5 mg PO Q6H PRN 01/15/19 Naloxone HCl 0.4 mg IJ PRN 01/15/19 Nicotine Patch [Nicoderm Patch -] 1 patch TD DAILY 01/15/19 Celecoxib [Celebrex] 100 mg PO BID 02/05/19 Gabapentin 300 mg PO TID 02/05/19 Methylcellulose 500 gm MC DAILY 02/05/19 This patient is new to me today: Yes Date on this admission: 02/08/19 Emergency Visit: Yes ED Registration Date: 02/05/19 Care time: The patient presented to the Emergency Department on the above date and was hospitalized for further evaluation of their emergent condition. Critical Care patient: Yes Total Critical Care Time (in minutes): 46 Critical Care Statement: The care of this patient involved high complexity decision making to prevent further life threatening deterioration of the patient 's condition and/or to evaluate & treat vital organ system(s) failure or risk of failure. - Discharge Referral Referred to [facility] No
--- NOTE | 2019-02-08 14:44 | PN ---
Physical Exam: SUBJECTIVE: Patient seen and examined Pt agitated this a.m and somewhat combative pulled out her IV lines requesting to leave the hospital and be taken to [facility] she is followed by Heme/Onc at [facility] (Dr. Moreira) OBJECTIVE: Vital Signs Period Temp Pulse Resp BP Sys/Peter Pulse Ox Last 24 Hr 98.5 F-102 F 73-81 14-18 148-200/54-90 100 GENERAL: The patient is awake, alert, and fully oriented HEAD: Normal with no signs of trauma. EYES: PERRL, extraocular movements intact, sclera anicteric, conjunctiva clear. No ptosis. ENT: Ears normal, nares patent, oropharynx clear without exudates, moist mucous membranes. NECK: Trachea midline, full range of motion, supple. LUNGS: CTAB HEART: Regular rate and rhythm, S1, S2 without murmur, rub or gallop. ABDOMEN: Soft, BS+ EXTREMITIES: 2+ pulses, warm, well-perfused. NEUROLOGICAL: Cranial nerves II through XII grossly intact. Normal speech, gait not observed. PSYCH: Normal mood, normal affect. SKIN: Warm, dry, normal turgor, no rashes or lesions noted Laboratory Results - last 24 hr 02/07/19 02/07/19 02/07/19 13:57 17:53 18:30 WBC RBC Hgb Hct MCV MCH MCHC RDW Plt Count MPV Absolute Neuts (auto) Neutrophils % Neutrophils % (Manual) Band Neutrophils % Lymphocytes % Lymphocytes % (Manual) Monocytes % Monocytes % (Manual) Eosinophils % Eosinophils % (Manual) Basophils % Basophils % (Manual) Myelocytes % (Man) Promyelocytes % (Man) Blast Cells % (Manual) Nucleated RBC % Metamyelocytes Hypochromia Platelet Estimate Platelet Comment Polychromasia Poikilocytosis Anisocytosis Microcytosis Macrocytosis Sodium Potassium Chloride Carbon Dioxide Anion Gap BUN Creatinine Est GFR (CKD-EPI)AfAm Est GFR (CKD-EPI)NonAf POC Glucometer 139 Random Glucose Calcium Phosphorus Magnesium Total Bilirubin AST ALT Alkaline Phosphatase Ammonia 38.20 H Total Protein Albumin Vitamin B12 TSH Urine Color Yellow Urine Appearance Clear Urine pH 7.5 D Ur Specific [place] 1.012 Urine Protein 2+ H Urine Glucose (UA) Negative Urine Ketones Negative Urine Blood Negative Urine Nitrite Negative Urine Bilirubin Negative Urine Urobilinogen 0.2 Ur Leukocyte Esterase Negative Urine WBC (Auto) 0 Urine RBC (Auto) 3 Urine Casts (Auto) 0 U Epithel Cells (Auto) 0.6 Urine Bacteria (Auto) 0.5 RPR Titer 02/07/19 02/08/19 02/08/19 22:38 05:35 05:36 WBC RBC Hgb Hct MCV MCH MCHC RDW Plt Count MPV Absolute Neuts (auto) Neutrophils % Neutrophils % (Manual) Band Neutrophils % Lymphocytes % Lymphocytes % (Manual) Monocytes % Monocytes % (Manual) Eosinophils % Eosinophils % (Manual) Basophils % Basophils % (Manual) Myelocytes % (Man) Promyelocytes % (Man) Blast Cells % (Manual) Nucleated RBC % Metamyelocytes Hypochromia Platelet Estimate Platelet Comment Polychromasia Poikilocytosis Anisocytosis Microcytosis Macrocytosis Sodium 140 Potassium 3.9 Chloride 108 H Carbon Dioxide 25 Anion Gap 7 L BUN 14.0 Creatinine 0.9 Est GFR (CKD-EPI)AfAm 71.48 Est GFR (CKD-EPI)NonAf 61.67 POC Glucometer 92 127 Random Glucose 133 H Calcium 8.3 L Phosphorus 2.9 Magnesium 1.6 L Total Bilirubin 1.3 H AST 14 L ALT 12 L Alkaline Phosphatase 106 Ammonia Total Protein 7.2 Albumin 3.4 Vitamin B12 317 TSH 1.02 Urine Color Urine Appearance Urine pH Ur Specific [place] Urine Protein Urine Glucose (UA) Urine Ketones Urine Blood Urine Nitrite Urine Bilirubin Urine Urobilinogen Ur Leukocyte Esterase Urine WBC (Auto) Urine RBC (Auto) Urine Casts (Auto) U Epithel Cells (Auto) Urine Bacteria (Auto) RPR Titer 02/08/19 02/08/19 02/08/19 05:36 05:36 12:54 WBC 0.5 L* RBC 2.94 L Hgb 9.4 L Hct 27.4 L MCV 93.3 MCH 31.9 MCHC 34.1 RDW 15.4 Plt Count 8 L* MPV 8.8 Absolute Neuts (auto) 0.2 L Neutrophils % 36.1 L D Neutrophils % (Manual) 24.3 L Band Neutrophils % 0.0 Lymphocytes % 54.5 H D Lymphocytes % (Manual) 65.4 H D Monocytes % 6.2 D Monocytes % (Manual) 4 D Eosinophils % 1.7 D Eosinophils % (Manual) 0.9 D Basophils % 1.5 D Basophils % (Manual) 0.9 D Myelocytes % (Man) 0 D Promyelocytes % (Man) 0 Blast Cells % (Manual) 0 Nucleated RBC % 0 Metamyelocytes 0 Hypochromia 0 Platelet Estimate Decreased Platelet Comment Present Polychromasia 0 Poikilocytosis 0 Anisocytosis 0 Microcytosis 0 Macrocytosis 0 Sodium Potassium Chloride Carbon Dioxide Anion Gap BUN Creatinine Est GFR (CKD-EPI)AfAm Est GFR (CKD-EPI)NonAf POC Glucometer 120 Random Glucose Calcium Phosphorus Magnesium Total Bilirubin AST ALT Alkaline Phosphatase Ammonia Total Protein Albumin Vitamin B12 TSH Urine Color Urine Appearance Urine pH Ur Specific [place] Urine Protein Urine Glucose (UA) Urine Ketones Urine Blood Urine Nitrite Urine Bilirubin Urine Urobilinogen Ur Leukocyte Esterase Urine WBC (Auto) Urine RBC (Auto) Urine Casts (Auto) U Epithel Cells (Auto) Urine Bacteria (Auto) RPR Titer Nonreactive Active Medications Generic Name Dose Route Start Last Admin Trade Name Freq PRN Reason Stop Dose Admin Acetaminophen 650 mg 02/06/19 20:20 02/07/19 22:11 Tylenol - PO 650 mg Q6H PRN Administration PAIN LEVEL 6-10 Al Hydroxide/Mg Hydroxide 30 ml 02/07/19 22:16 02/07/19 22:27 Mylanta Oral Suspension - PO 30 ml Q6H PRN Administration DYSPEPSIA Diphenhydramine HCl 12.5 mg 02/07/19 12:53 02/08/19 08:30 Benadryl Injection - IVPUSH 12.5 mg Q8H PRN Administration INSOMNIA Docusate Sodium 100 mg 02/06/19 10:00 02/08/19 09:47 Colace - PO Not Given DAILY CARLOS Haloperidol 0.5 mg 02/07/19 13:01 02/08/19 08:30 Haldol Injection (Fast Acting) - IM 0.5 mg Q4H PRN Administration AGITATION Sodium Chloride 1,000 mls @ 83 mls/hr 02/05/19 21:45 02/07/19 22:05 Normal Saline - IV 83 mls/hr ASDIR CARLOS Administration Vancomycin HCl 1,000 mg in 250 mls @ 166.667 mls/hr 02/07/19 17:00 02/08/19 04:44 Vancomycin (Pre-Docked) IVPB 166.667 mls/hr Q12H CARLOS Administration Protocol Metronidazole 500 mg in 100 mls @ 100 mls/hr 02/08/19 07:30 02/08/19 12:30 Flagyl 500mg Premixed Ivpb - IVPB 100 mls/hr Q8H-IV CARLOS Administration Meropenem 1 gm/ Dextrose 100 mls @ 200 mls/hr 02/08/19 14:00 IVPB Q8H-IV CARLOS Insulin Aspart 1 vial 02/05/19 22:00 02/08/19 12:55 Novolog Vial Sliding Scale - SQ Not Given ACHS [facility] Protocol Lactulose 20 gm 02/07/19 22:00 02/08/19 06:00 Cephulac (Oral Use) PO 20 gm TID CARLOS Administration Lisinopril 40 mg 02/07/19 15:57 02/07/19 17:00 Prinivil PO 40 mg DAILY CARLOS Administration Methadone HCl 40 mg 02/07/19 10:15 02/08/19 05:59 Dolophine - PO 40 mg DAILY@0600 CARLOS Administration Nifedipine 30 mg 02/08/19 10:00 02/08/19 09:47 Procardia Xl - PO Not Given DAILY [facility] Pantoprazole Sodium 40 mg 02/07/19 10:00 02/08/19 09:47 Protonix - PO Not Given DAILY CARLOS Polyethylene Glycol 17 gm 02/06/19 10:00 02/08/19 09:46 Miralax (For Daily Use) - PO Not Given BID [facility] Propranolol HCl 80 mg 02/07/19 22:00 02/07/19 21:37 Inderal - PO 80 mg BID CARLOS Administration Senna 1 tab 02/06/19 10:00 02/08/19 09:47 Senna - PO Not Given BID [facility] Valacyclovir HCl 500 mg 02/08/19 10:00 Valtrex - PO DAILY [facility] ASSESSMENT/PLAN: 78F PMH COPD (intubated in past), SARAH, HTN, DM, severe MDS(follows at [facility] - Dr. Jarrett and Daryl), recent hx of Subdural hematoma, who presents for LE weakness with pancytopenia. Patient was referred to ICU for possible ICH in stting of low platelets and hx of subdural hematoma. Head CT to date have been negative. Neuro: -Head CT shows no bleeds ID -Patient is neutropenic -Possible sepsis -F/U UA -Blood culture pending -Cefepime and vancomycin given -Possible gallbladder infection, MRCP and Abdomen US ordered. F/U -ID consulted, appreciate recs Heme/Onc -Hx of severe MDS -Persistent pancytopenia s/p azacytidine -Refaractory thrombocytopenia- given 1 unit of platelets, platelet count still decreasing -2 units of PRBC given, Hgb 9.3 post transfusion -1 Unit of monodonor irradiate platelets given -In AM will contact blood bank for ABO match platelets. -Dr. Rachel following, appreciate recs Pulm -Hx of COPD, prior intubations, SARAH -Nasal Cannula 2LPM -SOB likely due to anemia Cardio -Chest pain in setting of symptomatic anemia resolved -EKG showed no acute changes -HD stable -Troponin negative GI -CBD 1.2 cm dilation, was 1 cm in November -Continue to monitor for GI symptoms -On bowel regimen -History of Hep C. Ammonia level 38. -Lactulose TID Endo -Hx of DM -ISS Dispo: Pt being transferred to [facility]. Dr. Moreira (heme/onc) at [facility] is aware and has accepted patient to [facility]. Visit type - Emergency Visit Emergency Visit: Yes ED Registration Date: 02/05/19 Care time: The patient presented to the Emergency Department on the above date and was hospitalized for further evaluation of their emergent condition. - New Patient This patient is new to me today: No - Critical Care Critical Care patient: No - Discharge Referral Referred to [facility] No ATTENDING PHYSICIAN STATEMENT I saw and evaluated the patient. I reviewed the resident's note and discussed the case with the resident. I agree with the resident's findings and plan as documented. SUBJECTIVE: OBJECTIVE: ASSESSMENT AND PLAN:
--- NOTE | 2019-02-08 15:25 | PN ---
Progress Note (short form) - Note Progress Note: patient is medically stable to be downgraded to a regular medical/surgical floor. Patient no longer requires ICU level of care.
[2019-02-08] MEDS ORDERED: DEXTROSE 5%-WATER 100 ML IVPB ONE ×2 (15:34→17:05)
[2019-02-08] MEDS ORDERED: MEROPENEM 1 GM VIAL (RESTRICTED TO ID) IVPB ONE ×2 (15:34→17:05)
[2019-02-08 18:01] VITALS: PULSE 73; TEMP 99
[2019-02-08 18:04] VITALS: BP 170/62
== END 2019-02-08 18:13 | disposition short-term general hospital (02) | DRG 811 ==
LOC: JER 12:10 → JERBED 19:20 → J8W 02-06 00:03 → JICU 02-06 21:25
PROVIDERS: ADMIT Internal Medicine; ATTEND Internal Medicine
PROC: 30233R1 Transfusion of Nonautologous Platelets into Peripheral Vein, Percutaneous Approach (ICD-10-PCS; principal; 2019-02-07)
PROC: 30233N1 Transfusion of Nonautologous Red Blood Cells into Peripheral Vein, Percutaneous Approach (ICD-10-PCS; 2019-02-07)
DX: D46.9 Myelodysplastic syndrome, unspecified (principal); J96.01 Acute respiratory failure with hypoxia; J96.02 Acute respiratory failure with hypercapnia; G93.41 Metabolic encephalopathy; A41.89 Other specified sepsis; F11.20 Opioid dependence, uncomplicated; D61.818 Other pancytopenia; J44.9 Chronic obstructive pulmonary disease, unspecified; E11.9 Type 2 diabetes mellitus without complications; I10 Essential (primary) hypertension; E78.00 Pure hypercholesterolemia, unspecified; K59.00 Constipation, unspecified; D69.6 Thrombocytopenia, unspecified; K82.8 Other specified diseases of gallbladder; F03.90 Unspecified dementia, unspecified severity, without behavioral disturbance, psychotic disturbance, mood disturbance, and anxiety; K76.9 Liver disease, unspecified; Z86.19 Personal history of other infectious and parasitic diseases; G47.33 Obstructive sleep apnea (adult) (pediatric); M54.5 Low back pain; M81.0 Age-related osteoporosis without current pathological fracture; R07.89 Other chest pain; G30.9 Alzheimer's disease, unspecified; F02.80 Dementia in other diseases classified elsewhere, unspecified severity, without behavioral disturbance, psychotic disturbance, mood disturbance, and anxiety; D64.9 Anemia, unspecified; Z86.73 Personal history of transient ischemic attack (TIA), and cerebral infarction without residual deficits
CPT/HCPCS: 36415; 36430; 36511; 70450-TC; 71045-TC-FY; 74177-TC; 80053; 81003; 82140; 82308; 82550; 82607; 82803; 82962; 83605; 83615; 83690; 83735; 84100; 84443; 84484; 85025; 85044; 86593; 86850; 86880; 86900; 86901; 86922; 87040; 87086; 93005; 93010; 97116-GP; 97161-GP; 99284-25; J0131; J7030; P9034; P9038; P9058; Q9967